=== PATIENT | female | born 1930 | race Caucasian/White ===

== ENCOUNTER 2020-01-30 03:20 | Inpatient (IN) | payer MEDICARE, OTHER ==
[~2020-01-30] VITALS: Ht 162.6 cm; Wt 49.4 kg
[2020-01-30] VITALS (9 sets, daily range): BP systolic 144–184; BP diastolic 50–100
--- NOTE | 2020-01-30 03:34 | NUR ---
ED Nurse Note: pt presents to ED from [facility] for SOB and cough. per EMS, the SOB began today, pt was put on 2L O2 by paramedics, she is not regularly O2 dependent at facility. EMS also report a productive cough and vomiting. pt was recenly hospitalized for pneumonia. Pt is here for covid rule out.
--- NOTE | 2020-01-30 03:36 | NUR ---
ED Nurse Note: pt satting at 92% on RA, placed back onto 2L O2 Nasal cannula, satting at 99%. pt has audible wheezes
--- NOTE | 2020-01-30 03:44 | Emergency Room Report ---
History of Present Illness General Chief Complaint: Upper Respiratory Illness Source: Medical Record, EMS Present Illness HPI This is an 89-year-old female with history of CVA, dementia, high blood pressure and multiple other medical problems. She presents with chief complaint of fever and cough. She come from a custodial. Onset today. Fever is low-grade. Cough is nonproductive nature. Decreased appetite. No nausea no vomiting. Denies any other complaint. History limited because of her nonverbal state Allergies: Coded Allergies: No Known Allergies (Unverified , 01/30/20) COVID-19 Screening Contact w/high risk pt: Yes Recent Travel to affected area: No Experienced COVID-19 symptoms?: Yes COVID-19 symptoms experienced: Cough Patient History Past Medical History: see triage record, old chart reviewed, HTN, CVA/TIA, dementia Review of Systems Constitutional: Reports: fever, weakness Respiratory: Reports: cough All Other Systems: limited - Patient is nonverbal Physical Exam Vital Signs Date Time Temp Pulse Resp B/P (MAP) Pulse Ox O2 Delivery O2 Flow Rate FiO2 01/30/20 03:23 99.5 86 26 152/100 (117) 97 Room Air Vitals with high blood pressure Sp02 EP Interpretation: reviewed, normal General Appearance: no apparent distress, alert, Chronically Ill Head: normocephalic, atraumatic Eyes: bilateral eye PERRL, bilateral eye EOMI ENT: hearing grossly normal, normal pharynx Neck: full range of motion, supple, no meningismus Respiratory: chest non-tender, lungs clear, normal breath sounds Cardiovascular #1: regular rate, rhythm, no murmur Gastrointestinal: normal bowel sounds, non tender, no mass, no organomegaly, no bruit, non-distended, other - G-tube Musculoskeletal: back normal, normal range of motion Psychiatric: mood/affect normal Procedures Critical Care Time Critical Care Time Critical care is mandated in this patient who presented with suspected COVID pneumonia. Patient require my urgent intervention to attenuate the risks of metabolic collapse which may lead to cardiovascular collapse and . Critical care time is 35 minutes excluding any reportable procedure. Critical care time included evaluation, multiple reevaluation, looking at old charts, interpreting laboratory and diagnostic data, discussing case with patient and family and consultants, and charting. Medical Decision Making Diagnostic Impression: Primary Impression: Suspected 2019 novel coronavirus infection Additional Impressions: HCAP (healthcare-associated pneumonia) SARWAT (acute kidney injury) Hyperglycemia due to type 2 diabetes mellitus Qualified Codes: E11.65 - Type 2 diabetes mellitus with hyperglycemia; Z79.4 - long term (current) use of insulin UTI (urinary tract infection) Qualified Codes: N30.00 - Acute cystitis without hematuria ER Course Patient presents with fever and cough. Chest x-ray concerning for interstitial infiltrates. She is from a custodial and in the midst of COVID pandemic, she suspect to have covered pneumonia. Antibiotics given. I started her on hydroxychloroquine also. No evidence of prolonged QT interval on the EKG. Antibiotics also given. Will admit for further work-up. I discussed the case with Dr. Zeng for admission. EKG Diagnostic Results Rate: normal Rhythm: NSR ST Segments: no acute changes Rhythm Strip Diag. Results EP Interpretation: yes Rate: 62 Rhythm: NSR, no PVC's, no ectopy Chest X-Ray Diagnostic Results Chest X-Ray Diagnostic Results : Chest X-Ray Ordered: Yes # of Views/Limited/Complete: 1 View Indication: Shortness of Breath EP Interpretation: Yes Interpretation: no effusion, no pneumothorax, other - Right lower lobe into tissue infiltrates Impression: Other - Interstitial infiltrate Electronically Signed by: Andrzej Stone MD Last Vital Signs Date Time Temp Pulse Resp B/P (MAP) Pulse Ox O2 Delivery O2 Flow Rate FiO2 01/30/20 03:36 99.0 89 26 152/100 97 Room Air Status: improved Disposition: ADMITTED INPATIENT Condition: Serious Andrzej Stone MD January 30, 2020 03:44
[2020-01-30] MEDS ORDERED: Acetaminophen 500mg (ES) tab ORAL ONE (03:45)
[2020-01-30] MEDS ORDERED: ELIQUIS2.5 MG GT (03:46)
[2020-01-30] MEDS ORDERED: LISINOPRIL20 MG GT (03:46)
[2020-01-30] MEDS ORDERED: NORCO 5-325 TA1 EAC1 GT (03:46)
[2020-01-30] MEDS ORDERED: PROTONIX40 MG GT (03:46)
[2020-01-30] MEDS ORDERED: KAPSPARGO SPRI100 MG GT (03:46)
[2020-01-30] MEDS ORDERED: TYLENOL EXTRA500 MG GT (03:46)
[2020-01-30] MEDS ORDERED: LEVEMIR100 UNIT/1 SUBQ (03:46)
[2020-01-30] MEDS ORDERED: OMEPRAZOLE20 M3 GT (03:46)
[2020-01-30] MEDS ORDERED: JANUVIA25 MG GT (03:46)
[2020-01-30] MEDS ORDERED: DIGOXIN0.125 MG/2 GT (03:46)
[2020-01-30] MEDS ORDERED: GLIMEPIRIDE1 MG GT (03:46)
[2020-01-30] MEDS ORDERED: AMIODARONE HCL400 M1 GT (03:46)
--- NOTE | 2020-01-30 03:50 | NUR ---
ED Nurse Note: pt has G-tube noted and some redness to coccyx/sacral region. pt was cleaned, and dried, urine sample obtained via straight cath per ERMD verbal order. pt is non-verbal but awake and alert, can communicate via groans and nods. pt is noted to be hypertensive at 174/80
[2020-01-30 04:27] LABS: BILIRUBIN, URINE NEGATIVE (NEGATIVE); COLOR,URINE PALE YELLOW; GLUCOSE, URINE (UA) 4+ (NEGATIVE); KETONES,URINE NEGATIVE (NEGATIVE); LEUKOCYTE ESTERASE ,URINE 3+ (NEGATIVE); NITRITE,URINE NEGATIVE (NEGATIVE); PH,URINE 7 (4.5-8.0); PROTEIN,URINE 4+ (NEGATIVE); UROBILINOGEN,URINE NORMAL MG/DL (0.0-1.0)
[2020-01-30 04:43] LABS: APPEARANCE,URINE CLOUDY
[2020-01-30 04:45] LABS: HEMATOCRIT 47.8 % (37.0-47.0); HEMOGLOBIN 15.3 G/DL (12.0-16.0); MEAN CORPUSCULAR VOLUME 86 FL (80-99); PLATELET COUNT 180 K/UL (150-450); RED BLOOD COUNT 5.56 M/UL (4.20-5.40); RED CELL DISTRIBUTION WIDTH 14.5 % (11.6-14.8); WHITE BLOOD COUNT 11.3 K/UL (4.8-10.8)
[2020-01-30 04:46] LABS: ANION GAP 3 mmol/L (5-15); BLOOD UREA NITROGEN 46 mg/dL (7-18); CARBON DIOXIDE 34 MMOL/L (21-32); CHLORIDE 101 MMOL/L (98-107); CREATININE 1.6 MG/DL (0.55-1.30); POTASSIUM 5.6 MMOL/L (3.5-5.1); SODIUM 138 MMOL/L (136-145)
[2020-01-30 04:59] LABS: ALANINE AMINOTRANSFERASE 30 U/L (12-78); ALBUMIN/GLOBULIN RATIO 0.6 (1.0-2.7); ALKALINE PHOSPHATASE 102 U/L (46-116); ASPARTATE AMINO TRANSFERASE 39 U/L (15-37); BILIRUBIN,TOTAL 0.6 MG/DL (0.2-1.0); CKMB 1.5 NG/ML (0.0-3.6); CREATINE KINASE 55 U/L (26-308)
[2020-01-30] MEDS ORDERED: cefTRIAXone 1 GM in NS 55 ML IVPB ONE (05:15)
[2020-01-30] MEDS ORDERED: Azithromycin 500 MG in NS 275 ML IV ONE (05:15)
[2020-01-30] MEDS ORDERED: Enoxaparin 60mg Inj SUBQ ONE (05:45)
--- NOTE | 2020-01-30 05:59 | NUR ---
ED Nurse Note: pt is resting in bed, does not appear to be in any distress at this time. pt is on 2L O2 NC, satting at 100%. pt remains hypertensive at 184/52. ERMD is aware. pt has IV fluids and abx running per ERMD orders. oral temp recheck is 98.2. will continue to monitor pt and prepare for admission
--- NOTE | 2020-01-30 06:18 | Diagnostic Imaging Report ---
EXAM: XR Chest, 1 View CLINICAL HISTORY: SOB TECHNIQUE: Frontal view of the chest. COMPARISON: None. FINDINGS: Lungs: Very minimal patchy airspace disease is noted in the right mid lower lung zones. Very minimal patchy airspace disease is noted at the left lung base. Pleural space: Unremarkable. No pneumothorax. Heart: Cardiomegaly. Mediastinum: Unremarkable. Bones/joints: Osteopenia. Vasculature: Atherosclerotic disease of the thoracic aorta. Upper abdomen: There is elevation of the right hemidiaphragm. IMPRESSION: 1. Elevation of the right hemidiaphragm. 2. Areas of patchy airspace disease particularly in the right mid lower lung zones of uncertain etiology. 3. Atypical pneumonia such as early Covid-19 pneumonia cannot be excluded and clinical correlation is advised.
--- NOTE | 2020-01-30 07:05 | NUR ---
ED Nurse Note: Received report from Preethi MARR
--- NOTE | 2020-01-30 07:05 | NUR ---
ED Nurse Note: Patient resting in bed, on the entertainer or variety artist, no s/s of acute distress. Bed in lowest position. Breathing even and unlabored on 2L NC, O2 sat 100%
--- NOTE | 2020-01-30 07:45 | NUR ---
ED Nurse Note: Report given to Mary MARR.
--- NOTE | 2020-01-30 07:57 | NUR ---
ED Nurse Note: Marixa:
[2020-01-30] MEDS ORDERED: Eliquis 2.5mg tablet GT SCH (09:00)
[2020-01-30] MEDS ORDERED: Amiodarone 200mg tab GT SCH (09:00)
[2020-01-30] MEDS ORDERED: Acetaminophen 500mg (ES) tab ORAL PRN (09:00)
--- NOTE | 2020-01-30 09:30 | NUR ---
TRANSFER TO FLOOR: Patient transferred to Telemetry by RN and pump house technician. Report given to Carmen MARR. Patient in no acute distress, belongings and belonging list given to Junior MARR
--- NOTE | 2020-01-30 10:00 | NUR ---
NURSE NOTES: Received report from TEJINDER Meredith @ ER. The patient came from [facility] for shortness of breath and cough to rule out COVID-19. The patient's belongings checked with the patient and two nurses but the patient is unable to sign. Medical, surgical, allergy, and social history taken from the medical record from long term. Admitting EKG strip obtained. Medication reconciliation completed @ ER. The patient's swab for VRE, CRE, MRSA, and COVID-19 completed @ ER. The patient has R AC 20G and L AC 20G that is intact and patent. The patient's POLST of DNR at the patient's binder and clarified to Dr. Simmons. Vital signs noted. Skin issue on sacrum noted and optifoam applied. Will continue plan of care.
[2020-01-30] MEDS: sitaGLIPtin 50mg tab ORAL SCH (10:18)
[2020-01-30] MEDS: D5 1/2NS 1,000 ML IV SCH ×2 (10:18→22:30)
[2020-01-30] MEDS: Piperacillin/Tazobactam 3.375 GM in NS 110 ML IVPB SCH ×2 (10:18→21:00)
[2020-01-30] MEDS ORDERED: Sodium Polystyrene Sulfonate 15gm Powder GT SCH (10:45)
--- NOTE | 2020-01-30 11:00 | NUR ---
NURSE NOTES: Notified Dr. Simmons regarding abnormal lab including WBC, D-dimer, Potassium, BUN, Cr, Glucose, Troponin, and CRP. Dr. Simmons ordered Kayaxalate 30gm for hyperkalemia. Will continue plan of care.
[2020-01-30] MEDS ORDERED: Vancomycin 1gm in D5W 275ml IVPB SCH (12:00)
--- NOTE | 2020-01-30 12:00 | NUR ---
NURSE NOTES: The patient is stable without acute distress or shortness of breath. The patient is tolerating 2L NC well. Will closely monitor the patient. Will continue plan of care.
[2020-01-30] MEDS: NovoLOG Insulin Flexpen SUBQ SCH ×3 (12:16→21:00)
[2020-01-30] MEDS ORDERED: Lisinopril 20mg tab ORAL SCH (12:30)
--- NOTE | 2020-01-30 14:00 | NUR ---
NURSE NOTES: Obtained order for PRN hypertension medication of Clonidine 0.1mg. Will continue plan of care.
--- NOTE | 2020-01-30 16:30 | NUR ---
NURSE NOTES: The patient is stable without acute distress or shortness of breath. Tolerating 2L NC well. The patient is still being confused and screaming. Blood glucose of 233 noted. Novolog given per order. Will closely monitor the patient.
--- NOTE | 2020-01-30 17:00 | History and Physical Report ---
DATE OF ADMISSION: 01/30/2020 CHIEF COMPLAINT: Pneumonia, rule out COVID-19. HISTORY OF PRESENT ILLNESS: The patient is an 89-year-old female, known to me from prior admissions outside hospital. She has a history of dementia, dysphagia, paroxysmal atrial fibrillation, hypertension, and chronic kidney disease. She was transferred from a retirement facility with complaints of cough, congestion, and shortness of breath. On evaluation in the emergency room, she had patchy airspace disease in the right mid lower lung zones consistent with possible atypical pneumonia or viral pneumonia. The patient has been pancultured, is now admitted for further evaluation and care. She is currently awake, but she is confused at baseline. She appears to be in no distress. She does not really follow commands. She only moans and screams out. PAST MEDICAL HISTORY: As above. PAST SURGICAL HISTORY: None. CURRENT MEDICATIONS: Reconciled and reviewed. ALLERGIES: None. FAMILY HISTORY: Unknown. SOCIAL HISTORY: There is no known history of tobacco, ethanol, or drugs. REVIEW OF SYSTEMS: From the patient is unobtainable per staff at the retirement facility that the patient has had cough, congestion, and fever. PHYSICAL EXAMINATION: VITAL SIGNS: Temperature 98, pulse 63, respirations 22, blood pressure 179/54. GENERAL: The patient is an elderly female, in no apparent distress. She is awake, but somewhat anxious and agitated. HEENT: Her pupils are equal, round, reactive to light. Oropharynx is clear. Mucous membranes are moist. NECK: Supple. There is no jugular venous distention. HEART: Regular rate and rhythm without murmurs, rubs, or gallops. LUNGS: Clear to auscultation anteriorly. No wheezes or rales. ABDOMEN: Soft, nontender, nondistended. EXTREMITIES: Without clubbing, cyanosis, or edema. LABORATORY DATA: Sodium 138, potassium 5.6, chloride 101, bicarb 34, BUN 46, creatinine 1.6, glucose 329. C-reactive protein was 7.5, D-dimer is 1.5. UA showed too numerous to count wbc's. ASSESSMENT: This is an unfortunate elderly 89-year-old female with multiple medical problems and complaints of cough and congestion consistent with pneumonia, cannot rule out COVID-19 at this point. PROBLEM LIST: 1. Pneumonia. 2. Possible COVID-19 pneumonia. 3. UTI. 4. AFib. 5. Hypertension. 6. Azotemia. 7. Dehydration. 8. History of chronic kidney disease. 9. Diabetes. PLAN: Cautious hydration. Empiric antibiotic therapy to cover for sepsis, pneumonia, UTI. ID consultation will be obtained. Continue supplemental oxygen. Monitor Accu-Cheks. DVT and stress ulcer prophylaxis. The patient's status is currently guarded. Sesar Simmons M.D. DR: GLALO JOB#: [id number] CC:
--- NOTE | 2020-01-30 18:00 | NUR ---
NURSE NOTES: The patient is sleeping on the bed without acute distress or shortness of breath. Tolerating tube feeding well. Tolerating 2L NC well. Purewig on. Dressing on for sacrum redness. Will continue plan of care.
--- NOTE | 2020-01-30 19:20 | NUR ---
HAND-OFF: Report given to TEJINDER Guillory. The patient is stable without acute distress or shortness of breath. The patient is on stable condition. Endorsed plan of care.
--- NOTE | 2020-01-30 19:21 | NUR ---
NURSE NOTES: Got report from Carmen MARR. Pt in stable condition. No s/s of distress or discomfort noted. Pt resting in bed comfortably. Bed in low and locked position, call light within reach, bedside table within reach. Continue to monitor.
[2020-01-30] MEDS: Lisinopril 20mg tab GT SCH (21:00)
[2020-01-31] VITALS (7 sets, daily range): BP systolic 144–173; BP diastolic 53–99
--- NOTE | 2020-01-31 00:29 | Consultation ---
DATE OF CONSULTATION: 01/30/2020 PULMONARY CONSULTATION CONSULTING PHYSICIAN: Eduardo Zegn M.D. REASON FOR CONSULTATION: Pneumonia. HISTORY OF PRESENT ILLNESS: This is an 89-year-old female, presents with possible COVID related pneumonia. The patient seen and evaluated in the emergency room and placed on isolation. The patient does have a prior history of pneumonia and respiratory insufficiency. She has been in and out of outside facilities as well. She is fairly dependent and is a [facility] patient. The patient noted to have some fevers, nonproductive cough, reduced appetite, reduced mental status. The patient care discussed and reviewed and orders reviewed as well. PAST MEDICAL HISTORY: Notable for prior history of pneumonia, history of hypertension, history of dysrhythmias, atrial fibrillation, history of pleural effusions, history of aspiration, and history of diabetes. MEDICATIONS: Reviewed. ALLERGIES: Reviewed. SOCIAL HISTORY: Nonsmoker and nondrinker at present. She is a Do Not Resuscitate. She is a [facility] patient. REVIEW OF SYSTEMS: Unobtainable. FAMILY HISTORY: Not obtainable. MEDICATIONS: Reviewed and reconciled. ALLERGIES: Reviewed and reconciled. PHYSICAL EXAMINATION: GENERAL: An ill-appearing female, advanced age. VITAL SIGNS: Reviewed. Blood pressure 150/65, respirations 18, and sats 100% on 2 liters, temperature is 98. HEENT: Negative. NECK: Supple. EXTREMITIES: Grossly intact. LUNGS: With scattered rhonchi. Moderate air entry. CARDIAC: S1, S2. Slightly bradycardic. Soft systolic murmur. ABDOMEN: Soft, nontender, nondistended. EXTREMITIES: No cyanosis or clubbing. Mild edema. NEUROLOGICAL: Grossly nonfocal, weak diffusely and confused. LABORATORY DATA: Reviewed. White cell count 11.3, hematocrit 70, elevated potassium 5.6, BUN 46, creatinine 1.6, albumin is 3. C-reactive protein is elevated. IMPRESSION: 1. Pneumonia, possible COVID etiology. 2. Acute on chronic renal failure. 3. Elevated D-dimer. 4. Hyperkalemia and hyperglycemia. 5. Elevated inflammatory markers. 6. Mild protein-calorie malnutrition. 7. Mild leukocytosis. 8. Possible sepsis. 9. Dysrhythmias. 10. Toxic metabolic encephalopathy. RECOMMENDATIONS: Supportive care intravenous antibiotics, intravenous evaluation, isolation, empiric antibiotics. Respiratory care. Correct potassium. Monitor renal function. Monitor diabetes and we will follow clinically for future changes. Obtain family history. Ongoing care and management. Eduardo Zeng M.D. DR: RICHARD JOB#: [id number] CC:
[2020-01-31] MEDS: Glimepiride 1mg tab GT SCH (06:02)
[2020-01-31] MEDS: NovoLOG Insulin Flexpen SUBQ SCH ×4 (06:34→21:45)
[2020-01-31 07:20] LABS: BASOPHILS % (AUTO) 0.8 % (0.0-2.0); EOSINOPHILS % (AUTO) 6.7 % (0.0-3.0); HEMATOCRIT 29.6 % (37.0-47.0); HEMOGLOBIN 9.7 G/DL (12.0-16.0); LYMPHOCYTES % (AUTO) 18.4 % (20.0-45.0); MEAN CORPUSCULAR VOLUME 83 FL (80-99); MONOCYTES % (AUTO) 7.1 % (1.0-10.0); PLATELET COUNT 269 K/UL (150-450); RED BLOOD COUNT 3.58 M/UL (4.20-5.40); RED CELL DISTRIBUTION WIDTH 13.5 % (11.6-14.8); WHITE BLOOD COUNT 4.7 K/UL (4.8-10.8)
--- NOTE | 2020-01-31 07:45 | NUR ---
HAND-OFF: Report given to Nikhil MARR.
--- NOTE | 2020-01-31 07:46 | NUR ---
NURSE NOTES: Received patient in bed asleep. O2 via NC in place, no SOB or acute distress. IV lines intact and patent. Gtube intact, feeding ongoing. Purewick in place. HOB elevated. Bed locked in lowest position. Call light within reach. Will continue plan of care.
--- NOTE | 2020-01-31 07:56 | NUR ---
RD ASSESSMENT & RECOMMENDATIONS SEE CARE ACTIVITY FOR COMPLETE ASSESSMENT DAILY ESTIMATED NEEDS: Needs based on DM, wound/ 56.7kg 25-30 kcals/kg 9293-0979 total kcals 1.25-1.5 g protein/kg 70-84 g total protein 25-30 mL/kg 6374-9926 total fluid mLs NUTRITION DIAGNOSIS: * Swallowing difficulty R/T dysphagia as evidenced by GT dependent. * Altered nutrition related lab values R/T diabetes as evidenced by elev POC glu (241, 229, 233, 192) CURRENT TF:Glucerna 1.2 @ 60ml/hr x 20 hrs ENTERAL NUTRITION RECOMMENDATIONS: Glucerna 1.2 @ 60ml/hr x 20hrs to provide 1200ml, 1440kcal, 72g prot, 966ml free water * Maintain current TF - meets 100% est kcal/prot needs * HOB over 30 degrees * Without IVF, water flush of 150ml q 6 hrs ADDITIONAL RECOMMENDATIONS: * Calibrated bedscale wt for accurate CBW * DC D5 IVF once TF @ goal to prevent hyperglycemia * Monitor BGs, need for long acting insulin * Monitor K, need for renal TF formula (K 5.6 upon adm) * F/up w/ WC eval for sacral wound -> add vit C 250mg QD
--- NOTE | 2020-01-31 08:00 | NUR ---
NURSE NOTES: Feeding turned off.
[2020-01-31 08:13] LABS: ALANINE AMINOTRANSFERASE 14 U/L (12-78); ALBUMIN 2.3 G/DL (3.4-5.0); ALBUMIN/GLOBULIN RATIO 0.6 (1.0-2.7); ALKALINE PHOSPHATASE 66 U/L (46-116); ANION GAP 8 mmol/L (5-15); ASPARTATE AMINO TRANSFERASE 18 U/L (15-37); BILIRUBIN,TOTAL 0.3 MG/DL (0.2-1.0); BLOOD UREA NITROGEN 39 mg/dL (7-18); CALCIUM 8.4 MG/DL (8.5-10.1); CARBON DIOXIDE 30 MMOL/L (21-32); CHLORIDE 104 MMOL/L (98-107); CREATININE 1.5 MG/DL (0.55-1.30); POTASSIUM 3.5 MMOL/L (3.5-5.1); SODIUM 142 MMOL/L (136-145)
[2020-01-31] MEDS: sitaGLIPtin 50mg tab ORAL SCH (08:23)
[2020-01-31] MEDS: Lisinopril 20mg tab GT SCH ×2 (08:23→21:49)
[2020-01-31] MEDS: Piperacillin/Tazobactam 3.375 GM in NS 110 ML IVPB SCH ×2 (08:23→21:45)
[2020-01-31] MEDS: Eliquis 2.5mg tablet GT SCH (08:26)
[2020-01-31] MEDS: Amiodarone 200mg tab GT SCH (08:26)
[2020-01-31] MEDS ORDERED: Metoprolol Succinate XL 50mg tab ORAL SCH (09:00)
--- NOTE | 2020-01-31 09:02 | Pulmonology Progress Note ---
Assessment/Plan Assessment/Plan pneumonia rule out COVID SARWAT chronic encephalopathy severe PCM dementia PLAN care noted IV antibiotics monitor fluid status renal to see ID to see off load aspiration precautions follow up on COVID testing impression, plan, and exam edited and reviewed in detail care discussed with RN Subjective ROS Limited/Unobtainable: Yes Allergies: Coded Allergies: No Known Allergies (Unverified , 01/30/20) Subjective care reviewed some congestion findings noted Objective Last 24 Hour Vital Signs Date Time Temp Pulse Resp B/P (MAP) Pulse Ox O2 Delivery O2 Flow Rate FiO2 01/31/20 08:23 144/99 01/31/20 08:00 98.0 78 18 144/99 (114) 98 01/31/20 04:00 68 01/31/20 04:00 97.3 67 20 149/70 (96) 95 01/31/20 01:59 165/70 01/31/20 01:00 145/70 (95) 01/31/20 00:00 67 01/31/20 00:00 97.5 65 20 165/70 (101) 95 01/30/20 21:00 Nasal Cannula 2.0 01/30/20 21:00 150/60 01/30/20 20:00 97.8 57 18 150/60 (90) 95 01/30/20 20:00 65 01/30/20 16:00 98.1 58 18 144/65 (91) 98 01/30/20 16:00 56 01/30/20 14:39 Nasal Cannula 2.0 01/30/20 12:30 150/60 01/30/20 12:00 98.0 58 18 150/65 (93) 100 01/30/20 12:00 98.0 58 18 150/65 (93) 100 01/30/20 12:00 60 01/30/20 10:00 97.2 65 18 167/81 (109) 100 01/30/20 10:00 Nasal Cannula 2.0 01/30/20 09:30 98.1 64 19 174/56 100 Nasal Cannula 2.0 Intake and Output 01/30/20 01/31/20 19:00 07:00 Intake Total 280 ml Output Total 600 ml 1000 ml Balance -320 ml -1000 ml Intake Free Water 100 ml Tube Feeding 180 ml Output Urine Total 600 ml 1000 ml Objective WDWN NAD ill reduced breath sounds bilaterally with some rhonchi [id number] without MRG NABS nontender no HSM no CC mild edema confused nonfocal Microbiology Date/Time Source Procedure Growth Status 01/30/20 04:32 Nasal Nares - Final Complete 01/30/20 04:32 Nasal Nares - Final Complete 01/30/20 03:32 Urine,Clean Catch Urine Culture - Preliminary Resulted Laboratory Tests 01/31/20 05:49: White Blood Count 4.7#L, Red Blood Count 3.58L, Hemoglobin 9.7#L, Hematocrit 29.6#L, Mean Corpuscular Volume 83, Mean Corpuscular Hemoglobin 27.1, Mean Corpuscular Hemoglobin Concent 32.8, Red Cell Distribution Width 13.5, Platelet Count 269, Mean Platelet Volume 5.3L, Neutrophils (%) (Auto) 67.0, Lymphocytes ( %) (Auto) 18.4L, Monocytes (%) (Auto) 7.1, Eosinophils (%) (Auto) 6.7H, Basophils (%) (Auto) 0.8, Sodium Level 142, Potassium Level 3.5, Chloride Level 104, Carbon Dioxide Level 30, Anion Gap 8, Blood Urea Nitrogen 39H, Creatinine 1.5H, Estimat Glomerular Filtration Rate 32.8, Glucose Level 276H, Calcium Level 8.4L, Magnesium Level 1.9, Total Bilirubin 0.3, Aspartate Amino Transf ( AST/SGOT) 18, Alanine Aminotransferase (ALT/SGPT) 14, Alkaline Phosphatase 66, Total Protein 6.4, Albumin 2.3L, Globulin 4.1, Albumin/Globulin Ratio 0.6L Current Medications Medications (Trade) Dose Ordered Sig/Jazmine Route PRN Reason Start Time Stop Time Status Last Admin Dose Admin Acetaminophen (Tylenol) 500 mg Q4H PRN ORAL MILD/TEMP 01/30/20 09:00 02/29/20 08:59 Amiodarone HCl (Cordarone) 200 mg DAILY GT 01/31/20 09:00 04/29/20 08:59 01/31/20 08:26 Apixaban (Eliquis) 2.5 mg DAILY GT 01/31/20 09:00 04/29/20 08:59 01/31/20 08:26 Clonidine HCl (Catapres Tab) 0.1 mg Q4H PRN GT For High Blood Pressure 01/30/20 14:00 04/29/20 13:59 01/31/20 01:59 Dextrose (Dextrose 50%) 25 ml Q30M PRN IV Hypoglycemia 01/30/20 09:00 04/29/20 08:59 Dextrose (Dextrose 50%) 50 ml Q30M PRN IV Hypoglycemia 01/30/20 09:00 04/29/20 08:59 Dextrose/Sodium Chloride 1,000 ml @ 75 mls/hr [id number] IV 01/30/20 09:00 02/29/20 08:59 01/30/20 22:30 Glimepiride (AmaryL) 2 mg BEFORE BREAKFAST GT 01/31/20 06:30 03/01/20 06:29 01/31/20 06:02 Insulin Aspart (NovoLOG) BEFORE MEALS AND HS SUBQ 01/30/20 11:30 04/29/20 11:29 01/31/20 06:34 Lisinopril (PriniviL) 20 mg Q12HR GT 01/30/20 21:00 02/29/20 12:29 01/31/20 08:23 Pantoprazole (Protonix) 40 mg DAILY ORAL 01/30/20 09:00 02/29/20 08:59 01/31/20 08:23 Piperacillin Sod/ Tazobactam Sod 3.375 gm/Sodium Chloride 110 ml @ 27.5 mls/hr Q12HR IVPB 01/30/20 09:00 02/06/20 08:59 01/31/20 08:23 Sitagliptin Phosphate (Januvia) 50 mg DAILY ORAL 01/30/20 09:00 02/29/20 08:59 01/31/20 08:23 Vancomycin HCl (Vanco rx to dose) 1 ea DAILY PRN MISC Per rx protocol 01/30/20 09:00 02/29/20 08:59 Eduardo Zeng MD January 31, 2020 09:02
--- NOTE | 2020-01-31 09:59 | NUR ---
*-* INSURANCE *-* ALL AVAILABLE CLINICALS HAVE BEEN FAXED TO: [employer] # [phone] FAX# [phone] REVIEWS/CLINICALS
--- NOTE | 2020-01-31 10:21 | NUR ---
NURSE NOTES: Dr Simmons made aware of latest lab values wbc 4.7, hgb 9.7 and hct 29.6, awaiting response. Addendum: 01/31/20 at 1443 by Kamryn Cooney RN No new orders from Dr Simmons.
--- NOTE | 2020-01-31 11:34 | NUR ---
DANCING TEACHER BEDSIDE SWALLOW EVAL Please see care activity section for complete report. PT WAS REFERRED FOR BEDSIDE SWALLOW EVALUATION BY: Dr. Simmons DYSPHAGIA RISK FACTORS FOR THIS 89 Y.O. FEMALE. ACUTE ISSUES C/o cough, SOB, instances of vomiting x2, Covid-19 PNA, COPD w/ exacerbation, unspecified asthma COMORBIDITIES GERD w/o Esophagitis, DM2, unspecified systolic heart failure, HDL, adult failure to thrive, dysphagia, Autistic d/o, CKD, Dementia, paroxysmal A-FIB, HTN. PER CXR ON 01/30/20: Patchy airspace disease in right mid lower lung zones consistent w/ possible atypical PNA or viral PNA RELEVANT MEDICATIONS: n/a PRIOR FUNCTION: Per [facility] notes, Pt was receiving DANCING TEACHER intervention at facility for OP dysphagia. VITALS: HR 86 bpm; RESPIRATORY RATE 26 bpm; SPO2 98% SPEECH/LANGUAGE Pt intermittently moans, no attempts to communicate wants and needs Pt has PEG, (Glucerna 1.2 @ 60 mL/hour) as primary nutrition/hydration. Pt is not alert, seen sleeping supine in bed. Pt is on room air, appears comfortable. INITIAL IMPRESSIONS: PROBABLE MODERATE ORAL AND PHARYNGEAL PHASE DYSPHAGIA COMPOUNDED BY PTS RESPIRATORY FUNCTION (H/O COPD W/ EXACERBATION, ASTHMA, ACUTE PNA [VIRAL VS ATYPICAL]) AND EXACERBATED BY NEUROLOGICAL DX (DEMENTIA, AUTISTIC D/O). Pt does not follow directions consistently. Given Pt's h/o dysphagia s/p PEG, autistic d/o, respiratory status, and inability to consistently follow commands, Pt will require a Modified Barium Swallow Evaluation to objectively evaluate swallow physiology and efficiency and r/o silent aspiration. Recommendations: Continue NPO w/ primary nutrition/hydration and medication management via PEG Please assist Pt w/ oral hygiene TID w/ suction. HOB needs to be >45 degrees w/ feeding running Skilled dysphagia tx and management 3x a week Await Pt's clearance from COVID-19 to complete MBSS as an IP or OP (if d/c)
[2020-01-31] MEDS: D5 1/2NS 1,000 ML IV SCH (11:59)
--- NOTE | 2020-01-31 12:00 | NUR ---
NURSE NOTES: Feeding turned on.
--- NOTE | 2020-01-31 14:30 | NUR ---
NURSE NOTES: No residual noted. Feeding increased to 60 ml/hr.
--- NOTE | 2020-01-31 15:42 | General Progress Note ---
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 Follow-up pending cultures. ID consultation. Chest x-ray. Await COVID-19 PCR. Cautious hydration. G-tube feedings. Monitor residuals. DVT and stress ulcer prophylaxis. PRN anxiolytics. Restraints as needed. Remains guarded. Discussed with consultants Subjective ROS Limited/Unobtainable: Yes Constitutional: Reports: malaise, weakness HEENT: Reports: no symptoms Cardiovascular: Reports: no symptoms Respiratory: Reports: cough Gastrointestinal/Abdominal: Reports: difficulty swallowing Genitourinary: Reports: no symptoms Neurologic/Psychiatric: Reports: pre-existing deficit Endocrine: Reports: no symptoms Hematologic/Lymphatic: Reports: anemia Allergies: Coded Allergies: No Known Allergies (Unverified , 01/30/20) All Systems: reviewed and negative except above Subjective There were no significant overnight events. Patient remained stable on supplemental oxygen. She is awake but confused at baseline. No fevers noted. Decreased H&H noted. No signs or symptoms of bleeding. On IV antibiotics. Cultures negative so far. BP trending on the high side. Tolerating feedings. No residuals noted Objective Last 24 Hour Vital Signs Date Time Temp Pulse Resp B/P (MAP) Pulse Ox O2 Delivery O2 Flow Rate FiO2 01/31/20 12:00 72 01/31/20 12:00 98.5 74 18 169/90 (116) 96 01/31/20 09:00 Nasal Cannula 2.0 01/31/20 08:23 144/99 01/31/20 08:00 98.0 78 18 144/99 (114) 98 01/31/20 08:00 73 01/31/20 04:00 68 01/31/20 04:00 97.3 67 20 149/70 (96) 95 01/31/20 01:59 165/70 01/31/20 01:00 145/70 (95) 01/31/20 00:00 67 01/31/20 00:00 97.5 65 20 165/70 (101) 95 01/30/20 21:00 Nasal Cannula 2.0 01/30/20 21:00 150/60 01/30/20 20:00 97.8 57 18 150/60 (90) 95 01/30/20 20:00 65 01/30/20 16:00 98.1 58 18 144/65 (91) 98 01/30/20 16:00 56 Intake and Output 01/30/20 01/31/20 19:00 07:00 Intake Total 280 ml Output Total 600 ml 1000 ml Balance -320 ml -1000 ml Intake Free Water 100 ml Tube Feeding 180 ml Output Urine Total 600 ml 1000 ml Laboratory Tests 01/31/20 05:49: White Blood Count 4.7#L, Red Blood Count 3.58L, Hemoglobin 9.7#L, Hematocrit 29.6#L, Mean Corpuscular Volume 83, Mean Corpuscular Hemoglobin 27.1, Mean Corpuscular Hemoglobin Concent 32.8, Red Cell Distribution Width 13.5, Platelet Count 269, Mean Platelet Volume 5.3L, Neutrophils (%) (Auto) 67.0, Lymphocytes ( %) (Auto) 18.4L, Monocytes (%) (Auto) 7.1, Eosinophils (%) (Auto) 6.7H, Basophils (%) (Auto) 0.8, Sodium Level 142, Potassium Level 3.5, Chloride Level 104, Carbon Dioxide Level 30, Anion Gap 8, Blood Urea Nitrogen 39H, Creatinine 1.5H, Estimat Glomerular Filtration Rate 32.8, Glucose Level 276H, Calcium Level 8.4L, Magnesium Level 1.9, Total Bilirubin 0.3, Aspartate Amino Transf ( AST/SGOT) 18, Alanine Aminotransferase (ALT/SGPT) 14, Alkaline Phosphatase 66, Total Protein 6.4, Albumin 2.3L, Globulin 4.1, Albumin/Globulin Ratio 0.6L Height (Feet): 5 Height (Inches): 4.00 Weight (Pounds): 125 General Appearance: WD/WN, alert, confused EENT: normal ENT inspection Neck: normal alignment, supple Cardiovascular: normal peripheral pulses, normal rate, regular rhythm Respiratory/Chest: chest wall non-tender, lungs clear, normal breath sounds, no respiratory distress, no accessory muscle use Abdomen: normal bowel sounds, non tender, soft, no organomegaly, no mass Extremities: normal range of motion Edema: no edema noted Arm (L), no edema noted Arm (R), no edema noted Leg (L), no edema noted Leg (R), no edema noted Pedal (L), no edema noted Pedal (R), no edema noted Generalized Neurologic: alert, disoriented Skin: normal pigmentation Sesar Simmons MD January 31, 2020 15:42
--- NOTE | 2020-01-31 15:58 | NUR ---
CASE MANAGEMENT:REVIEW 89 YR OLD FEMALE BIBA FROM [facility] CC: COUGH AND SOB SI: PNA. SUSPECTED COVID 19. UTI. SARWAT 99.5 86 26 152/100 97% ON RA WBC+11.3 K+5.6 BUN+46 CR+1.6 IS: PLACED ON 2L/NC 1L NS BOLUS TYLENOL PO IV ROCEPHIN IV AZITHROMYCIN LOVENOX SQ URINE CX CHEST XRAY BLOOD CX CHEST XRAY : TO TELEMETRY
[2020-01-31] MEDS ORDERED: ACETAMINOPHEN325 M1 GT (17:51)
[2020-01-31] MEDS ORDERED: DIGOXIN125 MCG GT (17:53)
--- NOTE | 2020-01-31 19:13 | NUR ---
HAND-OFF: Report given to Max MARR.
--- NOTE | 2020-01-31 19:15 | NUR ---
NURSE NOTES: Received report from TEJINDER Harry. AOx0-1. Patient noted to be loud when awake. on 2L oxygen per nasal cannula, saturating at 95%. Noted to have a sacral stage I; will continue WCP. on purewick, draining well. IV on RAC #20g, patent and flushed. Another IV on LAC #20g, also patent and flushed. On glucerna 1.2 #60 ml/hr to run until 08:00am. GT flushed and patent. Bed in lowest position, brakes engaged, bed rails raised x2. Call light placed within reach. Will continue to monitor.
[2020-02-01] VITALS: BP 183/78
[2020-02-01] MEDS: D5 1/2NS 1,000 ML IV SCH ×2 (00:26→14:16)
--- NOTE | 2020-02-01 01:23 | NUR ---
NURSE NOTES: Patient asleep, but arousable. IV intact and running. Feeding: Glucerna 1.2 @ 60ml/hr running. GT patent and flushed. Will continue to monitor.
[2020-02-01 04:00] VITALS: BP 142/74
[2020-02-01 05:07] LABS: BASOPHILS % (AUTO) 0.8 % (0.0-2.0); EOSINOPHILS % (AUTO) 1.7 % (0.0-3.0); HEMATOCRIT 35.2 % (37.0-47.0); HEMOGLOBIN 11.6 G/DL (12.0-16.0); MEAN CORPUSCULAR VOLUME 85 FL (80-99); MONOCYTES % (AUTO) 8.4 % (1.0-10.0); NEUTROPHILS % (AUTO) 77.1 % (45.0-75.0); PLATELET COUNT 132 K/UL (150-450); RED BLOOD COUNT 4.13 M/UL (4.20-5.40); RED CELL DISTRIBUTION WIDTH 14.2 % (11.6-14.8); WHITE BLOOD COUNT 6.7 K/UL (4.8-10.8)
[2020-02-01 05:24] LABS: ALANINE AMINOTRANSFERASE 15 U/L (12-78); ALBUMIN 2.3 G/DL (3.4-5.0); ALBUMIN/GLOBULIN RATIO 0.6 (1.0-2.7); ALKALINE PHOSPHATASE 63 U/L (46-116); ANION GAP 10 mmol/L (5-15); ASPARTATE AMINO TRANSFERASE 16 U/L (15-37); BILIRUBIN,TOTAL 0.3 MG/DL (0.2-1.0); BLOOD UREA NITROGEN 32 mg/dL (7-18); CARBON DIOXIDE 31 MMOL/L (21-32); CHLORIDE 104 MMOL/L (98-107); CREATININE 1.5 MG/DL (0.55-1.30); POTASSIUM 2.9 MMOL/L (3.5-5.1); SODIUM 145 MMOL/L (136-145)
[2020-02-01] MEDS: Glimepiride 1mg tab GT SCH (06:11)
[2020-02-01] MEDS: NovoLOG Insulin Flexpen SUBQ SCH ×4 (06:11→20:46)
--- NOTE | 2020-02-01 07:00 | NUR ---
NURSE NOTES: Received report from TEJINDER Santana. Observed pt sleeping, no s/sx pf acute distress. Tube feeding running at goal, will turn it off for 4 hours bet 8A-12N as ordered. IV sites patent and asymptomatic, running IVF at 75ml/hr. Bed on lowest position, call light within reach. Will continue plan of care.
--- NOTE | 2020-02-01 07:36 | NUR ---
HAND-OFF: Report given to nik ramos. plan of care endorsed.
[2020-02-01 08:00] VITALS: BP 188/75
[2020-02-01] MEDS ORDERED: Vancomycin 1gm/D5W 275ml IVPB ONE ×2 (08:00)
--- NOTE | 2020-02-01 08:27 | NUR ---
NURSE NOTES: Informed Dr Simmons that pt has negative covid result (5/). Also reported labs of K 2.9 and glucose 343. Awaiting for new orders.
[2020-02-01] MEDS: sitaGLIPtin 50mg tab ORAL SCH (08:52)
[2020-02-01] MEDS: Piperacillin/Tazobactam 3.375 GM in NS 110 ML IVPB SCH ×2 (08:52→20:41)
[2020-02-01] MEDS: Amiodarone 200mg tab GT SCH (08:52)
[2020-02-01] MEDS: Eliquis 2.5mg tablet GT SCH (08:52)
--- NOTE | 2020-02-01 08:52 | Pulmonology Progress Note ---
Assessment/Plan Assessment/Plan pneumonia negative COVID SARWAT chronic encephalopathy severe PCM dementia low K PLAN care noted IV antibiotics replace K monitor fluid status renal follow up ID to see off load aspiration precautions dc once stable and improved impression, plan, and exam edited and reviewed in detail care discussed with RN Subjective ROS Limited/Unobtainable: Yes Allergies: Coded Allergies: No Known Allergies (Unverified , 01/30/20) All Systems: reviewed and negative except above Subjective care reviewed noted congestion findings noted labs reviewed Objective Last 24 Hour Vital Signs Date Time Temp Pulse Resp B/P (MAP) Pulse Ox O2 Delivery O2 Flow Rate FiO2 02/01/20 08:00 97.9 76 20 188/75 (112) 93 02/01/20 04:00 98.2 74 19 142/74 (96) 95 02/01/20 04:00 71 02/01/20 00:25 183/78 02/01/20 00:00 98.0 76 19 183/78 (113) 94 02/01/20 00:00 74 01/31/20 21:49 157/53 01/31/20 21:00 Nasal Cannula 2.0 01/31/20 20:00 78 01/31/20 20:00 97.5 71 20 157/53 (87) 95 01/31/20 16:00 80 01/31/20 15:46 173/67 01/31/20 15:38 98.1 68 18 173/67 (102) 96 01/31/20 12:00 72 01/31/20 12:00 98.5 74 18 169/90 (116) 96 01/31/20 09:00 Nasal Cannula 2.0 Intake and Output 01/31/20 02/01/20 19:00 07:00 Intake Total 450 ml 185.0 ml Output Total 750 ml 400 ml Balance -300 ml -215.0 ml IV Total 450 ml 185.0 ml Output Urine Total 750 ml 400 ml Objective WDWN NAD ill reduced breath sounds bilaterally with occ rhonchi [id number] without MRG NABS nontender no HSM no CC mild edema confused nonfocal reviewed and edited Microbiology Date/Time Source Procedure Growth Status 01/30/20 03:30 Blood Blood Culture - Preliminary NO GROWTH AFTER 24 HOURS Resulted 01/30/20 03:30 Blood Blood Culture - Preliminary NO GROWTH AFTER 24 HOURS Resulted 01/30/20 04:32 Nasal Nares - Final Complete 01/30/20 04:32 Nasal Nares - Final Complete 01/30/20 04:00 Nasopharynx Coronavirus COVID-19 PCR (AUDI) - Final Complete 01/30/20 03:32 Urine,Clean Catch Urine Culture - Final Strep Agalactiae Group B Complete Laboratory Tests 02/01/20 04:00: White Blood Count 6.7, Red Blood Count 4.13L, Hemoglobin 11.6L, Hematocrit 35.2L , Mean Corpuscular Volume 85, Mean Corpuscular Hemoglobin 28.1, Mean Corpuscular Hemoglobin Concent 33.0, Red Cell Distribution Width 14.2, Platelet Count 132#L, Mean Platelet Volume 9.8, Neutrophils (%) (Auto) 77.1H, Lymphocytes (%) (Auto) 12.0L, Monocytes (%) (Auto) 8.4, Eosinophils (%) (Auto) 1.7, Basophils (%) (Auto) 0.8, Sodium Level 145, Potassium Level 2.9L, Chloride Level 104, Carbon Dioxide Level 31, Anion Gap 10, Blood Urea Nitrogen 32H, Creatinine 1.5H, Estimat Glomerular Filtration Rate 32.8, Glucose Level 343H, Calcium Level 8.0L, Total Bilirubin 0.3, Aspartate Amino Transf (AST/SGOT) 16, Alanine Aminotransferase (ALT/SGPT) 15, Alkaline Phosphatase 63, Total Protein 6.1L, Albumin 2.3L, Globulin 3.8, Albumin/Globulin Ratio 0.6L, Random Vancomycin Level 7.5 Current Medications Medications (Trade) Dose Ordered Sig/Jazmine Route PRN Reason Start Time Stop Time Status Last Admin Dose Admin Acetaminophen (Tylenol) 500 mg Q4H PRN ORAL MILD/TEMP 01/30/20 09:00 02/29/20 08:59 Amiodarone HCl (Cordarone) 200 mg DAILY GT 01/31/20 09:00 04/29/20 08:59 01/31/20 08:26 Apixaban (Eliquis) 2.5 mg DAILY GT 01/31/20 09:00 04/29/20 08:59 01/31/20 08:26 Clonidine HCl (Catapres Tab) 0.1 mg Q4H PRN GT For High Blood Pressure 01/30/20 14:00 04/29/20 13:59 02/01/20 00:25 Dextrose (Dextrose 50%) 25 ml Q30M PRN IV Hypoglycemia 01/30/20 09:00 04/29/20 08:59 Dextrose (Dextrose 50%) 50 ml Q30M PRN IV Hypoglycemia 01/30/20 09:00 04/29/20 08:59 Dextrose/Sodium Chloride 1,000 ml @ 75 mls/hr [id number] IV 01/30/20 09:00 02/29/20 08:59 02/01/20 00:26 Glimepiride (AmaryL) 2 mg BEFORE BREAKFAST GT 01/31/20 06:30 03/01/20 06:29 02/01/20 06:11 Insulin Aspart (NovoLOG) BEFORE MEALS AND HS SUBQ 01/30/20 11:30 04/29/20 11:29 02/01/20 06:11 Lisinopril (PriniviL) 20 mg Q12HR GT 01/30/20 21:00 02/29/20 12:29 01/31/20 21:49 Pantoprazole (Protonix) 40 mg DAILY ORAL 01/30/20 09:00 02/29/20 08:59 01/31/20 08:23 Piperacillin Sod/ Tazobactam Sod 3.375 gm/Sodium Chloride 110 ml @ 27.5 mls/hr Q12HR IVPB 01/30/20 09:00 02/06/20 08:59 01/31/20 21:45 Sitagliptin Phosphate (Januvia) 50 mg DAILY ORAL 01/30/20 09:00 02/29/20 08:59 01/31/20 08:23 Vancomycin HCl (Vanco rx to dose) 1 ea DAILY PRN MISC Per rx protocol 01/30/20 09:00 02/29/20 08:59 Vancomycin HCl 1 gm/Dextrose 275 ml @ 183.708 mls/hr ONCE ONCE IVPB 02/01/20 08:00 02/01/20 09:29 Eduardo Zeng MD February 01, 2020 08:52
[2020-02-01] MEDS: Lisinopril 20mg tab GT SCH ×2 (08:53→20:43)
--- NOTE | 2020-02-01 09:26 | NUR ---
CASE MANAGEMENT:REVIEW 02/01/20 SI: PNEUMONIA. NEGATIVE COVID 97.9 76 20 188/75 93% ON 2L H/H-11.6/35.2 PLT-132 K-2.9 BUN+32 CR+1.5 IS: IV VANCOMYCIN X1 IV ZOSYN Q12 IVF@75/HR AMIODARONE GT QD ELIQUIS GT QD LISINOPRIL GT Q12 PROTONIX GT QD : TELEMETRY STATUS DCP: FROM [facility]
--- NOTE | 2020-02-01 10:50 | NUR ---
NURSE NOTES:WOUND CARE NOTES:Pt presented on admission with MASD cleft of Buttocks. Non-blanching erythema with maceration noted. Tx.Plan: Apply Moisture Barrier Paste to cleft of Buttocks with each incontinence care. Cover Sacrum with Optifoam drsg. Change every 3 days and prn. Reposition at least every 2hours or as tolerated. Off-load heels with Pillow.
--- NOTE | 2020-02-01 11:50 | NUR ---
*-* INSURANCE *-* ALL AVAILABLE CLINICALS HAVE BEEN FAXED TO: [facility]:REA # [phone] FAX# [phone] REVIEWS/CLINICALS Addendum: 02/01/20 at 1321 by JOSE RAMON UNDERWOOD CM Ref# [id number]
[2020-02-01 12:00] VITALS: BP 161/60
--- NOTE | 2020-02-01 12:23 | General Progress Note ---
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 Follow-up pending cultures. ID consultation. Chest x-ray. Cautious hydration. replace k. G-tube feedings. Monitor residuals. DVT and stress ulcer prophylaxis. PRN anxiolytics. Restraints as needed. Discussed with consultants Subjective ROS Limited/Unobtainable: No Constitutional: Reports: malaise, weakness HEENT: Reports: no symptoms Cardiovascular: Reports: no symptoms Respiratory: Reports: cough, shortness of breath Gastrointestinal/Abdominal: Reports: difficulty swallowing Genitourinary: Reports: no symptoms Neurologic/Psychiatric: Reports: pre-existing deficit Endocrine: Reports: no symptoms Hematologic/Lymphatic: Reports: no symptoms Allergies: Coded Allergies: No Known Allergies (Unverified , 01/30/20) All Systems: reviewed and negative except above Subjective There were no significant overnight events. Patient remained stable on supplemental oxygen. She is awake but confused at baseline. No fevers noted. low k, h/h stable. covid neg x 1 Objective Last 24 Hour Vital Signs Date Time Temp Pulse Resp B/P (MAP) Pulse Ox O2 Delivery O2 Flow Rate FiO2 02/01/20 09:00 Nasal Cannula 2.0 02/01/20 08:53 188/75 02/01/20 08:52 188/75 02/01/20 08:00 97.9 76 20 188/75 (112) 93 02/01/20 04:00 98.2 74 19 142/74 (96) 95 02/01/20 04:00 71 02/01/20 00:25 183/78 02/01/20 00:00 98.0 76 19 183/78 (113) 94 02/01/20 00:00 74 01/31/20 21:49 157/53 01/31/20 21:00 Nasal Cannula 2.0 01/31/20 20:00 78 01/31/20 20:00 97.5 71 20 157/53 (87) 95 01/31/20 16:00 80 01/31/20 15:46 173/67 01/31/20 15:38 98.1 68 18 173/67 (102) 96 Intake and Output 01/31/20 02/01/20 19:00 07:00 Intake Total 450 ml 185.0 ml Output Total 750 ml 400 ml Balance -300 ml -215.0 ml IV Total 450 ml 185.0 ml Output Urine Total 750 ml 400 ml Laboratory Tests 02/01/20 04:00: White Blood Count 6.7, Red Blood Count 4.13L, Hemoglobin 11.6L, Hematocrit 35.2L , Mean Corpuscular Volume 85, Mean Corpuscular Hemoglobin 28.1, Mean Corpuscular Hemoglobin Concent 33.0, Red Cell Distribution Width 14.2, Platelet Count 132#L, Mean Platelet Volume 9.8, Neutrophils (%) (Auto) 77.1H, Lymphocytes (%) (Auto) 12.0L, Monocytes (%) (Auto) 8.4, Eosinophils (%) (Auto) 1.7, Basophils (%) (Auto) 0.8, Sodium Level 145, Potassium Level 2.9L, Chloride Level 104, Carbon Dioxide Level 31, Anion Gap 10, Blood Urea Nitrogen 32H, Creatinine 1.5H, Estimat Glomerular Filtration Rate 32.8, Glucose Level 343H, Calcium Level 8.0L, Total Bilirubin 0.3, Aspartate Amino Transf (AST/SGOT) 16, Alanine Aminotransferase (ALT/SGPT) 15, Alkaline Phosphatase 63, Total Protein 6.1L, Albumin 2.3L, Globulin 3.8, Albumin/Globulin Ratio 0.6L, Random Vancomycin Level 7.5 Height (Feet): 5 Height (Inches): 4.00 Weight (Pounds): 125 General Appearance: WD/WN, confused, thin EENT: PERRL/EOMI, normal ENT inspection Neck: non-tender, normal alignment, supple, normal inspection Cardiovascular: normal rate, regular rhythm Respiratory/Chest: chest wall non-tender, lungs clear, no accessory muscle use , rhonchi - bilaterally Abdomen: normal bowel sounds, non tender, soft, no organomegaly, no mass Edema: no edema noted Arm (L), no edema noted Arm (R), no edema noted Leg (L), no edema noted Leg (R), no edema noted Pedal (L), no edema noted Pedal (R), no edema noted 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
--- NOTE | 2020-02-01 15:28 | NUR ---
Swallow status: Patient seen for dysphagia. Per rnRadha, the patient is not alert and is still r/o covid 19 (first test is negative and is awaiting second test). When alert, the patient will need a modified barium swallow study if po considered. plan: await r/o covid second test results and consider mod barium swallow study continue with peg feedings and oral care
[2020-02-01 16:00] VITALS: BP 168/62
--- NOTE | 2020-02-01 18:30 | Consultation ---
DATE OF CONSULTATION: 02/01/2020 NEPHROLOGY CONSULTATION CONSULTING PHYSICIAN: Tyson Sneed MD. REFERRING PHYSICIAN: Eduardo Zeng MD. and Sesar Simmons MD. REASON FOR CONSULTATION: Abnormal renal function and electrolytes. HISTORY OF PRESENT ILLNESS: The patient is an 89-year-old lady, resident of an [facility] who presents with cough and pulmonary infiltrates. Possible COVID-19 is being considered. There is a history of paroxysmal atrial fibrillation, hypertension, dysphagia, dementia. She is unable to provide history. History is taken from chart review. ALLERGIES: None known. MEDICATIONS: Include amiodarone, digoxin, Eliquis, glimepiride, Januvia, [place], Levemir insulin, lisinopril, [place], omeprazole, Protonix, Tylenol. PAST HISTORY AND REVIEW OF SYSTEMS: Patient is unable to provide. PHYSICAL EXAMINATION: GENERAL: Patient is lying in bed, lethargic, in no distress. VITAL SIGNS: Reviewed on the computer. HEART: Regular rhythm. LUNGS: No rales or rhonchi heard. ABDOMEN: Soft. EXTREMITIES: No edema. PERTINENT DATABASE: Imaging shows infiltrate suggestive of pneumonia. The white count 11.3, hemoglobin 15.3 on admission. On admission the sodium 138, potassium 5.6, BUN 46, creatinine 1.6, glucose 329. Most recent sodium 145, potassium 2.9, BUN 32, creatinine 1.5. Albumin is as low as 2.3. IMPRESSION: 1. Pneumonia, healthcare acquired. Concern for COVID-19. Initial tests for COVID is nondetected, repeat pending. 2. Chronic kidney disease stage 3. 3. Dehydration. 4. Hyper and hypokalemia. 5. Moderate protein-calorie malnutrition. 6. Diabetes with hyperglycemia. PLAN: Medications are reviewed to avoid nephrotoxicity. We will try to improve her diabetic control. Adjust insulin. Replace potassium. Continue treatment for healthcare-acquired pneumonia. Tyson Sneed M.D. DR: TOMMY JOB#: [id number] CC:
--- NOTE | 2020-02-01 19:05 | NUR ---
NURSE NOTES: Report received from TEJINDER Garcia. Patient asleep, but easily arousable. Able to follow simple commands, opens eyes spontaneously. Both IVs running, intact, and flushed. On GT feeding: Glucerna 1.2 @6oml/hr to run for 20 hours; no residual noted upon checking. GT flushed and patent. Sacral area protected with optifoam, will follow WCP. Patient on her left side, heels offloaded; will turn in 2 hours. Call light placed within reach. Bed in lowest position, brakes locked. Bed rails raised x2. Will continue to monitor.
--- NOTE | 2020-02-01 19:51 | NUR ---
HAND-OFF: Report given to TEJINDER Santana. Pt in stable condition, endorsed plan of care.
[2020-02-01 20:00] VITALS: BP 158/81
[2020-02-02] VITALS: BP 135/75
--- NOTE | 2020-02-02 00:41 | NUR ---
NURSE NOTES: Patient asleep. IV intact and running. No signs of acute distress or shortness of breath. Will continue to monitor.
[2020-02-02] MEDS: D5 1/2NS 1,000 ML IV SCH ×3 (03:02→21:00)
[2020-02-02 04:00] VITALS: BP 139/68
[2020-02-02 04:24] LABS: BASOPHILS % (AUTO) 0.7 % (0.0-2.0); EOSINOPHILS % (AUTO) 2.2 % (0.0-3.0); HEMATOCRIT 36.6 % (37.0-47.0); LYMPHOCYTES % (AUTO) 12.1 % (20.0-45.0); MEAN CORPUSCULAR VOLUME 85 FL (80-99); MONOCYTES % (AUTO) 6.3 % (1.0-10.0); NEUTROPHILS % (AUTO) 78.7 % (45.0-75.0); PLATELET COUNT 127 K/UL (150-450); RED CELL DISTRIBUTION WIDTH 14.3 % (11.6-14.8); WHITE BLOOD COUNT 6.9 K/UL (4.8-10.8)
[2020-02-02 04:40] LABS: ALANINE AMINOTRANSFERASE 21 U/L (12-78); ALBUMIN 2.3 G/DL (3.4-5.0); ALBUMIN/GLOBULIN RATIO 0.6 (1.0-2.7); ALKALINE PHOSPHATASE 72 U/L (46-116); ANION GAP 7 mmol/L (5-15); ASPARTATE AMINO TRANSFERASE 25 U/L (15-37); BILIRUBIN,TOTAL 0.3 MG/DL (0.2-1.0); BLOOD UREA NITROGEN 26 mg/dL (7-18); CALCIUM 8.3 MG/DL (8.5-10.1); CARBON DIOXIDE 30 MMOL/L (21-32); CHLORIDE 107 MMOL/L (98-107); CREATININE 1.3 MG/DL (0.55-1.30); PHOSPHORUS 3.1 MG/DL (2.5-4.9); POTASSIUM 3.5 MMOL/L (3.5-5.1); SODIUM 144 MMOL/L (136-145)
[2020-02-02] MEDS: NovoLOG Insulin Flexpen SUBQ SCH ×4 (05:54→21:00)
[2020-02-02] MEDS: Glimepiride 1mg tab GT SCH ×2 (05:55→17:20)
--- NOTE | 2020-02-02 07:27 | NUR ---
HAND-OFF: Report given to TEJINDER Rich. Plan of care endorsed. Patient stable.
[2020-02-02 08:00] VITALS: BP 186/82
[2020-02-02] MEDS: Lisinopril 20mg tab GT SCH ×2 (08:48→21:00)
[2020-02-02] MEDS: Amiodarone 200mg tab GT SCH (08:48)
[2020-02-02] MEDS: sitaGLIPtin 50mg tab ORAL SCH (08:48)
[2020-02-02] MEDS: Eliquis 2.5mg tablet GT SCH (08:49)
[2020-02-02] MEDS: Piperacillin/Tazobactam 3.375 GM in NS 110 ML IVPB SCH ×2 (08:49→21:00)
--- NOTE | 2020-02-02 09:38 | NUR ---
CASE MANAGEMENT:REVIEW 02/02/20 SI: PNEUMONIA. NEGATIVE COVID 96.7 88 18 186/82 96% ON 2L/NC PLT-127 BUN+26 GLUCOSE+315 IS: IV ZOSYN Q12 IVF@75/HR AMIODARONE GT QD ELIQUIS GT QD LISINOPRIL GT Q12 PROTONIX GT QD : TELEMETRY STATUS DCP: FROM [facility] PLAN: FIRST COVID 19 TEST NEGATIVE...TEST REPEATED 02/01/20...RESULTS PENDING SNF REQUIRES 2 NEGATIVES FOR PATIENT TO RETURN
--- NOTE | 2020-02-02 09:42 | Pulmonology Progress Note ---
Assessment/Plan Assessment/Plan pneumonia negative COVID SARWAT chronic encephalopathy severe PCM dementia low K PLAN care noted IV antibiotics replace K monitor fluid status renal follow up ID follow up await repeat imaging off load aspiration precautions dc once stable and improved impression, plan, and exam edited and reviewed in detail care discussed with RN Subjective ROS Limited/Unobtainable: Yes Allergies: Coded Allergies: No Known Allergies (Unverified , 01/30/20) All Systems: reviewed and negative except above Subjective care reviewed noted congestion findings noted labs reviewed Objective Last 24 Hour Vital Signs Date Time Temp Pulse Resp B/P (MAP) Pulse Ox O2 Delivery O2 Flow Rate FiO2 02/02/20 08:48 186/82 02/02/20 08:00 96.7 88 18 186/82 (116) 96 02/02/20 04:00 97.2 64 20 139/68 (91) 95 02/02/20 04:00 70 02/02/20 00:00 97.2 67 20 135/75 (95) 94 02/02/20 00:00 59 02/01/20 21:00 Nasal Cannula 2.0 02/01/20 20:43 158/81 02/01/20 20:00 67 02/01/20 20:00 97.3 67 19 158/81 (106) 95 02/01/20 18:51 168/62 02/01/20 16:00 98.2 71 18 168/62 (97) 93 02/01/20 15:57 69 02/01/20 12:00 97.9 67 20 161/60 (93) 100 02/01/20 11:46 61 Intake and Output 02/01/20 02/02/20 19:00 07:00 Output Total 300 ml 600 ml Balance -300 ml -600 ml Output Urine Total 300 ml 600 ml # Voids 2 # Bowel Movements 1 1 Objective WDWN NAD ill reduced breath sounds bilaterally with some rhonchi [id number] without MRG NABS nontender no HSM no CC mild edema confused nonfocal reduced ROM reviewed and edited Laboratory Tests 02/02/20 04:00: White Blood Count 6.9, Red Blood Count 4.30, Hemoglobin 12.0, Hematocrit 36.6L, Mean Corpuscular Volume 85, Mean Corpuscular Hemoglobin 28.0, Mean Corpuscular Hemoglobin Concent 32.9, Red Cell Distribution Width 14.3, Platelet Count 127L, Mean Platelet Volume 9.2, Neutrophils (%) (Auto) 78.7H, Lymphocytes (%) (Auto) 12.1L, Monocytes (%) (Auto) 6.3, Eosinophils (%) (Auto) 2.2, Basophils (%) (Auto ) 0.7, Sodium Level 144, Potassium Level 3.5, Chloride Level 107, Carbon Dioxide Level 30, Anion Gap 7, Blood Urea Nitrogen 26H, Creatinine 1.3, Estimat Glomerular Filtration Rate 38.7, Glucose Level 315H, Calcium Level 8.3L, Phosphorus Level 3.1, Total Bilirubin 0.3, Aspartate Amino Transf (AST/SGOT) 25 , Alanine Aminotransferase (ALT/SGPT) 21, Alkaline Phosphatase 72, Total Protein 6.3L, Albumin 2.3L, Globulin 4.0, Albumin/Globulin Ratio 0.6L Current Medications Medications (Trade) Dose Ordered Sig/Jazmine Route PRN Reason Start Time Stop Time Status Last Admin Dose Admin Acetaminophen (Tylenol) 500 mg Q4H PRN ORAL MILD/TEMP 01/30/20 09:00 02/29/20 08:59 Amiodarone HCl (Cordarone) 200 mg DAILY GT 01/31/20 09:00 04/29/20 08:59 02/02/20 08:48 Apixaban (Eliquis) 2.5 mg DAILY GT 01/31/20 09:00 04/29/20 08:59 02/02/20 08:49 Clonidine HCl (Catapres Tab) 0.1 mg Q4H PRN GT For High Blood Pressure 01/30/20 14:00 04/29/20 13:59 02/01/20 18:51 Dextrose (Dextrose 50%) 25 ml Q30M PRN IV Hypoglycemia 01/30/20 09:00 04/29/20 08:59 Dextrose (Dextrose 50%) 50 ml Q30M PRN IV Hypoglycemia 01/30/20 09:00 04/29/20 08:59 Dextrose/Sodium Chloride 1,000 ml @ 75 mls/hr [id number] IV 01/30/20 09:00 02/29/20 08:59 02/02/20 03:02 Glimepiride (AmaryL) 2 mg BEFORE BREAKFAST GT 01/31/20 06:30 03/01/20 06:29 02/02/20 05:55 Insulin Aspart (NovoLOG) BEFORE MEALS AND HS SUBQ 01/30/20 11:30 04/29/20 11:29 02/02/20 05:54 Lisinopril (PriniviL) 20 mg Q12HR GT 01/30/20 21:00 02/29/20 12:29 02/02/20 08:48 Pantoprazole (Protonix) 40 mg DAILY ORAL 01/30/20 09:00 02/29/20 08:59 02/02/20 08:48 Piperacillin Sod/ Tazobactam Sod 3.375 gm/Sodium Chloride 110 ml @ 27.5 mls/hr Q12HR IVPB 01/30/20 09:00 02/06/20 08:59 02/02/20 08:49 Sitagliptin Phosphate (Januvia) 50 mg DAILY ORAL 01/30/20 09:00 02/29/20 08:59 02/02/20 08:48 Vancomycin HCl (Vanco rx to dose) 1 ea DAILY PRN MISC Per rx protocol 01/30/20 09:00 02/29/20 08:59 Eduardo Zeng MD February 02, 2020 09:42
--- NOTE | 2020-02-02 11:40 | General Progress Note ---
Assessment/Plan Problem List: (1) HCAP (healthcare-associated pneumonia) ICD Codes: J18.9 - Pneumonia, unspecified organism SNOMED: 057948177, 758771245 (2) Hyperglycemia due to type 2 diabetes mellitus ICD Codes: E11.65 - Type 2 diabetes mellitus with hyperglycemia SNOMED: 054351439395258, 17951059 Qualifiers: Qualified Codes: E11.65 - Type 2 diabetes mellitus with hyperglycemia; Z79.4 - long term (current) use of insulin (3) UTI (urinary tract infection) ICD Codes: N39.0 - Urinary tract infection, site not specified SNOMED: 21654903, 87104301 Qualifiers: Qualified Codes: N30.00 - Acute cystitis without hematuria (4) SARWAT (acute kidney injury) ICD Codes: N17.9 - Acute kidney failure, unspecified SNOMED: 62305684, 3999170 (5) Suspected 2019 novel coronavirus infection ICD Codes: Z20.828 - Contact with and (suspected) exposure to other viral communicable diseases SNOMED: 079415971 Status: stable, progressing Assessment/Plan: Continue broad-spectrum IV antibiotics. Follow-up pending cultures. ID appreciated.. Chest x-ray reviewed. Cautious hydration. replace k. G-tube feedings. Monitor residuals. DVT and stress ulcer prophylaxis. increase amaryl. monitor bs. PRN anxiolytics. Restraints as needed. Discussed with consultants Subjective ROS Limited/Unobtainable: No Constitutional: Reports: malaise, weakness HEENT: Reports: no symptoms Cardiovascular: Reports: no symptoms Respiratory: Reports: cough Gastrointestinal/Abdominal: Reports: difficulty swallowing Genitourinary: Reports: no symptoms Neurologic/Psychiatric: Reports: anxiety, pre-existing deficit Endocrine: Reports: no symptoms Hematologic/Lymphatic: Reports: anemia Allergies: Coded Allergies: No Known Allergies (Unverified , 01/30/20) All Systems: reviewed and negative except above Subjective There were no significant overnight events. Patient remained stable on supplemental oxygen. She is awake but confused at baseline. No fevers noted. low k, h/h stable. covid neg x 1. BS running high. Objective Last 24 Hour Vital Signs Date Time Temp Pulse Resp B/P (MAP) Pulse Ox O2 Delivery O2 Flow Rate FiO2 02/02/20 08:48 186/82 02/02/20 08:00 96.7 88 18 186/82 (116) 96 02/02/20 04:00 97.2 64 20 139/68 (91) 95 02/02/20 04:00 70 02/02/20 00:00 97.2 67 20 135/75 (95) 94 02/02/20 00:00 59 02/01/20 21:00 Nasal Cannula 2.0 02/01/20 20:43 158/81 02/01/20 20:00 67 02/01/20 20:00 97.3 67 19 158/81 (106) 95 02/01/20 18:51 168/62 02/01/20 16:00 98.2 71 18 168/62 (97) 93 02/01/20 15:57 69 02/01/20 12:00 97.9 67 20 161/60 (93) 100 02/01/20 11:46 61 Intake and Output 02/01/20 02/02/20 19:00 07:00 Output Total 300 ml 600 ml Balance -300 ml -600 ml Output Urine Total 300 ml 600 ml # Voids 2 # Bowel Movements 1 1 Laboratory Tests 02/02/20 04:00: White Blood Count 6.9, Red Blood Count 4.30, Hemoglobin 12.0, Hematocrit 36.6L, Mean Corpuscular Volume 85, Mean Corpuscular Hemoglobin 28.0, Mean Corpuscular Hemoglobin Concent 32.9, Red Cell Distribution Width 14.3, Platelet Count 127L, Mean Platelet Volume 9.2, Neutrophils (%) (Auto) 78.7H, Lymphocytes (%) (Auto) 12.1L, Monocytes (%) (Auto) 6.3, Eosinophils (%) (Auto) 2.2, Basophils (%) (Auto ) 0.7, Sodium Level 144, Potassium Level 3.5, Chloride Level 107, Carbon Dioxide Level 30, Anion Gap 7, Blood Urea Nitrogen 26H, Creatinine 1.3, Estimat Glomerular Filtration Rate 38.7, Glucose Level 315H, Calcium Level 8.3L, Phosphorus Level 3.1, Total Bilirubin 0.3, Aspartate Amino Transf (AST/SGOT) 25 , Alanine Aminotransferase (ALT/SGPT) 21, Alkaline Phosphatase 72, Total Protein 6.3L, Albumin 2.3L, Globulin 4.0, Albumin/Globulin Ratio 0.6L Height (Feet): 5 Height (Inches): 4.00 Weight (Pounds): 109 Objective General Appearance: WD/WN, confused, thin EENT: PERRL/EOMI, normal ENT inspection Neck: non-tender, normal alignment, supple, normal inspection Cardiovascular: normal rate, regular rhythm Respiratory/Chest: chest wall non-tender, lungs clear, no accessory muscle use , rhonchi - bilaterally Abdomen: normal bowel sounds, non tender, soft, no organomegaly, no mass Edema: no edema noted Arm (L), no edema noted Arm (R), no edema noted Leg (L), no edema noted Leg (R), no edema noted Pedal (L), no edema noted Pedal (R), no edema noted 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
[2020-02-02 12:00] VITALS: BP 189/81
--- NOTE | 2020-02-02 13:40 | NUR ---
*-* INSURANCE *-* ALL AVAILABLE CLINICALS HAVE BEEN FAXED TO: GEOVANY QUINN:REA Ref# [id number] # [phone] FAX# [phone] REVIEWS/CLINICALS
--- NOTE | 2020-02-02 13:57 | Diagnostic Imaging Report ---
Indication: Shortness of breath Technique: One view of the chest Comparison: 01/30/2020 Findings: Previously demonstrated right mid and lower lung patchy disease is no longer evident. Lungs pleural spaces currently clear. Normal heart size. Impression: Improved right lung infiltrates, over 3 days
[2020-02-02 16:00] VITALS: BP 198/79
--- NOTE | 2020-02-02 19:39 | NUR ---
HAND-OFF: Report given to Chris Benjamin RN. Patient sitting HOB at 45 degrees, G-tube in place, purewick in place, Suction at bedside, IV patent in right forearm running D5 1/2ns@75, in no apparent distress, siderails up x 3.
--- NOTE | 2020-02-02 19:41 | NUR ---
NURSE NOTES: Report received from Hilario RN. Patient is awake and alert x 1. Patient noted to be on 2 liters of oxygen via nasal canula. Patient does not appear to be in respiratory distress at this time. Patient noted to have Glucerna 1.2 running at 60 cc/hr. Patient noted to have right forearm 22 conrado with IV fluids running per MD orders. Bed in lowest position, locked, alarmed. Will continue to follow plan of care.
[2020-02-02 20:00] VITALS: BP 186/75
--- NOTE | 2020-02-02 20:09 | Nephrology Progress Note ---
Assessment/Plan Problem List: (1) Hypokalemia (2) Dehydration (3) HCAP (healthcare-associated pneumonia) (4) Hyperglycemia due to type 2 diabetes mellitus (5) UTI (urinary tract infection) (6) SARWAT (acute kidney injury) (7) Suspected 2019 novel coronavirus infection Plan hydration better, reduce iv rate, trend lab Subjective ROS Limited/Unobtainable: Yes Objective Objective Last 24 Hour Vital Signs Date Time Temp Pulse Resp B/P (MAP) Pulse Ox O2 Delivery O2 Flow Rate FiO2 02/02/20 16:00 98.2 74 20 198/79 (118) 96 02/02/20 14:10 189/81 02/02/20 12:00 98.0 73 20 189/81 (117) 96 02/02/20 12:00 73 02/02/20 09:00 Nasal Cannula 2.0 02/02/20 08:48 186/82 02/02/20 08:00 96.7 88 18 186/82 (116) 96 02/02/20 08:00 70 02/02/20 04:00 97.2 64 20 139/68 (91) 95 02/02/20 04:00 70 02/02/20 00:00 97.2 67 20 135/75 (95) 94 02/02/20 00:00 59 02/01/20 21:00 Nasal Cannula 2.0 02/01/20 20:43 158/81 Intake and Output 02/01/20 02/02/20 19:00 07:00 Output Total 300 ml 600 ml Balance -300 ml -600 ml Output Urine Total 300 ml 600 ml # Voids 2 # Bowel Movements 1 1 Laboratory Tests 02/02/20 04:00: White Blood Count 6.9, Red Blood Count 4.30, Hemoglobin 12.0, Hematocrit 36.6L, Mean Corpuscular Volume 85, Mean Corpuscular Hemoglobin 28.0, Mean Corpuscular Hemoglobin Concent 32.9, Red Cell Distribution Width 14.3, Platelet Count 127L, Mean Platelet Volume 9.2, Neutrophils (%) (Auto) 78.7H, Lymphocytes (%) (Auto) 12.1L, Monocytes (%) (Auto) 6.3, Eosinophils (%) (Auto) 2.2, Basophils (%) (Auto ) 0.7, Sodium Level 144, Potassium Level 3.5, Chloride Level 107, Carbon Dioxide Level 30, Anion Gap 7, Blood Urea Nitrogen 26H, Creatinine 1.3, Estimat Glomerular Filtration Rate 38.7, Glucose Level 315H, Calcium Level 8.3L, Phosphorus Level 3.1, Total Bilirubin 0.3, Aspartate Amino Transf (AST/SGOT) 25 , Alanine Aminotransferase (ALT/SGPT) 21, Alkaline Phosphatase 72, Total Protein 6.3L, Albumin 2.3L, Globulin 4.0, Albumin/Globulin Ratio 0.6L Height (Feet): 5 Height (Inches): 4.00 Weight (Pounds): 109 General Appearance: no apparent distress EENT: normal ENT inspection Neck: normal alignment Cardiovascular: regular rhythm Respiratory/Chest: lungs clear Abdomen: soft Extremities: no edema Neurologic: disoriented Tyson Sneed MD February 02, 2020 20:09
[2020-02-02] MEDS: HydrALAZINE 25mg tab ORAL SCH (20:15)
[2020-02-03] VITALS (8 sets, daily range): BP systolic 135–191; BP diastolic 67–81
[2020-02-03] MEDS: HydrALAZINE 25mg tab ORAL SCH ×2 (06:21)
[2020-02-03] MEDS: NovoLOG Insulin Flexpen SUBQ SCH ×5 (06:22→21:00)
--- NOTE | 2020-02-03 07:30 | NUR ---
NURSE NOTES: Received report from TEJINDER SANTIAGO. Pt is confused. pt has g tube in place is running well. pt has intact iv access RFA 22G is running well. Pt is on continues heart monitoring. no complain of pain at this moment. all needs attended, bed is locked and is in the lowest position. call light within easy reach. will continue to monitor.
--- NOTE | 2020-02-03 07:47 | NUR ---
HAND-OFF: Report given to Rodríguez MARR.
[2020-02-03 08:10] LABS: ANION GAP 9 mmol/L (5-15); BLOOD UREA NITROGEN 27 mg/dL (7-18); CALCIUM 8.4 MG/DL (8.5-10.1); CARBON DIOXIDE 29 MMOL/L (21-32); CHLORIDE 106 MMOL/L (98-107); CREATININE 1.3 MG/DL (0.55-1.30); SODIUM 144 MMOL/L (136-145)
[2020-02-03] MEDS: sitaGLIPtin 50mg tab ORAL SCH (08:59)
[2020-02-03] MEDS: Amiodarone 200mg tab GT SCH (08:59)
[2020-02-03] MEDS: Lisinopril 20mg tab GT SCH ×2 (08:59→21:44)
[2020-02-03] MEDS: Eliquis 2.5mg tablet GT SCH (08:59)
[2020-02-03] MEDS: Glimepiride 1mg tab GT SCH ×2 (08:59→17:15)
[2020-02-03] MEDS: Piperacillin/Tazobactam 3.375 GM in NS 110 ML IVPB SCH ×2 (09:00→21:43)
--- NOTE | 2020-02-03 09:01 | Pulmonology Progress Note ---
Subjective ROS Limited/Unobtainable: Yes Allergies: Coded Allergies: No Known Allergies (Unverified , 01/30/20) All Systems: reviewed and negative except above Subjective care reviewed improved congestion findings noted labs reviewed Objective Last 24 Hour Vital Signs Date Time Temp Pulse Resp B/P (MAP) Pulse Ox O2 Delivery O2 Flow Rate FiO2 02/03/20 08:00 96.6 69 18 191/78 (115) 96 02/03/20 06:21 135/67 02/03/20 04:00 97.6 64 18 135/67 (89) 95 02/03/20 04:00 74 02/03/20 01:38 173/69 02/03/20 00:00 173/69 02/03/20 00:00 75 02/03/20 00:00 98.1 71 18 173/69 (103) 94 02/02/20 21:00 Nasal Cannula 2.0 02/02/20 21:00 186/75 02/02/20 20:15 186/75 02/02/20 20:00 97.5 76 18 186/75 (112) 94 02/02/20 20:00 60 02/02/20 16:00 98.2 74 20 198/79 (118) 96 02/02/20 14:10 189/81 02/02/20 12:00 98.0 73 20 189/81 (117) 96 02/02/20 12:00 73 Intake and Output 02/02/20 02/03/20 19:00 07:00 Intake Total 1655.0 ml 1160.0 ml Balance 1655.0 ml 1160.0 ml IV Total 935.0 ml 560.0 ml Tube Feeding 720 ml 600 ml # Voids 4 # Bowel Movements 1 Objective WDWN NAD ill reduced breath sounds bilaterally with reduced rhonchi [id number] without MRG NABS nontender no HSM no CC mild edema confused nonfocal reduced ROM reviewed and edited Microbiology Date/Time Source Procedure Growth Status 02/01/20 17:30 Nasopharynx Coronavirus COVID-19 PCR (AUDI) - Final Complete Laboratory Tests 02/03/20 04:00: Sodium Level 144, Potassium Level 4.0, Chloride Level 106, Carbon Dioxide Level 29, Anion Gap 9, Blood Urea Nitrogen 27H, Creatinine 1.3, Estimat Glomerular Filtration Rate 38.7, Glucose Level 286H, Calcium Level 8.4L Current Medications Medications (Trade) Dose Ordered Sig/Jazmine Route PRN Reason Start Time Stop Time Status Last Admin Dose Admin Acetaminophen (Tylenol) 500 mg Q4H PRN ORAL MILD/TEMP 01/30/20 09:00 02/29/20 08:59 Amiodarone HCl (Cordarone) 200 mg DAILY GT 01/31/20 09:00 04/29/20 08:59 02/02/20 08:48 Apixaban (Eliquis) 2.5 mg DAILY GT 01/31/20 09:00 04/29/20 08:59 02/02/20 08:49 Clonidine HCl (Catapres Tab) 0.1 mg Q4H PRN GT For High Blood Pressure 01/30/20 14:00 04/29/20 13:59 02/03/20 01:38 Dextrose (Dextrose 50%) 25 ml Q30M PRN IV Hypoglycemia 01/30/20 09:00 04/29/20 08:59 Dextrose (Dextrose 50%) 50 ml Q30M PRN IV Hypoglycemia 01/30/20 09:00 04/29/20 08:59 Dextrose/Sodium Chloride 1,000 ml @ 50 mls/hr Q20H IV 02/02/20 21:00 03/03/20 20:59 02/02/20 21:00 Glimepiride (AmaryL) 2 mg BID GT 02/02/20 18:00 03/03/20 17:59 02/02/20 17:20 Hydralazine HCl (Apresoline) 25 mg Q6HR ORAL 02/02/20 20:15 05/02/20 20:14 02/03/20 06:21 Insulin Aspart (NovoLOG) BEFORE MEALS AND HS SUBQ 01/30/20 11:30 04/29/20 11:29 02/03/20 06:22 Lisinopril (PriniviL) 20 mg Q12HR GT 01/30/20 21:00 02/29/20 12:29 02/02/20 21:00 Pantoprazole (Protonix) 40 mg DAILY ORAL 01/30/20 09:00 02/29/20 08:59 02/02/20 08:48 Piperacillin Sod/ Tazobactam Sod 3.375 gm/Sodium Chloride 110 ml @ 27.5 mls/hr Q12HR IVPB 01/30/20 09:00 02/06/20 08:59 02/02/20 21:00 Sitagliptin Phosphate (Januvia) 50 mg DAILY ORAL 01/30/20 09:00 02/29/20 08:59 02/02/20 08:48 Vancomycin HCl (Vanco rx to dose) 1 ea DAILY PRN MISC Per rx protocol 01/30/20 09:00 02/29/20 08:59 Assessment/Plan Assessment/Plan pneumonia, improved negative COVID SARWAT chronic encephalopathy severe PCM dementia low K PLAN care noted IV antibiotics- defer to ID monitor fluid status renal follow up ID follow up await repeat imaging off load aspiration precautions dc planning impression, plan, and exam edited and reviewed in detail care discussed with Eduardo Kern MD February 03, 2020 09:01
--- NOTE | 2020-02-03 11:04 | NUR ---
DISCHARGE PLANNING DISCHARGE DISCUSSED WITH DR MARAVILLA DISCHARGE ORDER ENTERED PATIENT WILL BE RETURNING TO [facility]
--- NOTE | 2020-02-03 11:21 | NUR ---
RD ASSESSMENT & RECOMMENDATIONS SEE CARE ACTIVITY FOR COMPLETE ASSESSMENT DAILY ESTIMATED NEEDS: Needs based on DM, wound/ 56.7kg 25-30 kcals/kg 0404-7768 total kcals 1.25-1.5 g protein/kg 70-84 g total protein 25-30 mL/kg 9003-3193 total fluid mLs NUTRITION DIAGNOSIS: * Swallowing difficulty R/T dysphagia as evidenced by GT dependent. * Altered nutrition related lab values R/T diabetes as evidenced by elev POC glu (203-309) CURRENT TF:Glucerna 1.2 @ 60ml/hr x 20 hrs ENTERAL NUTRITION RECOMMENDATIONS: Glucerna 1.2 @ 60ml/hr x 20hrs to provide 1200ml, 1440kcal, 72g prot, 966ml free water * Maintain current TF - meets 100% est kcal/prot needs * HOB over 30 degrees * Without IVF, water flush of 150ml q 6 hrs ADDITIONAL RECOMMENDATIONS: * Calibrated bedscale wt for accurate CBW * DC D5 IVF, increase water flushes instead: elev BGs * Monitor BGs closely, consider long acting insulin * Monitor K, need for renal TF formula (K 5.6 upon adm) * F/up w/ HEALTH CLAIMS EXAMINER evaluation, for possible oral diet (MBSS ordered) .
--- NOTE | 2020-02-03 11:50 | NUR ---
NURSE NOTES: Dr MORGAN visited pt and is aware about HTN, Dr white F/U. Will continue to monitor.
--- NOTE | 2020-02-03 12:01 | Nephrology Progress Note ---
Assessment/Plan Problem List: (1) Hypokalemia (2) Dehydration (3) HCAP (healthcare-associated pneumonia) (4) Hyperglycemia due to type 2 diabetes mellitus (5) UTI (urinary tract infection) (6) SARWAT (acute kidney injury) (7) Suspected 2019 novel coronavirus infection Plan hydration better, reduce iv rate, stop dextrose in iv, bp meds with hold parameter trend lab Subjective Constitutional: Reports: weakness HEENT: Reports: no symptoms Genitourinary: Reports: no symptoms Neurologic/Psychiatric: Reports: no symptoms Objective Objective Last 24 Hour Vital Signs Date Time Temp Pulse Resp B/P (MAP) Pulse Ox O2 Delivery O2 Flow Rate FiO2 02/03/20 11:44 97.7 60 20 171/68 (102) 98 02/03/20 10:00 180/71 (107) 02/03/20 09:00 Nasal Cannula 2.0 02/03/20 08:59 191/78 02/03/20 08:59 191/78 02/03/20 08:55 69 02/03/20 08:00 96.6 69 18 191/78 (115) 96 02/03/20 06:21 135/67 02/03/20 04:00 97.6 64 18 135/67 (89) 95 02/03/20 04:00 74 02/03/20 01:38 173/69 02/03/20 00:00 173/69 02/03/20 00:00 75 02/03/20 00:00 98.1 71 18 173/69 (103) 94 02/02/20 21:00 Nasal Cannula 2.0 02/02/20 21:00 186/75 02/02/20 20:15 186/75 02/02/20 20:00 97.5 76 18 186/75 (112) 94 02/02/20 20:00 60 02/02/20 16:00 98.2 74 20 198/79 (118) 96 02/02/20 14:10 189/81 02/02/20 12:00 98.0 73 20 189/81 (117) 96 02/02/20 12:00 73 Intake and Output 02/02/20 02/03/20 19:00 07:00 Intake Total 1655.0 ml 1160.0 ml Balance 1655.0 ml 1160.0 ml IV Total 935.0 ml 560.0 ml Tube Feeding 720 ml 600 ml # Voids 4 # Bowel Movements 1 Laboratory Tests 02/03/20 04:00: Sodium Level 144, Potassium Level 4.0, Chloride Level 106, Carbon Dioxide Level 29, Anion Gap 9, Blood Urea Nitrogen 27H, Creatinine 1.3, Estimat Glomerular Filtration Rate 38.7, Glucose Level 286H, Calcium Level 8.4L Height (Feet): 5 Height (Inches): 4.00 Weight (Pounds): 109 General Appearance: no apparent distress EENT: normal ENT inspection Neck: normal alignment, supple Cardiovascular: regular rhythm Respiratory/Chest: lungs clear Abdomen: non tender, soft Neurologic: disoriented Tyson Sneed MD February 03, 2020 12:01
[2020-02-03] MEDS: HydrALAZINE 50mg tab ORAL SCH ×2 (12:37→17:15)
--- NOTE | 2020-02-03 12:49 | NUR ---
CASE MANAGEMENT:REVIEW 02/03/20 SI: PNEUMONIA. NEGATIVE COVID 96.6 69 18 191/78 96% ON RA BUN+27 IS: IV ZOSYN Q12 IVF@30/HR HYDRALAZINE PO Q6HRS AMIODARONE GT QD ELIQUIS GT QD LISINOPRIL GT Q12 PROTONIX GT QD : TELEMETRY STATUS DCP: FROM [facility] PLAN: COVID NEGATIVE X2
[2020-02-03] MEDS ORDERED: Varibar Pudding 230ml MC PRN (15:00)
[2020-02-03] MEDS ORDERED: Varibar Honey 250ml MC PRN (15:00)
[2020-02-03] MEDS ORDERED: Varibar Nectar 240ml MC PRN (15:00)
--- NOTE | 2020-02-03 15:32 | General Progress Note ---
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 Follow-up pending cultures. ID appreciated.. Chest x-ray reviewed. Cautious hydration. video swallow/speech eval. G-tube feedings. Monitor residuals. DVT and stress ulcer prophylaxis. increase amaryl. monitor bs. PRN anxiolytics. Restraints as needed. Discussed with consultants Subjective ROS Limited/Unobtainable: No Constitutional: Reports: malaise, weakness HEENT: Reports: no symptoms Cardiovascular: Reports: no symptoms Respiratory: Reports: cough Gastrointestinal/Abdominal: Reports: difficulty swallowing Genitourinary: Reports: no symptoms Neurologic/Psychiatric: Reports: no symptoms Endocrine: Reports: no symptoms Hematologic/Lymphatic: Reports: anemia Allergies: Coded Allergies: No Known Allergies (Unverified , 01/30/20) All Systems: reviewed and negative except above Subjective There were no significant overnight events. Patient remained stable on supplemental oxygen. She is awake but confused at baseline. No fevers noted. low k, h/h stable. covid neg x 1. BS running high. BP running high. Objective Last 24 Hour Vital Signs Date Time Temp Pulse Resp B/P (MAP) Pulse Ox O2 Delivery O2 Flow Rate FiO2 02/03/20 12:42 68 02/03/20 12:37 171/68 02/03/20 11:44 97.7 60 20 171/68 (102) 98 02/03/20 10:00 180/71 (107) 02/03/20 09:00 Nasal Cannula 2.0 02/03/20 08:59 191/78 02/03/20 08:59 191/78 02/03/20 08:55 69 02/03/20 08:00 96.6 69 18 191/78 (115) 96 02/03/20 06:21 135/67 02/03/20 04:00 97.6 64 18 135/67 (89) 95 02/03/20 04:00 74 02/03/20 01:38 173/69 02/03/20 00:00 173/69 02/03/20 00:00 75 02/03/20 00:00 98.1 71 18 173/69 (103) 94 02/02/20 21:00 Nasal Cannula 2.0 02/02/20 21:00 186/75 02/02/20 20:15 186/75 02/02/20 20:00 97.5 76 18 186/75 (112) 94 02/02/20 20:00 60 02/02/20 16:00 98.2 74 20 198/79 (118) 96 Intake and Output 02/02/20 02/03/20 19:00 07:00 Intake Total 1655.0 ml 1210.0 ml Balance 1655.0 ml 1210.0 ml IV Total 935.0 ml 610.0 ml Tube Feeding 720 ml 600 ml # Voids 4 # Bowel Movements 1 Laboratory Tests 02/03/20 04:00: Sodium Level 144, Potassium Level 4.0, Chloride Level 106, Carbon Dioxide Level 29, Anion Gap 9, Blood Urea Nitrogen 27H, Creatinine 1.3, Estimat Glomerular Filtration Rate 38.7, Glucose Level 286H, Calcium Level 8.4L Height (Feet): 5 Height (Inches): 4.00 Weight (Pounds): 109 Objective General Appearance: WD/WN, confused, thin EENT: PERRL/EOMI, normal ENT inspection Neck: non-tender, normal alignment, supple, normal inspection Cardiovascular: normal rate, regular rhythm Respiratory/Chest: chest wall non-tender, lungs clear, no accessory muscle use , rhonchi - bilaterally Abdomen: normal bowel sounds, non tender, soft, no organomegaly, no mass Edema: no edema noted Arm (L), no edema noted Arm (R), no edema noted Leg (L), no edema noted Leg (R), no edema noted Pedal (L), no edema noted Pedal (R), no edema noted 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
--- NOTE | 2020-02-03 15:43 | NUR ---
*-* INSURANCE *-* ALL AVAILABLE CLINICALS HAVE BEEN FAXED TO: GEOVANY QUINN:REA Ref# [id number] # [phone] FAX# [phone] REVIEWS/CLINICALS
--- NOTE | 2020-02-03 19:00 | NUR ---
HAND-OFF: Report given to JACK MARR. Pt is awake and stable.
--- NOTE | 2020-02-03 19:00 | NUR ---
NURSE NOTES: Report received from Rodríguez MARR. Patient is awake and alert x 1. Patient noted to be on 2 liters of oxygen via nasal canula. Patient does not appear to be in respiratory distress at this time. Patient noted to have Glucerna 1.2 running at 60 cc/hr. Patient noted to have right forearm 22 conrado with IV fluids running per MD orders. Endorsed that patient's blood pressure medications were adjusted to better control blood pressure. Endorsed that patient has clearance to be discharged back to senior care, but needs speech evaluation first. Bed in lowest position, locked, alarmed. Will continue to follow plan of care.
[2020-02-04] VITALS (7 sets, daily range): BP systolic 101–195; BP diastolic 66–81
[2020-02-04] MEDS: HydrALAZINE 50mg tab ORAL SCH ×4 (06:36→17:04)
[2020-02-04] MEDS: NovoLOG Insulin Flexpen SUBQ SCH ×3 (06:37→16:30)
--- NOTE | 2020-02-04 07:20 | NUR ---
HAND-OFF: Report given to Rodríguez MARR.
--- NOTE | 2020-02-04 07:29 | NUR ---
NURSE NOTES: Received report from TEJINDER SANTIAGO. Pt is confused. pt has NC 2LMP. pt has g tube in place is running well. pt has intact iv access RFA 22G is running well. Pt is on continues heart monitoring. no complain of pain at this moment. all needs attended, bed is locked and is in the lowest position. call light within easy reach. will continue to monitor.
[2020-02-04 07:48] LABS: ANION GAP 7 mmol/L (5-15); BLOOD UREA NITROGEN 32 mg/dL (7-18); CALCIUM 8.5 MG/DL (8.5-10.1); CARBON DIOXIDE 29 MMOL/L (21-32); CHLORIDE 108 MMOL/L (98-107); CREATININE 1.4 MG/DL (0.55-1.30); POTASSIUM 4.3 MMOL/L (3.5-5.1); SODIUM 144 MMOL/L (136-145)
[2020-02-04] MEDS: Glimepiride 1mg tab GT SCH (08:16)
[2020-02-04] MEDS: Amiodarone 200mg tab GT SCH (08:16)
[2020-02-04] MEDS: Eliquis 2.5mg tablet GT SCH (08:16)
[2020-02-04] MEDS: sitaGLIPtin 50mg tab ORAL SCH (08:16)
[2020-02-04] MEDS: Lisinopril 20mg tab GT SCH (08:17)
[2020-02-04] MEDS: Piperacillin/Tazobactam 3.375 GM in NS 110 ML IVPB SCH (08:18)
--- NOTE | 2020-02-04 09:15 | NUR ---
CASE MANAGEMENT:REVIEW 02/04/20 SI: PNEUMONIA. NEGATIVE COVID X2 96.8 68 18 195/81 96% ON 2L/NC IS: IV VANCO X1 IV ZOSYN Q12 IVF@30/HR HYDRALAZINE 50MG PO Q6HRS AMIODARONE GT QD ELIQUIS GT QD LISINOPRIL GT Q12 PROTONIX GT QD : TELEMETRY STATUS DCP: FROM [facility] PLAN: HYDRALAZINE DOSE INCREASED FROM 25 TO 50MG PO Q6HRS REQUEST DISCHARGE ORDER
--- NOTE | 2020-02-04 10:32 | NUR ---
NURSE NOTES: Dr MORGAN visited pt and is aware about BP 195/81 and other V/S and lab results, no new order to RN. Dr white F/U.
[2020-02-04] MEDS ORDERED: Vancomycin 1.25gm/NS Premix q24h IVPB SCH (11:00)
--- NOTE | 2020-02-04 11:22 | Nephrology Progress Note ---
Assessment/Plan Problem List: (1) Hypokalemia (2) Dehydration (3) HCAP (healthcare-associated pneumonia) (4) Hyperglycemia due to type 2 diabetes mellitus (5) UTI (urinary tract infection) (6) SARWAT (acute kidney injury) (7) Suspected 2019 novel coronavirus infection Plan hydration better, reduce iv rate, stop dextrose in iv, bp meds with hold parameter , amlodipine and nitrodur added trend lab Subjective ROS Limited/Unobtainable: Yes Constitutional: Reports: weakness Objective Objective Last 24 Hour Vital Signs Date Time Temp Pulse Resp B/P (MAP) Pulse Ox O2 Delivery O2 Flow Rate FiO2 02/04/20 10:31 180/77 (111) 02/04/20 08:17 195/81 02/04/20 08:16 195/81 02/04/20 08:15 67 02/04/20 07:54 96.8 68 18 195/81 (119) 96 02/04/20 06:48 Nasal Cannula 2.0 02/04/20 06:36 170/80 02/04/20 04:15 190/76 02/04/20 04:00 71 02/04/20 04:00 98.4 70 16 190/71 (110) 94 02/04/20 00:00 97.2 68 18 101/66 (78) 94 02/04/20 00:00 63 02/04/20 00:00 101/66 02/03/20 21:44 140/76 02/03/20 21:00 Nasal Cannula 2.0 02/03/20 20:00 97.2 60 20 140/71 (94) 95 02/03/20 18:00 155/77 (103) 02/03/20 17:15 168/81 02/03/20 17:15 168/81 02/03/20 16:00 98.6 69 18 168/81 (110) 97 02/03/20 15:18 63 02/03/20 12:42 68 02/03/20 12:37 171/68 02/03/20 11:44 97.7 60 20 171/68 (102) 98 Intake and Output 02/03/20 02/04/20 19:00 07:00 Intake Total 1210.0 ml 920.0 ml Balance 1210.0 ml 920.0 ml Intake Free Water 100 ml IV Total 570.0 ml 320.0 ml Tube Feeding 540 ml 600 ml # Bowel Movements 1 Laboratory Tests 02/04/20 05:50: Sodium Level 144, Potassium Level 4.3, Chloride Level 108H, Carbon Dioxide Level 29, Anion Gap 7, Blood Urea Nitrogen 32H, Creatinine 1.4H, Estimat Glomerular Filtration Rate 35.5, Glucose Level 274H, Calcium Level 8.5, Random Vancomycin Level 6.9 Height (Feet): 5 Height (Inches): 4.00 Weight (Pounds): 109 General Appearance: lethargic, confused Neck: normal alignment Respiratory/Chest: lungs clear Abdomen: non tender Neurologic: disoriented Tyson Sneed MD February 04, 2020 11:22
[2020-02-04] MEDS ORDERED: Nitroglycerin Patch 0.2mg/hr TDERMAL SCH (12:00)
--- NOTE | 2020-02-04 13:20 | NUR ---
ST Note: CAUSTIC MIXER Planned to complete Modified Barium Swallow Study (MBSS) w/ Pt today. However, unable to be completed due to equipment being unavailable. CAUSTIC MIXER made RN aware of no MBSS. CAUSTIC MIXER cancelled orders. Attempted to see Pt at bedside for dysphagia tx and PO trials, however, Pt is asleep and unable to maintain alertness for safe PO trials. Pt continues to have PEG as primary method of nutrition/hydration and medication management. Upon discharge, Pt continues to benefit from Outpatient MBSS to further evaluate swallow physiology and efficacy and determine Pt's safety w/ PO intake for oral gratification/comfort. Also, Pt would benefit from receiving CAUSTIC MIXER at next level of care to screen Pt on admission and determine Pt's appropriateness/candidacy for ongoing dysphagia tx/management for oral gratification for quality of life purposes.
--- NOTE | 2020-02-04 14:07 | General Progress Note ---
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 Follow-up pending cultures. Chest x- ray reviewed. Cautious hydration per renal. could not complete video swallowl. G-tube feedings. Monitor residuals. DVT and stress ulcer prophylaxis. increase amaryl. monitor bs. PRN anxiolytics. Restraints as needed. Discussed with consultants dc planning Subjective ROS Limited/Unobtainable: No Constitutional: Reports: malaise, weakness HEENT: Reports: no symptoms Cardiovascular: Reports: no symptoms Respiratory: Reports: no symptoms Gastrointestinal/Abdominal: Reports: difficulty swallowing Genitourinary: Reports: no symptoms Neurologic/Psychiatric: Reports: emotional problems Endocrine: Reports: no symptoms Hematologic/Lymphatic: Reports: no symptoms Allergies: Coded Allergies: No Known Allergies (Unverified , 01/30/20) All Systems: reviewed and negative except above Subjective There were no significant overnight events. Patient remained stable on supplemental oxygen. She is awake but confused at baseline. No fevers noted. cxr improved. covid neg x 2 Objective Last 24 Hour Vital Signs Date Time Temp Pulse Resp B/P (MAP) Pulse Ox O2 Delivery O2 Flow Rate FiO2 02/04/20 12:28 60 02/04/20 12:25 183/72 02/04/20 12:05 63 183/72 02/04/20 12:03 183/72 02/04/20 12:02 183/72 02/04/20 12:00 98.2 63 20 183/72 (109) 96 02/04/20 10:31 180/77 (111) 02/04/20 08:17 195/81 02/04/20 08:16 195/81 02/04/20 08:15 67 02/04/20 07:54 96.8 68 18 195/81 (119) 96 02/04/20 06:48 Nasal Cannula 2.0 02/04/20 06:36 170/80 02/04/20 04:15 190/76 02/04/20 04:00 71 02/04/20 04:00 98.4 70 16 190/71 (110) 94 02/04/20 00:00 97.2 68 18 101/66 (78) 94 02/04/20 00:00 63 02/04/20 00:00 101/66 02/03/20 21:44 140/76 02/03/20 21:00 Nasal Cannula 2.0 02/03/20 20:00 97.2 60 20 140/71 (94) 95 02/03/20 18:00 155/77 (103) 02/03/20 17:15 168/81 02/03/20 17:15 168/81 02/03/20 16:00 98.6 69 18 168/81 (110) 97 02/03/20 15:18 63 Intake and Output 02/03/20 02/04/20 19:00 07:00 Intake Total 1210.0 ml 920.0 ml Balance 1210.0 ml 920.0 ml Intake Free Water 100 ml IV Total 570.0 ml 320.0 ml Tube Feeding 540 ml 600 ml # Bowel Movements 1 Laboratory Tests 02/04/20 05:50: Sodium Level 144, Potassium Level 4.3, Chloride Level 108H, Carbon Dioxide Level 29, Anion Gap 7, Blood Urea Nitrogen 32H, Creatinine 1.4H, Estimat Glomerular Filtration Rate 35.5, Glucose Level 274H, Calcium Level 8.5, Random Vancomycin Level 6.9 Height (Feet): 5 Height (Inches): 4.00 Weight (Pounds): 109 Objective General Appearance: WD/WN, confused, thin EENT: PERRL/EOMI, normal ENT inspection Neck: non-tender, normal alignment, supple, normal inspection Cardiovascular: normal rate, regular rhythm Respiratory/Chest: chest wall non-tender, lungs clear, no accessory muscle use , rhonchi - bilaterally Abdomen: normal bowel sounds, non tender, soft, no organomegaly, no mass Edema: no edema noted Arm (L), no edema noted Arm (R), no edema noted Leg (L), no edema noted Leg (R), no edema noted Pedal (L), no edema noted Pedal (R), no edema noted 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
--- NOTE | 2020-02-04 14:13 | NUR ---
NURSE NOTES: md Zeng ordered Discharge order for the patient. contacted case management to get ready for discharge
--- NOTE | 2020-02-04 14:15 | NUR ---
*-* INSURANCE *-* ALL AVAILABLE CLINICALS HAVE BEEN FAXED TO: GEVOANY QUINN:REA Ref# [id number] # [phone] FAX# [phone] REVIEWS/CLINICALS
--- NOTE | 2020-02-04 14:24 | NUR ---
DISCHARGE PLANNED DISCHARGE ORDER NOTED PATIENT IS RETURNING TO [facility] [address] T: [phone] FOR NURSE TO NURSE REPORT RE[facility] DOCKETING SPECIALIST
--- NOTE | 2020-02-04 15:46 | Pulmonology Progress Note ---
Subjective ROS Limited/Unobtainable: No Allergies: Coded Allergies: No Known Allergies (Unverified , 01/30/20) All Systems: reviewed and negative except above Subjective care reviewed cleared for dc findings noted labs reviewed Objective Last 24 Hour Vital Signs Date Time Temp Pulse Resp B/P (MAP) Pulse Ox O2 Delivery O2 Flow Rate FiO2 02/04/20 12:28 60 02/04/20 12:25 183/72 02/04/20 12:05 63 183/72 02/04/20 12:03 183/72 02/04/20 12:02 183/72 02/04/20 12:00 98.2 63 20 183/72 (109) 96 02/04/20 10:31 180/77 (111) 02/04/20 08:17 195/81 02/04/20 08:16 195/81 02/04/20 08:15 67 02/04/20 07:54 96.8 68 18 195/81 (119) 96 02/04/20 06:48 Nasal Cannula 2.0 02/04/20 06:36 170/80 02/04/20 04:15 190/76 02/04/20 04:00 71 02/04/20 04:00 98.4 70 16 190/71 (110) 94 02/04/20 00:00 97.2 68 18 101/66 (78) 94 02/04/20 00:00 63 02/04/20 00:00 101/66 02/03/20 21:44 140/76 02/03/20 21:00 Nasal Cannula 2.0 02/03/20 20:00 97.2 60 20 140/71 (94) 95 02/03/20 18:00 155/77 (103) 02/03/20 17:15 168/81 02/03/20 17:15 168/81 02/03/20 16:00 98.6 69 18 168/81 (110) 97 Intake and Output 02/03/20 02/04/20 19:00 07:00 Intake Total 1210.0 ml 920.0 ml Balance 1210.0 ml 920.0 ml Intake Free Water 100 ml IV Total 570.0 ml 320.0 ml Tube Feeding 540 ml 600 ml # Bowel Movements 1 Objective WDWN NAD ill reduced breath sounds bilaterally with reduced rhonchi [id number] without MRG NABS nontender no HSM no CC mild edema confused nonfocal reduced ROM reviewed and edited Microbiology Date/Time Source Procedure Growth Status 02/01/20 17:30 Nasopharynx Coronavirus COVID-19 PCR (AUDI) - Final Complete Laboratory Tests 02/04/20 05:50: Sodium Level 144, Potassium Level 4.3, Chloride Level 108H, Carbon Dioxide Level 29, Anion Gap 7, Blood Urea Nitrogen 32H, Creatinine 1.4H, Estimat Glomerular Filtration Rate 35.5, Glucose Level 274H, Calcium Level 8.5, Random Vancomycin Level 6.9 Current Medications Medications (Trade) Dose Ordered Sig/Jazmine Route PRN Reason Start Time Stop Time Status Last Admin Dose Admin Acetaminophen (Tylenol) 500 mg Q4H PRN ORAL MILD/TEMP 01/30/20 09:00 02/29/20 08:59 Amiodarone HCl (Cordarone) 200 mg DAILY GT 01/31/20 09:00 04/29/20 08:59 02/04/20 08:16 Amlodipine Besylate (Norvasc) 10 mg DAILY ORAL 02/04/20 11:30 03/05/20 11:29 02/04/20 12:05 Apixaban (Eliquis) 2.5 mg DAILY GT 01/31/20 09:00 04/29/20 08:59 02/04/20 08:16 Barium Sulfate (Varibar Honey) 250 ml NOW PRN MC RAD 02/03/20 15:00 02/06/20 14:47 Barium Sulfate (Varibar [place]) 240 ml NOW PRN MC RAD 02/03/20 15:00 02/06/20 14:47 Barium Sulfate (Varibar Pudding) 230 ml NOW PRN MC RAD 02/03/20 15:00 02/06/20 14:47 Clonidine HCl (Catapres Tab) 0.1 mg Q4H PRN GT For High Blood Pressure 01/30/20 14:00 04/29/20 13:59 02/04/20 12:25 Dextrose (Dextrose 50%) 25 ml Q30M PRN IV Hypoglycemia 01/30/20 09:00 04/29/20 08:59 Dextrose (Dextrose 50%) 50 ml Q30M PRN IV Hypoglycemia 01/30/20 09:00 04/29/20 08:59 Glimepiride (AmaryL) 2 mg BID GT 02/02/20 18:00 03/03/20 17:59 02/04/20 08:16 Hydralazine HCl (Apresoline) 50 mg Q6HR ORAL 02/03/20 12:00 05/03/20 11:59 02/04/20 12:03 Insulin Aspart (NovoLOG) BEFORE MEALS AND HS SUBQ 01/30/20 11:30 04/29/20 11:29 02/04/20 12:06 Lisinopril (PriniviL) 20 mg Q12HR GT 01/30/20 21:00 02/29/20 12:29 02/04/20 08:17 Nitroglycerin (Ntg) 1 patch Q24H TDERMAL 02/04/20 12:00 03/05/20 11:59 02/04/20 12:02 Pantoprazole (Protonix) 40 mg DAILY ORAL 01/30/20 09:00 02/29/20 08:59 02/04/20 08:16 Piperacillin Sod/ Tazobactam Sod 3.375 gm/Sodium Chloride 110 ml @ 27.5 mls/hr Q12HR IVPB 01/30/20 09:00 02/06/20 08:59 02/04/20 08:18 Sitagliptin Phosphate (Januvia) 50 mg DAILY ORAL 01/30/20 09:00 02/29/20 08:59 02/04/20 08:16 Sodium Chloride 1,000 ml @ 30 mls/hr Q24H IV 02/03/20 12:00 03/04/20 11:59 02/03/20 12:38 Vancomycin HCl (Vanco rx to dose) 1 ea DAILY PRN MISC Per rx protocol 01/30/20 09:00 02/29/20 08:59 Assessment/Plan Assessment/Plan pneumonia, improved negative COVID SARWAT chronic encephalopathy severe PCM dementia low K PLAN care noted dc planning today ID follow up await repeat imaging off load aspiration precautions oxygen needs minimal at present impression, plan, and exam edited and reviewed in detail care discussed with Eduardo Kern MD February 04, 2020 15:46
[2020-02-04] MEDS ORDERED: CATAPRES0.1 MG GT (15:49)
[2020-02-04] MEDS ORDERED: HYDRALAZINE HCL50 MG ORAL (15:50)
[2020-02-04] MEDS ORDERED: INSULIN AS100 UNIT/2 SQ (15:51)
[2020-02-04] MEDS ORDERED: NITROGLYCERIN1 EAC2 TD (15:53)
[2020-02-04] MEDS ORDERED: AMLODIPINE BESY10 MG ORAL (15:57)
--- NOTE | 2020-02-04 17:05 | NUR ---
NURSE NOTES: pt has D/C order, all discharge assessments and instructions done. pt is stable, V/S stable, BP upon D/C 153/68 HR 68 SPO2 95% with RA. Report given to SNF RN ELIUD GOLD. G tube flushed. iv access D/C. No insulin given to pt due to discharging pt and no feeding. pt has sacral and perineal redness, washed and applied triad on that. took pictures and uploaded. pt's niece allyson is aware about D/C. Pt left hospital with accompany of ambulance personnel.
[2020-02-04] MEDS ORDERED: D5 1/2NS 1000ml IV ONE (17:11)
--- NOTE | 2020-02-05 12:57 | Discharge Summary ---
Discharge Summary Discharge Summary _ DATE OF ADMISSION: 01/30/2020 DATE OF DISCHARGE: 02/04/2020 DISCHARGED BY: Dr. Simmons REASON FOR ADMISSION: 89 years old female, resident of snf facility, with past medical history of paroxysmal atrial fibrillation, hypertension, chronic kidney disease , dysphasia, dementia, was transferred for evaluation due to cough, congestion or shortness of breath. Patient had low-grade fever and was tachypneic in emergency department. Chest x-ray demonstrated areas of patchy airspace disease , particularly in the right mid lower lung zones of uncertain etiology. Atypical pneumonia such as early COVID-19 pneumonia could not be excluded. Laboratory work-up demonstrated leukocytosis. Potassium 5.6. BUN 46, creatinine 1.6. Glucose 329. Troponin 0.018 . EKG revealed sinus rhythm , no acute ischemic changes. Lactic acid 1.7. Urinalysis revealed pyuria, +3 leukocyte esterase ,and many bacteria, +4 protein. Patient pancultured , swabbed for COVID-19, started on empiric antibiotics and admitted to telemetry floor to isolation room for further management. CONSULTANTS: pulmonary Dr. Zeng inside sales professional Dr. Sneed HOSPITAL COURSE: Patient admitted to telemetry floor and started on empiric antibiotic. Patient was kept on isolation. Supplemental oxygen provided and titrated to keep oximetry above 92% Pulmonary toilet provided. Blood cultures were negative. Influenza swab was negative. SARS-CoV-2 by PCR on 01/29 and 01/31 not detected. Isolation was discontinued. Urine culture revealed Strep agalactiae group B. Patient received antibiotic for pneumonia and UTI. Follow-up chest x-ray revealed improved right lung infiltrates over 3 days. SNF medication continued. Anticoagulation with Eliquis for paroxysmal atrial fibrillation continued . No evidence of bleeding . Heart rate was controlled with amiodarone. Patient remained in sinus rhythm. Blood pressure was managed with hydralazine and Lisinopril . Clonidine was on board as needed for blood pressure spikes. GI prophylaxis provided. Blood sugar was managed with Januvia and Amaryl. Sliding scale of insulin was on board as needed. Renal parameters and electrolytes were closely monitored , electrolytes corrected as needed and nephrotoxins were avoided. Creatinine was trended down. Tube feeding formula with goal rate and protein supplements provided as per certified registered locksmith recommendation Bedside swallow evaluation was done. Therapist recommended continue G tube feeding duration precaution and start oral gratification with one-to-one supervision . Continue speech therapist sessions at the facility. Patient clinically stabilized and was ready for transfer back to snf facility for continuation of care FINAL DIAGNOSES: Pneumonia UTI Suspected COVID-19- ruled out Acute kidney injury Dehydration Chronic encephalopathy Severe protein calorie malnutrition Dementia Hyperkalemia Hyperglycemia due to type 2 diabetes mellitus DISCHARGE MEDICATIONS: See Medication Reconciliation list. DISCHARGE INSTRUCTIONS: Patient was discharged to the snf facility. Follow up with medical doctor at the facility. I have been assigned to dictate discharge summary for this account. I was not involved in the patient's management. Mariangel Morse NP February 05, 2020 12:57
--- NOTE | 2020-02-07 17:28 | NUR ---
*-* INSURANCE *-* DISCHARGE SUMMARY HAS BEEN FAXED TO [facility] # [id number] [facility]:[place] [address] [phone]
== END 2020-02-04 17:12 | DRG 139 ==
LOC: EDBD 03:20 → EMR 03:52 → EDBEDREQ 06:38 → 2E 06:43
DX: J18.9 Pneumonia, unspecified organism (principal); N17.9 Acute kidney failure, unspecified; N39.0 Urinary tract infection, site not specified; E11.65 Type 2 diabetes mellitus with hyperglycemia; I48.91 Unspecified atrial fibrillation; E86.0 Dehydration; G92 Toxic encephalopathy; I12.9 Hypertensive chronic kidney disease with stage 1 through stage 4 chronic kidney disease, or unspecified chronic kidney disease; E11.22 Type 2 diabetes mellitus with diabetic chronic kidney disease; Y95 Nosocomial condition; E43 Unspecified severe protein-calorie malnutrition; F03.90 Unspecified dementia, unspecified severity, without behavioral disturbance, psychotic disturbance, mood disturbance, and anxiety; Z79.4 Long term (current) use of insulin; N18.3 Chronic kidney disease, stage 3 (moderate); E87.5 Hyperkalemia; Z66 Do not resuscitate; Z68.21 Body mass index [BMI] 21.0-21.9, adult
CPT/HCPCS: 36415; 71045; 80048; 80053; 80202; 81003; 82550; 82553; 82962; 83605; 83735; 84100; 84484; 85025; 85379; 85651; 86140; 86710; 87040; 87086; 87635; 92610; 93005; 96361; 96365; 96368; 96372; 99291; J1815; J7030; J8499

== ENCOUNTER 2020-05-04 14:39 | Inpatient (IN) | payer MEDICARE, OTHER ==
[~2020-05-04] VITALS: Ht 157.5 cm; Wt 61.2 kg
[~2020-05-04 14:39] MED LIST: ACETAMINOPHEN325 M1 GT; AMIODARONE HCL400 M1 GT; AMLODIPINE BESY10 MG ORAL; CATAPRES0.1 MG GT; DIGOXIN0.125 MG/2 GT; DIGOXIN125 MCG GT; ELIQUIS2.5 MG GT; GLIMEPIRIDE1 MG GT; HYDRALAZINE HCL50 MG ORAL; INSULIN AS100 UNIT/2 SQ; JANUVIA25 MG GT; KAPSPARGO SPRI100 MG GT; LEVEMIR100 UNIT/1 SUBQ; LISINOPRIL20 MG GT; NITROGLYCERIN1 EAC2 TD; NORCO 5-325 TA1 EAC1 GT; OMEPRAZOLE20 M3 GT; PROTONIX40 MG GT; TYLENOL EXTRA500 MG GT
[2020-05-04] MEDS ORDERED: Piperacillin/Tazobactam 3.375 GM in NS 110 ML IVPB ONE (14:45)
[2020-05-04] MEDS ORDERED: Vancomycin 1 GM in NS 275 ML IV ONE (14:45)
[2020-05-04] MEDS ORDERED: Azithromycin 500 MG in D5W 275 ML IVPB ONE (14:45)
--- NOTE | 2020-05-04 15:00 | NUR ---
ED Nurse Note:pt. was BIBA from SNF with sepsis and SOB, pt. is DNR, non-verbal alert, bed bound, blood sent to labs ,given IV fluids
[2020-05-04] MEDS ORDERED: MULTIVITAMINS1 EAC2 ORAL (15:02)
--- NOTE | 2020-05-04 15:03 | Emergency Room Report ---
History of Present Illness General Chief Complaint: General Complaint Source: Patient Present Illness HPI [facility] She was hypoxemic with oxygen saturation of 85%. On 100% nonrebreather this went up to 98%. She has a history of COPD. Paramedics heard rales. In addition she was hypotensive. Systolic pressure was 86. Paramedics did not start an IV. Allegedly she tested negative for COVID-19. It is uncertain as to when that was. The patient apparently is oriented x0. Patient has a history of COPD, autism, atrial fibrillation DNR status. The patient was recently admitted. Discharge February 03. 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 DNR status Reviewed Nursing Documentation: PMH: Agreed; PSxH: Agreed Nursing Documentation-PMH Past Medical History: No History, Except For Hx Hypertension: Yes - emphysema Hx Asthma: Yes Hx COPD: Yes Hx Diabetes: Yes Hx Cancer: No Hx Gastrointestinal Problems: Yes - G tube and GERD Hx Neurological Problems: Yes - Dysphagia, Autistic Hx Cerebrovascular Accident: Yes Hx Dementia: Yes Review of Systems All Other Systems: limited Physical Exam Vital Signs Date Time Temp Pulse Resp B/P (MAP) Pulse Ox O2 Delivery O2 Flow Rate FiO2 05/04/20 14:32 Simple Mask 05/04/20 14:32 96.4 62 15 86/71 (76) 98 10.0 Sp02 EP Interpretation: reviewed, normal General Appearance: Chronically Ill, Stupor ENT: moist mucus membranes Neck: supple, no meningismus, no bony tend Respiratory: rales, rhonchi Cardiovascular #1: no edema, tachycardia Cardiovascular #2: 2+ radial (L) Gastrointestinal: no rebound, guarding, decreased bowel sounds Rectal: other Musculoskeletal: other - Extensor contractures lower extremities Neurologic: other - Stupor decreased reflexes flaccid Psychiatric: other - Stupor Skin: other - Cool Procedures Critical Care Time Critical Care Time Total Critical Care Time: 90 min bedside evaluation and treatment excludes procedures (EKG). Reason for critical care: Stupor, hypotension, hypoxia, sepsis, hyperkalemia, renal failure, repeat exams, broadened antibiotics Possible complications: hypotension, hypertension, DE, shock, arrhythmias, metabolic acidosis, end organ damage, respiratory failure. Interventions: Fluid resuscitation, antibiotics, repeat evaluations, treatment of hyperkalemia, exclusion of COVID-19 and breathing treatments Course: Patient presented with hypotension, tachycardia and hypoxia. Initial fluid resuscitation begun. Isolation for COVID-19 precautions. With elevated white count broad-spectrum antibiotics begun. With hypoxia consideration of possible pulmonary source however x-ray unremarkable. Labs returned with renal failure and hyperkalemia. Treatment of hyperkalemia instituted. Urinary source identified. Antibiotics broadened. 3 repeat examinations performed for severe sepsis. As patient tested negative for COVID-19 we are able to give albuterol treatment for hyperkalemia. Discussed with respiratory therapy. Patient not requiring pressors at this time and improved. Consultations: nursing staff, EMS, respiratory therapy, admitting physician Performed by: Dr. Bright Tolerated well condition = critical Medical Decision Making Diagnostic Impression: Primary Impression: Severe sepsis Additional Impressions: Hyperkalemia UTI (urinary tract infection) Qualified Codes: N39.0 - Urinary tract infection, site not specified Renal failure Qualified Codes: N17.9 - Acute kidney failure, unspecified ER Course Patient presents with alleged hypoxia, hypotension and tachycardia. She is also comatose at this time. Differential includes sepsis, pneumonia, urinary tract infection, electrolyte imbalance, volume depletion, acute myocardial infarction amongst others. Evaluation with EKG, chest x-ray and labs. As the patient is coming [facility] COVID-19 needs to be excluded. Patient is placed on a yield clerk. Patient is hypotensive and initial fluid boluses administered. Patient appears pre-moribund. EKG sinus tachycardia without injury. Chest x-ray essentially clear. Called with WBC 1535 - bolus and abx already ordered. Perfusion good. Sepsis reevaluation. Electrolytes with hyperkalemia and acute renal failure. Mentation and VS improved. 1644 Potassium being treated. Patient critical. Tested negative for COVID - albuterol ordered. Initial hypoxia improved and 98% on room air. Urine is turbid and most likely source of sepsis. Adding Levaquin. Mentation greatly improved. Patient responding to painful stimuli. Still not responsive to verbal. Blood pressure and pulse rate greatly improved. Laboratory Tests Test 05/04/20 15:00 05/04/20 15:40 05/04/20 16:40 05/04/20 20:10 White Blood Count 39.3 K/UL (4.8-10.8) *H Red Blood Count 4.24 M/UL (4.20-5.40) Hemoglobin 11.3 G/DL (12.0-16.0) L Hematocrit 35.4 % (37.0-47.0) L Mean Corpuscular Volume 83 FL (80-99) Mean Corpuscular Hemoglobin 26.7 PG (27.0-31.0) L Mean Corpuscular Hemoglobin Concent 32.0 G/DL (32.0-36.0) Red Cell Distribution Width 15.7 % (11.6-14.8) H Platelet Count 389 K/UL (150-450) Mean Platelet Volume 7.8 FL (6.5-10.1) Neutrophils (%) (Auto) % (45.0-75.0) Lymphocytes (%) (Auto) % (20.0-45.0) Monocytes (%) (Auto) % (1.0-10.0) Eosinophils (%) (Auto) % (0.0-3.0) Basophils (%) (Auto) % (0.0-2.0) Differential Total Cells Counted 100 Neutrophils % (Manual) 87 % (45-75) H Lymphocytes % (Manual) 3 % (20-45) L Monocytes % (Manual) 6 % (1-10) Eosinophils % (Manual) 0 % (0-3) Basophils % (Manual) 0 % (0-2) Band Neutrophils 4 % (0-8) Platelet Estimate Adequate Platelet Morphology Normal Polychromasia 1+ Anisocytosis 1+ Prothrombin Time 11.8 SEC (9.30-11.50) H Prothrombin Time INR 1.1 (0.9-1.1) Activated Partial Thromboplast Time 27 SEC (23-33) Sodium Level 133 MMOL/L (136-145) L 134 MMOL/L (136-145) L Potassium Level 7.8 MMOL/L (3.5-5.1) *H 6.2 MMOL/L (3.5-5.1) *H Chloride Level 99 MMOL/L (98-107) 101 MMOL/L (98-107) Carbon Dioxide Level 23 MMOL/L (21-32) 20 MMOL/L (21-32) L Anion Gap 11 mmol/L (5-15) 12 mmol/L (5-15) Blood Urea Nitrogen 125 mg/dL (7-18) H 120 mg/dL (7-18) H Creatinine 3.5 MG/DL (0.55-1.30) H 3.3 MG/DL (0.55-1.30) H Estimated Glomerular Filtration Rate 12.3 mL/min (>60) 13.2 mL/min (>60) Glucose Level 318 MG/DL (74-106) H 341 MG/DL (74-106) H Lactic Acid Level 4.90 mmol/L (0.4-2.0) H 4.40 mmol/L (0.66-2.22) H Calcium Level 8.6 MG/DL (8.5-10.1) 8.3 MG/DL (8.5-10.1) L Phosphorus Level 6.0 MG/DL (2.5-4.9) H Magnesium Level 2.8 MG/DL (1.8-2.4) H Ferritin 222 NG/ML (8-388) Total Bilirubin 0.4 MG/DL (0.2-1.0) Aspartate Amino Transferase (AST) 29 U/L (15-37) Alanine Aminotransferase (ALT) 24 U/L (12-78) Alkaline Phosphatase 91 U/L (46-116) Lactate Dehydrogenase 222 U/L (81-234) Total Creatine Kinase 179 U/L (26-308) Troponin I 0.026 ng/mL (0.000-0.056) C-Reactive Protein, Quantitative 26.4 mg/dL (0.00-0.90) H Pro-B-Type Natriuretic Peptide 81686 pg/mL (0-125) H Total Protein 5.5 G/DL (6.4-8.2) L Albumin 1.4 G/DL (3.4-5.0) L Globulin 4.1 g/dL Albumin/Globulin Ratio 0.3 (1.0-2.7) L Lipase 100 U/L (73-393) Urine Color Yellow Urine Appearance Cloudy Urine pH 5 (4.5-8.0) Urine Specific [place] 1.015 (1.005-1.035) Urine Protein 3+ (NEGATIVE) H Urine Glucose (UA) 1+ (NEGATIVE) H Urine Ketones 1+ (NEGATIVE) H Urine Blood 3+ (NEGATIVE) H Urine Nitrite Negative (NEGATIVE) Urine Bilirubin Negative (NEGATIVE) Urine Urobilinogen 1 MG/DL (0.0-1.0) H Urine Leukocyte Esterase 3+ (NEGATIVE) H Urine RBC 0-2 /HPF (0 - 2) Urine WBC Tntc /HPF (0 - 2) H Urine Squamous Epithelial Cells Moderate /LPF (NONE/OCC) H Urine Bacteria Many /HPF (NONE) H Urine Yeast Many /HPF (NONE) H Microbiology Date/Time Source Procedure Growth Status 05/04/20 15:40 Nasopharynx SARS-CoV-2 RdRp Gene Assay - Final Complete EKG Diagnostic Results Rate: tachycardiac Rhythm: other - a fib ST Segments: no acute changes Rhythm Strip Diag. Results EP Interpretation: yes Rhythm: no PVC's, no ectopy, other - a fib Chest X-Ray Diagnostic Results Chest X-Ray Diagnostic Results : Chest X-Ray Ordered: Yes # of Views/Limited/Complete: 1 View Indication: Other Interpretation: no effusion, no pneumothorax, other - possible Rll infiltrate, minimal Impression: Other Last Vital Signs Date Time Temp Pulse Resp B/P (MAP) Pulse Ox O2 Delivery O2 Flow Rate FiO2 05/05/20 00:00 96.4 56 21 104/40 (61) 94 05/04/20 21:00 Room Air 05/04/20 18:40 10.0 21 Status: improved Disposition: ADMITTED INPATIENT Condition: Critical Augusto Bright MD May 04, 2020 15:03
[2020-05-04 15:25] LABS: HEMATOCRIT 35.4 % (37.0-47.0); HEMOGLOBIN 11.3 G/DL (12.0-16.0); MEAN CORPUSCULAR VOLUME 83 FL (80-99); PLATELET COUNT 389 K/UL (150-450); RED BLOOD COUNT 4.24 M/UL (4.20-5.40); RED CELL DISTRIBUTION WIDTH 15.7 % (11.6-14.8)
--- NOTE | 2020-05-04 15:25 | Diagnostic Imaging Report ---
Indication: Chest pain Technique: XRAY Chest 1v. Comparison: 02/02/2020 Findings: The cardiomediastinal silhouette is stable. There are no acute infiltrates. Impression: No acute abnormality. .
[2020-05-04 15:27] LABS: WHITE BLOOD COUNT 39.3 K/UL (4.8-10.8)
[2020-05-04 15:31] LABS: INR 1.1 (0.9-1.1)
[2020-05-04 15:44] LABS: ALANINE AMINOTRANSFERASE 24 U/L (12-78); ALBUMIN 1.4 G/DL (3.4-5.0); ALBUMIN/GLOBULIN RATIO 0.3 (1.0-2.7); ALKALINE PHOSPHATASE 91 U/L (46-116); ANION GAP 11 mmol/L (5-15); ASPARTATE AMINO TRANSFERASE 29 U/L (15-37); BILIRUBIN,TOTAL 0.4 MG/DL (0.2-1.0); BLOOD UREA NITROGEN 125 mg/dL (7-18); CALCIUM 8.6 MG/DL (8.5-10.1); CARBON DIOXIDE 23 MMOL/L (21-32); CHLORIDE 99 MMOL/L (98-107); CREATINE KINASE 179 U/L (26-308); CREATININE 3.5 MG/DL (0.55-1.30); FERRITIN 222 NG/ML (8-388); LACTATE DEHYDROGENASE 222 U/L (81-234); SODIUM 133 MMOL/L (136-145)
[2020-05-04 15:50] LABS: POTASSIUM 7.8 MMOL/L (3.5-5.1)
--- NOTE | 2020-05-04 15:55 | NUR ---
ED Nurse Note:blood and urine sent to labs, covid swab is done, pt. had BM, she has sacral decube and perianal redness, photo taken and downloaded, pt. receiving antibiotica and IV fluids
[2020-05-04] MEDS ORDERED: Sodium Bicarbonate 50ml Carp IV ONE (16:00)
[2020-05-04] MEDS ORDERED: Insulin Human Regular 100units/ml 3ml IV ONE (16:00)
[2020-05-04] MEDS ORDERED: Sodium Polystyrene Sulfonate 15gm Powder GT ONE (16:00)
[2020-05-04] MEDS ORDERED: Calcium Gluconate 1gm/10ml vial IVP ONE (16:00)
[2020-05-04 16:01] VITALS: BP 86/71
[2020-05-04 16:11] VITALS: BP 110/52
[2020-05-04 16:34] LABS: APPEARANCE,URINE CLOUDY; BILIRUBIN, URINE NEGATIVE (NEGATIVE); GLUCOSE, URINE (UA) 1+ (NEGATIVE); KETONES,URINE 1+ (NEGATIVE); LEUKOCYTE ESTERASE ,URINE 3+ (NEGATIVE); NITRITE,URINE NEGATIVE (NEGATIVE); PH,URINE 5 (4.5-8.0); PROTEIN,URINE 3+ (NEGATIVE); UROBILINOGEN,URINE 1 MG/DL (0.0-1.0)
[2020-05-04 16:35] LABS: COLOR,URINE YELLOW
--- NOTE | 2020-05-04 16:35 | NUR ---
HAND-OFF: Report given to yoselin Patel sent to labs.
--- NOTE | 2020-05-04 16:38 | NUR ---
ED Nurse Note: Recieved report from TEJINDER Kwong. Patient AAO x0, BP 84/36, pt has IV on right AC 22ga.
--- NOTE | 2020-05-04 16:40 | NUR ---
ED Nurse Note: Christianson 16F was incerted, patient tolerated procedure well.
--- NOTE | 2020-05-04 16:50 | NUR ---
ED Nurse Note: second IV line was established on left AC 22ga, all medications due was administered. Patient's VSS for now. BP 110/58, O2 sat 99% on RA, HR 89
[2020-05-04] MEDS ORDERED: Albuterol ud Inhalation HHN ONE (17:00)
--- NOTE | 2020-05-04 18:37 | NUR ---
NURSE NOTES: Recvd report for patient from STREET OPENINGS INSPECTOR at 1830. Pt has still not arrived
--- NOTE | 2020-05-04 18:40 | NUR ---
ED Nurse Note: Patient was transfered to TELE unit due to severe sepsis. Patient was transfered to the unit via gurney, by ACLS protocol, with all belongings. Patient still AAO x0, VSS at this time, patient has sacral preassure ulcer, pictures were taken and uploaded in to the computer. Patient has 2 IV lines: right and left AC 22ga.
--- NOTE | 2020-05-04 18:53 | NUR ---
NURSE NOTES: Pt arrived to the floor at 1845. surveillance monitor was placed on patient. sacral pressure ulcer was noted when turning patient. Pt is screaming as we are turning her in bed and reposition but is not able to follow command. Pt has no belongings. Pt is on room air with no sign of sob or resp distress. Gtube was noted on patient, clamped. Christianson cath was placed in ER and noted draining cloudy yellow urine. Pt is DNR/ DNI. Will endorse admission to nightshift RN.
--- NOTE | 2020-05-04 19:06 | NUR ---
NURSE HAND-OFF REPORT: Important Events on Shift: New admission pt arrived, need orders Patient Status: abnormal labs, pt is DNR/DNI Diet: Gtube, most likely NPO Pending Orders: admititing orders Pending Results/Labs:none yet Pending MD notification yes Latest Vital Signs: Temperature 96.4 , Pulse 82 , B/P 110 /52 , Respiratory Rate 33 , O2 SAT 100 , Room Air, O2 Flow Rate 10.0 . Vital Sign Comment: none EKG Rhythm: Rhythm change?: MD Notified?: - MD Response: Latest Ayala Fall Score: 50 Fall Risk: Safety Measures: Call light , Bed Alarm , Side Rails , Bed position . Fall Precautions: Report given to Max MARR endorsed admission.
--- NOTE | 2020-05-04 19:25 | NUR ---
NURSE NOTES: Received report from TEJINDER Guzman. Patient asleep, but screams when touched. Currently on room air, saturating well. No IVF running at this time. IV site intact and flushed. Noted to have critical labs, will refer to Dr. Zeng right away for admission orders. Noted to have a sacral pressure injury, will turn patient q2h. Bed in lowest position, brakes engaged, bed alarm on. Bed rails raised x2. Call light placed within reach. Will continue to monitor. Will complete admission assessment
--- NOTE | 2020-05-04 19:50 | NUR ---
NURSE NOTES: Called Dr. Zeng for admission orders. Would not and carry out. Will continue to monitor. Addendum: 05/04/20 at 2319 by Max Maravilla RN *would note and carry out
[2020-05-04 20:00] VITALS: BP 99/33
--- NOTE | 2020-05-04 20:01 | NUR ---
NURSE NOTES: Called lab for the stat bmp order.
--- NOTE | 2020-05-04 20:15 | NUR ---
NURSE NOTES: labs drawn. will page dr wong once resulted. will continue to monitor.
[2020-05-04 20:33] LABS: ANION GAP 12 mmol/L (5-15); BLOOD UREA NITROGEN 120 mg/dL (7-18); CALCIUM 8.3 MG/DL (8.5-10.1); CARBON DIOXIDE 20 MMOL/L (21-32); CHLORIDE 101 MMOL/L (98-107); CREATININE 3.3 MG/DL (0.55-1.30); SODIUM 134 MMOL/L (136-145)
[2020-05-04 20:39] LABS: POTASSIUM 6.2 MMOL/L (3.5-5.1)
--- NOTE | 2020-05-04 20:41 | NUR ---
NURSE NOTES: Called and left a message with Dr. Zeng regarding patient's stat BMP. K 6.2; BUN 120; Cr 3.3; Calcium 8.3. New orders: 30g kayaxelate; 500cc ns bolus; bmp in am.
[2020-05-04] MEDS ORDERED: Heparin 5000 units/ml inj SUBQ SCH (21:00)
[2020-05-04] MEDS ORDERED: Sodium Polystyrene Sulfonate 15gm Powder ORAL SCH (21:00)
--- NOTE | 2020-05-04 21:03 | NUR ---
NURSE NOTES: Dev garcia. Updated dr. Zeng with patient's latest BP: 91/36. Will continue to monitor patient.
[2020-05-04 21:37] VITALS: BP 97/35
--- NOTE | 2020-05-04 21:37 | NUR ---
NURSE NOTES: Latest VS after IV bolus: BP; 97/35; HR: 83; RR: 20; T: 97.6; SpO2: 97% on RA. Dr. Zeng aware. Will monitor closely.
[2020-05-04] MEDS: NovoLOG Insulin Flexpen SUBQ SCH (22:11)
[2020-05-04] MEDS ORDERED: Acetaminophen 500mg (ES) tab ORAL PRN (23:30)
[2020-05-05] VITALS (9 sets, daily range): BP systolic 89–110; BP diastolic 35–82
[2020-05-05] MEDS ORDERED: HydrALAZINE 50mg tab ORAL SCH
[2020-05-05] MEDS ORDERED: Piperacillin/Tazobactam 3.375 GM in NS 110 ML IVPB SCH ×2
--- NOTE | 2020-05-05 01:33 | NUR ---
NURSE NOTES: latest BP: 105/39; HR: 85. Will continue to monitor.
--- NOTE | 2020-05-05 01:45 | Consultation ---
DATE OF CONSULTATION: 05/04/2020 REFERRING PHYSICIAN: Eduardo Zeng MD REASON: Shock. HISTORY: This is an 89-year-old female. She resides at a long-term facility. She was noted to be hypoxic, withdrawn, lethargic, and subsequently hypotensive. She was transferred to the emergency room for evaluation. A diagnostic workup was undertaken. Significant laboratory abnormalities were noted. I have been asked to assist with further cardiovascular care. PAST MEDICAL HISTORY: 1. Cerebrovascular disease with dementia. 2. Hypertensive heart disease. 3. Paroxysmal atrial fibrillation. 4. Chronic kidney disease. 5. COPD. 6. Type 2 diabetes mellitus. 7. History of pleural effusions. 8. Advance directives, DNR. 9. Dysphagia, with G-tube. 10. Gastroesophageal reflux disease. MEDICATIONS: Reviewed and reconciled. SOCIAL HISTORY: Negative for smoking, alcohol, or substance abuse. FAMILY HISTORY: Not known. REVIEW OF SYSTEMS: Not obtainable from the patient due to her underlying dementia. Review of prior hospital records and current residential chart is undertaken and 20 minutes of time spent with pertinent data outlined above. PHYSICAL EXAMINATION: VITAL SIGNS: Blood pressure 86/71, heart rate 62, respiratory rate 15, afebrile. Oxygen saturation 98% on a facemask. GENERAL: Withdrawn, noncommunicative. NECK: Veins flat. HEENT: Mucous membranes dry. LUNGS: Bilateral breath sounds and rhonchi. CARDIAC: Irregularly irregular rhythm. Normal S1, S2. No appreciable murmur. Point of maximum impulse sustained. ABDOMEN: Soft, nontender. EXTREMITIES: Without edema. G-tube site intact. LABORATORY AND DIAGNOSTIC DATA: EKG reveals atrial fibrillation with nonspecific ST-T wave changes and rapid ventricular response. Chest x-ray reveals right lower lobe infiltrate. Labs notable for white count of 39.3, hemoglobin 11.3, platelet count 389,000. Sodium 133, potassium 7.8, bicarb 23, BUN 125, creatinine 3.5, glucose 318, magnesium 2.8. Pro-natriuretic peptide over 10,000. Albumin 1.4. Lactic acid 4.9. Following treatment with Kayexalate, glucose, and insulin, potassium corrected to 6.2. Troponin 0.026. IMPRESSION: 1. Critical and guarded. 2. Shock due to sepsis and hypovolemia. 3. Healthcare-associated pneumonia. 4. Urinary tract infection. 5. Hyperkalemia. 6. Paroxysmal atrial fibrillation with rapid ventricular response. 7. Lactic acidosis. 8. Acute on chronic renal failure. 9. Type 2 diabetes mellitus with hyperglycemia. 10. Elevated natriuretic peptide essay suggestive of chronic diastolic congestive heart failure. 11. Severe protein calorie malnutrition. 12. Cerebrovascular disease with dementia. 13. Hyponatremia. 14. Leukocytosis. PLAN: Cardiac monitoring, aggressive saline volume resuscitation, insulin titration. Hold all cardiovascular medications. Continue cardiac monitoring. Broad-spectrum antimicrobials. Respiratory hygiene. Intake and output measurements. Follow up chemistry panel, renal function, and lactic acid levels. Augusto Benítez M.D. DR: LADARIUS JOB#: [id number] CC:
[2020-05-05] MEDS: Zosyn 3.375gm q12h **Extended infusion IVPB SCH ×4 (03:04→15:48)
--- NOTE | 2020-05-05 04:15 | NUR ---
NURSE NOTES: Positioned patient in trendelenberg to aid in increasing blood pressure. Will re-assess. IVF still running at 100ml/hr. Zosyn simultaneously running on 2nd IV site. Will continue to monitor.
--- NOTE | 2020-05-05 04:30 | NUR ---
NURSE NOTES: BP: 95/38. will continue to closely monitor.
[2020-05-05] MEDS ORDERED: Acetaminophen 650mg/20.3ml GT PRN (06:00)
[2020-05-05] MEDS: NovoLOG Insulin Flexpen SUBQ SCH ×4 (06:30→21:00)
[2020-05-05 07:15] LABS: HEMATOCRIT 31.6 % (37.0-47.0); HEMOGLOBIN 9.8 G/DL (12.0-16.0); MEAN CORPUSCULAR VOLUME 85 FL (80-99); PLATELET COUNT 302 K/UL (150-450); RED CELL DISTRIBUTION WIDTH 15.1 % (11.6-14.8)
--- NOTE | 2020-05-05 07:20 | NUR ---
HAND-OFF: Report given to TEJINDER Arreguin. Patient stable. On room air, saturating well. Endorsed that patient has been hypotensive during the shift. Latest BP: 104/40. IVF still running at a prescribed rate. Plan of care endorsed.
--- NOTE | 2020-05-05 07:30 | NUR ---
NURSE NOTES: Received pt from Max RN, Pt is awake and nonverbal, pt is in RA, no SOB or acute respiratory distress noted. pt has intact iv access RAC and LAC 22G SL. Pt is on continues heart monitoring. pt is NPO, Dr Zeng is aware about WBC 23.4, waiting to call back. all needs attended, bed is locked and is in the lowest position, call light within easy reach. will continue to monitor.
[2020-05-05 07:33] LABS: ANION GAP 10 mmol/L (5-15); BLOOD UREA NITROGEN 107 mg/dL (7-18); CALCIUM 7.9 MG/DL (8.5-10.1); CARBON DIOXIDE 23 MMOL/L (21-32); CHLORIDE 106 MMOL/L (98-107); CREATININE 2.6 MG/DL (0.55-1.30); POTASSIUM 4.9 MMOL/L (3.5-5.1); SODIUM 139 MMOL/L (136-145)
[2020-05-05 07:38] LABS: WHITE BLOOD COUNT 23.4 K/UL (4.8-10.8)
--- NOTE | 2020-05-05 08:16 | NUR ---
NURSE NOTES: Dr wong is aware about BP 89/35, WBC 23.4, and other lab results and V/S, ordered NS 1Lit bolus, noted and carried out. will continue to monitor.
[2020-05-05] MEDS ORDERED: Lisinopril 20mg tab GT SCH (09:00)
[2020-05-05] MEDS: Eliquis 2.5mg tablet GT SCH (09:02)
[2020-05-05] MEDS: Amiodarone 200mg tab GT SCH (09:02)
[2020-05-05] MEDS: Glimepiride 1mg tab GT SCH ×2 (09:02→17:22)
[2020-05-05] MEDS: sitaGLIPtin 25mg tab GT SCH (09:02)
[2020-05-05] MEDS: Digoxin 0.125mg tab GT SCH (09:02)
[2020-05-05] MEDS ORDERED: Vancomycin 1 GM in NS 275 ML IVPB SCH (10:00)
--- NOTE | 2020-05-05 10:00 | History and Physical Report ---
DATE OF ADMISSION: 05/04/2020 REASON FOR ADMISSION: Hypotension, septic shock, acute renal failure. HISTORY OF PRESENT ILLNESS: An 89-year-old female presented with hypotension, acute renal failure, elevated potassium, and hypoxemia. The patient tested negative for COVID. The patient is now admitted for IV antibiotics. Rapid COVID swab was negative in the emergency room. The patient is a Do Not Resuscitate. The patient with significant multiorgan dysfunction. Chest x-ray is negative. The patient admitted, had been hypotensive overnight, but overall remained stable. Also, potassium had been significantly elevated on admission, now somewhat improved. The patient's care discussed and reviewed. The patient unable to give much in the way of history. The patient is presently nonverbal. PAST MEDICAL HISTORY: Notable for history of acute renal failure, history of chronic encephalopathy, protein calorie malnutrition, dementia, hyperkalemia, prior history of diabetes, and sepsis. MEDICATIONS: Reviewed. ALLERGIES: Reviewed. SOCIAL HISTORY: The patient is Do Not Resuscitate. Nonsmoker and nondrinker. The patient is mostly bedbound. PHYSICAL EXAMINATION: GENERAL: An ill-appearing female with reduced mental status. VITAL SIGNS: Reviewed. Blood pressure 89/35, pulse 84, respirations 17, saturation 96%, temperature 98.6. HEENT: Negative. NECK: Supple. No adenopathy. LUNGS: Moderate breath sounds. No rhonchi. No wheezes. CARDIAC: S1 and S2. Regular rate and rhythm. Distant. No significant murmurs. ABDOMEN: Soft, nontender. G-tube in place. EXTREMITIES: No cyanosis, clubbing, or edema. NEUROLOGICAL: Poorly responsive. LABORATORY DATA: Reviewed and is notable for BUN 107, creatinine 2.6, which is improved. Potassium is now 4.9, which is improved. Lactic acid, which is elevated at 4.4. White cell count improved from 39 down to 23, hemoglobin 9.8, platelets of 302,000. Urinalysis with too numerous to count white cells. IMPRESSION: 1. Probable urosepsis. 2. Acute on chronic encephalopathy. 3. Septic shock. 4. Acute on chronic renal failure. 5. Hyperkalemia. 6. Leukocytosis. 7. Profound hypotension. 8. Profound altered mental status. 9. Dementia. 10. Diabetes. 11. G-tube. RECOMMENDATIONS: 1. Supportive care. 2. Resume medications from detention. 3. No potassium, no Lasix for now. 4. IV hydration. 5. Renal evaluation, ID evaluation, Cardiology evaluation. 6. Empiric antibiotics. 7. Close followup and recommendations. 8. Anticoagulation with caution. 9. Digoxin with caution. 10. Sliding scale insulin and diabetic management as needed. 11. Care discussed and reviewed, and I will follow closely. Eduardo Zeng M.D. DR: DAVIAN JOB#: [id number] CC:
--- NOTE | 2020-05-05 10:07 | NUR ---
NURSE NOTES: Dr Berry visited pt and is aware about BP 89/35 and pt's stomach is very distended, ordered Colace PRN, noted and carried out. will continue to monitor.
[2020-05-05] MEDS ORDERED: Docusate 100mg/10ml Liq GT PRN (10:15)
--- NOTE | 2020-05-05 10:33 | NUR ---
RD ASSESSMENT & RECOMMENDATIONS SEE CARE ACTIVITY FOR COMPLETE ASSESSMENT DAILY ESTIMATED NEEDS: Needs based on DM, wound, renal/ 49kg 30-35 kcals/kg 0207-1914 total kcals 1.25-1.5 g protein/kg 61-74 g total protein 25-30ml/kcal mL/kg 3642-9223 total fluid mLs NUTRITION DIAGNOSIS: * Increased kcal and pro needs r/t wound care as evidenced by open sacral wound per photo, eval pending. * Swallowing difficulty R/T dysphagia as evidenced by GT dependent. ENTERAL NUTRITION RECOMMENDATIONS: NEPRO @43ml/hr x 20hrs to provide 860ml, 1548kcal, 70g prot, 625ml free water * As medically able, start NEPRO @23ml/hr for 6 hrs, advance as tolerated 10ml q4-6 hrs * HOB over 30 degrees * Without IVF, water flush of ml q 130ml q4 hrs -------- ADDITIONAL RECOMMENDATIONS: * PER SNF: Height 4'11" inches and 108 lbs * Rec D5 while NPO * F/up w/ WC eval-> add IMAN in 4oz via GT BID with tube feeds * Rec renal formula as above d/t renal failure on adm * Maintain accurate calibrated bed scale weights .
--- NOTE | 2020-05-05 11:00 | Consultation ---
DATE OF CONSULTATION: 05/05/2020 NEPHROLOGY CONSULTATION CONSULTING PHYSICIAN: Jonathan Berry MD. ATTENDING PHYSICIAN: Eduardo Zeng MD. REASON FOR CONSULTATION: Multiple electrolyte abnormalities, elevated BUN and creatinine. HISTORY OF PRESENT ILLNESS: This is an 89-year-old female admitted last night by Dr. Zeng due to multiorgan failure, septic shock, and multiple electrolyte abnormalities with elevated BUN and creatinine. I am asked to see the patient for her elevated BUN and creatinine and electrolyte abnormalities. The patient is demented and unable to give any further information. [facility] is from a [facility]. PAST MEDICAL HISTORY: 1. Status post cerebrovascular accidents. 2. Hypertensive cardiovascular disease. 3. History of paroxysmal atrial fibrillation. 4. Baseline chronic kidney disease. 5. COPD. 6. Type 2 diabetes mellitus. 7. DNR. 8. Status post G-tube placement. MEDICATIONS: Current medications include IV vancomycin, amiodarone, apixaban, digoxin, glimepiride, multivitamins, sitagliptin, Protonix, Tylenol p.r.n., Zosyn IV, Truro p.r.n, insulin sliding scale, IV fluids, sodium chloride. ALLERGIES: No known drug allergies. FAMILY HISTORY: Unable to obtain due to mental status. SOCIAL HISTORY: Unable to obtain due to mental status. REVIEW OF SYSTEMS: Unable to obtain due to mental status. PHYSICAL EXAMINATION: GENERAL: This is an elderly female who is in no acute distress. She is very pale. VITAL SIGNS: Blood pressure 89/35, mean arterial pressure 53, heart rate 84 regular, respirations 17, temperature 96.8 axillary. HEENT: The head is normocephalic and atraumatic. Pupils are equal, round, and reactive to light and accommodation consensually. NECK: Supple. Trachea midline. There was no lymphadenopathy or thyromegaly. LUNGS: Bilateral rhonchi. HEART: Regular rate and rhythm without rubs, murmurs, or gallops. ABDOMEN: Soft, nontender. She has a G-tube. EXTREMITIES: No clubbing, cyanosis, or edema. NEUROLOGIC: She is confused. There were no gross focal findings. LABORATORY AND ANCILLARY DATA: Yesterday CBC, white count 39,300, today 23,400, hematocrit on admission 35.4, today 31.6, platelet count today is 302,000. Chemistry on admission, sodium 132, potassium 6.2, BUN 120, creatinine 3.3. Today sodium 139, potassium 4.9, BUN 107, creatinine 2.6. Urinalysis, yellow cloudy urine, pH 5, specific gravity 1.015, 3+ protein, 1+ glucose, 3+ blood, negative nitrite. Sediment shows too numerous to count white blood cells, many bacteria. Imaging report, chest x-ray no acute disease. ASSESSMENT: 1. Acute kidney injury superimposed on chronic kidney disease, most likely due to urosepsis. 2. Status post cerebrovascular accidents. 3. Hypertensive cardiovascular disease. 4. History of paroxysmal atrial fibrillation. 5. Baseline chronic kidney disease. 6. COPD. 7. Type 2 diabetes mellitus. 8. DNR. 9. Status post G-tube placement PLAN: 1. Continue the current therapy including IV fluids, IV antibiotics. 2. Avoid nephrotoxic agents. Thank you, Dr. Zeng, for letting me to participate in the care of this patient. Jonathan Berry M.D. DR: FRANCY JOB#: [id number] CC:
--- NOTE | 2020-05-05 11:47 | NUR ---
CASE MANAGEMENT:REVIEW FROM [facility] SI: SEPSIS. RENAL FAILURE. UTI. HYPERKALEMIA 96.5 62 15 86/71 98% ON NON REBREATHER WBC+39.3 K+7.8 BUN+125 CR+3.5 IS: IV VANCOMYCIN 1L NS BOLUS IV ZOSYN I AZITHROMYCIN IV CA GLUCONATE IV NA HCO3 KAYEXALATE : TO TELEMETRY
--- NOTE | 2020-05-05 11:50 | NUR ---
INSURANCE FAXED TO [facility]; [phone] F: [phone] REF#[id number]
--- NOTE | 2020-05-05 14:39 | Diagnostic Imaging Report ---
RENAL ULTRASOUND - COMPLETE INDICATION: Renal failure. TECHNIQUE: Multiplanar ultrasound examination of the abdomen with greyscale and doppler imaging. COMPARISON: None FINDINGS: Right kidney: The right kidney is small in size and demonstrate normal echogenicity. Right kidney measures 7.5 cm. There is no hydronephrosis.. There are subcentimeter cysts. Left kidney: Left kidney is small in size, measuring 7.7 cm, and demonstrates normal echogenicity. There is no hydronephrosis. In the upper pole cortex, there is a 6 to 7 mm hyperechoic focus which does not demonstrate shadowing. Bladder: Labs from Christianson catheter, limiting evaluation.. Incidental findings: Bladder is distended and contains sludge. There is a small amount of free fluid. IMPRESSION: 1. Atrophic kidneys. 2. Nonspecific hyperechoic focus in the left renal cortex, the differential for which includes tiny angiomyolipoma. 3. Ascites. 4. Distended gallbladder with cholelithiasis; clinical correlation for acute cholecystitis is recommended.
--- NOTE | 2020-05-05 15:11 | NUR ---
HAND-OFF: Report given to RN Kamryn. Pt is stable, no stress noted, endorsed plan of care, endorsed to monitor BP.
--- NOTE | 2020-05-05 16:30 | NUR ---
NURSE NOTES: Called Dr Benítez to relay rhythm strip changes, awaiting callback.
--- NOTE | 2020-05-05 17:15 | Consultation ---
DATE OF CONSULTATION: 05/05/2020 INFECTIOUS DISEASES CONSULTATION This consult is for coverage of Dr. Grant. CONSULTING PHYSICIAN: Tuan Becerra MD. PRIMARY ATTENDING PHYSICIAN: Eduardo Zeng MD. REASON FOR CONSULTATION: Sepsis and cholelithiasis, likely cholecystitis. HISTORY OF PRESENT ILLNESS: This is an 89-year-old longterm resident, admitted yesterday with hypoxemia. The patient had decrease in O2 saturation to 85%. This patient has hypotension with blood pressure reaching 86/71. At the time of admission, leukocytosis of 39.3, hyperkalemia, acute renal failure. PAST MEDICAL HISTORY: History of COPD, atrial fibrillation, diabetes mellitus, dementia, encephalopathy, CVA, status post G-tube placement. ALLERGIES: No known drug allergies. MEDICATIONS: Getting amiodarone, apixaban, digoxin, Amaryl, Januvia, Protonix, Zosyn, hydrocodone plus Tylenol, insulin, vancomycin. SOCIAL HISTORY: Single, longterm resident. No history of alcohol, drug abuse, smoking. The patient is nonverbal. No history obtainable. PHYSICAL EXAMINATION: VITAL SIGNS: Temperature 97.8, pulse 83, blood pressure 108/40. HEAD AND NECK: Poor dentition. HEART: Normal rate. LUNGS: Clear. ABDOMEN: Soft. EXTREMITIES: No edema. LABORATORY AND DIAGNOSTIC DATA: WBC today is 23.4, hemoglobin is 9.8, hematocrit 31.6, and platelets is 302. Sodium 139, potassium 4.9, chloride 106, bicarb 23, BUN is 107, creatinine 2.6. Creatinine at the time of admission was 3.3. Lactic acid at the time of admission was 4.9. UA showed wbc's too numerous to count, bacteria many, yeast many, ketones 1+, glucose 1+. COVID-19 was negative. Urine culture so far negative. Chest x-ray showed no acute abnormality. Renal ultrasound showed atrophic kidneys, ascites, distended gallbladder with cholelithiasis. Clinical correlation for acute cholecystitis is recommended. IMPRESSION: Severe sepsis with early shock. The patient had lactic acidosis, has pyuria, likely UTI, cholelithiasis, we will try to rule out cholecystitis, has atrial fibrillation, COPD, diabetes mellitus, dementia, lactic acidosis. The patient is DNR. RECOMMENDATION: Continue Zosyn. We will follow up the culture. We will order HIDA scan to rule out acute cholecystitis. At the end of my exam, I thank Dr. Zeng, for involving me in the care of this patient. Tuan Becerra M.D. DR: Johnathan JOB#: [id number] CC: REBEKAH
--- NOTE | 2020-05-05 17:33 | NUR ---
NURSE NOTES:WOUND CARE NOTES:Pt presented on admission with Multiple Pressure injuries. Sacral DTPI noted (L)6.7cm x (W)6.9cm. Base of wound is purpuric ,partially opened -ruby and indurated. No odor or exudate noted. Non-blanching erythema periwound.DTPI noted to R Ischium(L)4cm x (W)2.2cm.Base of Pressure injury maroon and indurated. Non-Blanching erythema without induration noted to L ischium. Vulva is swollen and erythematous . DTPI noted to R Heel(L)3.3cm x (W)2.9cm. Wound is is blood filled purpuric Blister with surrounding non-blanchable and boggy heel. R Heel is Boggy with Non-Blanchable erythema. Tx.Plan: Apply Moisture Barrier Paste to Sacrum. Cover with Optifoam drsg. Change every 3 days and prn. Apply Moisture Barrier Paste to R ischium. Cover with Optifoam drsg. Change every 3 days and prn. Apply Moisture Barrier Paste to Bilat groin, perineum and L ischium with each perineal care. Apply Cavilon Skin Barrier to R and L trochanteric areas. Cover each site with Optifoam drsg. Change every 7 days and prn. Reposition at least every 2hours or as tolerated. Off-load heels with pillow. APM/MARY ANN Mattress overlay.
--- NOTE | 2020-05-05 17:45 | NUR ---
NURSE NOTES: Patient bld sugar 68, Dr Zeng ordered soft diet and juice. Rn tried but patient not alert enough to eat, Dr Zeng made aware, awaiting response. Rn also asked for physician consult and which MD Dr Zeng prefers, awaiting response.
[2020-05-05] MEDS ORDERED: Tubing IV Secondary IV ONE (19:11)
[2020-05-05] MEDS ORDERED: NS 500ML ONE (19:11)
[2020-05-05] MEDS ORDERED: NS Irrig 1000ml ONE (19:11)
--- NOTE | 2020-05-05 19:15 | NUR ---
NURSE NOTES: received patient from TEJINDER Harry. Patient nonverbal but opens eyes spontaneously. Noted to be screaming. IV sites intact and flushed; IVF running at a prescribed rate. BP in normal range, but still in the low range. Will closely keep an eye on blood pressure during the shift. Will turn patient q2H. Wound care plan updated and will continue to follow. Bed in lowest position, brakes engaged, bed alarm. Call light placed within reach. Will continue to monitor.
--- NOTE | 2020-05-05 19:48 | NUR ---
NURSE NOTES: Faxed patient's medication list to pharmacy.
--- NOTE | 2020-05-05 19:59 | NUR ---
NURSE NOTES: Patient noted to be screaming. Paged Dr. Zeng for anti-anxiety medications. Latest VS: 110/42; HR: 92; RR:22; T: 96.0; SpO2: 95% on room air. New orders: Ativan 0.5mg IV Q4H PRN for agitation. Will note and carry out.
--- NOTE | 2020-05-05 20:13 | NUR ---
NURSE HAND-OFF REPORT: Important Events on Shift:bld sugar 68, Dr Zeng aware, gave juice via Gtube, started Gtube feeding. Rhythm strip changes, Dr Benítez contacted, awaiting callback. New wound added to assessment. Patient Status: stable Diet: Glucerna 1.5 at 40cc/hr Pending Orders: NM hepatobiliary with delays Pending Results/Labs: Pending MD notification:Dr Benítez for rhythm strip Latest Vital Signs: Temperature 97.7 , Pulse 71 , B/P 101 /82 , Respiratory Rate 20 , O2 SAT 96 , Room Air, O2 Flow Rate 10.0 . Vital Sign Comment: EKG Rhythm: afib, rvr Rhythm change?: Y Notified?: Y -Dr Jeyson PRETTY Response: Message left await call Latest Ayala Fall Score: 50 Fall Risk: High Risk Safety Measures: Call light Within Reach, Bed Alarm Zone 1, Side Rails Side Rails x2, Bed position Low and Locked. Fall Precautions: Yellow Socks Yellow Gown Door Sign Patient Fall Education Report given to Max Chin.
[2020-05-05] MEDS: LORazepam Inj 2mg/ml 1ml IV PRN (20:37)
[2020-05-05] MEDS ORDERED: NOVOLIN R100 UNIT/1 SUBQ (20:51)
[2020-05-05] MEDS ORDERED: PROTONIX40 M2 GT (20:51)
[2020-05-05] MEDS ORDERED: PRO-STAT LIQUID30 ML GT (20:51)
[2020-05-05] MEDS ORDERED: GUAIFENESIN DM118 M1 GT (20:51)
[2020-05-05] MEDS ORDERED: DIGOXIN125 MCG GT (20:51)
[2020-05-05] MEDS ORDERED: NYSTATIN1 EAC2 TOPIC (20:51)
--- NOTE | 2020-05-05 22:11 | NUR ---
NURSE NOTES: Spoke with Dr. Benítez regarding patient's episode of Afib/RVR during previous shift. Patient has converted back to sinus rhythm. aware.
[2020-05-06] VITALS: BP 92/34
[2020-05-06] MEDS: Zosyn 3.375gm q12h **Extended infusion IVPB SCH ×4 (02:22→16:02)
--- NOTE | 2020-05-06 02:27 | Cardiology Progress Note ---
Subjective DATE OF SERVICE: May 05, 2020 Confused Still congested and SOB. Monitor: Sinus with paroxysms of AFib with RVR On empiric IV abx Hyperkalemia correcting. BP parameters stabilizing. Objective Last 24 Hour Vital Signs Date Time Temp Pulse Resp B/P (MAP) Pulse Ox O2 Delivery O2 Flow Rate FiO2 05/06/20 00:00 127 05/06/20 00:00 96.8 107 26 92/34 (53) 95 05/05/20 21:00 Room Air 05/05/20 20:00 93 05/05/20 20:00 96.0 92 22 110/42 (64) 95 05/05/20 16:00 97.7 71 20 101/82 (88) 96 05/05/20 16:00 126 05/05/20 12:00 97.8 83 19 108/40 (62) 98 05/05/20 11:34 86 05/05/20 10:18 105/44 (64) 05/05/20 09:02 84 05/05/20 09:00 Room Air 05/05/20 08:00 84 05/05/20 08:00 96.8 84 17 89/35 (53) 96 05/05/20 05:13 100/37 (58) 05/05/20 04:31 95/38 (57) 05/05/20 04:00 96.4 53 21 90/35 (53) 94 05/05/20 03:51 83 RHYTHM: ST, Afib LUNGS: accessory muscle use, bilateral rhonchi CARDIAC: regular rhythm, normal S1 and S2, arrhythmia ABDOMEN: normal bowel sounds, non tender, no organomegaly, G-Tube intact EXTREMITIES: trace edema Laboratory Tests Test 05/05/20 05:17 05/05/20 06:08 POC Whole Blood Glucose 149 MG/DL (74-106) H White Blood Count 23.4 K/UL (4.8-10.8) *H Red Blood Count 3.70 M/UL (4.20-5.40) L Hemoglobin 9.8 G/DL (12.0-16.0) L Hematocrit 31.6 % (37.0-47.0) L Mean Corpuscular Volume 85 FL (80-99) Mean Corpuscular Hemoglobin 26.5 PG (27.0-31.0) L Mean Corpuscular Hemoglobin Concent 31.1 G/DL (32.0-36.0) L Red Cell Distribution Width 15.1 % (11.6-14.8) H Platelet Count 302 K/UL (150-450) Mean Platelet Volume 7.9 FL (6.5-10.1) Neutrophils (%) (Auto) % (45.0-75.0) Lymphocytes (%) (Auto) % (20.0-45.0) Monocytes (%) (Auto) % (1.0-10.0) Eosinophils (%) (Auto) % (0.0-3.0) Basophils (%) (Auto) % (0.0-2.0) Differential Total Cells Counted 100 Neutrophils % (Manual) 84 % (45-75) H Lymphocytes % (Manual) 7 % (20-45) L Monocytes % (Manual) 9 % (1-10) Eosinophils % (Manual) 0 % (0-3) Basophils % (Manual) 0 % (0-2) Band Neutrophils 0 % (0-8) Platelet Estimate Adequate Platelet Morphology Normal Hypochromasia 2+ Anisocytosis 1+ Sodium Level 139 MMOL/L (136-145) Potassium Level 4.9 MMOL/L (3.5-5.1) Chloride Level 106 MMOL/L (98-107) Carbon Dioxide Level 23 MMOL/L (21-32) Anion Gap 10 mmol/L (5-15) Blood Urea Nitrogen 107 mg/dL (7-18) H Creatinine 2.6 MG/DL (0.55-1.30) H Estimat Glomerular Filtration Rate 17.4 mL/min (>60) Glucose Level 146 MG/DL (74-106) #H Calcium Level 7.9 MG/DL (8.5-10.1) L Random Vancomycin Level 11.2 ug/mL Microbiology Date/Time Source Procedure Growth Status 05/04/20 15:40 Nasopharynx SARS-CoV-2 RdRp Gene Assay - Final Complete 05/04/20 15:40 Urine,Clean Catch Urine Culture - Preliminary Yeast Species Resulted 05/04/20 15:40 Urine,Clean Catch Urine Culture - Final Complete 05/04/20 15:00 Rectum - Final NO CARBAPENEM-RESISTANT ENTEROBACTERI... Complete Assessment/Plan Assessment/Plan Sepsis with shock UTI Metabolic and toxic encephalopathies HC associate PNA PAFib with RVR Acute renal failure hyperkalemia Lactic acidosis resolved Saline hydration Abx Nutrition by Gtube Follow up lytes Cardiac monitoring; may need to reload with amiodarone. Augusto Benítez MD May 06, 2020 02:27
[2020-05-06 04:00] VITALS: BP 90/29
[2020-05-06] MEDS: NovoLOG Insulin Flexpen SUBQ SCH ×4 (06:42→22:47)
--- NOTE | 2020-05-06 07:52 | NUR ---
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 Moved rooms to 219] Patient Status: [] Diet: [GT Glucerna ] Pending Orders: [] Pending Results/Labs:[] Pending MD notification:[] Latest Vital Signs: Temperature 98.4 , Pulse 131 , B/P 90 /29 , Respiratory Rate 24 , O2 SAT 92 , Room Air, O2 Flow Rate 10.0 . Vital Sign Comment: [] EKG Rhythm: AFib w/ RVR Rhythm change?: N MD Notified?: N -Dr Jeyson PRETTY Response: No New Orders Received Latest Ayala Fall Score: 50 Fall Risk: High Risk Safety Measures: Call light Within Reach, Bed Alarm Zone 1, Side Rails Side Rails x2, Bed position Low and Locked. Fall Precautions: Yellow Socks Yellow Gown Door Sign Patient Fall Education Report given to [Kmaryn RN].
--- NOTE | 2020-05-06 07:57 | NUR ---
NURSE NOTES: Received patient in bed asleep. No SOB or acute distress. IV line intact. Gtube intact, feeding ongoing. FC intact, draining yellow colored urine. HOB elevated. Bed locked in lowest position. Call light within reach. Will continue plan of care.
[2020-05-06 08:00] VITALS: BP 108/41
[2020-05-06] MEDS: sitaGLIPtin 25mg tab GT SCH (08:36)
[2020-05-06] MEDS: Digoxin 0.125mg tab GT SCH (08:36)
[2020-05-06] MEDS: Amiodarone 200mg tab GT SCH (08:37)
[2020-05-06] MEDS: Eliquis 2.5mg tablet GT SCH (08:37)
[2020-05-06] MEDS: Glimepiride 1mg tab GT SCH ×2 (08:37→17:09)
[2020-05-06 08:49] LABS: HEMATOCRIT 27.5 % (37.0-47.0); HEMOGLOBIN 8.5 G/DL (12.0-16.0); MEAN CORPUSCULAR VOLUME 85 FL (80-99); PLATELET COUNT 305 K/UL (150-450); RED BLOOD COUNT 3.22 M/UL (4.20-5.40); RED CELL DISTRIBUTION WIDTH 15.2 % (11.6-14.8)
[2020-05-06 08:50] LABS: WHITE BLOOD COUNT 28.7 K/UL (4.8-10.8)
[2020-05-06 09:09] LABS: ALANINE AMINOTRANSFERASE 18 U/L (12-78); ALBUMIN/GLOBULIN RATIO 0.3 (1.0-2.7); ALKALINE PHOSPHATASE 67 U/L (46-116); ANION GAP 12 mmol/L (5-15); ASPARTATE AMINO TRANSFERASE 15 U/L (15-37); BILIRUBIN,TOTAL 0.3 MG/DL (0.2-1.0); BLOOD UREA NITROGEN 86 mg/dL (7-18); CALCIUM 7.4 MG/DL (8.5-10.1); CARBON DIOXIDE 20 MMOL/L (21-32); CHLORIDE 116 MMOL/L (98-107); CREATININE 2.4 MG/DL (0.55-1.30); POTASSIUM 3.9 MMOL/L (3.5-5.1); SODIUM 148 MMOL/L (136-145)
--- NOTE | 2020-05-06 09:45 | NUR ---
NURSE NOTES: wbc 28.7, dr machado made aware, awaiting callback
[2020-05-06] MEDS ORDERED: Vancomycin 1 GM in NS 275 ML IVPB SCH (10:00)
--- NOTE | 2020-05-06 10:53 | NUR ---
NURSE NOTES: dr machado informed of mrsa and vre, awaiting callback. Addendum: 05/06/20 at 1836 by Kamryn Cooney RN NURSE NOTES: seen by dr machado
--- NOTE | 2020-05-06 10:59 | Consultation ---
History of Present Illness General Date patient seen: May 06, 2020 Reason for Hospitalization: General Complaint Present Illness HPI This is an unfortunate 89-year-old female with multiple medical committees who is a prison resident minimally responsive unable to participate examination admitted for desaturation respiratory insufficiency abnormal labs and imaging. On admission identified to have deep tissue injury as well as malnutrition. Surgery called to evaluate and assist with care. Patient seen, patient evaluated, chart reviewed. No nausea vomiting fever chills at this time. Reported potential fevers prior. Allergies: Coded Allergies: No Known Allergies (Unverified , 01/30/20) COVID-19 Screening Contact w/high risk pt: No Recent Travel to affected area: No Experienced COVID-19 symptoms?: No COVID-19 symptoms experienced: Cough, Flu-Like Symptoms Medication History Scheduled Amino Acids/Protein Hydrolys (Pro-Stat Liquid), 30 ML GT DAILY, (Reported) Amiodarone Hcl* (Amiodarone Hcl*), 200 MG GT DAILY, (Reported) Amlodipine Besylate* (Amlodipine Besylate*), 10 MG ORAL DAILY, (Reported) Apixaban (Eliquis), 2.5 MG GT DAILY, (Reported) Glimepiride* (Glimepiride*), 2 MG GT BID, (Reported) Insulin Regular, Human* (Novolin R*), 0 SUBQ .SLIDING SCALE, (Reported) Lisinopril (Lisinopril*), 20 MG GT BID, (Reported) Multivitamins* (Multivitamins*), 1 TAB ORAL DAILY, (Reported) Nitroglycerin (Nitroglycerin Patch), 1 PATCH TD q24hr, (Reported) Pantoprazole Sodium (Protonix), 40 MG GT BEFORE BREAKFAST, (Reported) Sitagliptin* (Januvia*), 50 MG GT DAILY, (Reported) Scheduled PRN Acetaminophen* (Tylenol Extra Strength*), 500 MG GT Q4HR PRN for Mild Pain ( Pain Scale 1-3), (Reported) Clonidine Hcl* (Catapres*), 0.1 MG GT EVERY 4 HOURS PRN for For High Blood Pressure, (Reported) Guaifenesin/Dextromethorphan* (Guaifenesin Dm Syrup*), 10 ML GT Q6HR PRN for For Cough, (Reported) Nystatin (Nystatin), 1 EACH TOPIC Q6HR PRN for PERINEAL REDNESS, (Reported) Discontinued Medications Acetaminophen* (Acetaminophen 325MG Tablet*), 325 MG GT Q4H PRN for Mild Pain ( Pain Scale 1-3), (Reported) Discontinued Reason: Therapy completed Digoxin* (Digoxin*), 125 MCG GT DAILY, (Reported) Discontinued Reason: Therapy completed Digoxin* (Digoxin*), 125 MCG GT Q4HR, (Reported) Discontinued Reason: Therapy completed Hydralazine Hcl* (Hydralazine Hcl*), 50 MG ORAL EVERY 6 HOURS, (Reported) Discontinued Reason: Therapy completed Hydrocodone Bit/Acetaminophen 5-325* ([place] 5-325 Tablet*), 1 TAB GT Q4H PRN for Severe Pain (Pain Scale 7-10), (Reported) Discontinued Reason: Therapy completed Insulin Aspart (Insulin Aspart), 100 UNIT SQ ACHS, (Reported) Discontinued Reason: Therapy completed Insulin Detemir (Levemir), 5 UNITS SUBQ BID, (Reported) Discontinued Reason: Therapy completed Metoprolol Succinate (Kapspargo Sprinkle), 100 MG GT DAILY, (Reported) Discontinued Reason: Therapy completed Omeprazole (Omeprazole), 20 MG GT DAILY, (Reported) Discontinued Reason: Therapy completed Pantoprazole* (Protonix*), 40 MG GT ACBREAKFAST, (Reported) Discontinued Reason: Prescription changed Patient History Healthcare decision maker N Resuscitation status Advanced Directive on File Review of Systems Review of Symptoms General ROS: no weight loss or fever Psychological ROS: no depression or mood changes, no memory loss Ophthalmic ROS: no visual changes or eye irritation ENT ROS: no nasal congestion, hearing loss, dizziness Allergy and Immunology ROS: no allergic symptoms or urticaria Hematological and Lymphatic ROS: no swollen glands, unusual bleeding or bruising Endocrine ROS: no polyuria, polydipsia, weight changes, temperature intolerance Respiratory ROS: no cough, shortness of breath, or wheezing Cardiovascular ROS: no chest pain or dyspnea on exertion Gastrointestinal ROS: denies abdominal pain, bright red blood in stool. Musculoskeletal ROS: no myalgias or arthralgias Neurological ROS: no TIA or stroke symptoms Dermatological ROS: no new or changing skin lesions, rashes or pruritis Limited given patient's medical condition Physical Exam Physical Exam General appearance: no distress, appears stated age Head: Normocephalic, without obvious abnormality, atraumatic Eyes: conjunctivae/corneas clear. PERRL, EOM's intact. Fundi benign Throat: Lips, mucosa, and tongue normal. Teeth and gums normal Neck: supple, symmetrical, trachea midline, no adenopathy, thyroid: not enlarged, symmetric, no tenderness/mass/nodules, no carotid bruit and no JVD Lungs: clear to auscultation bilaterally Heart: regular rate and rhythm, S1, S2 normal, no murmur, click, rub or gallop Abdomen: soft, non-tender. Bowel sounds normal. No masses, no organomegaly Extremities: extremities edema Pulses: symmetric Skin: Skin see below Neurologic: Grossly normal Last 24 Hour Vital Signs Date Time Temp Pulse Resp B/P (MAP) Pulse Ox O2 Delivery O2 Flow Rate FiO2 05/06/20 09:00 Room Air 05/06/20 08:36 93 05/06/20 08:00 97.7 93 20 108/41 (63) 94 05/06/20 08:00 93 05/06/20 04:00 131 05/06/20 04:00 98.4 120 24 90/29 (49) 92 05/06/20 00:00 127 05/06/20 00:00 96.8 107 26 92/34 (53) 95 05/05/20 21:00 Room Air 05/05/20 20:00 93 05/05/20 20:00 96.0 92 22 110/42 (64) 95 05/05/20 16:00 97.7 71 20 101/82 (88) 96 05/05/20 16:00 126 05/05/20 12:00 97.8 83 19 108/40 (62) 98 05/05/20 11:34 86 Intake and Output 05/05/20 05/06/20 19:00 07:00 Intake Total 1275.000 ml Output Total 1200 ml 400 ml Balance 75.000 ml -400 ml Intake IV Total 1275.000 ml Output Urine Total 1200 ml 400 ml # Voids 3 # Bowel Movements 1 3 Laboratory Tests Test 05/06/20 08:40 White Blood Count 28.7 K/UL (4.8-10.8) *H Red Blood Count 3.22 M/UL (4.20-5.40) L Hemoglobin 8.5 G/DL (12.0-16.0) L Hematocrit 27.5 % (37.0-47.0) L Mean Corpuscular Volume 85 FL (80-99) Mean Corpuscular Hemoglobin 26.4 PG (27.0-31.0) L Mean Corpuscular Hemoglobin Concent 30.9 G/DL (32.0-36.0) L Red Cell Distribution Width 15.2 % (11.6-14.8) H Platelet Count 305 K/UL (150-450) Mean Platelet Volume 7.5 FL (6.5-10.1) Neutrophils (%) (Auto) % (45.0-75.0) Lymphocytes (%) (Auto) % (20.0-45.0) Monocytes (%) (Auto) % (1.0-10.0) Eosinophils (%) (Auto) % (0.0-3.0) Basophils (%) (Auto) % (0.0-2.0) Differential Total Cells Counted 100 Neutrophils % (Manual) 87 % (45-75) H Lymphocytes % (Manual) 1 % (20-45) L Monocytes % (Manual) 3 % (1-10) Eosinophils % (Manual) 0 % (0-3) Basophils % (Manual) 0 % (0-2) Band Neutrophils 9 % (0-8) H Platelet Estimate Adequate Platelet Morphology Normal Hypochromasia 1+ Anisocytosis 1+ Sodium Level 148 MMOL/L (136-145) H Potassium Level 3.9 MMOL/L (3.5-5.1) Chloride Level 116 MMOL/L (98-107) H Carbon Dioxide Level 20 MMOL/L (21-32) L Anion Gap 12 mmol/L (5-15) Blood Urea Nitrogen 86 mg/dL (7-18) H Creatinine 2.4 MG/DL (0.55-1.30) H Estimat Glomerular Filtration Rate 19.1 mL/min (>60) Glucose Level 246 MG/DL (74-106) #H Calcium Level 7.4 MG/DL (8.5-10.1) L Magnesium Level 2.1 MG/DL (1.8-2.4) Total Bilirubin 0.3 MG/DL (0.2-1.0) Aspartate Amino Transf (AST/SGOT) 15 U/L (15-37) Alanine Aminotransferase (ALT/SGPT) 18 U/L (12-78) Alkaline Phosphatase 67 U/L (46-116) Total Protein 4.0 G/DL (6.4-8.2) L Albumin 1.0 G/DL (3.4-5.0) L Globulin 3.0 g/dL Albumin/Globulin Ratio 0.3 (1.0-2.7) L Random Vancomycin Level 17.2 ug/mL Height (Feet): 5 Height (Inches): 2.00 Weight (Pounds): 118 Medications Current Medications Medications (Trade) Dose Ordered Sig/Jazmine Route PRN Reason Start Time Stop Time Status Last Admin Dose Admin Acetaminophen (Tylenol) 500 mg Q4H PRN GT Mild Pain (Pain Scale 1-3) 05/05/20 06:00 06/03/20 23:29 Acetaminophen/ Hydrocodone Bitart ([place] 5/325) 1 tab Q4H PRN GT Severe Pain (Pain Scale 7-10) 05/04/20 23:30 05/11/20 23:29 Amiodarone HCl (Cordarone) 200 mg DAILY GT 05/05/20 09:00 08/03/20 08:59 05/06/20 08:37 Apixaban (Eliquis) 2.5 mg DAILY GT 05/05/20 09:00 08/03/20 08:59 05/06/20 08:37 Dextrose (Dextrose 50%) 25 ml Q30M PRN IV Hypoglycemia 05/04/20 20:00 08/02/20 19:59 Dextrose (Dextrose 50%) 50 ml Q30M PRN IV Hypoglycemia 05/04/20 20:00 08/02/20 19:59 Digoxin (Lanoxin) 0.125 mg DAILY GT 05/05/20 09:00 08/03/20 08:59 05/06/20 08:36 Docusate Sodium (Colace) 100 mg BIDPRN PRN GT Constipation 05/05/20 10:15 06/04/20 10:14 Glimepiride (AmaryL) 2 mg BID GT 05/05/20 09:00 06/04/20 08:59 05/06/20 08:37 Insulin Aspart (NovoLOG) BEFORE MEALS AND HS SUBQ 05/04/20 21:00 08/02/20 20:59 05/06/20 06:42 Lorazepam (Ativan 2mg/ml 1ml) 0.5 mg Q4H PRN IV For Anxiety 05/05/20 20:15 05/12/20 20:14 05/05/20 20:37 Multivitamins (Multivitamins) 1 tab DAILY ORAL 05/05/20 09:00 06/04/20 08:59 05/06/20 08:37 Pantoprazole (Protonix) 40 mg ACBREAKFAST ORAL 05/05/20 06:30 06/04/20 06:29 05/06/20 06:41 Piperacillin Sod/ Tazobactam Sod 3.375 gm/Sodium Chloride 110 ml @ 27.5 mls/hr Q12HR@0300,1500 IVPB 05/05/20 03:00 05/12/20 02:59 05/06/20 02:22 Sitagliptin Phosphate (Januvia) 50 mg DAILY GT 05/05/20 09:00 06/04/20 08:59 05/06/20 08:36 Sodium Chloride 1,000 ml @ 100 mls/hr Q10H IV 05/04/20 20:00 06/03/20 19:59 05/06/20 02:13 [facility] 1 ea DAILY PRN MISC Per rx protocol 05/04/20 20:00 06/03/20 19:59 Vancomycin HCl 1 gm/Sodium Chloride 275 ml @ 183.708 mls/hr ONCE IVPB 05/06/20 10:00 05/06/20 13:00 05/06/20 09:54 Assessment/Plan Problem List: (1) Deep tissue injury Assessment & Plan: Pt presented on admission with Multiple Pressure injuries. Sacral DTPI noted (L)6.7cm x (W)6.9cm. Base of wound is purpuric ,partially opened -ruby and indurated. No odor or exudate noted. Non-blanching erythema periwound.DTPI noted to R Ischium(L)4cm x (W)2.2cm.Base of Pressure injury maroon and indurated. Non-Blanching erythema without induration noted to L ischium. Vulva is swollen and erythematous . DTPI noted to R Heel(L)3.3cm x (W)2.9cm. Wound is is blood filled purpuric Blister with surrounding non-blanchable and boggy heel. R Heel is Boggy with Non-Blanchable erythema. Tx.Plan: Apply Moisture Barrier Paste to Sacrum. Cover with Optifoam drsg. Change every 3 days and prn. Apply Moisture Barrier Paste to R ischium. Cover with Optifoam drsg. Change every 3 days and prn. Apply Moisture Barrier Paste to Bilat groin, perineum and L ischium with each perineal care. Apply Cavilon Skin Barrier to R and L trochanteric areas. Cover each site with Optifoam drsg. Change every 7 days and prn. Reposition at least every 2hours or as tolerated. Off-load heels with pillow. APM/MARY ANN Mattress overlay. ICD Codes: T14.8XXA - Other injury of unspecified body region, initial encounter SNOMED: 297978626 (2) Dehydration ICD Codes: E86.0 - Dehydration SNOMED: 09398856 (3) Hypokalemia ICD Codes: E87.6 - Hypokalemia SNOMED: 09648786 (4) Renal failure ICD Codes: N19 - Unspecified kidney failure SNOMED: 09076139 Qualifiers: Qualified Codes: N17.9 - Acute kidney failure, unspecified (5) Hyperkalemia ICD Codes: E87.5 - Hyperkalemia SNOMED: 58239901 (6) UTI (urinary tract infection) ICD Codes: N39.0 - Urinary tract infection, site not specified SNOMED: 23017547 Qualifiers: Qualified Codes: N39.0 - Urinary tract infection, site not specified (7) Severe sepsis Assessment & Plan: Patient with significant leukocytosis, lactic acidosis, abnormal electrolytes, renal insufficiency, anemia. UA noted. Microbiology reviewed. Imaging reviewed. COVID negative. Patient with multiple deep tissue injuries and severe malnutrition albumin 1 Wounds unlikely the source or etiology of patient's sepsis. No abscess or fluid collections requiring drainage currently identified. Continue IV antibiotics per infectious disease We will continue to monitor and identify assist with care and management Thank you for let me participate patient's care will follow with recommendations nutritional optimization DAILY ESTIMATED NEEDS: Needs based on DM, wound, renal/ 49kg 30-35 kcals/kg 7928-3540 total kcals 1.25-1.5 g protein/kg 61-74 g total protein 25-30ml/kcal mL/kg 0838-8144 total fluid mLs NUTRITION DIAGNOSIS: * Increased kcal and pro needs r/t wound care as evidenced by open sacral wound per photo, eval pending. * Swallowing difficulty R/T dysphagia as evidenced by GT dependent. ENTERAL NUTRITION RECOMMENDATIONS: NEPRO @43ml/hr x 20hrs to provide 860ml, 1548kcal, 70g prot, 625ml free water * As medically able, start NEPRO @23ml/hr for 6 hrs, advance as tolerated 10ml q4-6 hrs * HOB over 30 degrees * Without IVF, water flush of ml q 130ml q4 hrs -------- ADDITIONAL RECOMMENDATIONS: * PER SNF: Height 4'11" inches and 108 lbs * Rec D5 while NPO * F/up w/ WC eval-> add IMAN in 4oz via GT BID with tube feeds * Rec renal formula as above d/t renal failure on adm * Maintain accurate calibrated bed scale weights . ICD Codes: A41.9 - Sepsis, unspecified organism; R65.20 - Severe sepsis without septic shock SNOMED: 20265108 Dimitris Diaz May 06, 2020 10:59
--- NOTE | 2020-05-06 11:27 | Infectious Diseases Prog Note ---
Assessment/Plan Assessment/Plan antibiotics : vancomycin iv, zosyn A 1. fungal UTI 2. cholelithiasis 3. ? cholecystitis 4. leucocytosis 5. renal failure improving 6. dementia 7. COPD 8. diabetes mellitus P 1. continue zosyn 2. d/c iv vancomycin 3. start fluconazole 4. will follow up cultures Subjective ROS Limited/Unobtainable: Yes Allergies: Coded Allergies: No Known Allergies (Unverified , 01/30/20) Objective Last 24 Hour Vital Signs Date Time Temp Pulse Resp B/P (MAP) Pulse Ox O2 Delivery O2 Flow Rate FiO2 05/06/20 09:00 Room Air 05/06/20 08:36 93 05/06/20 08:00 97.7 93 20 108/41 (63) 94 05/06/20 08:00 93 05/06/20 04:00 131 05/06/20 04:00 98.4 120 24 90/29 (49) 92 05/06/20 00:00 127 05/06/20 00:00 96.8 107 26 92/34 (53) 95 05/05/20 21:00 Room Air 05/05/20 20:00 93 05/05/20 20:00 96.0 92 22 110/42 (64) 95 05/05/20 16:00 97.7 71 20 101/82 (88) 96 05/05/20 16:00 126 05/05/20 12:00 97.8 83 19 108/40 (62) 98 05/05/20 11:34 86 Height (Feet): 5 Height (Inches): 2.00 Weight (Pounds): 118 Respiratory/Chest: lungs clear Cardiovascular: normal rate, regular rhythm, no gallop/murmur Abdomen: soft, non tender Extremities: no edema Microbiology Date/Time Source Procedure Growth Status 05/04/20 15:00 Blood Blood Culture - Preliminary NO GROWTH AFTER 24 HOURS Resulted 05/04/20 14:45 Blood Blood Culture - Preliminary NO GROWTH AFTER 24 HOURS Resulted 05/04/20 15:40 Nasopharynx SARS-CoV-2 RdRp Gene Assay - Final Complete 05/04/20 15:00 Nasal Nares MRSA Culture - Final Staphylococcus Aureus - Mrsa Complete 05/04/20 15:40 Urine,Clean Catch Urine Culture - Preliminary Yeast Species Resulted 05/04/20 15:40 Urine,Clean Catch Urine Culture - Final Complete 05/04/20 15:00 Rectum VRE Culture - Final Enterococcus Faecalis - Vre Enterococcus Faecium - Vre Complete 05/04/20 15:00 Rectum - Final NO CARBAPENEM-RESISTANT ENTEROBACTERI... Complete Laboratory Tests Test 05/06/20 08:40 White Blood Count 28.7 K/UL (4.8-10.8) *H Red Blood Count 3.22 M/UL (4.20-5.40) L Hemoglobin 8.5 G/DL (12.0-16.0) L Hematocrit 27.5 % (37.0-47.0) L Mean Corpuscular Volume 85 FL (80-99) Mean Corpuscular Hemoglobin 26.4 PG (27.0-31.0) L Mean Corpuscular Hemoglobin Concent 30.9 G/DL (32.0-36.0) L Red Cell Distribution Width 15.2 % (11.6-14.8) H Platelet Count 305 K/UL (150-450) Mean Platelet Volume 7.5 FL (6.5-10.1) Neutrophils (%) (Auto) % (45.0-75.0) Lymphocytes (%) (Auto) % (20.0-45.0) Monocytes (%) (Auto) % (1.0-10.0) Eosinophils (%) (Auto) % (0.0-3.0) Basophils (%) (Auto) % (0.0-2.0) Differential Total Cells Counted 100 Neutrophils % (Manual) 87 % (45-75) H Lymphocytes % (Manual) 1 % (20-45) L Monocytes % (Manual) 3 % (1-10) Eosinophils % (Manual) 0 % (0-3) Basophils % (Manual) 0 % (0-2) Band Neutrophils 9 % (0-8) H Platelet Estimate Adequate Platelet Morphology Normal Hypochromasia 1+ Anisocytosis 1+ Sodium Level 148 MMOL/L (136-145) H Potassium Level 3.9 MMOL/L (3.5-5.1) Chloride Level 116 MMOL/L (98-107) H Carbon Dioxide Level 20 MMOL/L (21-32) L Anion Gap 12 mmol/L (5-15) Blood Urea Nitrogen 86 mg/dL (7-18) H Creatinine 2.4 MG/DL (0.55-1.30) H Estimat Glomerular Filtration Rate 19.1 mL/min (>60) Glucose Level 246 MG/DL (74-106) #H Calcium Level 7.4 MG/DL (8.5-10.1) L Magnesium Level 2.1 MG/DL (1.8-2.4) Total Bilirubin 0.3 MG/DL (0.2-1.0) Aspartate Amino Transf (AST/SGOT) 15 U/L (15-37) Alanine Aminotransferase (ALT/SGPT) 18 U/L (12-78) Alkaline Phosphatase 67 U/L (46-116) Total Protein 4.0 G/DL (6.4-8.2) L Albumin 1.0 G/DL (3.4-5.0) L Globulin 3.0 g/dL Albumin/Globulin Ratio 0.3 (1.0-2.7) L Random Vancomycin Level 17.2 ug/mL Current Medications Medications (Trade) Dose Ordered Sig/Jazmine Route PRN Reason Start Time Stop Time Status Last Admin Dose Admin Acetaminophen (Tylenol) 500 mg Q4H PRN GT Mild Pain (Pain Scale 1-3) 05/05/20 06:00 06/03/20 23:29 Acetaminophen/ Hydrocodone Bitart ([place] 5/325) 1 tab Q4H PRN GT Severe Pain (Pain Scale 7-10) 05/04/20 23:30 05/11/20 23:29 Amiodarone HCl (Cordarone) 200 mg DAILY GT 05/05/20 09:00 08/03/20 08:59 05/06/20 08:37 Apixaban (Eliquis) 2.5 mg DAILY GT 05/05/20 09:00 08/03/20 08:59 05/06/20 08:37 Dextrose (Dextrose 50%) 25 ml Q30M PRN IV Hypoglycemia 05/04/20 20:00 08/02/20 19:59 Dextrose (Dextrose 50%) 50 ml Q30M PRN IV Hypoglycemia 05/04/20 20:00 08/02/20 19:59 Digoxin (Lanoxin) 0.125 mg DAILY GT 05/05/20 09:00 08/03/20 08:59 05/06/20 08:36 Docusate Sodium (Colace) 100 mg BIDPRN PRN GT Constipation 05/05/20 10:15 06/04/20 10:14 Glimepiride (AmaryL) 2 mg BID GT 05/05/20 09:00 06/04/20 08:59 05/06/20 08:37 Insulin Aspart (NovoLOG) BEFORE MEALS AND HS SUBQ 05/04/20 21:00 08/02/20 20:59 05/06/20 06:42 Lorazepam (Ativan 2mg/ml 1ml) 0.5 mg Q4H PRN IV For Anxiety 05/05/20 20:15 05/12/20 20:14 05/05/20 20:37 Multivitamins (Multivitamins) 1 tab DAILY ORAL 05/05/20 09:00 06/04/20 08:59 05/06/20 08:37 Pantoprazole (Protonix) 40 mg ACBREAKFAST ORAL 05/05/20 06:30 06/04/20 06:29 05/06/20 06:41 Piperacillin Sod/ Tazobactam Sod 3.375 gm/Sodium Chloride 110 ml @ 27.5 mls/hr Q12HR@0300,1500 IVPB 05/05/20 03:00 05/12/20 02:59 05/06/20 02:22 Sitagliptin Phosphate (Januvia) 50 mg DAILY GT 05/05/20 09:00 06/04/20 08:59 05/06/20 08:36 Sodium Chloride 1,000 ml @ 100 mls/hr Q10H IV 05/04/20 20:00 06/03/20 19:59 05/06/20 02:13 Vancomycin HCl ([facility] pharmacy to dose) 1 ea DAILY PRN MISC Per rx protocol 05/04/20 20:00 06/03/20 19:59 Vancomycin HCl 1 gm/Sodium Chloride 275 ml @ 183.708 mls/hr ONCE IVPB 05/06/20 10:00 05/06/20 13:00 05/06/20 09:54 Felipe Grant MD May 06, 2020 11:27
[2020-05-06 12:00] VITALS: BP 105/41
[2020-05-06] MEDS ORDERED: Fluconazole 100mg tab ORAL SCH (12:00)
--- NOTE | 2020-05-06 14:31 | Nephrology Progress Note ---
Assessment/Plan Problem List: (1) Malnutrition of moderate degree (2) Yeast cystitis (3) SARWAT (acute kidney injury) (4) UTI (urinary tract infection) (5) Dehydration Plan creatinine 1.4 on 02/04/20, continue hydration, iv adjusted, diflucan Subjective ROS Limited/Unobtainable: Yes Objective Objective Last 24 Hour Vital Signs Date Time Temp Pulse Resp B/P (MAP) Pulse Ox O2 Delivery O2 Flow Rate FiO2 05/06/20 12:00 98.4 91 18 105/41 (62) 96 05/06/20 12:00 95 05/06/20 09:00 Room Air 05/06/20 08:36 93 05/06/20 08:00 97.7 93 20 108/41 (63) 94 05/06/20 08:00 93 05/06/20 04:00 131 05/06/20 04:00 98.4 120 24 90/29 (49) 92 05/06/20 00:00 127 05/06/20 00:00 96.8 107 26 92/34 (53) 95 05/05/20 21:00 Room Air 05/05/20 20:00 93 05/05/20 20:00 96.0 92 22 110/42 (64) 95 05/05/20 16:00 97.7 71 20 101/82 (88) 96 05/05/20 16:00 126 Intake and Output 05/05/20 05/06/20 19:00 07:00 Intake Total 1275.000 ml Output Total 1200 ml 400 ml Balance 75.000 ml -400 ml Intake IV Total 1275.000 ml Output Urine Total 1200 ml 400 ml # Voids 3 # Bowel Movements 1 3 Laboratory Tests 05/06/20 08:40: White Blood Count 28.7*H, Red Blood Count 3.22L, Hemoglobin 8.5L, Hematocrit 27.5L, Mean Corpuscular Volume 85, Mean Corpuscular Hemoglobin 26.4L, Mean Corpuscular Hemoglobin Concent 30.9L, Red Cell Distribution Width 15.2H, Platelet Count 305, Mean Platelet Volume 7.5, Neutrophils (%) (Auto) , Lymphocytes (%) (Auto) , Monocytes (%) (Auto) , Eosinophils (%) (Auto) , Basophils (%) (Auto) , Differential Total Cells Counted 100, Neutrophils % ( Manual) 87H, Lymphocytes % (Manual) 1L, Monocytes % (Manual) 3, Eosinophils % ( Manual) 0, Basophils % (Manual) 0, Band Neutrophils 9H, Platelet Estimate Adequate, Platelet Morphology Normal, Hypochromasia 1+, Anisocytosis 1+, Sodium Level 148H, Potassium Level 3.9, Chloride Level 116H, Carbon Dioxide Level 20L, Anion Gap 12, Blood Urea Nitrogen 86H, Creatinine 2.4H, Estimat Glomerular Filtration Rate 19.1, Glucose Level 246#H, Calcium Level 7.4L, Magnesium Level 2.1, Total Bilirubin 0.3, Aspartate Amino Transf (AST/SGOT) 15, Alanine Aminotransferase (ALT/SGPT) 18, Alkaline Phosphatase 67, Total Protein 4.0L, Albumin 1.0L, Globulin 3.0, Albumin/Globulin Ratio 0.3L, Random Vancomycin Level 17.2 Height (Feet): 5 Height (Inches): 2.00 Weight (Pounds): 118 General Appearance: lethargic, confused EENT: other - dry mouth Neck: normal alignment Cardiovascular: regular rhythm Respiratory/Chest: lungs clear Abdomen: soft Extremities: no edema Neurologic: motor weakness, disoriented Tyson Sneed MD May 06, 2020 14:31
--- NOTE | 2020-05-06 15:44 | Pulmonology Progress Note ---
Subjective ROS Limited/Unobtainable: No Allergies: Coded Allergies: No Known Allergies (Unverified , 01/30/20) Objective Last 24 Hour Vital Signs Date Time Temp Pulse Resp B/P (MAP) Pulse Ox O2 Delivery O2 Flow Rate FiO2 05/06/20 12:00 98.4 91 18 105/41 (62) 96 05/06/20 12:00 95 05/06/20 09:00 Room Air 05/06/20 08:36 93 05/06/20 08:00 97.7 93 20 108/41 (63) 94 05/06/20 08:00 93 05/06/20 04:00 131 05/06/20 04:00 98.4 120 24 90/29 (49) 92 05/06/20 00:00 127 05/06/20 00:00 96.8 107 26 92/34 (53) 95 05/05/20 21:00 Room Air 05/05/20 20:00 93 05/05/20 20:00 96.0 92 22 110/42 (64) 95 05/05/20 16:00 97.7 71 20 101/82 (88) 96 05/05/20 16:00 126 Intake and Output 05/05/20 05/06/20 19:00 07:00 Intake Total 1275.000 ml Output Total 1200 ml 400 ml Balance 75.000 ml -400 ml Intake IV Total 1275.000 ml Output Urine Total 1200 ml 400 ml # Voids 3 # Bowel Movements 1 3 Microbiology Date/Time Source Procedure Growth Status 05/04/20 15:00 Blood Blood Culture - Preliminary NO GROWTH AFTER 24 HOURS Resulted 05/04/20 14:45 Blood Blood Culture - Preliminary NO GROWTH AFTER 24 HOURS Resulted 05/04/20 15:40 Nasopharynx SARS-CoV-2 RdRp Gene Assay - Final Complete 05/04/20 15:00 Nasal Nares MRSA Culture - Final Staphylococcus Aureus - Mrsa Complete 05/04/20 15:40 Urine,Clean Catch Urine Culture - Preliminary Yeast Species Resulted 05/04/20 15:40 Urine,Clean Catch Urine Culture - Final Complete 05/04/20 15:00 Rectum VRE Culture - Final Enterococcus Faecalis - Vre Enterococcus Faecium - Vre Complete 05/04/20 15:00 Rectum - Final NO CARBAPENEM-RESISTANT ENTEROBACTERI... Complete Laboratory Tests 05/06/20 08:40: White Blood Count 28.7*H, Red Blood Count 3.22L, Hemoglobin 8.5L, Hematocrit 27.5L, Mean Corpuscular Volume 85, Mean Corpuscular Hemoglobin 26.4L, Mean Corpuscular Hemoglobin Concent 30.9L, Red Cell Distribution Width 15.2H, Platelet Count 305, Mean Platelet Volume 7.5, Neutrophils (%) (Auto) , Lymphocytes (%) (Auto) , Monocytes (%) (Auto) , Eosinophils (%) (Auto) , Basophils (%) (Auto) , Differential Total Cells Counted 100, Neutrophils % ( Manual) 87H, Lymphocytes % (Manual) 1L, Monocytes % (Manual) 3, Eosinophils % ( Manual) 0, Basophils % (Manual) 0, Band Neutrophils 9H, Platelet Estimate Adequate, Platelet Morphology Normal, Hypochromasia 1+, Anisocytosis 1+, Sodium Level 148H, Potassium Level 3.9, Chloride Level 116H, Carbon Dioxide Level 20L, Anion Gap 12, Blood Urea Nitrogen 86H, Creatinine 2.4H, Estimat Glomerular Filtration Rate 19.1, Glucose Level 246#H, Calcium Level 7.4L, Magnesium Level 2.1, Total Bilirubin 0.3, Aspartate Amino Transf (AST/SGOT) 15, Alanine Aminotransferase (ALT/SGPT) 18, Alkaline Phosphatase 67, Total Protein 4.0L, Albumin 1.0L, Globulin 3.0, Albumin/Globulin Ratio 0.3L, Random Vancomycin Level 17.2 Current Medications Medications (Trade) Dose Ordered Sig/Jazmine Route PRN Reason Start Time Stop Time Status Last Admin Dose Admin Acetaminophen (Tylenol) 500 mg Q4H PRN GT Mild Pain (Pain Scale 1-3) 05/05/20 06:00 06/03/20 23:29 Acetaminophen/ Hydrocodone Bitart ([place] 5/325) 1 tab Q4H PRN GT Severe Pain (Pain Scale 7-10) 05/04/20 23:30 05/11/20 23:29 Amiodarone HCl (Cordarone) 200 mg DAILY GT 05/05/20 09:00 08/03/20 08:59 05/06/20 08:37 Apixaban (Eliquis) 2.5 mg DAILY GT 05/05/20 09:00 08/03/20 08:59 05/06/20 08:37 Dextrose (Dextrose 50%) 25 ml Q30M PRN IV Hypoglycemia 05/04/20 20:00 08/02/20 19:59 Dextrose (Dextrose 50%) 50 ml Q30M PRN IV Hypoglycemia 05/04/20 20:00 08/02/20 19:59 Digoxin (Lanoxin) 0.125 mg DAILY GT 05/05/20 09:00 08/03/20 08:59 05/06/20 08:36 Docusate Sodium (Colace) 100 mg BIDPRN PRN GT Constipation 05/05/20 10:15 06/04/20 10:14 Fluconazole (Diflucan) 100 mg DAILY ORAL 05/06/20 12:00 05/13/20 11:59 05/06/20 13:37 Glimepiride (AmaryL) 2 mg BID GT 05/05/20 09:00 06/04/20 08:59 05/06/20 08:37 Insulin Aspart (NovoLOG) BEFORE MEALS AND HS SUBQ 05/04/20 21:00 08/02/20 20:59 05/06/20 11:34 Lorazepam (Ativan 2mg/ml 1ml) 0.5 mg Q4H PRN IV For Anxiety 05/05/20 20:15 05/12/20 20:14 05/05/20 20:37 Multivitamins (Multivitamins) 1 tab DAILY ORAL 05/05/20 09:00 06/04/20 08:59 05/06/20 08:37 Pantoprazole (Protonix) 40 mg ACBREAKFAST ORAL 05/05/20 06:30 06/04/20 06:29 05/06/20 06:41 Piperacillin Sod/ Tazobactam Sod 3.375 gm/Sodium Chloride 110 ml @ 27.5 mls/hr Q12HR@0300,1500 IVPB 05/05/20 03:00 05/12/20 02:59 05/06/20 02:22 Sitagliptin Phosphate (Januvia) 50 mg DAILY GT 05/05/20 09:00 06/04/20 08:59 05/06/20 08:36 Sodium 1,000 ml @ 125 mls/hr Q8H IV 05/06/20 15:00 06/05/20 14:59 Assessment/Plan Assessment/Plan Progress Note HPI: Patient is an 89-year-old female admitted with hypotension, acute renal failure, elevated potassium, and hypoxemia, PCM. The patient tested negative for COVID. On IV antibiotics for UTI. The patient is a Do Not Resuscitate status. Chest x -ray is negative. The patient's care discussed and reviewed. The patient unable to give much in the way of history. The patient is presently nonverbal. Has G tube PAST MEDICAL HISTORY: Notable for history of acute renal failure, history of chronic encephalopathy, protein calorie malnutrition, dementia, hyperkalemia, prior history of diabetes, and sepsis. MEDICATIONS: Reviewed. ALLERGIES: Reviewed. SOCIAL HISTORY: The patient is Do Not Resuscitate. Nonsmoker and nondrinker. The patient is mostly bedbound. PHYSICAL EXAMINATION: GENERAL: An ill-appearing female with reduced mental status. VITAL SIGNS NOTED HEENT: Negative. NECK: Supple. No adenopathy. LUNGS: Moderate breath sounds. No rhonchi. No wheezes. CARDIAC: S1 and S2. Regular rate and rhythm. Distant. No significant murmurs. ABDOMEN: Soft, nontender. G-tube in place. EXTREMITIES: No cyanosis, clubbing, or edema. NEUROLOGICAL: Poorly responsive. LABORATORY DATA NOTED IMPRESSION: 1. Urosepsis, on AB per ID 2. Acute on chronic encephalopathy. 3. Septic shock. 4. Acute on chronic renal failure, Renal following 5. Hyperkalemia. 6. Leukocytosis. 7. Profound hypotension. 8. Profound altered mental status. 9. Dementia. 10. Diabetes. 11. G-tube. 12. PCM RECOMMENDATIONS: 1. Supportive care. 2. Resume medications from longterm. 3. Hold KCL 4. IV hydration. 5. Renal evaluation, ID evaluation, Cardiology evaluation. 6. Empiric antibiotics. 7. Close followup and recommendations. 8. Anticoagulation with caution. 9. Digoxin with caution. 10. Sliding scale insulin and diabetic management as needed. 11. Care discussed and reviewed Augusto Gu MD May 06, 2020 15:44
[2020-05-06 16:00] VITALS: BP 110/42
[2020-05-06] MEDS: 1/2NS w/KCl 20mEq 1000ml 1,000 ML IV SCH ×2 (16:02→23:04)
--- NOTE | 2020-05-06 19:31 | NUR ---
NURSE HAND-OFF REPORT: Important Events on Shift: Patient Status: stable Diet: Glucerna Gtube Pending Orders: NM hepatobiliary with delays Pending Results/Labs: Pending MD notification: Latest Vital Signs: Temperature 99.1 , Pulse 86 , B/P 110 /42 , Respiratory Rate 20 , O2 SAT 95 , Room Air, O2 Flow Rate 10.0 . Vital Sign Comment: EKG Rhythm: Sinus Rhythm Rhythm change?: N MD Notified?: MD Response: Latest Ayala Fall Score: 50 Fall Risk: High Risk Safety Measures: Call light Within Reach, Bed Alarm Zone 1, Side Rails Side Rails x2, Bed position Low and Locked. Fall Precautions: Yellow Socks Yellow Gown Door Sign Patient Fall Education Report given to Sara MARR
[2020-05-06 20:00] VITALS: BP 135/51
--- NOTE | 2020-05-06 20:10 | Cardiology Progress Note ---
Subjective DATE OF SERVICE: May 06, 2020 Still confused Less congested and SOB. Monitor: Sinus with paroxysms of AFib with RVR yesterday On empiric IV abx Hyperkalemia correcting. Sodium now elevated. BP parameters stabilizing, but remain tenuous. Objective Last 24 Hour Vital Signs Date Time Temp Pulse Resp B/P (MAP) Pulse Ox O2 Delivery O2 Flow Rate FiO2 05/06/20 16:00 99.1 86 20 110/42 (64) 95 05/06/20 16:00 88 05/06/20 12:00 98.4 91 18 105/41 (62) 96 05/06/20 12:00 95 05/06/20 09:00 Room Air 05/06/20 08:36 93 05/06/20 08:00 97.7 93 20 108/41 (63) 94 05/06/20 08:00 93 05/06/20 04:00 131 05/06/20 04:00 98.4 120 24 90/29 (49) 92 05/06/20 00:00 127 05/06/20 00:00 96.8 107 26 92/34 (53) 95 05/05/20 21:00 Room Air RHYTHM: ST, Afib LUNGS: accessory muscle use, bilateral rhonchi CARDIAC: regular rhythm, normal S1 and S2, arrhythmia ABDOMEN: normal bowel sounds, non tender, no organomegaly, G-Tube intact EXTREMITIES: trace edema Laboratory Tests Test 05/06/20 08:40 05/06/20 16:40 White Blood Count 28.7 K/UL (4.8-10.8) *H Red Blood Count 3.22 M/UL (4.20-5.40) L Hemoglobin 8.5 G/DL (12.0-16.0) L Hematocrit 27.5 % (37.0-47.0) L Mean Corpuscular Volume 85 FL (80-99) Mean Corpuscular Hemoglobin 26.4 PG (27.0-31.0) L Mean Corpuscular Hemoglobin Concent 30.9 G/DL (32.0-36.0) L Red Cell Distribution Width 15.2 % (11.6-14.8) H Platelet Count 305 K/UL (150-450) Mean Platelet Volume 7.5 FL (6.5-10.1) Neutrophils (%) (Auto) % (45.0-75.0) Lymphocytes (%) (Auto) % (20.0-45.0) Monocytes (%) (Auto) % (1.0-10.0) Eosinophils (%) (Auto) % (0.0-3.0) Basophils (%) (Auto) % (0.0-2.0) Differential Total Cells Counted 100 Neutrophils % (Manual) 87 % (45-75) H Lymphocytes % (Manual) 1 % (20-45) L Monocytes % (Manual) 3 % (1-10) Eosinophils % (Manual) 0 % (0-3) Basophils % (Manual) 0 % (0-2) Band Neutrophils 9 % (0-8) H Platelet Estimate Adequate Platelet Morphology Normal Hypochromasia 1+ Anisocytosis 1+ Sodium Level 148 MMOL/L (136-145) H Potassium Level 3.9 MMOL/L (3.5-5.1) Chloride Level 116 MMOL/L (98-107) H Carbon Dioxide Level 20 MMOL/L (21-32) L Anion Gap 12 mmol/L (5-15) Blood Urea Nitrogen 86 mg/dL (7-18) H Creatinine 2.4 MG/DL (0.55-1.30) H Estimat Glomerular Filtration Rate 19.1 mL/min (>60) Glucose Level 246 MG/DL (74-106) #H Calcium Level 7.4 MG/DL (8.5-10.1) L Magnesium Level 2.1 MG/DL (1.8-2.4) Total Bilirubin 0.3 MG/DL (0.2-1.0) Aspartate Amino Transf (AST/SGOT) 15 U/L (15-37) Alanine Aminotransferase (ALT/SGPT) 18 U/L (12-78) Alkaline Phosphatase 67 U/L (46-116) Total Protein 4.0 G/DL (6.4-8.2) L Albumin 1.0 G/DL (3.4-5.0) L Globulin 3.0 g/dL Albumin/Globulin Ratio 0.3 (1.0-2.7) L Random Vancomycin Level 17.2 ug/mL Urine Random Sodium < 20 mmol/L (20-110) L Urine Creatinine 41.2 MG/DL (30.0-125.0) Microbiology Date/Time Source Procedure Growth Status 05/04/20 15:00 Blood Blood Culture - Preliminary NO GROWTH AFTER 24 HOURS Resulted 05/04/20 14:45 Blood Blood Culture - Preliminary NO GROWTH AFTER 24 HOURS Resulted 05/04/20 15:40 Nasopharynx SARS-CoV-2 RdRp Gene Assay - Final Complete 05/04/20 15:00 Nasal Nares MRSA Culture - Final Staphylococcus Aureus - Mrsa Complete 05/04/20 15:40 Urine,Clean Catch Urine Culture - Preliminary Yeast Species Resulted 05/04/20 15:40 Urine,Clean Catch Urine Culture - Final Complete 05/04/20 15:00 Rectum VRE Culture - Final Enterococcus Faecalis - Vre Enterococcus Faecium - Vre Complete 05/04/20 15:00 Rectum - Final NO CARBAPENEM-RESISTANT ENTEROBACTERI... 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
[2020-05-07] VITALS: BP 139/55
[2020-05-07 04:00] VITALS: BP 135/57
[2020-05-07] MEDS: Zosyn 3.375gm q12h **Extended infusion IVPB SCH ×4 (04:09→16:52)
[2020-05-07] MEDS: NovoLOG Insulin Flexpen SUBQ SCH ×4 (06:27→21:27)
[2020-05-07] MEDS: LORazepam Inj 2mg/ml 1ml IV PRN ×3 (06:44→21:57)
[2020-05-07] MEDS: 1/2NS w/KCl 20mEq 1000ml 1,000 ML IV SCH ×2 (07:00→12:59)
--- NOTE | 2020-05-07 07:53 | NUR ---
NURSE NOTES: Reported generalized edema, 3+ edema bilateral upper and lower extremities, albumin=1.0, wxhgtg=101, BUN=86, creatinine=2.[address] Tyson Sneed whom indicated he will be in to see the patient. No orders at this time.
--- NOTE | 2020-05-07 07:55 | NUR ---
NURSE NOTES: Recieved report from Dayami Bear RN. Patient sitting HOB at 45 degrees, alert to name, screams, G-tube clogged, added cranberry juice and will attempt to clear later, bed in lowest position, call light within reach, no c/o pain, no SOB, on room aire, IV patent in LAC22 gauge running Zosyn, IV in RAC22 gauge running 1/2NS +20K@125 cc/hour.
[2020-05-07 08:00] VITALS: BP 117/44
--- NOTE | 2020-05-07 08:07 | NUR ---
HAND-OFF: Report given to Radha Arevalo RN. Pt in stable condition, plan of care endorsed. Addendum: 05/07/20 at 0808 by Christianne Bear RN HAND-OFF: Report given to Hilario Mustafa RN. Pt in stable condition, plan of care endorsed.
[2020-05-07 08:33] LABS: ANION GAP 11 mmol/L (5-15); BLOOD UREA NITROGEN 75 mg/dL (7-18); CALCIUM 7.6 MG/DL (8.5-10.1); CARBON DIOXIDE 20 MMOL/L (21-32); CHLORIDE 117 MMOL/L (98-107); CREATININE 2.2 MG/DL (0.55-1.30); POTASSIUM 4.4 MMOL/L (3.5-5.1); SODIUM 148 MMOL/L (136-145)
[2020-05-07] MEDS: Fluconazole 100mg tab GT SCH (08:43)
[2020-05-07] MEDS: sitaGLIPtin 25mg tab GT SCH (08:43)
[2020-05-07] MEDS: Eliquis 2.5mg tablet GT SCH (08:43)
[2020-05-07] MEDS: Amiodarone 200mg tab GT SCH (08:43)
[2020-05-07] MEDS: Digoxin 0.125mg tab GT SCH (08:44)
[2020-05-07] MEDS: Glimepiride 1mg tab GT SCH ×2 (08:44→17:03)
--- NOTE | 2020-05-07 09:47 | Pulmonology Progress Note ---
Subjective ROS Limited/Unobtainable: No Allergies: Coded Allergies: No Known Allergies (Unverified , 01/30/20) Objective Last 24 Hour Vital Signs Date Time Temp Pulse Resp B/P (MAP) Pulse Ox O2 Delivery O2 Flow Rate FiO2 05/07/20 08:44 86 05/07/20 08:00 86 05/07/20 08:00 98.4 86 20 117/44 (68) 98 05/07/20 04:00 98.6 89 24 135/57 (83) 94 05/07/20 04:00 85 05/07/20 00:00 91 05/07/20 00:00 98.1 90 24 139/55 (83) 94 05/06/20 21:00 Room Air 05/06/20 20:00 86 05/06/20 20:00 98.8 86 20 135/51 (79) 94 05/06/20 16:00 99.1 86 20 110/42 (64) 95 05/06/20 16:00 88 05/06/20 12:00 98.4 91 18 105/41 (62) 96 05/06/20 12:00 95 Intake and Output 05/06/20 05/07/20 19:00 07:00 Intake Total 580 ml Output Total 400 ml 500 ml Balance -400 ml 80 ml Intake Free Water 100 ml Tube Feeding 480 ml Output Urine Total 400 ml 500 ml # Bowel Movements 1 1 Microbiology Date/Time Source Procedure Growth Status 05/04/20 15:00 Blood Blood Culture - Preliminary NO GROWTH AFTER 48 HOURS Resulted 05/04/20 14:45 Blood Blood Culture - Preliminary NO GROWTH AFTER 48 HOURS Resulted 05/04/20 15:40 Nasopharynx SARS-CoV-2 RdRp Gene Assay - Final Complete 05/04/20 15:00 Nasal Nares MRSA Culture - Final Staphylococcus Aureus - Mrsa Complete 05/04/20 15:40 Urine,Clean Catch Urine Culture - Final Lena Albicans Complete 05/04/20 15:40 Urine,Clean Catch Urine Culture - Final Complete 05/04/20 15:00 Rectum VRE Culture - Final Enterococcus Faecalis - Vre Enterococcus Faecium - Vre Complete 05/04/20 15:00 Rectum - Final NO CARBAPENEM-RESISTANT ENTEROBACTERI... Complete Laboratory Tests 05/06/20 16:40: Urine Random Sodium < 20L, Urine Creatinine 41.2 05/06/20 22:41: POC Whole Blood Glucose [Pending] 05/07/20 07:00: Sodium Level 148H, Potassium Level 4.4, Chloride Level 117H, Carbon Dioxide Level 20L, Anion Gap 11, Blood Urea Nitrogen 75H, Creatinine 2.2H, Estimat Glomerular Filtration Rate 21.1, Glucose Level 249H, Uric Acid 6.2, Calcium Level 7.6L, Pro-B-Type Natriuretic Peptide 33350U, Thyroid Stimulating Hormone ( TSH) 0.401, Random Vancomycin Level 22.5 Current Medications Medications (Trade) Dose Ordered Sig/Jazmine Route PRN Reason Start Time Stop Time Status Last Admin Dose Admin Acetaminophen (Tylenol) 500 mg Q4H PRN GT Mild Pain (Pain Scale 1-3) 05/05/20 06:00 06/03/20 23:29 Acetaminophen/ Hydrocodone Bitart ([place] 5/325) 1 tab Q4H PRN GT Severe Pain (Pain Scale 7-10) 05/04/20 23:30 05/11/20 23:29 Amiodarone HCl (Cordarone) 200 mg DAILY GT 05/05/20 09:00 08/03/20 08:59 05/07/20 08:43 Apixaban (Eliquis) 2.5 mg DAILY GT 05/05/20 09:00 08/03/20 08:59 05/07/20 08:43 Dextrose (Dextrose 50%) 25 ml Q30M PRN IV Hypoglycemia 05/04/20 20:00 08/02/20 19:59 Dextrose (Dextrose 50%) 50 ml Q30M PRN IV Hypoglycemia 05/04/20 20:00 08/02/20 19:59 Digoxin (Lanoxin) 0.125 mg DAILY GT 05/05/20 09:00 08/03/20 08:59 05/07/20 08:44 Docusate Sodium (Colace) 100 mg BIDPRN PRN GT Constipation 05/05/20 10:15 06/04/20 10:14 Fluconazole (Diflucan) 100 mg DAILY GT 05/07/20 09:00 05/13/20 11:59 05/07/20 08:43 Glimepiride (AmaryL) 2 mg BID GT 05/05/20 09:00 06/04/20 08:59 05/07/20 08:44 Insulin Aspart (NovoLOG) BEFORE MEALS AND HS SUBQ 05/04/20 21:00 08/02/20 20:59 05/07/20 06:27 Lansoprazole (Prevacid) 30 mg DAILY@0630 GT 05/07/20 06:30 06/06/20 06:29 05/07/20 06:26 Lorazepam (Ativan 2mg/ml 1ml) 0.5 mg Q4H PRN IV For Anxiety 05/05/20 20:15 05/12/20 20:14 05/07/20 06:44 Multivitamins (Multivitamins) 1 tab DAILY ORAL 05/05/20 09:00 06/04/20 08:59 05/07/20 08:44 Piperacillin Sod/ Tazobactam Sod 3.375 gm/Sodium Chloride 110 ml @ 27.5 mls/hr Q12HR@0300,1500 IVPB 05/05/20 03:00 05/12/20 02:59 05/07/20 04:09 Sitagliptin Phosphate (Januvia) 50 mg DAILY GT 05/05/20 09:00 06/04/20 08:59 05/07/20 08:43 Sodium 1,000 ml @ 125 mls/hr Q8H IV 05/06/20 15:00 06/05/20 14:59 05/06/20 23:04 Assessment/Plan Assessment/Plan Progress Note HPI: Patient is an 89-year-old female admitted with hypotension, acute renal failure, elevated potassium, and hypoxemia, PCM. The patient tested negative for COVID. On IV antibiotics for UTI. The patient is a Do Not Resuscitate status. Chest x -ray is negative. The patient's care discussed and reviewed. The patient unable to give much in the way of history. The patient is presently nonverbal. Has G tube PAST MEDICAL HISTORY: Notable for history of acute renal failure, history of chronic encephalopathy, protein calorie malnutrition, dementia, hyperkalemia, prior history of diabetes, and sepsis. MEDICATIONS: Reviewed. ALLERGIES: Reviewed. SOCIAL HISTORY: The patient is Do Not Resuscitate. Nonsmoker and nondrinker. The patient is mostly bedbound. PHYSICAL EXAMINATION: GENERAL: An ill-appearing female with reduced mental status. VITAL SIGNS NOTED HEENT: Negative. NECK: Supple. No adenopathy. LUNGS: Moderate breath sounds. No rhonchi. No wheezes. CARDIAC: S1 and S2. Regular rate and rhythm. Distant. No significant murmurs. ABDOMEN: Soft, nontender. G-tube in place. EXTREMITIES: No cyanosis, clubbing, or edema. NEUROLOGICAL: Poorly responsive. LABORATORY DATA NOTED IMPRESSION: 1. Urosepsis, on AB per ID 2. Acute on chronic encephalopathy. 3. Septic shock. 4. Acute on chronic renal failure, Renal following 5. Hyperkalemia. 6. Leukocytosis. 7. Profound hypotension. 8. Profound altered mental status. 9. Dementia. 10. Diabetes. 11. G-tube. 12. PCM RECOMMENDATIONS: 1. Supportive care. 2. Resume medications from prison. 3. Hold KCL 4. IV hydration. 5. Renal evaluation, ID evaluation, Cardiology evaluation. 6. Empiric antibiotics. 7. Close followup and recommendations. 8. Anticoagulation with caution. 9. Digoxin with caution. 10. Sliding scale insulin and diabetic management as needed. 11. Care discussed and reviewed Augusto Gu MD May 07, 2020 09:47
--- NOTE | 2020-05-07 10:38 | Nephrology Progress Note ---
Assessment/Plan Problem List: (1) Malnutrition of moderate degree (2) Yeast cystitis (3) SARWAT (acute kidney injury) (4) UTI (urinary tract infection) (5) Dehydration Plan creatinine 1.4 on 02/04/20, continue hydration, iv adjusted, diflucan check cxr friday Subjective ROS Limited/Unobtainable: Yes Objective Objective Last 24 Hour Vital Signs Date Time Temp Pulse Resp B/P (MAP) Pulse Ox O2 Delivery O2 Flow Rate FiO2 05/07/20 08:44 86 05/07/20 08:00 86 05/07/20 08:00 98.4 86 20 117/44 (68) 98 05/07/20 04:00 98.6 89 24 135/57 (83) 94 05/07/20 04:00 85 05/07/20 00:00 91 05/07/20 00:00 98.1 90 24 139/55 (83) 94 05/06/20 21:00 Room Air 05/06/20 20:00 86 05/06/20 20:00 98.8 86 20 135/51 (79) 94 05/06/20 16:00 99.1 86 20 110/42 (64) 95 05/06/20 16:00 88 05/06/20 12:00 98.4 91 18 105/41 (62) 96 05/06/20 12:00 95 Intake and Output 05/06/20 05/07/20 19:00 07:00 Intake Total 580 ml Output Total 400 ml 500 ml Balance -400 ml 80 ml Intake Free Water 100 ml Tube Feeding 480 ml Output Urine Total 400 ml 500 ml # Bowel Movements 1 1 Laboratory Tests 05/06/20 16:40: Urine Random Sodium < 20L, Urine Creatinine 41.2 05/06/20 22:41: POC Whole Blood Glucose [Pending] 05/07/20 07:00: Sodium Level 148H, Potassium Level 4.4, Chloride Level 117H, Carbon Dioxide Level 20L, Anion Gap 11, Blood Urea Nitrogen 75H, Creatinine 2.2H, Estimat Glomerular Filtration Rate 21.1, Glucose Level 249H, Uric Acid 6.2, Calcium Level 7.6L, Pro-B-Type Natriuretic Peptide 23812C, Thyroid Stimulating Hormone ( TSH) 0.401, Random Vancomycin Level 22.5 Height (Feet): 5 Height (Inches): 2.00 Weight (Pounds): 118 General Appearance: lethargic, confused EENT: other - dry mouth Neck: normal alignment Cardiovascular: regular rhythm Respiratory/Chest: lungs clear Abdomen: soft Extremities: moderate edema Neurologic: unresponsive Tyson Sneed MD May 07, 2020 10:38
--- NOTE | 2020-05-07 10:47 | NUR ---
CASE MANAGEMENT:REVIEW 05/07/20 SI: SEPSIS. SARWAT. UTI.DEHYDRATION MRSA+ / VRE+ CARRIER 98.4 86 20 117/44 98% ON RA WBC+28.7 BUN/CREAT 75/2.2 BG 249 CA+ 7.9 BNP 32417 CO2 20 UR NA <20 IS: IV NS @75ML/HR IV ZOSYN BID DIFLUCAN GY QD PREVACID GT QD LANOXIN GT QD AMARYL GT BID AMIODARONE GT QD ELIQUIS GT QD JANUVIA GT QD NOVOLOG SQ AC+HS IV ATIVAN Q4HR/PRN : TO TELEMETRY DCP:DESIREE DELVALLE WHEN STABLE PLAN: MONITOR WBC ~HIGH
[2020-05-07 12:00] VITALS: BP 149/48
--- NOTE | 2020-05-07 12:44 | Surgery Progress Note ---
Surgery Progress Note Subjective Additional Comments leukocytosis fluid loaded no n/v labs noted exam stabl e Objective Last 24 Hour Vital Signs Date Time Temp Pulse Resp B/P (MAP) Pulse Ox O2 Delivery O2 Flow Rate FiO2 05/07/20 09:00 Room Air 05/07/20 08:44 86 05/07/20 08:00 86 05/07/20 08:00 98.4 86 20 117/44 (68) 98 05/07/20 04:00 98.6 89 24 135/57 (83) 94 05/07/20 04:00 85 05/07/20 00:00 91 05/07/20 00:00 98.1 90 24 139/55 (83) 94 05/06/20 21:00 Room Air 05/06/20 20:00 86 05/06/20 20:00 98.8 86 20 135/51 (79) 94 05/06/20 16:00 99.1 86 20 110/42 (64) 95 05/06/20 16:00 88 I&O Intake and Output 05/06/20 05/07/20 19:00 07:00 Intake Total 580 ml Output Total 400 ml 500 ml Balance -400 ml 80 ml Intake Free Water 100 ml Tube Feeding 480 ml Output Urine Total 400 ml 500 ml # Bowel Movements 1 1 Dressing: saturated Cardiovascular: RSR Respiratory: decreased breath sounds Abdomen: soft, non-tender, present bowel sounds Extremities: edema, no tenderness, no cyanosis Laboratory Tests Test 05/06/20 16:40 05/06/20 22:41 05/07/20 07:00 Urine Random Sodium < 20 mmol/L (20-110) L Urine Creatinine 41.2 MG/DL (30.0-125.0) POC Whole Blood Glucose Pending Sodium Level 148 MMOL/L (136-145) H Potassium Level 4.4 MMOL/L (3.5-5.1) Chloride Level 117 MMOL/L (98-107) H Carbon Dioxide Level 20 MMOL/L (21-32) L Anion Gap 11 mmol/L (5-15) Blood Urea Nitrogen 75 mg/dL (7-18) H Creatinine 2.2 MG/DL (0.55-1.30) H Estimat Glomerular Filtration Rate 21.1 mL/min (>60) Glucose Level 249 MG/DL (74-106) H Uric Acid 6.2 MG/DL (2.6-7.2) Calcium Level 7.6 MG/DL (8.5-10.1) L Pro-B-Type Natriuretic Peptide 80533 pg/mL (0-125) H Thyroid Stimulating Hormone (TSH) 0.401 uiU/mL (0.358-3.740) Random Vancomycin Level 22.5 ug/mL Plan Problems: (1) Deep tissue injury Assessment & Plan: Pt presented on admission with Multiple Pressure injuries. Sacral DTPI noted (L)6.7cm x (W)6.9cm. Base of wound is purpuric ,partially opened -ruby and indurated. No odor or exudate noted. Non-blanching erythema periwound.DTPI noted to R Ischium(L)4cm x (W)2.2cm.Base of Pressure injury maroon and indurated. Non-Blanching erythema without induration noted to L ischium. Vulva is swollen and erythematous . DTPI noted to R Heel(L)3.3cm x (W)2.9cm. Wound is is blood filled purpuric Blister with surrounding non-blanchable and boggy heel. R Heel is Boggy with Non-Blanchable erythema. Tx.Plan: Apply Moisture Barrier Paste to Sacrum. Cover with Optifoam drsg. Change every 3 days and prn. Apply Moisture Barrier Paste to R ischium. Cover with Optifoam drsg. Change every 3 days and prn. Apply Moisture Barrier Paste to Bilat groin, perineum and L ischium with each perineal care. Apply Cavilon Skin Barrier to R and L trochanteric areas. Cover each site with Optifoam drsg. Change every 7 days and prn. Reposition at least every 2hours or as tolerated. Off-load heels with pillow. APM/MARY ANN Mattress overlay. (2) Dehydration (3) Hypokalemia (4) Renal failure (5) Hyperkalemia (6) UTI (urinary tract infection) (7) Severe sepsis Assessment & Plan: Patient with significant leukocytosis, lactic acidosis, abnormal electrolytes, renal insufficiency, anemia. UA noted. Microbiology reviewed. Imaging reviewed. COVID negative. Patient with multiple deep tissue injuries and severe malnutrition albumin 1 Wounds unlikely the source or etiology of patient's sepsis. No abscess or fluid collections requiring drainage currently identified. Continue IV antibiotics per infectious disease We will continue to monitor and identify assist with care and management Thank you for let me participate patient's care will follow with recommendations nutritional optimization DAILY ESTIMATED NEEDS: Needs based on DM, wound, renal/ 49kg 30-35 kcals/kg 9732-4013 total kcals 1.25-1.5 g protein/kg 61-74 g total protein 25-30ml/kcal mL/kg 7026-0947 total fluid mLs NUTRITION DIAGNOSIS: * Increased kcal and pro needs r/t wound care as evidenced by open sacral wound per photo, eval pending. * Swallowing difficulty R/T dysphagia as evidenced by GT dependent. ENTERAL NUTRITION RECOMMENDATIONS: NEPRO @43ml/hr x 20hrs to provide 860ml, 1548kcal, 70g prot, 625ml free water * As medically able, start NEPRO @23ml/hr for 6 hrs, advance as tolerated 10ml q4-6 hrs * HOB over 30 degrees * Without IVF, water flush of ml q 130ml q4 hrs -------- ADDITIONAL RECOMMENDATIONS: * PER SNF: Height 4'11" inches and 108 lbs * Rec D5 while NPO * F/up w/ WC eval-> add IMAN in 4oz via GT BID with tube feeds * Rec renal formula as above d/t renal failure on adm * Maintain accurate calibrated bed scale weights . Dimitris Diaz May 07, 2020 12:44
--- NOTE | 2020-05-07 12:55 | Infectious Diseases Prog Note ---
Assessment/Plan Assessment/Plan A 1. Candidal UTI 2. cholelithiasis 3. ? cholecystitis 4. leucocytosis 5. renal failure improving 6. dementia 7. COPD 8. 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 continue Zosyn & fluconazole 2. will follow up HIDA scan Subjective ROS Limited/Unobtainable: Yes Constitutional: Denies: fever Allergies: Coded Allergies: No Known Allergies (Unverified , 01/30/20) Objective Last 24 Hour Vital Signs Date Time Temp Pulse Resp B/P (MAP) Pulse Ox O2 Delivery O2 Flow Rate FiO2 05/07/20 12:00 80 05/07/20 09:00 Room Air 05/07/20 08:44 86 05/07/20 08:00 86 05/07/20 08:00 98.4 86 20 117/44 (68) 98 05/07/20 04:00 98.6 89 24 135/57 (83) 94 05/07/20 04:00 85 05/07/20 00:00 91 05/07/20 00:00 98.1 90 24 139/55 (83) 94 05/06/20 21:00 Room Air 05/06/20 20:00 86 05/06/20 20:00 98.8 86 20 135/51 (79) 94 05/06/20 16:00 99.1 86 20 110/42 (64) 95 05/06/20 16:00 88 Height (Feet): 5 Height (Inches): 2.00 Weight (Pounds): 118 General Appearance: no acute distress HEENT: mucous membranes moist Respiratory/Chest: lungs clear Cardiovascular: normal rate Abdomen: soft, non tender Extremities: no edema Neurologic/Psychiatric: aphasia, other - moaning Microbiology Date/Time Source Procedure Growth Status 05/04/20 15:00 Blood Blood Culture - Preliminary NO GROWTH AFTER 48 HOURS Resulted 05/04/20 14:45 Blood Blood Culture - Preliminary NO GROWTH AFTER 48 HOURS Resulted 05/04/20 15:40 Nasopharynx SARS-CoV-2 RdRp Gene Assay - Final Complete 05/04/20 15:00 Nasal Nares MRSA Culture - Final Staphylococcus Aureus - Mrsa Complete 05/04/20 15:40 Urine,Clean Catch Urine Culture - Final Lena Albicans Complete 05/04/20 15:40 Urine,Clean Catch Urine Culture - Final Complete 05/04/20 15:00 Rectum VRE Culture - Final Enterococcus Faecalis - Vre Enterococcus Faecium - Vre Complete 05/04/20 15:00 Rectum - Final NO CARBAPENEM-RESISTANT ENTEROBACTERI... Complete Laboratory Tests Test 05/06/20 16:40 05/06/20 22:41 05/07/20 07:00 Urine Random Sodium < 20 mmol/L (20-110) L Urine Creatinine 41.2 MG/DL (30.0-125.0) POC Whole Blood Glucose Pending Sodium Level 148 MMOL/L (136-145) H Potassium Level 4.4 MMOL/L (3.5-5.1) Chloride Level 117 MMOL/L (98-107) H Carbon Dioxide Level 20 MMOL/L (21-32) L Anion Gap 11 mmol/L (5-15) Blood Urea Nitrogen 75 mg/dL (7-18) H Creatinine 2.2 MG/DL (0.55-1.30) H Estimat Glomerular Filtration Rate 21.1 mL/min (>60) Glucose Level 249 MG/DL (74-106) H Uric Acid 6.2 MG/DL (2.6-7.2) Calcium Level 7.6 MG/DL (8.5-10.1) L Pro-B-Type Natriuretic Peptide 21996 pg/mL (0-125) H Thyroid Stimulating Hormone (TSH) 0.401 uiU/mL (0.358-3.740) Random Vancomycin Level 22.5 ug/mL Current Medications Medications (Trade) Dose Ordered Sig/Jazmine Route PRN Reason Start Time Stop Time Status Last Admin Dose Admin Acetaminophen (Tylenol) 500 mg Q4H PRN GT Mild Pain (Pain Scale 1-3) 05/05/20 06:00 06/03/20 23:29 Acetaminophen/ Hydrocodone Bitart ([place] 5/325) 1 tab Q4H PRN GT Severe Pain (Pain Scale 7-10) 05/04/20 23:30 05/11/20 23:29 Amiodarone HCl (Cordarone) 200 mg DAILY GT 05/05/20 09:00 08/03/20 08:59 05/07/20 08:43 Apixaban (Eliquis) 2.5 mg DAILY GT 05/05/20 09:00 08/03/20 08:59 05/07/20 08:43 Dextrose (Dextrose 50%) 25 ml Q30M PRN IV Hypoglycemia 05/04/20 20:00 08/02/20 19:59 Dextrose (Dextrose 50%) 50 ml Q30M PRN IV Hypoglycemia 05/04/20 20:00 08/02/20 19:59 Digoxin (Lanoxin) 0.125 mg DAILY GT 05/05/20 09:00 08/03/20 08:59 05/07/20 08:44 Docusate Sodium (Colace) 100 mg BIDPRN PRN GT Constipation 05/05/20 10:15 06/04/20 10:14 Fluconazole (Diflucan) 100 mg DAILY GT 05/07/20 09:00 05/13/20 11:59 05/07/20 08:43 Glimepiride (AmaryL) 2 mg BID GT 05/05/20 09:00 06/04/20 08:59 05/07/20 08:44 Insulin Aspart (NovoLOG) BEFORE MEALS AND HS SUBQ 05/04/20 21:00 08/02/20 20:59 05/07/20 06:27 Lansoprazole (Prevacid) 30 mg DAILY@0630 GT 05/07/20 06:30 06/06/20 06:29 05/07/20 06:26 Lorazepam (Ativan 2mg/ml 1ml) 0.5 mg Q4H PRN IV For Anxiety 05/05/20 20:15 05/12/20 20:14 05/07/20 06:44 Multivitamins (Multivitamins) 1 tab DAILY ORAL 05/05/20 09:00 06/04/20 08:59 05/07/20 08:44 Piperacillin Sod/ Tazobactam Sod 3.375 gm/Sodium Chloride 110 ml @ 27.5 mls/hr Q12HR@0300,1500 IVPB 05/05/20 03:00 05/12/20 02:59 05/07/20 04:09 Sitagliptin Phosphate (Januvia) 50 mg DAILY GT 05/05/20 09:00 06/04/20 08:59 05/07/20 08:43 Sodium 1,000 ml @ 75 mls/hr [id number] IV 05/07/20 12:00 06/06/20 11:59 Tuan Becerra MD May 07, 2020 12:55
[2020-05-07 16:00] VITALS: BP 118/42
--- NOTE | 2020-05-07 18:52 | NUR ---
NURSE HAND-OFF REPORT: Important Events on Shift:Provided Zosyn and IV hydration, 1/2 NS+20K new rate is 75 cc/hour. Patients albumin=1, patient has generalized edema, Bilateral upper and lower extremities 3+ related to low albumin. Patient is DNR/DNI, patients BUN and Creatinine is elevated. Mucous in urine. Agitation treeated with ativan IVP. G-Tube clogged. I cleared the G-tube with cranberry juice. Patient Status: Stable Diet: Glucerna 1.5@40cc/hour. Pending Orders: 05/08/20 CBC,CMP. Dr. Tuan Becerra ordered NM hepatobiliary with delays. Pending Results/Labs:05/08/20 CBC,CMP Pending MD notification:N/A Latest Vital Signs: Temperature 99.0 , Pulse 79 , B/P 118 /42 , Respiratory Rate 22 , O2 SAT 97 , Room Air, O2 Flow Rate 10.0 . Vital Sign Comment: Stable EKG Rhythm: Sinus Rhythm Rhythm change?: N Notified?: N -Dr Jeyson PRETTY Response: No New Orders Received Latest Ayala Fall Score: 50 Fall Risk: High Risk Safety Measures: Call light Within Reach, Bed Alarm Zone 1, Side Rails Side Rails x2, Bed position Low and Locked. Fall Precautions: Yellow Socks Yellow Gown Door Sign Patient Fall Education Report given to Barbara Chiang RN, upon arrival. Addendum: 05/07/20 at 1859 by ELIAZAR LA RN Error: Report will be given to Elise Guy RN, upon arrival. Addendum: 05/07/20 at 1916 by ELIAZAR LA RN Report given to Elise Bear RN.
[2020-05-07 20:00] VITALS: BP 147/57
--- NOTE | 2020-05-07 23:02 | Cardiology Progress Note ---
Subjective DATE OF SERVICE: May 07, 2020 Remains confused Less congested. Monitor: Sinus On empiric IV abx Hyperkalemia corrected. Sodium was elevated yesterday, now improved. BP parameters stabilizing, but remain tenuous at times. Objective Last 24 Hour Vital Signs Date Time Temp Pulse Resp B/P (MAP) Pulse Ox O2 Delivery O2 Flow Rate FiO2 05/07/20 21:00 Room Air 05/07/20 20:00 85 05/07/20 20:00 97.9 86 16 147/57 (87) 93 05/07/20 16:00 85 05/07/20 16:00 99.0 79 22 118/42 (67) 97 05/07/20 12:00 98.4 86 20 149/48 (81) 98 05/07/20 12:00 80 05/07/20 09:00 Room Air 05/07/20 08:44 86 05/07/20 08:00 86 05/07/20 08:00 98.4 86 20 117/44 (68) 98 05/07/20 04:00 98.6 89 24 135/57 (83) 94 05/07/20 04:00 85 05/07/20 00:00 91 05/07/20 00:00 98.1 90 24 139/55 (83) 94 RHYTHM: ST, Afib LUNGS: accessory muscle use, bilateral rhonchi CARDIAC: regular rhythm, normal S1 and S2, arrhythmia ABDOMEN: normal bowel sounds, non tender, no organomegaly, G-Tube intact EXTREMITIES: trace edema Laboratory Tests Test 05/07/20 07:00 05/07/20 21:24 Sodium Level 148 MMOL/L (136-145) H Potassium Level 4.4 MMOL/L (3.5-5.1) Chloride Level 117 MMOL/L (98-107) H Carbon Dioxide Level 20 MMOL/L (21-32) L Anion Gap 11 mmol/L (5-15) Blood Urea Nitrogen 75 mg/dL (7-18) H Creatinine 2.2 MG/DL (0.55-1.30) H Estimat Glomerular Filtration Rate 21.1 mL/min (>60) Glucose Level 249 MG/DL (74-106) H Uric Acid 6.2 MG/DL (2.6-7.2) Calcium Level 7.6 MG/DL (8.5-10.1) L Pro-B-Type Natriuretic Peptide 81101 pg/mL (0-125) H Thyroid Stimulating Hormone (TSH) 0.401 uiU/mL (0.358-3.740) Random Vancomycin Level 22.5 ug/mL POC Whole Blood Glucose Pending Assessment/Plan Assessment/Plan Sepsis with shock UTI Metabolic and toxic encephalopathies 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 Cardiac monitoring; continue maintenance dose amiodarone. Augusto Benítez MD May 07, 2020 23:02
[2020-05-08] VITALS: BP 133/53
[2020-05-08] MEDS: 1/2NS w/KCl 20mEq 1000ml 1,000 ML IV SCH ×2 (01:31→14:09)
[2020-05-08] MEDS: Zosyn 3.375gm q12h **Extended infusion IVPB SCH ×4 (03:10→14:47)
[2020-05-08] MEDS: LORazepam Inj 2mg/ml 1ml IV PRN (03:24)
[2020-05-08 04:00] VITALS: BP 106/57
[2020-05-08] MEDS: NovoLOG Insulin Flexpen SUBQ SCH ×4 (06:56→20:58)
[2020-05-08 07:23] LABS: HEMATOCRIT 30.1 % (37.0-47.0); HEMOGLOBIN 9.3 G/DL (12.0-16.0); MEAN CORPUSCULAR VOLUME 86 FL (80-99); PLATELET COUNT 311 K/UL (150-450); RED BLOOD COUNT 3.49 M/UL (4.20-5.40); WHITE BLOOD COUNT 16.5 K/UL (4.8-10.8)
--- NOTE | 2020-05-08 07:35 | NUR ---
NURSE NOTES: Received patient in bed. Nonverbal, eyes closed, aroused to name-calling and light touch. On 3L via NC, respirations unlabored. No signs of pain noted at this time. F/c in place draining yellow urine. Gt site patent and flushed, running feeding as ordered. Bed low and locked, side rails up x2.
--- NOTE | 2020-05-08 07:38 | NUR ---
NURSE HAND-OFF REPORT: Important Events on Shift: None Patient Status: Stable Diet: Glucerna 1.5 @ 40ml via GT Pending Orders: Nuclear Med Pending Results/Labs: None Pending MD notification: None Latest Vital Signs: Temperature 98.6 , Pulse 86 , B/P 106 /57 , Respiratory Rate 20 , O2 SAT 96 , Room Air, O2 Flow Rate 10.0 . Vital Sign Comment: EKG Rhythm: Sinus Rhythm Rhythm change?: N MD Notified?: N -Dr Jeyson PRETTY Response: No New Orders Received Latest Ayala Fall Score: 50 Fall Risk: High Risk Safety Measures: Call light Within Reach, Bed Alarm Zone 1, Side Rails Side Rails x2, Bed position Low and Locked. Fall Precautions: Yellow Socks Yes Yellow Gown Yes Door Sign Yes Patient Fall Education Yes Report given to Mihai Ochoa RN
[2020-05-08 07:44] LABS: ALANINE AMINOTRANSFERASE 14 U/L (12-78); ALBUMIN 1.2 G/DL (3.4-5.0); ALBUMIN/GLOBULIN RATIO 0.4 (1.0-2.7); ALKALINE PHOSPHATASE 66 U/L (46-116); ANION GAP 7 mmol/L (5-15); ASPARTATE AMINO TRANSFERASE 17 U/L (15-37); BILIRUBIN,TOTAL 0.2 MG/DL (0.2-1.0); BLOOD UREA NITROGEN 70 mg/dL (7-18); CALCIUM 7.7 MG/DL (8.5-10.1); CARBON DIOXIDE 23 MMOL/L (21-32); CHLORIDE 116 MMOL/L (98-107); CREATININE 2.1 MG/DL (0.55-1.30); SODIUM 146 MMOL/L (136-145)
[2020-05-08 08:00] VITALS: BP 150/54
--- NOTE | 2020-05-08 08:41 | NUR ---
RADIOLOGY: PCXR COMPLETED 0815HRS. NF
--- NOTE | 2020-05-08 08:52 | Pulmonology Progress Note ---
Subjective ROS Limited/Unobtainable: Yes Constitutional: Denies: fever Allergies: Coded Allergies: No Known Allergies (Unverified , 01/30/20) Subjective over the weekend care noted and reviewed Objective Last 24 Hour Vital Signs Date Time Temp Pulse Resp B/P (MAP) Pulse Ox O2 Delivery O2 Flow Rate FiO2 05/08/20 08:15 Room Air 05/08/20 04:00 86 05/08/20 04:00 98.6 86 20 106/57 (73) 96 05/08/20 00:00 82 05/08/20 00:00 98.3 86 16 133/53 (79) 91 05/07/20 21:00 Room Air 05/07/20 20:00 85 05/07/20 20:00 97.9 86 16 147/57 (87) 93 05/07/20 16:00 85 05/07/20 16:00 99.0 79 22 118/42 (67) 97 05/07/20 12:00 98.4 86 20 149/48 (81) 98 05/07/20 12:00 80 05/07/20 09:00 Room Air Intake and Output 05/07/20 05/08/20 19:00 07:00 Intake Total 846 ml 600 ml Output Total 500 ml 600 ml Balance 346 ml 0 ml Intake Free Water 120 ml IV Total 846 ml Tube Feeding 480 ml Output Urine Total 500 ml 600 ml # Bowel Movements 1 2 Objective WDWN NAD reduced breath sounds bilaterally with some rhonchi [id number] without MRG NABS nontender G no CC noted edema nonfocal poor LOC Laboratory Tests 05/07/20 21:24: POC Whole Blood Glucose [Pending] 05/08/20 06:20: White Blood Count 16.5H, Red Blood Count 3.49L, Hemoglobin 9.3L, Hematocrit 30.1L, Mean Corpuscular Volume 86, Mean Corpuscular Hemoglobin 26.7L, Mean Corpuscular Hemoglobin Concent 30.9L, Red Cell Distribution Width 15.0H, Platelet Count 311, Mean Platelet Volume 7.0, Neutrophils (%) (Auto) , Lymphocytes (%) (Auto) , Monocytes (%) (Auto) , Eosinophils (%) (Auto) , Basophils (%) (Auto) , Neutrophils % (Manual) [Pending], Lymphocytes % (Manual) [Pending], Platelet Estimate [Pending], Platelet Morphology [Pending], Sodium Level 146H, Potassium Level 5.0, Chloride Level 116H, Carbon Dioxide Level 23, Anion Gap 7, Blood Urea Nitrogen 70H, Creatinine 2.1H, Estimat Glomerular Filtration Rate 22.3, Glucose Level 168H, Calcium Level 7.7L, Total Bilirubin 0.2, Aspartate Amino Transf (AST/SGOT) 17, Alanine Aminotransferase (ALT/SGPT) 14, Alkaline Phosphatase 66, Total Protein 4.1L, Albumin 1.2L, Globulin 2.9, Albumin/Globulin Ratio 0.4L Current Medications Medications (Trade) Dose Ordered Sig/Jazmine Route PRN Reason Start Time Stop Time Status Last Admin Dose Admin Acetaminophen (Tylenol) 500 mg Q4H PRN GT Mild Pain (Pain Scale 1-3) 05/05/20 06:00 06/03/20 23:29 Acetaminophen/ Hydrocodone Bitart ([place] 5/325) 1 tab Q4H PRN GT Severe Pain (Pain Scale 7-10) 05/04/20 23:30 05/11/20 23:29 Amiodarone HCl (Cordarone) 200 mg DAILY GT 05/05/20 09:00 08/03/20 08:59 05/07/20 08:43 Apixaban (Eliquis) 2.5 mg DAILY GT 05/05/20 09:00 08/03/20 08:59 05/07/20 08:43 Dextrose (Dextrose 50%) 25 ml Q30M PRN IV Hypoglycemia 05/04/20 20:00 08/02/20 19:59 Dextrose (Dextrose 50%) 50 ml Q30M PRN IV Hypoglycemia 05/04/20 20:00 08/02/20 19:59 Digoxin (Lanoxin) 0.125 mg DAILY GT 05/05/20 09:00 08/03/20 08:59 05/07/20 08:44 Docusate Sodium (Colace) 100 mg BIDPRN PRN GT Constipation 05/05/20 10:15 06/04/20 10:14 Fluconazole (Diflucan) 100 mg DAILY GT 05/07/20 09:00 05/13/20 11:59 05/07/20 08:43 Glimepiride (AmaryL) 2 mg BID GT 05/05/20 09:00 06/04/20 08:59 05/07/20 17:03 Insulin Aspart (NovoLOG) BEFORE MEALS AND HS SUBQ 05/04/20 21:00 08/02/20 20:59 05/08/20 06:56 Lansoprazole (Prevacid) 30 mg DAILY@0630 GT 05/07/20 06:30 06/06/20 06:29 05/08/20 06:55 Lorazepam (Ativan 2mg/ml 1ml) 0.5 mg Q4H PRN IV For Anxiety 05/05/20 20:15 05/12/20 20:14 05/08/20 03:24 Multivitamins (Multivitamins) 1 tab DAILY ORAL 05/05/20 09:00 06/04/20 08:59 05/07/20 08:44 Piperacillin Sod/ Tazobactam Sod 3.375 gm/Sodium Chloride 110 ml @ 27.5 mls/hr Q12HR@0300,1500 IVPB 05/05/20 03:00 05/12/20 02:59 05/08/20 03:10 Sitagliptin Phosphate (Januvia) 50 mg DAILY GT 05/05/20 09:00 06/04/20 08:59 05/07/20 08:43 Sodium 1,000 ml @ 75 mls/hr [id number] IV 05/07/20 12:00 06/06/20 11:59 05/08/20 01:31 Assessment/Plan Assessment/Plan IMPRESSION: 1. Probable urosepsis. 2. Acute on chronic encephalopathy. 3. Septic shock. 4. Acute on chronic renal failure. 5. Hyperkalemia. 6. Leukocytosis. 7. Profound hypotension. 8. Profound altered mental status. 9. Dementia. 10. Diabetes. 11. G-tube. 12. peripheral edema 13. 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 Supportive care. 2. maintain medications from alf. 3. monitor peripheral edema 4. IV hydration. ?dc 5. Renal evaluation, ID evaluation, Cardiology evaluation. 6. IV antibiotics. 7. Close followup and recommendations. 8. Anticoagulation with caution. 9. Digoxin with caution. 10. Sliding scale insulin impression, plan, and exam edited and reviewed in detail care discussed with Eduardo Kern MD May 08, 2020 08:52
[2020-05-08] MEDS: sitaGLIPtin 25mg tab GT SCH (09:00)
[2020-05-08] MEDS: Glimepiride 1mg tab GT SCH ×2 (09:01→17:07)
[2020-05-08] MEDS: Amiodarone 200mg tab GT SCH (09:01)
[2020-05-08] MEDS: Eliquis 2.5mg tablet GT SCH (09:01)
[2020-05-08] MEDS: Digoxin 0.125mg tab GT SCH (09:02)
[2020-05-08] MEDS: Fluconazole 100mg tab GT SCH (09:02)
--- NOTE | 2020-05-08 09:27 | NUR ---
NURSE NOTES: Oral suction provided, oral care provided.
--- NOTE | 2020-05-08 10:00 | NUR ---
NURSE NOTES: Patient sent off the unit for HIDA scan. On 2 L NC.
--- NOTE | 2020-05-08 10:31 | NUR ---
RD ASSESSMENT & RECOMMENDATIONS SEE CARE ACTIVITY FOR COMPLETE ASSESSMENT DAILY ESTIMATED NEEDS: Needs based on DM, wound, renal/ 49kg 30-35 kcals/kg 6610-4428 total kcals 1.25-1.5 g protein/kg 61-74 g total protein 25-30ml/kcal mL/kg 6705-2635 total fluid mLs NUTRITION DIAGNOSIS: * Increased kcal and pro needs r/t wound care as evidenced by admitted w/ multiple wounds including DTPI wounds @ sacrum and Rt heel and non-blanching erythema @ BL ischium. * Swallowing difficulty R/T dysphagia as evidenced by GT dependent. * Altered nutrition related lab values R/T SARWAT as evidenced by elev creat (3.5-> 2.1 trend down), elev BUN (125 -> 70 trend down), elev K (7.8*-> 3.9-> 5.0), elev phos (6.0), elev BNP (31957). CURRENT TF:Glucerna 1.5 @ 40ml/hr x 24 hrs ENTERAL NUTRITION RECOMMENDATIONS: Glucerna 1.5 @ 40ml/hr x 24 hrs to provide 960ml, 1440kcal, 79g prot, 729mL free water * Maintain current TF as tolerated * HOB over 30 degrees/ water flush per MD ADDITIONAL RECOMMENDATIONS: * PER SNF: Height 4'11" inches and 108 lbs * Maintain accurate calibrated bed scale weights * WC eval add Vit C 250mg QD + IMAN in 4oz via GT BID with tube feeds * Monitor renal fxn and lytes -> renal fxn improving at this time -> K trend back up- DC KCL in IVF
--- NOTE | 2020-05-08 11:20 | NUR ---
NURSE NOTES: Patient returned to the unit from HIDA scan. On 2 L via NC. Heart monitor on.
--- NOTE | 2020-05-08 11:24 | Infectious Diseases Prog Note ---
Assessment/Plan Assessment/Plan antibiotics : zosyn, fluconazole A 1. fungal UTI 2. cholelithiasis 3. ? cholecystitis 4. leucocytosis improving 5. renal failure improving 6. dementia 7. COPD 8. diabetes mellitus P 1. continue zosyn 2. continue fluconazole 4 more days 3. will follow up cultures 4. HIDA pending Subjective ROS Limited/Unobtainable: Yes Allergies: Coded Allergies: No Known Allergies (Unverified , 01/30/20) Objective Last 24 Hour Vital Signs Date Time Temp Pulse Resp B/P (MAP) Pulse Ox O2 Delivery O2 Flow Rate FiO2 05/08/20 09:02 82 05/08/20 08:15 Room Air 05/08/20 08:00 79 05/08/20 08:00 97.5 82 22 150/54 (86) 100 05/08/20 04:00 86 05/08/20 04:00 98.6 86 20 106/57 (73) 96 05/08/20 00:00 82 05/08/20 00:00 98.3 86 16 133/53 (79) 91 05/07/20 21:00 Room Air 05/07/20 20:00 85 05/07/20 20:00 97.9 86 16 147/57 (87) 93 05/07/20 16:00 85 05/07/20 16:00 99.0 79 22 118/42 (67) 97 05/07/20 12:00 98.4 86 20 149/48 (81) 98 05/07/20 12:00 80 Height (Feet): 5 Height (Inches): 2.00 Weight (Pounds): 118 Respiratory/Chest: lungs clear Cardiovascular: normal rate, regular rhythm, no gallop/murmur Abdomen: soft, non tender Extremities: no edema Laboratory Tests Test 05/07/20 21:24 05/08/20 06:20 POC Whole Blood Glucose Pending White Blood Count 16.5 K/UL (4.8-10.8) H Red Blood Count 3.49 M/UL (4.20-5.40) L Hemoglobin 9.3 G/DL (12.0-16.0) L Hematocrit 30.1 % (37.0-47.0) L Mean Corpuscular Volume 86 FL (80-99) Mean Corpuscular Hemoglobin 26.7 PG (27.0-31.0) L Mean Corpuscular Hemoglobin Concent 30.9 G/DL (32.0-36.0) L Red Cell Distribution Width 15.0 % (11.6-14.8) H Platelet Count 311 K/UL (150-450) Mean Platelet Volume 7.0 FL (6.5-10.1) Neutrophils (%) (Auto) % (45.0-75.0) Lymphocytes (%) (Auto) % (20.0-45.0) Monocytes (%) (Auto) % (1.0-10.0) Eosinophils (%) (Auto) % (0.0-3.0) Basophils (%) (Auto) % (0.0-2.0) Differential Total Cells Counted 100 Neutrophils % (Manual) 87 % (45-75) H Lymphocytes % (Manual) 5 % (20-45) L Monocytes % (Manual) 6 % (1-10) Eosinophils % (Manual) 2 % (0-3) Basophils % (Manual) 0 % (0-2) Band Neutrophils 0 % (0-8) Platelet Estimate Adequate Platelet Morphology Normal Polychromasia 1+ Hypochromasia 1+ Anisocytosis 1+ Sodium Level 146 MMOL/L (136-145) H Potassium Level 5.0 MMOL/L (3.5-5.1) Chloride Level 116 MMOL/L (98-107) H Carbon Dioxide Level 23 MMOL/L (21-32) Anion Gap 7 mmol/L (5-15) Blood Urea Nitrogen 70 mg/dL (7-18) H Creatinine 2.1 MG/DL (0.55-1.30) H Estimat Glomerular Filtration Rate 22.3 mL/min (>60) Glucose Level 168 MG/DL (74-106) H Calcium Level 7.7 MG/DL (8.5-10.1) L Total Bilirubin 0.2 MG/DL (0.2-1.0) Aspartate Amino Transf (AST/SGOT) 17 U/L (15-37) Alanine Aminotransferase (ALT/SGPT) 14 U/L (12-78) Alkaline Phosphatase 66 U/L (46-116) Total Protein 4.1 G/DL (6.4-8.2) L Albumin 1.2 G/DL (3.4-5.0) L Globulin 2.9 g/dL Albumin/Globulin Ratio 0.4 (1.0-2.7) L Current Medications Medications (Trade) Dose Ordered Sig/Jazmine Route PRN Reason Start Time Stop Time Status Last Admin Dose Admin Acetaminophen (Tylenol) 500 mg Q4H PRN GT Mild Pain (Pain Scale 1-3) 05/05/20 06:00 06/03/20 23:29 Acetaminophen/ Hydrocodone Bitart (Blanchard 5/325) 1 tab Q4H PRN GT Severe Pain (Pain Scale 7-10) 05/04/20 23:30 05/11/20 23:29 Amiodarone HCl (Cordarone) 200 mg DAILY GT 05/05/20 09:00 08/03/20 08:59 05/08/20 09:01 Apixaban (Eliquis) 2.5 mg DAILY GT 05/05/20 09:00 08/03/20 08:59 05/08/20 09:01 Dextrose (Dextrose 50%) 25 ml Q30M PRN IV Hypoglycemia 05/04/20 20:00 08/02/20 19:59 Dextrose (Dextrose 50%) 50 ml Q30M PRN IV Hypoglycemia 05/04/20 20:00 08/02/20 19:59 Digoxin (Lanoxin) 0.125 mg DAILY GT 05/05/20 09:00 08/03/20 08:59 05/08/20 09:02 Docusate Sodium (Colace) 100 mg BIDPRN PRN GT Constipation 05/05/20 10:15 06/04/20 10:14 Fluconazole (Diflucan) 100 mg DAILY GT 05/07/20 09:00 05/13/20 11:59 05/08/20 09:02 Glimepiride (AmaryL) 2 mg BID GT 05/05/20 09:00 06/04/20 08:59 05/08/20 09:01 Insulin Aspart (NovoLOG) BEFORE MEALS AND HS SUBQ 05/04/20 21:00 08/02/20 20:59 05/08/20 06:56 Lansoprazole (Prevacid) 30 mg DAILY@0630 GT 05/07/20 06:30 06/06/20 06:29 05/08/20 06:55 Lorazepam (Ativan 2mg/ml 1ml) 0.5 mg Q4H PRN IV For Anxiety 05/05/20 20:15 05/12/20 20:14 05/08/20 03:24 Multivitamins (Multivitamins) 1 tab DAILY ORAL 05/05/20 09:00 06/04/20 08:59 05/08/20 09:00 Piperacillin Sod/ Tazobactam Sod 3.375 gm/Sodium Chloride 110 ml @ 27.5 mls/hr Q12HR@0300,1500 IVPB 05/05/20 03:00 05/12/20 02:59 05/08/20 03:10 Sitagliptin Phosphate (Januvia) 50 mg DAILY GT 05/05/20 09:00 06/04/20 08:59 05/08/20 09:00 Sodium 1,000 ml @ 75 mls/hr [id number] IV 05/07/20 12:00 06/06/20 11:59 05/08/20 01:31 Felipe Grant MD May 08, 2020 11:24
--- NOTE | 2020-05-08 11:57 | Diagnostic Imaging Report ---
Indications: Abdominal pain, cholelithiasis Technique: IV administration 5.9 mCi 99 M technetium Choletec. Serial images obtained over the abdomen for one hour Comparison: None Findings: Prompt tracer uptake within the liver. Extrahepatic bile ducts are seen at 13 minutes. Excretion into the duodenum demonstrated at 28 minutes. Gallbladder visualized at 22 minutes. Impression: Negative. No evidence of cystic duct obstruction or common bile duct obstruction
[2020-05-08 11:59] VITALS: BP 122/52
--- NOTE | 2020-05-08 12:08 | Nephrology Progress Note ---
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 Not a dialysis candidate. Subjective Subjective Obtunded Objective Objective Last 24 Hour Vital Signs Date Time Temp Pulse Resp B/P (MAP) Pulse Ox O2 Delivery O2 Flow Rate FiO2 05/08/20 11:59 97.5 80 20 122/52 (75) 99 05/08/20 09:02 82 05/08/20 08:15 Room Air 05/08/20 08:00 79 05/08/20 08:00 97.5 82 22 150/54 (86) 100 05/08/20 04:00 86 05/08/20 04:00 98.6 86 20 106/57 (73) 96 05/08/20 00:00 82 05/08/20 00:00 98.3 86 16 133/53 (79) 91 05/07/20 21:00 Room Air 05/07/20 20:00 85 05/07/20 20:00 97.9 86 16 147/57 (87) 93 05/07/20 16:00 85 05/07/20 16:00 99.0 79 22 118/42 (67) 97 Intake and Output 05/07/20 05/08/20 19:00 07:00 Intake Total 846 ml 675 ml Output Total 500 ml 600 ml Balance 346 ml 75 ml Intake Free Water 120 ml IV Total 846 ml 75 ml Tube Feeding 480 ml Output Urine Total 500 ml 600 ml # Bowel Movements 1 2 Laboratory Tests 05/07/20 21:24: POC Whole Blood Glucose [Pending] 05/08/20 06:20: White Blood Count 16.5H, Red Blood Count 3.49L, Hemoglobin 9.3L, Hematocrit 30.1L, Mean Corpuscular Volume 86, Mean Corpuscular Hemoglobin 26.7L, Mean Corpuscular Hemoglobin Concent 30.9L, Red Cell Distribution Width 15.0H, Platelet Count 311, Mean Platelet Volume 7.0, Neutrophils (%) (Auto) , Lymphocytes (%) (Auto) , Monocytes (%) (Auto) , Eosinophils (%) (Auto) , Basophils (%) (Auto) , Differential Total Cells Counted 100, Neutrophils % ( Manual) 87H, Lymphocytes % (Manual) 5L, Monocytes % (Manual) 6, Eosinophils % ( Manual) 2, Basophils % (Manual) 0, Band Neutrophils 0, Platelet Estimate Adequate, Platelet Morphology Normal, Polychromasia 1+, Hypochromasia 1+, Anisocytosis 1+, Sodium Level 146H, Potassium Level 5.0, Chloride Level 116H, Carbon Dioxide Level 23, Anion Gap 7, Blood Urea Nitrogen 70H, Creatinine 2.1H, Estimat Glomerular Filtration Rate 22.3, Glucose Level 168H, Calcium Level 7.7L , Total Bilirubin 0.2, Aspartate Amino Transf (AST/SGOT) 17, Alanine Aminotransferase (ALT/SGPT) 14, Alkaline Phosphatase 66, Total Protein 4.1L, Albumin 1.2L, Globulin 2.9, Albumin/Globulin Ratio 0.4L Height (Feet): 5 Height (Inches): 2.00 Weight (Pounds): 118 Objective CV RR Lungs CTA Abd Ascites . SNT. BS = E ++++ edema Jonathan Berry MD May 08, 2020 12:08
--- NOTE | 2020-05-08 14:12 | NUR ---
CASE MANAGEMENT: REVIEW SI: DEHYDRATION . UTI . SEPSIS T 97.5 HR 80 RR 22 BP 106/57 SAT 96% ROOM AIR WBC 16.5 H/H 9.3/30.1 NA 146 BUN 70 CR 2.1 IS: NA IVF @ 75ML/HR DIFLUCAN GT QD DIGOXIN GT QD ZOSYN IV Q12HR WOUND CONSULT SACRAL TELEMETRY UNIT STATUS DCP: PATIENT IS FROM [facility]
--- NOTE | 2020-05-08 14:13 | Surgery Progress Note ---
Surgery Progress Note Subjective Additional Comments no acute events comfortable stable no complaints no n/v/f/c labs noted Objective Last 24 Hour Vital Signs Date Time Temp Pulse Resp B/P (MAP) Pulse Ox O2 Delivery O2 Flow Rate FiO2 05/08/20 12:00 78 05/08/20 11:59 97.5 80 20 122/52 (75) 99 05/08/20 09:02 82 05/08/20 08:15 Room Air 05/08/20 08:00 79 05/08/20 08:00 97.5 82 22 150/54 (86) 100 05/08/20 04:00 86 05/08/20 04:00 98.6 86 20 106/57 (73) 96 05/08/20 00:00 82 05/08/20 00:00 98.3 86 16 133/53 (79) 91 05/07/20 21:00 Room Air 05/07/20 20:00 85 05/07/20 20:00 97.9 86 16 147/57 (87) 93 05/07/20 16:00 85 05/07/20 16:00 99.0 79 22 118/42 (67) 97 I&O Intake and Output 05/07/20 05/08/20 19:00 07:00 Intake Total 846 ml 675 ml Output Total 500 ml 600 ml Balance 346 ml 75 ml Intake Free Water 120 ml IV Total 846 ml 75 ml Tube Feeding 480 ml Output Urine Total 500 ml 600 ml # Bowel Movements 1 2 Cardiovascular: RSR Respiratory: decreased breath sounds Abdomen: soft, present bowel sounds Extremities: no edema, no tenderness, no cyanosis Laboratory Tests Test 05/07/20 21:24 05/08/20 06:20 POC Whole Blood Glucose Pending White Blood Count 16.5 K/UL (4.8-10.8) H Red Blood Count 3.49 M/UL (4.20-5.40) L Hemoglobin 9.3 G/DL (12.0-16.0) L Hematocrit 30.1 % (37.0-47.0) L Mean Corpuscular Volume 86 FL (80-99) Mean Corpuscular Hemoglobin 26.7 PG (27.0-31.0) L Mean Corpuscular Hemoglobin Concent 30.9 G/DL (32.0-36.0) L Red Cell Distribution Width 15.0 % (11.6-14.8) H Platelet Count 311 K/UL (150-450) Mean Platelet Volume 7.0 FL (6.5-10.1) Neutrophils (%) (Auto) % (45.0-75.0) Lymphocytes (%) (Auto) % (20.0-45.0) Monocytes (%) (Auto) % (1.0-10.0) Eosinophils (%) (Auto) % (0.0-3.0) Basophils (%) (Auto) % (0.0-2.0) Differential Total Cells Counted 100 Neutrophils % (Manual) 87 % (45-75) H Lymphocytes % (Manual) 5 % (20-45) L Monocytes % (Manual) 6 % (1-10) Eosinophils % (Manual) 2 % (0-3) Basophils % (Manual) 0 % (0-2) Band Neutrophils 0 % (0-8) Platelet Estimate Adequate Platelet Morphology Normal Polychromasia 1+ Hypochromasia 1+ Anisocytosis 1+ Sodium Level 146 MMOL/L (136-145) H Potassium Level 5.0 MMOL/L (3.5-5.1) Chloride Level 116 MMOL/L (98-107) H Carbon Dioxide Level 23 MMOL/L (21-32) Anion Gap 7 mmol/L (5-15) Blood Urea Nitrogen 70 mg/dL (7-18) H Creatinine 2.1 MG/DL (0.55-1.30) H Estimat Glomerular Filtration Rate 22.3 mL/min (>60) Glucose Level 168 MG/DL (74-106) H Calcium Level 7.7 MG/DL (8.5-10.1) L Total Bilirubin 0.2 MG/DL (0.2-1.0) Aspartate Amino Transf (AST/SGOT) 17 U/L (15-37) Alanine Aminotransferase (ALT/SGPT) 14 U/L (12-78) Alkaline Phosphatase 66 U/L (46-116) Total Protein 4.1 G/DL (6.4-8.2) L Albumin 1.2 G/DL (3.4-5.0) L Globulin 2.9 g/dL Albumin/Globulin Ratio 0.4 (1.0-2.7) L Plan Problems: (1) Deep tissue injury Assessment & Plan: Pt presented on admission with Multiple Pressure injuries. Sacral DTPI noted (L)6.7cm x (W)6.9cm. Base of wound is purpuric ,partially opened -ruby and indurated. No odor or exudate noted. Non-blanching erythema periwound.DTPI noted to R Ischium(L)4cm x (W)2.2cm.Base of Pressure injury maroon and indurated. Non-Blanching erythema without induration noted to L ischium. Vulva is swollen and erythematous . DTPI noted to R Heel(L)3.3cm x (W)2.9cm. Wound is is blood filled purpuric Blister with surrounding non-blanchable and boggy heel. R Heel is Boggy with Non-Blanchable erythema. Tx.Plan: Apply Moisture Barrier Paste to Sacrum. Cover with Optifoam drsg. Change every 3 days and prn. Apply Moisture Barrier Paste to R ischium. Cover with Optifoam drsg. Change every 3 days and prn. Apply Moisture Barrier Paste to Bilat groin, perineum and L ischium with each perineal care. Apply Cavilon Skin Barrier to R and L trochanteric areas. Cover each site with Optifoam drsg. Change every 7 days and prn. Reposition at least every 2hours or as tolerated. Off-load heels with pillow. APM/MARY ANN Mattress overlay. (2) Dehydration (3) Hypokalemia (4) Renal failure (5) Hyperkalemia (6) UTI (urinary tract infection) (7) Severe sepsis Assessment & Plan: Patient with significant leukocytosis, lactic acidosis, abnormal electrolytes, renal insufficiency, anemia. UA noted. Microbiology reviewed. Imaging reviewed. COVID negative. Patient with multiple deep tissue injuries and severe malnutrition albumin 1 Wounds unlikely the source or etiology of patient's sepsis. No abscess or fluid collections requiring drainage currently identified. Continue IV antibiotics per infectious disease We will continue to monitor and identify assist with care and management Thank you for let me participate patient's care will follow with recommendations nutritional optimization DAILY ESTIMATED NEEDS: Needs based on DM, wound, renal/ 49kg 30-35 kcals/kg 6611-4958 total kcals 1.25-1.5 g protein/kg 61-74 g total protein 25-30ml/kcal mL/kg 8626-7134 total fluid mLs NUTRITION DIAGNOSIS: * Increased kcal and pro needs r/t wound care as evidenced by open sacral wound per photo, eval pending. * Swallowing difficulty R/T dysphagia as evidenced by GT dependent. ENTERAL NUTRITION RECOMMENDATIONS: NEPRO @43ml/hr x 20hrs to provide 860ml, 1548kcal, 70g prot, 625ml free water * As medically able, start NEPRO @23ml/hr for 6 hrs, advance as tolerated 10ml q4-6 hrs * HOB over 30 degrees * Without IVF, water flush of ml q 130ml q4 hrs -------- ADDITIONAL RECOMMENDATIONS: * PER SNF: Height 4'11" inches and 108 lbs * Rec D5 while NPO * F/up w/ WC eval-> add IMAN in 4oz via GT BID with tube feeds * Rec renal formula as above d/t renal failure on adm * Maintain accurate calibrated bed scale weights . Dimitris Diaz May 08, 2020 14:13
--- NOTE | 2020-05-08 14:20 | NUR ---
INSURANCE FAXED TO [facility]; [phone] F: [phone] REF#[id number]
[2020-05-08] MEDS ORDERED: LORazepam 1mg tab ORAL PRN (15:45)
--- NOTE | 2020-05-08 15:51 | Diagnostic Imaging Report ---
Indication: Cough Technique: One view of the chest Comparison: 05/04/2020 Findings: There is some consolidation and atelectasis in the right perihilar region. There is also retrocardiac consolidation. These are new since the prior study. There may be a small amount of pleural fluid on the left. Impression: Right perihilar atelectasis and consolidation. Retrocardiac consolidation. Both concerning for pneumonia. Correlate with clinical findings
[2020-05-08] MEDS: Depakote 500mg tab ORAL SCH ×2 (15:55→21:00)
[2020-05-08 16:00] VITALS: BP 125/49
--- NOTE | 2020-05-08 19:17 | NUR ---
NURSE HAND-OFF REPORT: Important Events on Shift:[HIDA scan, CXR, frequent oral suctioning] Patient Status: [] Diet: [TF glucerna 1.5 continuous] Pending Orders: [] Pending Results/Labs:[C. diff toxin] Pending MD notification:[] Latest Vital Signs: Temperature 97.5 , Pulse 79 , B/P 125 /49 , Respiratory Rate 22 , O2 SAT 100 , Room Air, O2 Flow Rate 10.0 . Vital Sign Comment: [] EKG Rhythm: Sinus Rhythm Rhythm change?: N Notified?: N -Dr Jeyson PRETTY Response: No New Orders Received Latest Ayala Fall Score: 50 Fall Risk: High Risk Safety Measures: Call light Within Reach, Bed Alarm Zone 1, Side Rails Side Rails x2, Bed position Low and Locked. Fall Precautions: Yellow Socks Yellow Gown Door Sign Patient Fall Education Report given to [Apurva MARR].
--- NOTE | 2020-05-08 19:50 | NUR ---
NURSE NOTES: Received pt from TEJINDER Holm. Pt asleep but screams to light pain. Bed in lowest position. TF running. IV fluids running. Call light within reach. Bed alarm on. Will continue to monitor.
[2020-05-08 20:00] VITALS: BP 126/45
[2020-05-08] MEDS: Valproic Acid 250mg/5ml Liquid GT SCH (22:33)
[2020-05-08] MEDS: HYDROcodone/Acetamin 5/325 tab GT PRN (23:44)
[2020-05-09] VITALS: BP 128/42
--- NOTE | 2020-05-09 00:27 | Cardiology Progress Note ---
Subjective Remains confused Less congested. Monitor: Sinus with atrial ectopy; no recurrent AFib On empiric IV abx Hyperkalemia corrected. Sodium was elevated again. BP parameters stabilizing. Objective Last 24 Hour Vital Signs Date Time Temp Pulse Resp B/P (MAP) Pulse Ox O2 Delivery O2 Flow Rate FiO2 05/08/20 21:00 Nasal Cannula 3.0 05/08/20 20:00 97.7 76 24 126/45 (72) 100 05/08/20 16:00 97.5 70 22 125/49 (74) 100 05/08/20 16:00 79 05/08/20 12:00 78 05/08/20 11:59 97.5 80 20 122/52 (75) 99 05/08/20 09:02 82 05/08/20 08:15 Room Air 05/08/20 08:00 79 05/08/20 08:00 97.5 82 22 150/54 (86) 100 05/08/20 04:00 86 05/08/20 04:00 98.6 86 20 106/57 (73) 96 RHYTHM: ST, Afib LUNGS: accessory muscle use, bilateral rhonchi CARDIAC: regular rhythm, normal S1 and S2, arrhythmia ABDOMEN: normal bowel sounds, non tender, no organomegaly, G-Tube intact EXTREMITIES: trace edema Laboratory Tests Test 05/08/20 06:20 05/08/20 06:48 05/08/20 11:23 05/08/20 16:22 White Blood Count 16.5 K/UL (4.8-10.8) H Red Blood Count 3.49 M/UL (4.20-5.40) L Hemoglobin 9.3 G/DL (12.0-16.0) L Hematocrit 30.1 % (37.0-47.0) L Mean Corpuscular Volume 86 FL (80-99) Mean Corpuscular Hemoglobin 26.7 PG (27.0-31.0) L Mean Corpuscular Hemoglobin Concent 30.9 G/DL (32.0-36.0) L Red Cell Distribution Width 15.0 % (11.6-14.8) H Platelet Count 311 K/UL (150-450) Mean Platelet Volume 7.0 FL (6.5-10.1) Neutrophils (%) (Auto) % (45.0-75.0) Lymphocytes (%) (Auto) % (20.0-45.0) Monocytes (%) (Auto) % (1.0-10.0) Eosinophils (%) (Auto) % (0.0-3.0) Basophils (%) (Auto) % (0.0-2.0) Differential Total Cells Counted 100 Neutrophils % (Manual) 87 % (45-75) H Lymphocytes % (Manual) 5 % (20-45) L Monocytes % (Manual) 6 % (1-10) Eosinophils % (Manual) 2 % (0-3) Basophils % (Manual) 0 % (0-2) Band Neutrophils 0 % (0-8) Platelet Estimate Adequate Platelet Morphology Normal Polychromasia 1+ Hypochromasia 1+ Anisocytosis 1+ Sodium Level 146 MMOL/L (136-145) H Potassium Level 5.0 MMOL/L (3.5-5.1) Chloride Level 116 MMOL/L (98-107) H Carbon Dioxide Level 23 MMOL/L (21-32) Anion Gap 7 mmol/L (5-15) Blood Urea Nitrogen 70 mg/dL (7-18) H Creatinine 2.1 MG/DL (0.55-1.30) H Estimat Glomerular Filtration Rate 22.3 mL/min (>60) Glucose Level 168 MG/DL (74-106) H Calcium Level 7.7 MG/DL (8.5-10.1) L Total Bilirubin 0.2 MG/DL (0.2-1.0) Aspartate Amino Transf (AST/SGOT) 17 U/L (15-37) Alanine Aminotransferase (ALT/SGPT) 14 U/L (12-78) Alkaline Phosphatase 66 U/L (46-116) Total Protein 4.1 G/DL (6.4-8.2) L Albumin 1.2 G/DL (3.4-5.0) L Globulin 2.9 g/dL Albumin/Globulin Ratio 0.4 (1.0-2.7) L POC Whole Blood Glucose Pending 140 MG/DL (74-106) H 71 MG/DL (74-106) L Test 05/08/20 17:06 05/08/20 20:56 05/08/20 21:02 POC Whole Blood Glucose 83 MG/DL (74-106) 97 MG/DL (74-106) Digoxin Level 1.4 NG/ML (0.9-2.0) CHEST XRAY: HIDA Negative. CXR (05/08) reveals right sided infiltrate Assessment/Plan Assessment/Plan Sepsis with shock UTI Metabolic and toxic encephalopathies HC associated aspiration PNA PAFib with RVR Acute renal failure hyperkalemia Lactic acidosis resolved Severe protein-calorie malnutrition Hypotonic fluid hydration Full anticoagulation Abx Nutrition by Gtube Follow up lytes; correct as needed. Cardiac monitoring; continue maintenance dose amiodarone. Augusto Benítez MD May 09, 2020 00:27
--- NOTE | 2020-05-09 01:30 | Consultation ---
DATE OF CONSULTATION: 05/08/2020 HISTORY OF PRESENT ILLNESS: This is an 89-year-old female whom I am familiar with from [facility]. The patient has a history of dementia as well as renal failure, diabetes, sepsis who has been admitted to the hospital for and septic shock. The patient is easily agitated, screaming, yelling, difficult to redirect, poor memory, not able to be engaged and answer the question. PAST PSYCHIATRIC HISTORY: Significant for dementia, anxiety disorder. PAST MEDICAL HISTORY: Renal failure, diabetes, sepsis. ALLERGIES: No known drug allergies. SUBSTANCE ABUSE HISTORY: No known history of illicit drug use or alcohol. MENTAL STATUS EXAMINATION: The patient is awake. She is confused and disoriented. Mood is agitated. Affect is flat. Thought process, disorganized. Thought content, no suicidal or homicidal ideation. Cognition is impaired. Insight and judgment is impaired. ASSESSMENT: AXIS I: Dementia with behavior disturbance. AXIS II: Deferred. AXIS III: As above. AXIS IV: Low. AXIS V: 20. PLAN: 1. Haldol IM p.r.n. 2. Atbeni p.r.n. 3. Provide the patient with reality orientation and supportive therapy. Shena Campos M.D. DR: Heidi JOB#: [id number] CC:
[2020-05-09] MEDS: 1/2NS w/KCl 20mEq 1000ml 1,000 ML IV SCH ×2 (02:54→17:18)
[2020-05-09] MEDS: Zosyn 3.375gm q12h **Extended infusion IVPB SCH ×2 (02:54)
--- NOTE | 2020-05-09 03:14 | NUR ---
NURSE NOTES: pt not tolerating feeding. Residual amount at 400 cc. Stopped feeding and gave pt ativan for agitation. Will resume feeding later. Will continue to monitor.
[2020-05-09 04:00] VITALS: BP 119/40
[2020-05-09] MEDS: NovoLOG Insulin Flexpen SUBQ SCH ×4 (06:16→20:16)
--- NOTE | 2020-05-09 07:09 | NUR ---
NURSE HAND-OFF REPORT: Important Events on Shift: gt feeding not tolerated Patient Status: stable Diet: Glucerna 1.5 at 40 Pending Orders: n Pending Results/Labs:y Pending notification: Latest Vital Signs: Temperature 97.5 , Pulse 81 , B/P 119 /40 , Respiratory Rate 20 , O2 SAT 100 , Nasal Cannula, O2 Flow Rate 3.0 . Vital Sign Comment: stable EKG Rhythm: Sinus Rhythm Rhythm change?: N MD Notified?: N -Dr Jeyson PRETTY Response: No New Orders Received Latest Ayala Fall Score: 50 Fall Risk: High Risk Safety Measures: Call light Within Reach, Bed Alarm Zone 1, Side Rails Side Rails x2, Bed position Low and Locked. Fall Precautions: y Yellow Socks y Yellow Gown n. bed bound Door Sign n Patient Fall Education n. pt unable to understand Report given to TEJINDER Holm.
--- NOTE | 2020-05-09 07:10 | NUR ---
NURSE NOTES: Received patient in bed. Awake, nonverbal but screams. Patient easily aroused with name-calling and light touch. No signs of pain noted at this time. IV in the Right AC, infusing IVF as ordered. F/c in place draining yellow urine, lomeli anchor on right thigh. GT flushed and patent, running feeding as ordered. Bed low and locked, side rails up x3.
--- NOTE | 2020-05-09 07:30 | Pulmonology Progress Note ---
Subjective ROS Limited/Unobtainable: Yes Constitutional: Denies: fever Allergies: Coded Allergies: No Known Allergies (Unverified , 01/30/20) Subjective over the weekend care noted and reviewed Objective Last 24 Hour Vital Signs Date Time Temp Pulse Resp B/P (MAP) Pulse Ox O2 Delivery O2 Flow Rate FiO2 05/09/20 04:00 81 05/09/20 04:00 97.5 82 20 119/40 (66) 100 05/09/20 00:00 97.5 82 24 128/42 (70) 100 05/09/20 00:00 79 05/08/20 21:00 Nasal Cannula 3.0 05/08/20 20:00 82 05/08/20 20:00 97.7 76 24 126/45 (72) 100 05/08/20 16:00 97.5 70 22 125/49 (74) 100 05/08/20 16:00 79 05/08/20 12:00 78 05/08/20 11:59 97.5 80 20 122/52 (75) 99 05/08/20 09:02 82 05/08/20 08:15 Room Air 05/08/20 08:00 79 05/08/20 08:00 97.5 82 22 150/54 (86) 100 Intake and Output 05/08/20 05/09/20 19:00 07:00 Intake Total 750 ml 400 ml Output Total 500 ml 800 ml Balance 250 ml -400 ml IV Total 750 ml Tube Feeding 400 ml Output Urine Total 500 ml 800 ml # Voids 1 # Bowel Movements 2 1 Objective WDWN NAD reduced breath sounds bilaterally with some rhonchi [id number] without MRG NABS nontender G no CC noted edema nonfocal poor LOC Microbiology Date/Time Source Procedure Growth Status 05/09/20 00:30 Stool Clostridium difficile Toxin Assay - Final Complete Laboratory Tests 05/08/20 11:23: POC Whole Blood Glucose 140H 05/08/20 16:22: POC Whole Blood Glucose 71L 05/08/20 17:06: POC Whole Blood Glucose 83 05/08/20 20:56: POC Whole Blood Glucose 97 05/08/20 21:02: Digoxin Level 1.4 05/09/20 05:58: POC Whole Blood Glucose [Pending] Current Medications Medications (Trade) Dose Ordered Sig/Jazmine Route PRN Reason Start Time Stop Time Status Last Admin Dose Admin Acetaminophen (Tylenol) 500 mg Q4H PRN GT Mild Pain (Pain Scale 1-3) 05/05/20 06:00 06/03/20 23:29 Acetaminophen/ Hydrocodone Bitart ([place] 5/325) 1 tab Q4H PRN GT Severe Pain (Pain Scale 7-10) 05/04/20 23:30 05/11/20 23:29 05/08/20 23:44 Amiodarone HCl (Cordarone) 200 mg DAILY GT 05/05/20 09:00 08/03/20 08:59 05/08/20 09:01 Apixaban (Eliquis) 2.5 mg DAILY GT 05/05/20 09:00 08/03/20 08:59 05/08/20 09:01 Dextrose (Dextrose 50%) 25 ml Q30M PRN IV Hypoglycemia 05/04/20 20:00 08/02/20 19:59 Dextrose (Dextrose 50%) 50 ml Q30M PRN IV Hypoglycemia 05/04/20 20:00 08/02/20 19:59 Digoxin (Lanoxin) 0.125 mg DAILY GT 05/05/20 09:00 08/03/20 08:59 05/08/20 09:02 Docusate Sodium (Colace) 100 mg BIDPRN PRN GT Constipation 05/05/20 10:15 06/04/20 10:14 Fluconazole (Diflucan) 100 mg DAILY GT 05/07/20 09:00 05/13/20 11:59 05/08/20 09:02 Glimepiride (AmaryL) 2 mg BID GT 05/05/20 09:00 06/04/20 08:59 05/08/20 17:07 Insulin Aspart (NovoLOG) BEFORE MEALS AND HS SUBQ 05/04/20 21:00 08/02/20 20:59 05/08/20 11:49 Lansoprazole (Prevacid) 30 mg DAILY@0630 GT 05/07/20 06:30 06/06/20 06:29 05/09/20 06:20 Lorazepam (Ativan) 1 mg Q6H PRN ORAL For Anxiety 05/08/20 15:45 05/15/20 15:44 05/09/20 03:05 Multivitamins (Multivitamins) 1 tab DAILY ORAL 05/05/20 09:00 06/04/20 08:59 05/08/20 09:00 Piperacillin Sod/ Tazobactam Sod 3.375 gm/Sodium Chloride 110 ml @ 27.5 mls/hr Q12HR@0300,1500 IVPB 05/05/20 03:00 05/12/20 02:59 05/09/20 02:54 Sitagliptin Phosphate (Januvia) 50 mg DAILY GT 05/05/20 09:00 06/04/20 08:59 05/08/20 09:00 Sodium 1,000 ml @ 75 mls/hr [id number] IV 05/07/20 12:00 06/06/20 11:59 05/09/20 02:54 Valproic Acid (Depakene) 500 mg Q12HR GT 05/08/20 21:30 06/22/20 21:29 05/08/20 22:33 Assessment/Plan Assessment/Plan IMPRESSION: 1. Probable urosepsis. 2. Acute on chronic encephalopathy. 3. Septic shock. 4. Acute on chronic renal failure. 5. Hyperkalemia. 6. Leukocytosis. 7. Profound hypotension. 8. Profound altered mental status. 9. Dementia. 10. Diabetes. 11. G-tube. 12. peripheral edema 13. 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 Supportive care. 2. maintain medications from halfway. 3. monitor peripheral edema 4. monitor in and out 5. Renal evaluation, ID evaluation, Cardiology evaluation. 6. IV antibiotics. 7. Close followup and recommendations. 8. Anticoagulation with caution. 9. Digoxin with caution. 10. Sliding scale insulin impression, plan, and exam edited and reviewed in detail care discussed with Eduardo Kern MD May 09, 2020 07:30
[2020-05-09 08:00] VITALS: BP 115/45
[2020-05-09] MEDS: sitaGLIPtin 25mg tab GT SCH (09:02)
[2020-05-09] MEDS: Glimepiride 1mg tab GT SCH ×2 (09:02→17:18)
[2020-05-09] MEDS: Digoxin 0.125mg tab GT SCH (09:02)
[2020-05-09] MEDS: Fluconazole 100mg tab GT SCH (09:02)
[2020-05-09] MEDS: Valproic Acid 250mg/5ml Liquid GT SCH ×2 (09:03→20:16)
[2020-05-09] MEDS: Amiodarone 200mg tab GT SCH (09:03)
[2020-05-09] MEDS: Eliquis 2.5mg tablet GT SCH (09:03)
--- NOTE | 2020-05-09 11:23 | Infectious Diseases Prog Note ---
Assessment/Plan Assessment/Plan antibiotics : zosyn, fluconazole A 1. fungal UTI 2. cholelithiasis 3. unlikely cholecystitis HIDA scan negative 4. leucocytosis improving 5. renal failure improving 6. dementia 7. COPD 8. diabetes mellitus P 1. d/c zosyn 2. continue fluconazole 3 more days 3. will follow up cultures Subjective ROS Limited/Unobtainable: Yes Allergies: Coded Allergies: No Known Allergies (Unverified , 01/30/20) Objective Last 24 Hour Vital Signs Date Time Temp Pulse Resp B/P (MAP) Pulse Ox O2 Delivery O2 Flow Rate FiO2 05/09/20 09:02 79 05/09/20 08:09 Nasal Cannula 3.0 05/09/20 08:00 96.8 75 20 115/45 (68) 98 05/09/20 08:00 79 05/09/20 04:00 81 05/09/20 04:00 97.5 82 20 119/40 (66) 100 05/09/20 00:00 97.5 82 24 128/42 (70) 100 05/09/20 00:00 79 05/08/20 21:00 Nasal Cannula 3.0 05/08/20 20:00 82 05/08/20 20:00 97.7 76 24 126/45 (72) 100 05/08/20 16:00 97.5 70 22 125/49 (74) 100 05/08/20 16:00 79 05/08/20 12:00 78 05/08/20 11:59 97.5 80 20 122/52 (75) 99 Height (Feet): 5 Height (Inches): 2.00 Weight (Pounds): 119 Respiratory/Chest: lungs clear Cardiovascular: normal rate, regular rhythm, no gallop/murmur Abdomen: soft, non tender, other - GT Extremities: no edema Microbiology Date/Time Source Procedure Growth Status 05/09/20 00:30 Stool Clostridium difficile Toxin Assay - Final Complete Laboratory Tests Test 05/08/20 11:23 05/08/20 16:22 05/08/20 17:06 05/08/20 20:56 POC Whole Blood Glucose 140 MG/DL (74-106) H 71 MG/DL (74-106) L 83 MG/DL (74-106) 97 MG/DL (74-106) Test 05/08/20 21:02 05/09/20 05:58 Digoxin Level 1.4 NG/ML (0.9-2.0) POC Whole Blood Glucose Pending Current Medications Medications (Trade) Dose Ordered Sig/Jazmine Route PRN Reason Start Time Stop Time Status Last Admin Dose Admin Acetaminophen (Tylenol) 500 mg Q4H PRN GT Mild Pain (Pain Scale 1-3) 05/05/20 06:00 06/03/20 23:29 Acetaminophen/ Hydrocodone Bitart ([place] 5/325) 1 tab Q4H PRN GT Severe Pain (Pain Scale 7-10) 05/04/20 23:30 05/11/20 23:29 05/08/20 23:44 Amiodarone HCl (Cordarone) 200 mg DAILY GT 05/05/20 09:00 08/03/20 08:59 05/09/20 09:03 Apixaban (Eliquis) 2.5 mg DAILY GT 05/05/20 09:00 08/03/20 08:59 05/09/20 09:03 Dextrose (Dextrose 50%) 25 ml Q30M PRN IV Hypoglycemia 05/04/20 20:00 08/02/20 19:59 Dextrose (Dextrose 50%) 50 ml Q30M PRN IV Hypoglycemia 05/04/20 20:00 08/02/20 19:59 Digoxin (Lanoxin) 0.125 mg DAILY GT 05/05/20 09:00 08/03/20 08:59 05/09/20 09:02 Docusate Sodium (Colace) 100 mg BIDPRN PRN GT Constipation 05/05/20 10:15 06/04/20 10:14 Fluconazole (Diflucan) 100 mg DAILY GT 05/07/20 09:00 05/13/20 11:59 05/09/20 09:02 Glimepiride (AmaryL) 2 mg BID GT 05/05/20 09:00 06/04/20 08:59 05/09/20 09:02 Insulin Aspart (NovoLOG) BEFORE MEALS AND HS SUBQ 05/04/20 21:00 08/02/20 20:59 05/08/20 11:49 Lansoprazole (Prevacid) 30 mg DAILY@0630 GT 05/07/20 06:30 06/06/20 06:29 05/09/20 06:20 Lorazepam (Ativan) 1 mg Q6H PRN ORAL For Anxiety 05/08/20 15:45 05/15/20 15:44 05/09/20 03:05 Multivitamins (Multivitamins) 1 tab DAILY ORAL 05/05/20 09:00 06/04/20 08:59 05/09/20 09:02 Piperacillin Sod/ Tazobactam Sod 3.375 gm/Sodium Chloride 110 ml @ 27.5 mls/hr Q12HR@0300,1500 IVPB 05/05/20 03:00 05/12/20 02:59 05/09/20 02:54 Sitagliptin Phosphate (Januvia) 50 mg DAILY GT 05/05/20 09:00 06/04/20 08:59 05/09/20 09:02 Sodium 1,000 ml @ 75 mls/hr [id number] IV 05/07/20 12:00 06/06/20 11:59 05/09/20 02:54 Valproic Acid (Depakene) 500 mg Q12HR GT 05/08/20 21:30 06/22/20 21:29 05/09/20 09:03 Felipe Grant MD May 09, 2020 11:23
[2020-05-09 12:00] VITALS: BP 129/47
--- NOTE | 2020-05-09 12:03 | NUR ---
CASE MANAGEMENT:REVIEW SI;ENCEPHALOPATHY. SEPTIC SHOCK. FUNGAL UTI. A-FIB W/RVR. 96.8 82 24 128/42 98% 3L NC IS;DEPAKENE GT Q12 IVF NA @ 75 @ 75 ML/HR DIFLUCAN GT QD AMIODARONE GT QD DIGOXIN GT QD ZOSYN IV Q12 TELE STATUS DCP;FROM DESIREE DELVALLE
--- NOTE | 2020-05-09 12:12 | NUR ---
INSURANCE FAXED TO [facility]; [phone] F: [phone] REF#[id number]
--- NOTE | 2020-05-09 12:30 | NUR ---
NURSE NOTES: Patient had GT residual >100 mL. Held for about 1 hour. No residuals after. Feeding resumed.
--- NOTE | 2020-05-09 13:21 | Surgery Progress Note ---
Surgery Progress Note Subjective Additional Comments no acute events labs noted on side with pillows wounds stable Objective Last 24 Hour Vital Signs Date Time Temp Pulse Resp B/P (MAP) Pulse Ox O2 Delivery O2 Flow Rate FiO2 05/09/20 12:00 96.6 82 19 129/47 (74) 100 05/09/20 09:02 79 05/09/20 08:09 Nasal Cannula 3.0 05/09/20 08:00 96.8 75 20 115/45 (68) 98 05/09/20 08:00 79 05/09/20 04:00 81 05/09/20 04:00 97.5 82 20 119/40 (66) 100 05/09/20 00:00 97.5 82 24 128/42 (70) 100 05/09/20 00:00 79 05/08/20 21:00 Nasal Cannula 3.0 05/08/20 20:00 82 05/08/20 20:00 97.7 76 24 126/45 (72) 100 05/08/20 16:00 97.5 70 22 125/49 (74) 100 05/08/20 16:00 79 I&O Intake and Output 05/08/20 05/09/20 19:00 07:00 Intake Total 750 ml 475 ml Output Total 500 ml 800 ml Balance 250 ml -325 ml IV Total 750 ml 75 ml Tube Feeding 400 ml Output Urine Total 500 ml 800 ml # Voids 1 # Bowel Movements 2 1 Dressing: other Wound: other Cardiovascular: RSR Respiratory: decreased breath sounds Abdomen: soft, present bowel sounds Extremities: no cyanosis Laboratory Tests Test 05/08/20 16:22 05/08/20 17:06 05/08/20 20:56 05/08/20 21:02 POC Whole Blood Glucose 71 MG/DL (74-106) L 83 MG/DL (74-106) 97 MG/DL (74-106) Digoxin Level 1.4 NG/ML (0.9-2.0) Test 05/09/20 05:58 POC Whole Blood Glucose Pending Plan Problems: (1) Deep tissue injury Assessment & Plan: Pt presented on admission with Multiple Pressure injuries. Sacral DTPI noted (L)6.7cm x (W)6.9cm. Base of wound is purpuric ,partially opened -ruby and indurated. No odor or exudate noted. Non-blanching erythema periwound.DTPI noted to R Ischium(L)4cm x (W)2.2cm.Base of Pressure injury maroon and indurated. Non-Blanching erythema without induration noted to L ischium. Vulva is swollen and erythematous . DTPI noted to R Heel(L)3.3cm x (W)2.9cm. Wound is is blood filled purpuric Blister with surrounding non-blanchable and boggy heel. R Heel is Boggy with Non-Blanchable erythema. Tx.Plan: Apply Moisture Barrier Paste to Sacrum. Cover with Optifoam drsg. Change every 3 days and prn. Apply Moisture Barrier Paste to R ischium. Cover with Optifoam drsg. Change every 3 days and prn. Apply Moisture Barrier Paste to Bilat groin, perineum and L ischium with each perineal care. Apply Cavilon Skin Barrier to R and L trochanteric areas. Cover each site with Optifoam drsg. Change every 7 days and prn. Reposition at least every 2hours or as tolerated. Off-load heels with pillow. APM/MARY ANN Mattress overlay. (2) Dehydration (3) Hypokalemia (4) Renal failure (5) Hyperkalemia (6) UTI (urinary tract infection) (7) Severe sepsis Assessment & Plan: Patient with significant leukocytosis, lactic acidosis, abnormal electrolytes, renal insufficiency, anemia. UA noted. Microbiology reviewed. Imaging reviewed. COVID negative. Patient with multiple deep tissue injuries and severe malnutrition albumin 1 Wounds unlikely the source or etiology of patient's sepsis. No abscess or fluid collections requiring drainage currently identified. Continue IV antibiotics per infectious disease We will continue to monitor and identify assist with care and management Thank you for let me participate patient's care will follow with recommendations nutritional optimization DAILY ESTIMATED NEEDS: Needs based on DM, wound, renal/ 49kg 30-35 kcals/kg [id number] total kcals 1.25-1.5 g protein/kg 61-74 g total protein 25-30ml/kcal mL/kg 1261-1433 total fluid mLs NUTRITION DIAGNOSIS: * Increased kcal and pro needs r/t wound care as evidenced by open sacral wound per photo, eval pending. * Swallowing difficulty R/T dysphagia as evidenced by GT dependent. ENTERAL NUTRITION RECOMMENDATIONS: NEPRO @43ml/hr x 20hrs to provide 860ml, 1548kcal, 70g prot, 625ml free water * As medically able, start NEPRO @23ml/hr for 6 hrs, advance as tolerated 10ml q4-6 hrs * HOB over 30 degrees * Without IVF, water flush of ml q 130ml q4 hrs -------- ADDITIONAL RECOMMENDATIONS: * PER SNF: Height 4'11" inches and 108 lbs * Rec D5 while NPO * F/up w/ WC eval-> add IMAN in 4oz via GT BID with tube feeds * Rec renal formula as above d/t renal failure on adm * Maintain accurate calibrated bed scale weights . Dimitris Diaz May 09, 2020 13:21
--- NOTE | 2020-05-09 13:32 | Nephrology Progress Note ---
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 Not a dialysis candidate. Subjective Subjective Obtunded Objective Objective Last 24 Hour Vital Signs Date Time Temp Pulse Resp B/P (MAP) Pulse Ox O2 Delivery O2 Flow Rate FiO2 05/09/20 12:00 96.6 82 19 129/47 (74) 100 05/09/20 09:02 79 05/09/20 08:09 Nasal Cannula 3.0 05/09/20 08:00 96.8 75 20 115/45 (68) 98 05/09/20 08:00 79 05/09/20 04:00 81 05/09/20 04:00 97.5 82 20 119/40 (66) 100 05/09/20 00:00 97.5 82 24 128/42 (70) 100 05/09/20 00:00 79 05/08/20 21:00 Nasal Cannula 3.0 05/08/20 20:00 82 05/08/20 20:00 97.7 76 24 126/45 (72) 100 05/08/20 16:00 97.5 70 22 125/49 (74) 100 05/08/20 16:00 79 Intake and Output 05/08/20 05/09/20 19:00 07:00 Intake Total 750 ml 475 ml Output Total 500 ml 800 ml Balance 250 ml -325 ml IV Total 750 ml 75 ml Tube Feeding 400 ml Output Urine Total 500 ml 800 ml # Voids 1 # Bowel Movements 2 1 Laboratory Tests 05/08/20 16:22: POC Whole Blood Glucose 71L 05/08/20 17:06: POC Whole Blood Glucose 83 05/08/20 20:56: POC Whole Blood Glucose 97 05/08/20 21:02: Digoxin Level 1.4 05/09/20 05:58: POC Whole Blood Glucose [Pending] Height (Feet): 5 Height (Inches): 2.00 Weight (Pounds): 119 Objective CV RR Lungs CTA Abd Ascites . SNT. BS = E ++++ edema Jonathan Berry MD May 09, 2020 13:32
--- NOTE | 2020-05-09 15:10 | NUR ---
NURSE NOTES: Wound care done for sacrum, Right ischium, groin, and Left ischium.
[2020-05-09 16:00] VITALS: BP 118/47
[2020-05-09] MEDS: HYDROcodone/Acetamin 5/325 tab GT PRN (17:18)
--- NOTE | 2020-05-09 19:04 | NUR ---
NURSE HAND-OFF REPORT: Important Events on Shift:[IV zosyn dc, GTF residual >100 mL, wound care] Patient Status: [DNR/DNI] Diet: [TF glucerna 1.5 at 40 mL/hr] Pending Orders: [] Pending Results/Labs:[] Pending MD notification:[] Latest Vital Signs: Temperature 97.5 , Pulse 83 , B/P 118 /47 , Respiratory Rate 19 , O2 SAT 98 , Nasal Cannula, O2 Flow Rate 3.0 . Vital Sign Comment: [] EKG Rhythm: Sinus Rhythm Rhythm change?: N MD Notified?: N MD Response: Latest Ayala Fall Score: 50 Fall Risk: High Risk Safety Measures: Call light Within Reach, Bed Alarm Zone 1, Side Rails Side Rails x2, Bed position Low and Locked. Fall Precautions: Yellow Socks Yellow Gown Door Sign Patient Fall Education Report given to [Aniceto RN].
--- NOTE | 2020-05-09 19:05 | NUR ---
NURSE NOTES: Pt received from TEJINDER Holm alert and oriented x0, nonverbal but screams and cries out when in pain and during patient care. IV site asymptomatic and patent on R ac 22g and R hand 22g, connected to 1/2 NS with 20 of KCl at 75 per MD order. On 2L NC, saturating at 98% with no acute s/s of distress noted. DTI noted on R heel, redness on L heel, DTI on R ischium, redness on L ischium, sacral DTI. Dressings clean, dry and intact. Patient has noted non-pitting edema on bilateral lower and upper extremities. Gtube feed (Glucerna 1.5 at 40) tolerated at current rate, gastric residual noted at 40 ml. Bed in lowest position, pt on mattress overlay for skin protection. Bed alarm on. Call light and belongings within reach.
[2020-05-09 20:00] VITALS: BP 125/44
--- NOTE | 2020-05-09 21:00 | NUR ---
NURSE NOTES: Pt's BG noted at 59 - 120 ml of sugar-free juice given through Gtube. Will reassess in 15 mins per protocol. Left message with MD Zeng.
--- NOTE | 2020-05-09 21:17 | NUR ---
NURSE NOTES: Blood sugar reassessed after juice - 56. 50 ml of D50 IVP given as per protocol. Will reassess after 15 mins. Left message with MD Zeng.
--- NOTE | 2020-05-09 21:34 | NUR ---
NURSE NOTES: Blood sugar reassessed after 50 ml of D50 IVP - 154. Will continue to monitor pt. Left message for Dr. Zeng, currently awaiting call back.
--- NOTE | 2020-05-09 21:44 | NUR ---
NURSE NOTES: MD Zeng informed of hypoglycemic episode. No new orders given.
[2020-05-09] MEDS ORDERED: Docusate 100mg/10ml Liq GT PRN (22:49)
--- NOTE | 2020-05-09 22:58 | Cardiology Progress Note ---
Subjective DATE OF SERVICE: May 09, 2020 Remains confused, but cooperative. Less congested. Monitor: Sinus with atrial ectopy; no recurrent AFib On empiric IV abx Hyperkalemia corrected. Sodium was elevated again; IVF adjusted. BP parameters stabilizing. Objective Last 24 Hour Vital Signs Date Time Temp Pulse Resp B/P (MAP) Pulse Ox O2 Delivery O2 Flow Rate FiO2 05/09/20 21:00 Nasal Cannula 2.0 05/09/20 20:00 97.5 67 18 125/44 (71) 99 05/09/20 16:00 97.5 83 19 118/47 (70) 98 05/09/20 16:00 83 05/09/20 12:00 83 05/09/20 12:00 96.6 82 19 129/47 (74) 100 05/09/20 09:02 79 05/09/20 08:09 Nasal Cannula 3.0 05/09/20 08:00 96.8 75 20 115/45 (68) 98 05/09/20 08:00 79 05/09/20 04:00 81 05/09/20 04:00 97.5 82 20 119/40 (66) 100 05/09/20 00:00 97.5 82 24 128/42 (70) 100 05/09/20 00:00 79 RHYTHM: ST, Afib LUNGS: accessory muscle use, bilateral rhonchi CARDIAC: regular rhythm, normal S1 and S2, arrhythmia ABDOMEN: normal bowel sounds, non tender, no organomegaly, G-Tube intact EXTREMITIES: moderate edema Laboratory Tests Test 05/09/20 05:58 05/09/20 11:29 05/09/20 16:19 05/09/20 20:08 POC Whole Blood Glucose Pending Pending 101 MG/DL (74-106) 59 MG/DL (74-106) L Test 05/09/20 21:10 05/09/20 21:30 POC Whole Blood Glucose 56 MG/DL (74-106) L 154 MG/DL (74-106) H Microbiology Date/Time Source Procedure Growth Status 05/09/20 00:30 Stool Clostridium difficile Toxin Assay - Final Complete Assessment/Plan Assessment/Plan Sepsis with shock Acute on chronic diastolic CHF UTI Metabolic and toxic encephalopathies HC associated aspiration PNA PAFib with RVR Acute renal failure hyperkalemia Lactic acidosis resolved Severe protein-calorie malnutrition DC IV fluid hydration Full anticoagulation Abx Nutrition by Gtube Follow up lytes; correct as needed. DC cardiac monitoring; continue maintenance dose amiodarone. Augusto Benítez MD May 09, 2020 22:58
[2020-05-09] MEDS ORDERED: 1/2NS w/KCl 20mEq 1000ml 1,000 ML IV SCH (23:00)
--- NOTE | 2020-05-09 23:00 | NUR ---
NURSE NOTES: Received report from Allyssa Moreland RN. Pt is sleeping, lying high meier's; comfortably resting. Pt is on P200 special mattress. No signs of acute distress or pain noted. AOx0; obtunded, unable to make needs known. Checked IV sites, lines, and rates; patent and running. GTube feeding; patent and running at 40 mL/h. No residual noted. Christianson bag noted; patent and draining well with dark yellow urine. Multiple pressure ulcers noted; sacral DTI, right ischium DTI, left ischium redness, right heel DTI, left heel redness, groin redness; dressing in placed; dry and intact. Dressing changed on 8/11 am. Bed at lowest position. Brakes on. Siderails up x3. Call light within reach. Will continue to monitor. Addendum: 05/10/20 at 0302 by Jake Maravilla RN Pressure ulcers noted; sacral DTI, right heel DTI, groin redness, left heel redness. Dressing dry and intact.
--- NOTE | 2020-05-09 23:05 | NUR ---
TRANSFER TO FLOOR: Patient transferred to [facility], per Dr. Benítez. Report given to TEJINDER Sosa. Medications given to TEJINDER Sosa. No belongings with patient upon transfer.
--- NOTE | 2020-05-09 23:17 | Psych Consult Progress Note ---
Psychiatry Progress Note Psychiatry Progress Note Subjective the pt is more manageable confused episodes o agitation Medications Current Medications Medications (Trade) Dose Ordered Sig/Jazmine Route PRN Reason Start Time Stop Time Status Last Admin Dose Admin Acetaminophen (Tylenol) 500 mg Q4H PRN GT Mild Pain (Pain Scale 1-3) 05/09/20 22:46 06/08/20 22:45 Acetaminophen/ Hydrocodone Bitart ([place] 5/325) 1 tab Q4H PRN GT Severe Pain (Pain Scale 7-10) 05/09/20 23:30 05/11/20 23:29 Amiodarone HCl (Cordarone) 200 mg DAILY GT 05/10/20 09:00 08/03/20 08:59 Apixaban (Eliquis) 2.5 mg DAILY GT 05/10/20 09:00 08/03/20 08:59 Dextrose (Dextrose 50%) 25 ml Q30M PRN IV Hypoglycemia 05/09/20 23:00 08/02/20 19:59 Dextrose (Dextrose 50%) 50 ml Q30M PRN IV Hypoglycemia 05/09/20 23:00 08/02/20 19:59 Digoxin (Lanoxin) 0.125 mg DAILY GT 05/10/20 09:00 08/03/20 08:59 Docusate Sodium (Colace) 100 mg BIDPRN PRN GT Constipation 05/09/20 22:49 06/08/20 22:48 Fluconazole (Diflucan) 100 mg DAILY GT 05/10/20 09:00 05/13/20 11:59 Glimepiride (AmaryL) 2 mg BID@0630,1630 GT 05/10/20 06:30 06/09/20 06:29 Insulin Aspart (NovoLOG) BEFORE MEALS AND HS SUBQ 05/10/20 06:30 08/02/20 20:59 Lansoprazole (Prevacid) 30 mg DAILY@0630 GT 05/10/20 06:30 06/06/20 06:29 Lorazepam (Ativan) 1 mg Q6H PRN ORAL For Anxiety 05/09/20 22:53 05/16/20 22:52 Multivitamins (Multivitamins) 1 tab DAILY ORAL 05/10/20 09:00 06/04/20 08:59 Sitagliptin Phosphate (Januvia) 50 mg DAILY@0630 GT 05/10/20 06:30 06/09/20 06:29 Valproic Acid (Depakene) 500 mg Q12HR GT 05/10/20 09:00 06/22/20 21:29 Neurological/Psychiatric: Reports: anxiety, depressed, emotional problems Allergies: Coded Allergies: No Known Allergies (Unverified , 01/30/20) Objective Data Height (Feet): 5 Height (Inches): 2.00 Weight (Pounds): 119 General Appearance: lethargic, confused Additional Comments: The patient is awake. She is confused and disoriented. Mood is agitated. Affect is flat. Thought process, disorganized. Thought content, no suicidal or homicidal ideation. Cognition is impaired. Insight and judgment is impaired. Assessment/Plan Status: stable Assessment/Plan: ASSESSMENT: AXIS I: Dementia with behavior disturbance. AXIS II: Deferred. AXIS III: As above. AXIS IV: Low. AXIS V: 20. PLAN: 1. Haldol IM p.r.n. 2. Ativan p.r.n. 3. Provide the patient with reality orientation and supportive therapy. Shena Campos MD May 09, 2020 23:16
[2020-05-10] VITALS: BP 128/54
[2020-05-10 04:00] VITALS: BP 128/50
[2020-05-10] MEDS: Glimepiride 1mg tab GT SCH ×2 (05:32→16:45)
[2020-05-10] MEDS: sitaGLIPtin 50mg tab GT SCH (05:32)
[2020-05-10] MEDS: NovoLOG Insulin Flexpen SUBQ SCH ×4 (05:33→20:04)
--- NOTE | 2020-05-10 06:31 | NUR ---
NURSE HAND-OFF: Important Events on Shift: Diarrhea x2; prior to transfer, chief crew scheduler reports diarrhea x2; C. diff negative Patient Status: Stable Diet: GTube feeding Pending Orders: N/A Pending Results/Labs:N/A Pending MD notification:N/A Latest Vital Signs: Temperature 98.3 , Pulse 68 , B/P 128 /50 , Respiratory Rate 20 , O2 SAT 100 , Nasal Cannula, O2 Flow Rate 2.0 . Vital Sign Comment: [] Latest Ayala Fall Score: 50 Fall Risk: High Risk Safety Measures: Call light Within Reach, Bed Alarm Zone 2, Side Rails Side Rails x2, Bed position Low and Locked. Fall Precautions: Yellow Socks Yellow Gown Door Sign Patient Fall Education
[2020-05-10 07:11] LABS: HEMATOCRIT 36.6 % (37.0-47.0); HEMOGLOBIN 11.1 G/DL (12.0-16.0); MEAN CORPUSCULAR VOLUME 87 FL (80-99); PLATELET COUNT 387 K/UL (150-450); RED CELL DISTRIBUTION WIDTH 15.8 % (11.6-14.8); WHITE BLOOD COUNT 18.9 K/UL (4.8-10.8)
--- NOTE | 2020-05-10 07:24 | NUR ---
HAND-OFF: Report given to TEJINDER Santamaria. Pt is sleeping and in stable condition. Plan of care endorsed.
[2020-05-10 07:35] LABS: ALANINE AMINOTRANSFERASE 11 U/L (12-78); ALBUMIN 1.3 G/DL (3.4-5.0); ALBUMIN/GLOBULIN RATIO 0.4 (1.0-2.7); ALKALINE PHOSPHATASE 59 U/L (46-116); ANION GAP 8 mmol/L (5-15); ASPARTATE AMINO TRANSFERASE 16 U/L (15-37); BILIRUBIN,TOTAL 0.1 MG/DL (0.2-1.0); BLOOD UREA NITROGEN 54 mg/dL (7-18); CALCIUM 7.7 MG/DL (8.5-10.1); CARBON DIOXIDE 20 MMOL/L (21-32); CHLORIDE 114 MMOL/L (98-107); CREATININE 1.7 MG/DL (0.55-1.30); SODIUM 142 MMOL/L (136-145)
[2020-05-10 07:37] LABS: POTASSIUM 6.4 MMOL/L (3.5-5.1)
--- NOTE | 2020-05-10 07:46 | NUR ---
NURSE NOTES: CRITICAL VALUE POTASSIUM 6.4 TODAY. RN LEFT MESSAGE FOR DR KEE'S EXCHANGE.
--- NOTE | 2020-05-10 07:53 | NUR ---
NURSE NOTES: PT RESTING IN BED, FLAT AFFECT, MOANS IN PAIN WHEN RN LIFTED HANDS FOR ASSESSMENT. DOES NOT OPEN EYES SPONTANEOUSLY. PT IN [place]'S POSITION FOR ASPIRATION PRECAUTIONS. GTF GLUCERNA 1.5 RUNNING AT 40M;/HR. RESIDUAL 5ML NOTED, FLUSHES WITH NO RESISTANCE. GTUBE DRESSING SOAKED, WITH FOUL ODOR. G-TUBE SITE IS RED WITH FOUL ODOR. RN WASHED WITH SOAP AND WATER AND LEFT JAMAL. CRN MADE AWARE. BED IN LOWEST POSITION WITH BEDSIDE RAILS X3 RAISED. BED ALARM ON. WILL CONTINUE TO MONITOR.
[2020-05-10 08:00] VITALS: BP 132/60
[2020-05-10] MEDS: Amiodarone 200mg tab GT SCH (08:19)
[2020-05-10] MEDS: Fluconazole 100mg tab GT SCH (08:19)
[2020-05-10] MEDS: HYDROcodone/Acetamin 5/325 tab GT PRN ×2 (08:20→16:45)
[2020-05-10] MEDS: Eliquis 2.5mg tablet GT SCH (08:20)
[2020-05-10] MEDS: Valproic Acid 250mg/5ml Liquid GT SCH ×2 (08:21→20:03)
[2020-05-10] MEDS ORDERED: sitaGLIPtin 50mg tab GT SCH (09:00)
[2020-05-10] MEDS ORDERED: Digoxin 0.125mg tab GT SCH (09:00)
--- NOTE | 2020-05-10 09:51 | NUR ---
NURSE NOTES: RN LEFT SECOND MESSAGE FOR DR KEE REGARDING CRITICAL VALUE POTASSIUM TODAY.
[2020-05-10] MEDS ORDERED: Sodium Polystyrene Sulfonate 15gm Powder ORAL SCH (09:56)
--- NOTE | 2020-05-10 11:00 | NUR ---
NURSE NOTES: DR BRANTLEY AT BEDSIDE AND MADE AWARE OF GTUBE SITE, WITH FOUL DRAINAGE. ORDER TO COLLECT WOUND CULTURE RECEIVED AND COLLECTED ORDERED. RN RECEIVED ORDER FROM DR KEE TO ADMINISTER KAYAXELATE 50GM X1. ORDER ENTERED AND ADMINISTERED ORDERED.
--- NOTE | 2020-05-10 11:17 | Infectious Diseases Prog Note ---
Assessment/Plan Assessment/Plan antibiotics : fluconazole A 1. fungal UTI 2. cholelithiasis 3. GT site infection 4. leucocytosis 5. renal failure improving 6. dementia 7. COPD 8. diabetes mellitus P 1. continue fluconazole 2 more days 2. GT site culture 3. will follow up cultures Subjective ROS Limited/Unobtainable: Yes Allergies: Coded Allergies: No Known Allergies (Unverified , 01/30/20) Objective Last 24 Hour Vital Signs Date Time Temp Pulse Resp B/P (MAP) Pulse Ox O2 Delivery O2 Flow Rate FiO2 05/10/20 09:00 Nasal Cannula 2.0 05/10/20 08:19 72 05/10/20 08:00 98.5 72 19 132/60 (84) 99 05/10/20 04:00 98.3 68 20 128/50 (76) 100 05/10/20 00:00 98.9 71 18 128/54 (78) 99 05/09/20 21:00 Nasal Cannula 2.0 05/09/20 20:00 97.5 67 18 125/44 (71) 99 05/09/20 16:00 97.5 83 19 118/47 (70) 98 05/09/20 16:00 83 05/09/20 12:00 83 05/09/20 12:00 96.6 82 19 129/47 (74) 100 Height (Feet): 5 Height (Inches): 2.00 Weight (Pounds): 123 Respiratory/Chest: lungs clear Cardiovascular: normal rate, regular rhythm, no gallop/murmur Abdomen: soft, non tender, other - GT Extremities: no edema Microbiology Date/Time Source Procedure Growth Status 05/09/20 00:30 Stool Clostridium difficile Toxin Assay - Final Complete Laboratory Tests Test 05/09/20 11:29 05/09/20 16:19 05/09/20 20:08 05/09/20 21:10 POC Whole Blood Glucose Pending 101 MG/DL (74-106) 59 MG/DL (74-106) L 56 MG/DL (74-106) L Test 05/09/20 21:30 05/10/20 05:26 05/10/20 05:59 POC Whole Blood Glucose 154 MG/DL (74-106) H 132 MG/DL (74-106) H White Blood Count 18.9 K/UL (4.8-10.8) H Red Blood Count 4.20 M/UL (4.20-5.40) Hemoglobin 11.1 G/DL (12.0-16.0) L Hematocrit 36.6 % (37.0-47.0) L Mean Corpuscular Volume 87 FL (80-99) Mean Corpuscular Hemoglobin 26.4 PG (27.0-31.0) L Mean Corpuscular Hemoglobin Concent 30.3 G/DL (32.0-36.0) L Red Cell Distribution Width 15.8 % (11.6-14.8) H Platelet Count 387 K/UL (150-450) Mean Platelet Volume 7.1 FL (6.5-10.1) Neutrophils (%) (Auto) % (45.0-75.0) Lymphocytes (%) (Auto) % (20.0-45.0) Monocytes (%) (Auto) % (1.0-10.0) Eosinophils (%) (Auto) % (0.0-3.0) Basophils (%) (Auto) % (0.0-2.0) Differential Total Cells Counted 100 Neutrophils % (Manual) 82 % (45-75) H Lymphocytes % (Manual) 8 % (20-45) L Monocytes % (Manual) 7 % (1-10) Eosinophils % (Manual) 3 % (0-3) Basophils % (Manual) 0 % (0-2) Band Neutrophils 0 % (0-8) Platelet Estimate Adequate Platelet Morphology Normal Anisocytosis 1+ Sodium Level 142 MMOL/L (136-145) Potassium Level 6.4 MMOL/L (3.5-5.1) *H Chloride Level 114 MMOL/L (98-107) H Carbon Dioxide Level 20 MMOL/L (21-32) L Anion Gap 8 mmol/L (5-15) Blood Urea Nitrogen 54 mg/dL (7-18) H Creatinine 1.7 MG/DL (0.55-1.30) H Estimat Glomerular Filtration Rate 28.3 mL/min (>60) Glucose Level 168 MG/DL (74-106) H Calcium Level 7.7 MG/DL (8.5-10.1) L Magnesium Level 2.0 MG/DL (1.8-2.4) Total Bilirubin 0.1 MG/DL (0.2-1.0) L Aspartate Amino Transf (AST/SGOT) 16 U/L (15-37) Alanine Aminotransferase (ALT/SGPT) 11 U/L (12-78) L Alkaline Phosphatase 59 U/L (46-116) Pro-B-Type Natriuretic Peptide 6735 pg/mL (0-125) H Total Protein 4.4 G/DL (6.4-8.2) L Albumin 1.3 G/DL (3.4-5.0) L Globulin 3.1 g/dL Albumin/Globulin Ratio 0.4 (1.0-2.7) L Current Medications Medications (Trade) Dose Ordered Sig/Jazmine Route PRN Reason Start Time Stop Time Status Last Admin Dose Admin Acetaminophen (Tylenol) 500 mg Q4H PRN GT Mild Pain (Pain Scale 1-3) 05/09/20 22:46 06/08/20 22:45 Acetaminophen/ Hydrocodone Bitart ([place] 5/325) 1 tab Q4H PRN GT Severe Pain (Pain Scale 7-10) 05/09/20 23:30 05/11/20 23:29 05/10/20 08:20 Amiodarone HCl (Cordarone) 200 mg DAILY GT 05/10/20 09:00 08/03/20 08:59 05/10/20 08:19 Apixaban (Eliquis) 2.5 mg DAILY GT 05/10/20 09:00 08/03/20 08:59 05/10/20 08:20 Dextrose (Dextrose 50%) 25 ml Q30M PRN IV Hypoglycemia 05/09/20 23:00 08/02/20 19:59 Dextrose (Dextrose 50%) 50 ml Q30M PRN IV Hypoglycemia 05/09/20 23:00 08/02/20 19:59 Digoxin (Lanoxin) 0.125 mg DAILY GT 05/10/20 09:00 08/03/20 08:59 05/10/20 08:19 Docusate Sodium (Colace) 100 mg BIDPRN PRN GT Constipation 05/09/20 22:49 06/08/20 22:48 Fluconazole (Diflucan) 100 mg DAILY GT 05/10/20 09:00 05/13/20 11:59 05/10/20 08:19 Glimepiride (AmaryL) 2 mg BID@0630,1630 GT 05/10/20 06:30 06/09/20 06:29 05/10/20 05:32 Insulin Aspart (NovoLOG) BEFORE MEALS AND HS SUBQ 05/10/20 06:30 08/02/20 20:59 Lansoprazole (Prevacid) 30 mg DAILY@0630 GT 05/10/20 06:30 06/06/20 06:29 05/10/20 05:33 Lorazepam (Ativan) 1 mg Q6H PRN ORAL For Anxiety 05/09/20 22:53 05/16/20 22:52 Multivitamins (Multivitamins) 1 tab DAILY GT 05/11/20 09:00 06/04/20 08:59 Sitagliptin Phosphate (Januvia) 50 mg DAILY@0630 GT 05/10/20 06:30 06/09/20 06:29 05/10/20 05:32 Sodium Polystyrene Sulfonate (Kayexalate) 50 gm ONCE ORAL 05/10/20 09:56 05/10/20 12:00 05/10/20 10:17 Valproic Acid (Depakene) 500 mg Q12HR GT 05/10/20 09:00 06/22/20 21:29 05/10/20 08:21 Felipe Grant MD May 10, 2020 11:17
[2020-05-10 12:00] VITALS: BP 138/69
--- NOTE | 2020-05-10 12:08 | Pulmonology Progress Note ---
Subjective ROS Limited/Unobtainable: Yes Constitutional: Denies: fever Allergies: Coded Allergies: No Known Allergies (Unverified , 01/30/20) Subjective having diarrhea care noted and reviewed still ill wbc high k elevated Objective Last 24 Hour Vital Signs Date Time Temp Pulse Resp B/P (MAP) Pulse Ox O2 Delivery O2 Flow Rate FiO2 05/10/20 09:00 Nasal Cannula 2.0 05/10/20 08:19 72 05/10/20 08:00 98.5 72 19 132/60 (84) 99 05/10/20 04:00 98.3 68 20 128/50 (76) 100 05/10/20 00:00 98.9 71 18 128/54 (78) 99 05/09/20 21:00 Nasal Cannula 2.0 05/09/20 20:00 97.5 67 18 125/44 (71) 99 05/09/20 16:00 97.5 83 19 118/47 (70) 98 05/09/20 16:00 83 Intake and Output 05/09/20 05/10/20 19:00 07:00 Intake Total 1740 ml 377 ml Output Total 800 ml 400 ml Balance 940 ml -23 ml Intake Free Water 400 ml 140 ml IV Total 900 ml 157 ml Tube Feeding 440 ml 80 ml Output Urine Total 800 ml 400 ml # Bowel Movements 2 2 Objective WDWN NAD reduced breath sounds bilaterally with some rhonchi [id number] without MRG NABS nontender G no CC noted edema nonfocal poor LOC Microbiology Date/Time Source Procedure Growth Status 05/09/20 00:30 Stool Clostridium difficile Toxin Assay - Final Complete Laboratory Tests 05/09/20 16:19: POC Whole Blood Glucose 101 05/09/20 20:08: POC Whole Blood Glucose 59L 05/09/20 21:10: POC Whole Blood Glucose 56L 05/09/20 21:30: POC Whole Blood Glucose 154H 05/10/20 05:26: POC Whole Blood Glucose 132H 05/10/20 05:59: White Blood Count 18.9H, Red Blood Count 4.20, Hemoglobin 11.1L, Hematocrit 36.6L, Mean Corpuscular Volume 87, Mean Corpuscular Hemoglobin 26.4L, Mean Corpuscular Hemoglobin Concent 30.3L, Red Cell Distribution Width 15.8H, Platelet Count 387, Mean Platelet Volume 7.1, Neutrophils (%) (Auto) , Lymphocytes (%) (Auto) , Monocytes (%) (Auto) , Eosinophils (%) (Auto) , Basophils (%) (Auto) , Differential Total Cells Counted 100, Neutrophils % ( Manual) 82H, Lymphocytes % (Manual) 8L, Monocytes % (Manual) 7, Eosinophils % ( Manual) 3, Basophils % (Manual) 0, Band Neutrophils 0, Platelet Estimate Adequate, Platelet Morphology Normal, Anisocytosis 1+, Sodium Level 142, Potassium Level 6.4*H, Chloride Level 114H, Carbon Dioxide Level 20L, Anion Gap 8, Blood Urea Nitrogen 54H, Creatinine 1.7H, Estimat Glomerular Filtration Rate 28.3, Glucose Level 168H, Calcium Level 7.7L, Magnesium Level 2.0, Total Bilirubin 0.1L, Aspartate Amino Transf (AST/SGOT) 16, Alanine Aminotransferase ( ALT/SGPT) 11L, Alkaline Phosphatase 59, Pro-B-Type Natriuretic Peptide 6735H, Total Protein 4.4L, Albumin 1.3L, Globulin 3.1, Albumin/Globulin Ratio 0.4L Current Medications Medications (Trade) Dose Ordered Sig/Jazmine Route PRN Reason Start Time Stop Time Status Last Admin Dose Admin Acetaminophen (Tylenol) 500 mg Q4H PRN GT Mild Pain (Pain Scale 1-3) 05/09/20 22:46 06/08/20 22:45 Acetaminophen/ Hydrocodone Bitart ([place] 5/325) 1 tab Q4H PRN GT Severe Pain (Pain Scale 7-10) 05/09/20 23:30 05/11/20 23:29 05/10/20 08:20 Amiodarone HCl (Cordarone) 200 mg DAILY GT 05/10/20 09:00 08/03/20 08:59 05/10/20 08:19 Apixaban (Eliquis) 2.5 mg DAILY GT 05/10/20 09:00 08/03/20 08:59 05/10/20 08:20 Dextrose (Dextrose 50%) 25 ml Q30M PRN IV Hypoglycemia 05/09/20 23:00 08/02/20 19:59 Dextrose (Dextrose 50%) 50 ml Q30M PRN IV Hypoglycemia 05/09/20 23:00 08/02/20 19:59 Digoxin (Lanoxin) 0.125 mg DAILY GT 05/10/20 09:00 08/03/20 08:59 05/10/20 08:19 Docusate Sodium (Colace) 100 mg BIDPRN PRN GT Constipation 05/09/20 22:49 06/08/20 22:48 Fluconazole (Diflucan) 100 mg DAILY GT 05/10/20 09:00 05/13/20 11:59 05/10/20 08:19 Glimepiride (AmaryL) 2 mg BID@0630,1630 GT 05/10/20 06:30 06/09/20 06:29 05/10/20 05:32 Insulin Aspart (NovoLOG) BEFORE MEALS AND HS SUBQ 05/10/20 06:30 08/02/20 20:59 05/10/20 11:52 Lansoprazole (Prevacid) 30 mg DAILY@0630 GT 05/10/20 06:30 06/06/20 06:29 05/10/20 05:33 Lorazepam (Ativan) 1 mg Q6H PRN ORAL For Anxiety 05/09/20 22:53 05/16/20 22:52 Multivitamins (Multivitamins) 1 tab DAILY GT 05/11/20 09:00 06/04/20 08:59 Sitagliptin Phosphate (Januvia) 50 mg DAILY@0630 GT 05/10/20 06:30 06/09/20 06:29 05/10/20 05:32 Valproic Acid (Depakene) 500 mg Q12HR GT 05/10/20 09:00 06/22/20 21:29 05/10/20 08:21 Assessment/Plan Assessment/Plan IMPRESSION: 1. Probable urosepsis. 2. Acute on chronic encephalopathy. 3. Septic shock. 4. Acute on chronic renal failure. 5. Hyperkalemia. 6. Leukocytosis. 7. Profound hypotension. 8. Profound altered mental status. 9. Dementia. 10. Diabetes. 11. G-tube. 12. peripheral edema 13. 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 Supportive care. 2. continue medications from longterm. 3. monitor peripheral edema 4. monitor in and out 5. Renal evaluation, ID evaluation, Cardiology evaluation. 6. IV antibiotics. 7. Close followup and recommendations. 8. Anticoagulation with caution. 9. Digoxin with caution. 10. Sliding scale insulin 11. correct elevated K not ready for dc impression, plan, and exam edited and reviewed in detail care discussed with Eduardo Kern MD May 10, 2020 12:08
--- NOTE | 2020-05-10 13:31 | NUR ---
CASE MANAGEMENT:REVIEW SI;ENCEPHALOPATHY. SEPTIC SHOCK. AC/CHR RENAL FAILURE. LEUKOCYTOSIS. 98.9 72 20 132/90 99% 2L NC WBC 18.9 H/H 11.1/36.6 K+ 6.4 BUN 54 CR 1.7 BG 168 CA 7.7 BNP 6735 LAB 1.3 IS;KAYEXALATE GT ONCE AMIODARONE GT QD ELIQUIS GT QD DIGOXIN GT QD DEPAKENE GT Q12 JANUVIA GT QD DIFLUCAN GT QD PREVACID GT QD AMARYL GT BID MED SURG STATUS DCP;FROM [facility] PLAN; MONITOR PERIPHERAL EDEMA MONITOR I&O SLIDING SCALE INSULIN SUPPORTIVE CARE CORRECT ELEVATED K+
--- NOTE | 2020-05-10 13:43 | NUR ---
INSURANCE FAXED TO [employer] [place]; [phone] F: [phone] REF#[id number]
--- NOTE | 2020-05-10 13:59 | Nephrology Progress Note ---
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 K 6.4. Order for Kayexalate given Not a dialysis candidate. Subjective Subjective Obtunded Objective Objective Last 24 Hour Vital Signs Date Time Temp Pulse Resp B/P (MAP) Pulse Ox O2 Delivery O2 Flow Rate FiO2 05/10/20 12:00 98.3 78 20 138/69 (92) 98 05/10/20 09:00 Nasal Cannula 2.0 05/10/20 08:19 72 05/10/20 08:00 98.5 72 19 132/60 (84) 99 05/10/20 04:00 98.3 68 20 128/50 (76) 100 05/10/20 00:00 98.9 71 18 128/54 (78) 99 05/09/20 21:00 Nasal Cannula 2.0 05/09/20 20:00 97.5 67 18 125/44 (71) 99 05/09/20 16:00 97.5 83 19 118/47 (70) 98 05/09/20 16:00 83 Intake and Output 05/09/20 05/10/20 19:00 07:00 Intake Total 1740 ml 377 ml Output Total 800 ml 400 ml Balance 940 ml -23 ml Intake Free Water 400 ml 140 ml IV Total 900 ml 157 ml Tube Feeding 440 ml 80 ml Output Urine Total 800 ml 400 ml # Bowel Movements 2 2 Laboratory Tests 05/09/20 16:19: POC Whole Blood Glucose 101 05/09/20 20:08: POC Whole Blood Glucose 59L 05/09/20 21:10: POC Whole Blood Glucose 56L 05/09/20 21:30: POC Whole Blood Glucose 154H 05/10/20 05:26: POC Whole Blood Glucose 132H 05/10/20 05:59: White Blood Count 18.9H, Red Blood Count 4.20, Hemoglobin 11.1L, Hematocrit 36.6L, Mean Corpuscular Volume 87, Mean Corpuscular Hemoglobin 26.4L, Mean Corpuscular Hemoglobin Concent 30.3L, Red Cell Distribution Width 15.8H, Platelet Count 387, Mean Platelet Volume 7.1, Neutrophils (%) (Auto) , Lymphocytes (%) (Auto) , Monocytes (%) (Auto) , Eosinophils (%) (Auto) , Basophils (%) (Auto) , Differential Total Cells Counted 100, Neutrophils % ( Manual) 82H, Lymphocytes % (Manual) 8L, Monocytes % (Manual) 7, Eosinophils % ( Manual) 3, Basophils % (Manual) 0, Band Neutrophils 0, Platelet Estimate Adequate, Platelet Morphology Normal, Anisocytosis 1+, Sodium Level 142, Potassium Level 6.4*H, Chloride Level 114H, Carbon Dioxide Level 20L, Anion Gap 8, Blood Urea Nitrogen 54H, Creatinine 1.7H, Estimat Glomerular Filtration Rate 28.3, Glucose Level 168H, Calcium Level 7.7L, Magnesium Level 2.0, Total Bilirubin 0.1L, Aspartate Amino Transf (AST/SGOT) 16, Alanine Aminotransferase ( ALT/SGPT) 11L, Alkaline Phosphatase 59, Pro-B-Type Natriuretic Peptide 6735H, Total Protein 4.4L, Albumin 1.3L, Globulin 3.1, Albumin/Globulin Ratio 0.4L Height (Feet): 5 Height (Inches): 2.00 Weight (Pounds): 123 Objective CV RR Lungs CTA Abd Ascites . SNT. BS = E ++++ edema Jonathan Berry MD May 10, 2020 13:59
--- NOTE | 2020-05-10 15:54 | NUR ---
NURSE NOTES: PT WITH 2 EPISODES OF DIARRHEA DUE TO ADMINISTRATION OF KAYAXELATE EARLIER TODAY. WOUND DRESSINGS INTACT. PT WAS SUCTIONED AT BEDSIDE DUE TO RETAINING SECRETIONS IN MOUTH. PT IN HIGH PARK'S POSITION WITH HOB ELEVATED. PT WAS CLEANED AND REPOSITIONED. IN NO APPARENT DISTRESS AT THIS TIME. WILL CONTINUE TO MONITOR.
[2020-05-10 16:00] VITALS: BP 134/71
--- NOTE | 2020-05-10 18:40 | NUR ---
NURSE HAND-OFF: Important Events on Shift:WOUND CULTURE OF G-TUBE SITE COLLECTED. KAYAXALATE 50GM X1 ADMINISTERED FOR POTASSIUM LEVEL 6.4 TODAY. Patient Status: STABLE Diet: NPO. GTF GLUCERNA 1.5 AT 40ML/HR. Pending Orders: N/A Pending Results/Labs:N/A Pending MD notification:N/A. DR KEE AWARE OF POTASSIUM 6.4 TODAY. Latest Vital Signs: Temperature 98.6 , Pulse 75 , B/P 134 /71 , Respiratory Rate 20 , O2 SAT 98 , Nasal Cannula, O2 Flow Rate 2.0 . Vital Sign Comment: STABLE Latest Ayala Fall Score: 50 Fall Risk: High Risk Safety Measures: Call light Within Reach, Bed Alarm Zone 2, Side Rails Side Rails x2, Bed position Low and Locked. Fall Precautions: Yellow Socks Yellow Gown Door Sign Patient Fall Education
--- NOTE | 2020-05-10 19:12 | NUR ---
HAND-OFF: Report given to Shahzad KIRKLAND RN.
--- NOTE | 2020-05-10 19:30 | NUR ---
NURSE NOTES: Patient asleep in bed, no signs of pain, on O2 @ 2LPM via nasal cannula. With Christianson catheter intact and draining well. IV access on the right arm. Call light in reach. Bed in lowest, lock engaged and alarm on. Will continue to monitor.
[2020-05-10 20:00] VITALS: BP 122/42
[2020-05-11] VITALS: BP 134/84
--- NOTE | 2020-05-11 00:54 | Cardiology Progress Note ---
Subjective DATE OF SERVICE: May 10, 2020 Less congested. Now with episodes of bradycardia On empiric IV abx Hyperkalemia corrected. Sodium was elevated again; IVF adjusted. BP parameters stabilizing. Objective Last 24 Hour Vital Signs Date Time Temp Pulse Resp B/P (MAP) Pulse Ox O2 Delivery O2 Flow Rate FiO2 05/11/20 00:00 98.4 53 17 134/84 (101) 98 05/10/20 20:20 Nasal Cannula 2.0 05/10/20 20:00 98.7 43 18 122/42 (68) 96 05/10/20 16:00 98.6 75 20 134/71 (92) 98 05/10/20 12:00 98.3 78 20 138/69 (92) 98 05/10/20 09:00 Nasal Cannula 2.0 05/10/20 08:19 72 05/10/20 08:00 98.5 72 19 132/60 (84) 99 05/10/20 04:00 98.3 68 20 128/50 (76) 100 RHYTHM: ST, Afib LUNGS: accessory muscle use, bilateral rhonchi CARDIAC: regular rhythm, normal S1 and S2, arrhythmia ABDOMEN: normal bowel sounds, non tender, no organomegaly, G-Tube intact EXTREMITIES: moderate edema Laboratory Tests Test 05/10/20 05:26 05/10/20 05:59 05/10/20 11:06 05/10/20 16:07 POC Whole Blood Glucose 132 MG/DL (74-106) H 163 MG/DL (74-106) H 136 MG/DL (74-106) H White Blood Count 18.9 K/UL (4.8-10.8) H Red Blood Count 4.20 M/UL (4.20-5.40) Hemoglobin 11.1 G/DL (12.0-16.0) L Hematocrit 36.6 % (37.0-47.0) L Mean Corpuscular Volume 87 FL (80-99) Mean Corpuscular Hemoglobin 26.4 PG (27.0-31.0) L Mean Corpuscular Hemoglobin Concent 30.3 G/DL (32.0-36.0) L Red Cell Distribution Width 15.8 % (11.6-14.8) H Platelet Count 387 K/UL (150-450) Mean Platelet Volume 7.1 FL (6.5-10.1) Neutrophils (%) (Auto) % (45.0-75.0) Lymphocytes (%) (Auto) % (20.0-45.0) Monocytes (%) (Auto) % (1.0-10.0) Eosinophils (%) (Auto) % (0.0-3.0) Basophils (%) (Auto) % (0.0-2.0) Differential Total Cells Counted 100 Neutrophils % (Manual) 82 % (45-75) H Lymphocytes % (Manual) 8 % (20-45) L Monocytes % (Manual) 7 % (1-10) Eosinophils % (Manual) 3 % (0-3) Basophils % (Manual) 0 % (0-2) Band Neutrophils 0 % (0-8) Platelet Estimate Adequate Platelet Morphology Normal Anisocytosis 1+ Sodium Level 142 MMOL/L (136-145) Potassium Level 6.4 MMOL/L (3.5-5.1) *H Chloride Level 114 MMOL/L (98-107) H Carbon Dioxide Level 20 MMOL/L (21-32) L Anion Gap 8 mmol/L (5-15) Blood Urea Nitrogen 54 mg/dL (7-18) H Creatinine 1.7 MG/DL (0.55-1.30) H Estimat Glomerular Filtration Rate 28.3 mL/min (>60) Glucose Level 168 MG/DL (74-106) H Calcium Level 7.7 MG/DL (8.5-10.1) L Magnesium Level 2.0 MG/DL (1.8-2.4) Total Bilirubin 0.1 MG/DL (0.2-1.0) L Aspartate Amino Transf (AST/SGOT) 16 U/L (15-37) Alanine Aminotransferase (ALT/SGPT) 11 U/L (12-78) L Alkaline Phosphatase 59 U/L (46-116) Pro-B-Type Natriuretic Peptide 6735 pg/mL (0-125) H Total Protein 4.4 G/DL (6.4-8.2) L Albumin 1.3 G/DL (3.4-5.0) L Globulin 3.1 g/dL Albumin/Globulin Ratio 0.4 (1.0-2.7) L Microbiology Date/Time Source Procedure Growth Status 05/09/20 00:30 Stool Clostridium difficile Toxin Assay - Final Complete Assessment/Plan Assessment/Plan Sepsis with shock Acute on chronic diastolic CHF UTI Metabolic and toxic encephalopathies HC associated aspiration PNA PAFib now with slow heart rates Acute renal failure hyperkalemia Lactic acidosis resolved Severe protein-calorie malnutrition DC IV fluid hydration Full anticoagulation Abx Nutrition by Gtube Follow up lytes; correct as needed. Continue maintenance dose amiodarone; discontinue digoxin. Augusto Benítez MD May 11, 2020 00:54
--- NOTE | 2020-05-11 02:45 | NUR ---
NURSE NOTES: Pt. received from TEJINDER Moore. Pt. nonverbal, sleeping, on NC 2L, breathing even and unlabored, no indications of respiratory distress and no indications of pain at this time. IV noted right hand. Bilateral upper extremity edema noted. Gtube feeding running at 40cc, head of bed elevated. Christianson intact and patent, draining yellow urine well. Bed low and locked, side rails x3 up, and call light in reach.
--- NOTE | 2020-05-11 02:53 | NUR ---
Important Events on Shift: Bradycardia Patient Status: Diet: NPO. Gtube feeding Glucerna 1.5 @ 40ml/hr. Pending Orders: 2Decho with Doppler Pending Results/Labs:none Pending MD notification:[] Latest Vital Signs: Temperature 98.4 , Pulse 53 , B/P 134/84 , Respiratory Rate 17 , O2 SAT 98 , Nasal Cannula, O2 Flow Rate 2.0 . Vital Sign Comment: [] Latest Ayala Fall Score: 50 Fall Risk: High Risk Safety Measures: Call light Within Reach, Bed Alarm Zone 2, Side Rails Side Rails x2, Bed position Low and Locked. Fall Precautions: Yellow Socks Yellow Gown Door Sign Patient Fall Education Report given to TEJINDER Byrne.
[2020-05-11 04:00] VITALS: BP 154/48
[2020-05-11] MEDS: Glimepiride 1mg tab GT SCH ×2 (06:23→16:31)
[2020-05-11] MEDS: sitaGLIPtin 50mg tab GT SCH (06:23)
[2020-05-11] MEDS: NovoLOG Insulin Flexpen SUBQ SCH ×4 (06:24→21:00)
--- NOTE | 2020-05-11 07:22 | NUR ---
NURSE HAND-OFF: Important Events on Shift:[bowel movement, wound dressings changed] Patient Status: [stable] Diet: [Glucerna 1.5 at 40cc] Pending Orders: [2D echo] Pending Results/Labs:[] Pending MD notification:[] Latest Vital Signs: Temperature 98.0 , Pulse 46 , B/P 154 /48 , Respiratory Rate 18 , O2 SAT 97 , Nasal Cannula, O2 Flow Rate 2.0 . Vital Sign Comment: [] Latest Ayala Fall Score: 50 Fall Risk: High Risk Safety Measures: Call light Within Reach, Bed Alarm Zone 2, Side Rails Side Rails x2, Bed position Low and Locked. Fall Precautions: Yellow Socks Yellow Gown Door Sign Patient Fall Education Report given to [TEJINDER Brown].
--- NOTE | 2020-05-11 07:33 | NUR ---
NURSE NOTES: Report received from Chavez MARR. Patient seen on rounds, AxOx0, pt is non-verbal and is not able to follow commands. FLACC score 0, not in any distress, on 2lpm via NC. PIV on Right hand patent and intact. Gtube site patent and infusing Glucerna 1.5 @40ml/hr continuously. Nurse reports no residuals. HOB elevated at 45 degrees. Christianson cath secured and draining. Bed low and locked, siderails up x2, will continue to monitor.
[2020-05-11 08:00] VITALS: BP 142/67
[2020-05-11] MEDS: Valproic Acid 250mg/5ml Liquid GT SCH ×2 (08:12→21:05)
[2020-05-11] MEDS: Amiodarone 200mg tab GT SCH (08:12)
[2020-05-11] MEDS: Fluconazole 100mg tab GT SCH (08:12)
[2020-05-11] MEDS: Eliquis 2.5mg tablet GT SCH (08:12)
--- NOTE | 2020-05-11 09:34 | Surgery Progress Note ---
Surgery Progress Note Subjective Additional Comments note: late entry for patient seen 05/10 but because of surgeries was unable to complete note until later. no acute events Objective Last 24 Hour Vital Signs Date Time Temp Pulse Resp B/P (MAP) Pulse Ox O2 Delivery O2 Flow Rate FiO2 05/11/20 08:00 98.3 52 17 142/67 (92) 95 05/11/20 07:28 96 Nasal Cannula 2.0 28 05/11/20 04:00 98.0 46 18 154/48 (83) 97 05/11/20 03:00 Nasal Cannula 2.0 05/11/20 00:00 98.4 53 17 134/84 (101) 98 05/10/20 20:20 Nasal Cannula 2.0 05/10/20 20:00 98.7 43 18 122/42 (68) 96 05/10/20 16:00 98.6 75 20 134/71 (92) 98 05/10/20 12:00 98.3 78 20 138/69 (92) 98 I&O Intake and Output 05/10/20 05/11/20 19:00 07:00 Intake Total 670 ml 590 ml Output Total 550 ml Balance 670 ml 40 ml Intake Free Water 190 ml 150 ml Tube Feeding 480 ml 440 ml Output Urine Total 550 ml # Voids 1 # Bowel Movements 2 2 Dressing: saturated Cardiovascular: RSR Respiratory: decreased breath sounds Abdomen: soft, non-tender, present bowel sounds Extremities: no tenderness, no cyanosis Laboratory Tests Test 05/10/20 11:06 05/10/20 16:07 POC Whole Blood Glucose 163 MG/DL (74-106) H 136 MG/DL (74-106) H Plan Problems: (1) Deep tissue injury Assessment & Plan: Pt presented on admission with Multiple Pressure injuries. Sacral DTPI noted (L)6.7cm x (W)6.9cm. Base of wound is purpuric ,partially opened -ruby and indurated. No odor or exudate noted. Non-blanching erythema periwound.DTPI noted to R Ischium(L)4cm x (W)2.2cm.Base of Pressure injury maroon and indurated. Non-Blanching erythema without induration noted to L ischium. Vulva is swollen and erythematous . DTPI noted to R Heel(L)3.3cm x (W)2.9cm. Wound is is blood filled purpuric Blister with surrounding non-blanchable and boggy heel. R Heel is Boggy with Non-Blanchable erythema. Tx.Plan: Apply Moisture Barrier Paste to Sacrum. Cover with Optifoam drsg. Change every 3 days and prn. Apply Moisture Barrier Paste to R ischium. Cover with Optifoam drsg. Change every 3 days and prn. Apply Moisture Barrier Paste to Bilat groin, perineum and L ischium with each perineal care. Apply Cavilon Skin Barrier to R and L trochanteric areas. Cover each site with Optifoam drsg. Change every 7 days and prn. Reposition at least every 2hours or as tolerated. Off-load heels with pillow. APM/MARY ANN Mattress overlay. (2) Dehydration (3) Hypokalemia (4) Renal failure (5) Hyperkalemia (6) UTI (urinary tract infection) (7) Severe sepsis Assessment & Plan: Patient with significant leukocytosis, lactic acidosis, abnormal electrolytes, renal insufficiency, anemia. UA noted. Microbiology reviewed. Imaging reviewed. COVID negative. Patient with multiple deep tissue injuries and severe malnutrition albumin 1 Wounds unlikely the source or etiology of patient's sepsis. No abscess or fluid collections requiring drainage currently identified. Continue IV antibiotics per infectious disease We will continue to monitor and identify assist with care and management Thank you for let me participate patient's care will follow with recommendations nutritional optimization DAILY ESTIMATED NEEDS: Needs based on DM, wound, renal/ 49kg 30-35 kcals/kg 7763-6205 total kcals 1.25-1.5 g protein/kg 61-74 g total protein 25-30ml/kcal mL/kg 0720-1450 total fluid mLs NUTRITION DIAGNOSIS: * Increased kcal and pro needs r/t wound care as evidenced by open sacral wound per photo, eval pending. * Swallowing difficulty R/T dysphagia as evidenced by GT dependent. ENTERAL NUTRITION RECOMMENDATIONS: NEPRO @43ml/hr x 20hrs to provide 860ml, 1548kcal, 70g prot, 625ml free water * As medically able, start NEPRO @23ml/hr for 6 hrs, advance as tolerated 10ml q4-6 hrs * HOB over 30 degrees * Without IVF, water flush of ml q 130ml q4 hrs -------- ADDITIONAL RECOMMENDATIONS: * PER SNF: Height 4'11" inches and 108 lbs * Rec D5 while NPO * F/up w/ WC eval-> add IMAN in 4oz via GT BID with tube feeds * Rec renal formula as above d/t renal failure on adm * Maintain accurate calibrated bed scale weights . Dimitris Diaz May 11, 2020 09:34
--- NOTE | 2020-05-11 09:35 | Surgery Progress Note ---
Surgery Progress Note Subjective Additional Comments leukocytosis cultures noted abx as per ID comfortable Objective Last 24 Hour Vital Signs Date Time Temp Pulse Resp B/P (MAP) Pulse Ox O2 Delivery O2 Flow Rate FiO2 05/11/20 08:00 98.3 52 17 142/67 (92) 95 05/11/20 07:28 96 Nasal Cannula 2.0 28 05/11/20 04:00 98.0 46 18 154/48 (83) 97 05/11/20 03:00 Nasal Cannula 2.0 05/11/20 00:00 98.4 53 17 134/84 (101) 98 05/10/20 20:20 Nasal Cannula 2.0 05/10/20 20:00 98.7 43 18 122/42 (68) 96 05/10/20 16:00 98.6 75 20 134/71 (92) 98 05/10/20 12:00 98.3 78 20 138/69 (92) 98 I&O Intake and Output 05/10/20 05/11/20 19:00 07:00 Intake Total 670 ml 590 ml Output Total 550 ml Balance 670 ml 40 ml Intake Free Water 190 ml 150 ml Tube Feeding 480 ml 440 ml Output Urine Total 550 ml # Voids 1 # Bowel Movements 2 2 Dressing: other Wound: other Cardiovascular: RSR Respiratory: decreased breath sounds Abdomen: soft, non-tender Extremities: no tenderness, no cyanosis Laboratory Tests Test 05/10/20 11:06 05/10/20 16:07 POC Whole Blood Glucose 163 MG/DL (74-106) H 136 MG/DL (74-106) H Plan Problems: (1) Deep tissue injury Assessment & Plan: Pt presented on admission with Multiple Pressure injuries. Sacral DTPI noted (L)6.7cm x (W)6.9cm. Base of wound is purpuric ,partially opened -ruby and indurated. No odor or exudate noted. Non-blanching erythema periwound.DTPI noted to R Ischium(L)4cm x (W)2.2cm.Base of Pressure injury maroon and indurated. Non-Blanching erythema without induration noted to L ischium. Vulva is swollen and erythematous . DTPI noted to R Heel(L)3.3cm x (W)2.9cm. Wound is is blood filled purpuric Blister with surrounding non-blanchable and boggy heel. R Heel is Boggy with Non-Blanchable erythema. Tx.Plan: Apply Moisture Barrier Paste to Sacrum. Cover with Optifoam drsg. Change every 3 days and prn. Apply Moisture Barrier Paste to R ischium. Cover with Optifoam drsg. Change every 3 days and prn. Apply Moisture Barrier Paste to Bilat groin, perineum and L ischium with each perineal care. Apply Cavilon Skin Barrier to R and L trochanteric areas. Cover each site with Optifoam drsg. Change every 7 days and prn. Reposition at least every 2hours or as tolerated. Off-load heels with pillow. APM/MARY ANN Mattress overlay. (2) Dehydration (3) Hypokalemia (4) Renal failure (5) Hyperkalemia (6) UTI (urinary tract infection) (7) Severe sepsis Assessment & Plan: Patient with significant leukocytosis, lactic acidosis, abnormal electrolytes, renal insufficiency, anemia. UA noted. Microbiology reviewed. Imaging reviewed. COVID negative. Patient with multiple deep tissue injuries and severe malnutrition albumin 1 Wounds unlikely the source or etiology of patient's sepsis. No abscess or fluid collections requiring drainage currently identified. Continue IV antibiotics per infectious disease We will continue to monitor and identify assist with care and management Thank you for let me participate patient's care will follow with recommendations nutritional optimization DAILY ESTIMATED NEEDS: Needs based on DM, wound, renal/ 49kg 30-35 kcals/kg 8732-8286 total kcals 1.25-1.5 g protein/kg 61-74 g total protein 25-30ml/kcal mL/kg 6383-3590 total fluid mLs NUTRITION DIAGNOSIS: * Increased kcal and pro needs r/t wound care as evidenced by open sacral wound per photo, eval pending. * Swallowing difficulty R/T dysphagia as evidenced by GT dependent. ENTERAL NUTRITION RECOMMENDATIONS: NEPRO @43ml/hr x 20hrs to provide 860ml, 1548kcal, 70g prot, 625ml free water * As medically able, start NEPRO @23ml/hr for 6 hrs, advance as tolerated 10ml q4-6 hrs * HOB over 30 degrees * Without IVF, water flush of ml q 130ml q4 hrs -------- ADDITIONAL RECOMMENDATIONS: * PER SNF: Height 4'11" inches and 108 lbs * Rec D5 while NPO * F/up w/ WC eval-> add IMAN in 4oz via GT BID with tube feeds * Rec renal formula as above d/t renal failure on adm * Maintain accurate calibrated bed scale weights . Dimitris Diaz May 11, 2020 09:35
[2020-05-11 12:00] VITALS: BP 127/39
--- NOTE | 2020-05-11 12:01 | Infectious Diseases Prog Note ---
Assessment/Plan Assessment/Plan A 1. Candidal UTI 2. cholelithiasis 3. Pneumonia 4. leucocytosis 5. renal failure improving 6. dementia 7. COPD 8. 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 continue fluconazole 2. Start on Cefepime Subjective ROS Limited/Unobtainable: Yes Constitutional: Denies: fever Allergies: Coded Allergies: No Known Allergies (Unverified , 01/30/20) Objective Last 24 Hour Vital Signs Date Time Temp Pulse Resp B/P (MAP) Pulse Ox O2 Delivery O2 Flow Rate FiO2 05/11/20 09:00 Nasal Cannula 2.0 05/11/20 08:00 98.3 52 17 142/67 (92) 95 05/11/20 07:28 96 Nasal Cannula 2.0 28 05/11/20 04:00 98.0 46 18 154/48 (83) 97 05/11/20 03:00 Nasal Cannula 2.0 05/11/20 00:00 98.4 53 17 134/84 (101) 98 05/10/20 20:20 Nasal Cannula 2.0 05/10/20 20:00 98.7 43 18 122/42 (68) 96 05/10/20 16:00 98.6 75 20 134/71 (92) 98 05/10/20 12:00 98.3 78 20 138/69 (92) 98 Height (Feet): 5 Height (Inches): 2.00 Weight (Pounds): 125 General Appearance: no acute distress HEENT: mucous membranes moist Respiratory/Chest: lungs clear Cardiovascular: bradycardia Abdomen: distended, other - GT feeding Genitourinary: other - Christianson catheter Extremities: other - edema more in hands Neurologic/Psychiatric: disoriented, other - moaning Microbiology Date/Time Source Procedure Growth Status 05/10/20 10:30 Other(Specify in comment) Gram Stain - Final Resulted 05/10/20 10:30 Wound Culture - Preliminary Gram Negative Mateo Resulted 05/09/20 00:30 Stool Clostridium difficile Toxin Assay - Final Complete Laboratory Tests Test 05/10/20 16:07 POC Whole Blood Glucose 136 MG/DL (74-106) H Current Medications Medications (Trade) Dose Ordered Sig/Jazmine Route PRN Reason Start Time Stop Time Status Last Admin Dose Admin Acetaminophen (Tylenol) 500 mg Q4H PRN GT Mild Pain (Pain Scale 1-3) 05/09/20 22:46 06/08/20 22:45 Acetaminophen/ Hydrocodone Bitart ([place] 5/325) 1 tab Q4H PRN GT Severe Pain (Pain Scale 7-10) 05/09/20 23:30 05/11/20 23:29 05/10/20 16:45 Amiodarone HCl (Cordarone) 200 mg DAILY GT 05/10/20 09:00 08/03/20 08:59 05/11/20 08:12 Apixaban (Eliquis) 2.5 mg DAILY GT 05/10/20 09:00 08/03/20 08:59 05/11/20 08:12 Dextrose (Dextrose 50%) 25 ml Q30M PRN IV Hypoglycemia 05/09/20 23:00 08/02/20 19:59 Dextrose (Dextrose 50%) 50 ml Q30M PRN IV Hypoglycemia 05/09/20 23:00 08/02/20 19:59 Docusate Sodium (Colace) 100 mg BIDPRN PRN GT Constipation 05/09/20 22:49 06/08/20 22:48 Fluconazole (Diflucan) 100 mg DAILY GT 05/10/20 09:00 05/13/20 11:59 05/11/20 08:12 Glimepiride (AmaryL) 2 mg BID@0630,1630 GT 05/10/20 06:30 06/09/20 06:29 05/11/20 06:23 Insulin Aspart (NovoLOG) BEFORE MEALS AND HS SUBQ 05/10/20 06:30 08/02/20 20:59 05/11/20 06:24 Lansoprazole (Prevacid) 30 mg DAILY@0630 GT 05/10/20 06:30 06/06/20 06:29 05/11/20 06:23 Lorazepam (Ativan) 1 mg Q6H PRN ORAL For Anxiety 05/09/20 22:53 05/16/20 22:52 Multivitamins (Multivitamins) 1 tab DAILY GT 05/11/20 09:00 06/04/20 08:59 05/11/20 08:12 Sitagliptin Phosphate (Januvia) 50 mg DAILY@0630 GT 05/10/20 06:30 9/11/20 06:29 05/11/20 06:23 Valproic Acid (Depakene) 500 mg Q12HR GT 05/10/20 09:00 06/22/20 21:29 05/11/20 08:12 Tuan Becerra MD May 11, 2020 12:01
[2020-05-11] MEDS: Cefepime HCl 1 GM in D5W 55 ML IVPB SCH (13:30)
--- NOTE | 2020-05-11 13:31 | Nephrology Progress Note ---
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 K 6.4. Order for Kayexalate given Not a dialysis candidate. Subjective Subjective Obtunded Objective Objective Last 24 Hour Vital Signs Date Time Temp Pulse Resp B/P (MAP) Pulse Ox O2 Delivery O2 Flow Rate FiO2 05/11/20 12:00 97.6 46 18 127/39 (68) 95 05/11/20 09:00 Nasal Cannula 2.0 05/11/20 08:00 98.3 52 17 142/67 (92) 95 05/11/20 07:28 96 Nasal Cannula 2.0 28 05/11/20 04:00 98.0 46 18 154/48 (83) 97 05/11/20 03:00 Nasal Cannula 2.0 05/11/20 00:00 98.4 53 17 134/84 (101) 98 05/10/20 20:20 Nasal Cannula 2.0 05/10/20 20:00 98.7 43 18 122/42 (68) 96 05/10/20 16:00 98.6 75 20 134/71 (92) 98 Intake and Output 05/10/20 05/11/20 19:00 07:00 Intake Total 670 ml 590 ml Output Total 550 ml Balance 670 ml 40 ml Intake Free Water 190 ml 150 ml Tube Feeding 480 ml 440 ml Output Urine Total 550 ml # Voids 1 # Bowel Movements 2 2 Laboratory Tests 05/10/20 16:07: POC Whole Blood Glucose 136H Height (Feet): 5 Height (Inches): 2.00 Weight (Pounds): 125 Objective CV RR Lungs CTA Abd Ascites . SNT. BS = E ++++ edema Jonathan Berry MD May 11, 2020 13:31
[2020-05-11 16:00] VITALS: BP 148/51
--- NOTE | 2020-05-11 16:23 | NUR ---
NURSE NOTES: Spoke with Maged from lab re: Potassium results 6.5, however he states that sample is slightly hemolyzed and will advise phlebotomy so they can redraw.
--- NOTE | 2020-05-11 16:55 | NUR ---
CASE MANAGEMENT: REVIEW 05/11/2020 SI:SEVERE SEPSIS. VS: T 97.9 HR 59 RR 18 B/P 148/51 SATS 97% ON 2L/NC LABS: BMP IS PENDING IS: AMARYL GT BID CORDARONE GT QD ELIQUIS GT QD DIFLUCAN GT QD CEFEPIME IV QD PREVACID GT QD INSULIN ASPART SUBQ AC/HS DEPAKENE GT Q12H MED/SURG DCP: DESIREE DELVALLE [facility] PLAN OF CARE: 1. continue fluconazole 2. Start on Cefepime Not a dialysis candidate.
--- NOTE | 2020-05-11 17:05 | NUR ---
INSURANCE REVIEW AND PROGRESS NOTES FAXED TO [facility] T; [phone] F: [phone]
[2020-05-11 17:23] LABS: ALANINE AMINOTRANSFERASE 16 U/L (12-78); ALBUMIN 1.3 G/DL (3.4-5.0); ALBUMIN/GLOBULIN RATIO 0.4 (1.0-2.7); ALKALINE PHOSPHATASE 45 U/L (46-116); ANION GAP 8 mmol/L (5-15); ASPARTATE AMINO TRANSFERASE 14 U/L (15-37); BILIRUBIN,TOTAL 0.2 MG/DL (0.2-1.0); BLOOD UREA NITROGEN 61 mg/dL (7-18); CALCIUM 7.7 MG/DL (8.5-10.1); CARBON DIOXIDE 22 MMOL/L (21-32); CHLORIDE 117 MMOL/L (98-107); CREATININE 2.1 MG/DL (0.55-1.30); SODIUM 147 MMOL/L (136-145)
[2020-05-11 17:26] LABS: POTASSIUM 6.2 MMOL/L (3.5-5.1)
[2020-05-11] MEDS ORDERED: Sodium Polystyrene Sulfonate 15gm Powder GT SCH (17:30)
--- NOTE | 2020-05-11 17:34 | Pulmonology Progress Note ---
Subjective ROS Limited/Unobtainable: Yes Constitutional: Denies: fever Allergies: Coded Allergies: No Known Allergies (Unverified , 01/30/20) Subjective care noted and reviewed still ill wbc high k elevated Objective Last 24 Hour Vital Signs Date Time Temp Pulse Resp B/P (MAP) Pulse Ox O2 Delivery O2 Flow Rate FiO2 05/11/20 16:00 97.9 59 18 148/51 (83) 97 05/11/20 12:00 97.6 46 18 127/39 (68) 95 05/11/20 09:00 Nasal Cannula 2.0 05/11/20 08:00 98.3 52 17 142/67 (92) 95 05/11/20 07:28 96 Nasal Cannula 2.0 28 05/11/20 04:00 98.0 46 18 154/48 (83) 97 05/11/20 03:00 Nasal Cannula 2.0 05/11/20 00:00 98.4 53 17 134/84 (101) 98 05/10/20 20:20 Nasal Cannula 2.0 05/10/20 20:00 98.7 43 18 122/42 (68) 96 Intake and Output 05/10/20 05/11/20 19:00 07:00 Intake Total 670 ml 590 ml Output Total 550 ml Balance 670 ml 40 ml Intake Free Water 190 ml 150 ml Tube Feeding 480 ml 440 ml Output Urine Total 550 ml # Voids 1 # Bowel Movements 2 2 Objective WDWN NAD reduced breath sounds bilaterally with some rhonchi [id number] without MRG NABS nontender G no CC noted edema nonfocal poor LOC Microbiology Date/Time Source Procedure Growth Status 05/10/20 10:30 Other(Specify in comment) Gram Stain - Final Resulted 05/10/20 10:30 Wound Culture - Preliminary Gram Negative Mateo Resulted 05/09/20 00:30 Stool Clostridium difficile Toxin Assay - Final Complete Laboratory Tests 05/11/20 16:50: Sodium Level 147H, Potassium Level 6.2*H, Chloride Level 117H, Carbon Dioxide Level 22, Anion Gap 8, Blood Urea Nitrogen 61H, Creatinine 2.1H, Estimat Glomerular Filtration Rate 22.3, Glucose Level 139H, Calcium Level 7.7L, Total Bilirubin 0.2, Aspartate Amino Transf (AST/SGOT) 14L, Alanine Aminotransferase ( ALT/SGPT) 16, Alkaline Phosphatase 45L, Total Protein 4.3L, Albumin 1.3L, Globulin 3.0, Albumin/Globulin Ratio 0.4L Current Medications Medications (Trade) Dose Ordered Sig/Jazmine Route PRN Reason Start Time Stop Time Status Last Admin Dose Admin Acetaminophen (Tylenol) 500 mg Q4H PRN GT Mild Pain (Pain Scale 1-3) 05/09/20 22:46 06/08/20 22:45 Acetaminophen/ Hydrocodone Bitart ([place] 5/325) 1 tab Q4H PRN GT Severe Pain (Pain Scale 7-10) 05/09/20 23:30 05/11/20 23:29 05/10/20 16:45 Amiodarone HCl (Cordarone) 200 mg DAILY GT 05/10/20 09:00 08/03/20 08:59 05/11/20 08:12 Apixaban (Eliquis) 2.5 mg DAILY GT 05/10/20 09:00 08/03/20 08:59 05/11/20 08:12 Cefepime HCl 1 gm/ Dextrose 55 ml @ 110 mls/hr DAILY IVPB 05/11/20 13:00 05/18/20 12:59 05/11/20 13:30 Dextrose (Dextrose 50%) 25 ml Q30M PRN IV Hypoglycemia 05/09/20 23:00 08/02/20 19:59 Dextrose (Dextrose 50%) 50 ml Q30M PRN IV Hypoglycemia 05/09/20 23:00 08/02/20 19:59 Docusate Sodium (Colace) 100 mg BIDPRN PRN GT Constipation 05/09/20 22:49 06/08/20 22:48 Fluconazole (Diflucan) 100 mg DAILY GT 05/10/20 09:00 05/13/20 11:59 05/11/20 08:12 Glimepiride (AmaryL) 2 mg BID@0630,1630 GT 05/10/20 06:30 06/09/20 06:29 05/11/20 16:31 Insulin Aspart (NovoLOG) BEFORE MEALS AND HS SUBQ 05/10/20 06:30 08/02/20 20:59 05/11/20 06:24 Lansoprazole (Prevacid) 30 mg DAILY@0630 GT 05/10/20 06:30 06/06/20 06:29 05/11/20 06:23 Lorazepam (Ativan) 1 mg Q6H PRN ORAL For Anxiety 05/09/20 22:53 05/16/20 22:52 Multivitamins (Multivitamins) 1 tab DAILY GT 05/11/20 09:00 06/04/20 08:59 05/11/20 08:12 Sitagliptin Phosphate (Januvia) 50 mg DAILY@0630 GT 05/10/20 06:30 06/09/20 06:29 05/11/20 06:23 Sodium Polystyrene Sulfonate (Kayexalate) 30 gm ONCE GT 05/11/20 17:30 05/11/20 18:30 Valproic Acid (Depakene) 500 mg Q12HR GT 05/10/20 09:00 06/22/20 21:29 05/11/20 08:12 Assessment/Plan Assessment/Plan IMPRESSION: 1. Probable urosepsis. 2. Acute on chronic encephalopathy. 3. Septic shock. 4. Acute on chronic renal failure. 5. Hyperkalemia. 6. Leukocytosis. 7. Profound hypotension. 8. Profound altered mental status. 9. Dementia. 10. Diabetes. 11. G-tube. 12. peripheral edema 13. 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 await clearance 2. continue medications 3. monitor peripheral edema 4. monitor in and out 5. Renal evaluation, ID evaluation, Cardiology evaluation. 6. IV antibiotics. 7. Close followup and recommendations. 8. Anticoagulation with caution. 9. Digoxin with caution. 10. Sliding scale insulin 11. monitor lytes not ready for dc impression, plan, and exam edited and reviewed in detail care discussed with Eduardo Kern MD May 11, 2020 17:34
--- NOTE | 2020-05-11 19:05 | NUR ---
NURSE NOTES: Received report from darron MARR.
--- NOTE | 2020-05-11 19:23 | NUR ---
NURSE HAND-OFF: Important Events on Shift: Critical Potassium results: 6.2, patient given Kayexalate Patient Status: Stable Diet: Tube feeding Glucerna 1.5 @ 40ml/hr continuous Pending Orders: None Pending Results/Labs: None Pending MD notification:None Latest Vital Signs: Temperature 97.9 , Pulse 59 , B/P 148 /51 , Respiratory Rate 18 , O2 SAT 97 , Nasal Cannula, O2 Flow Rate 2.0 . Vital Sign Comment: Latest Ayala Fall Score: 50 Fall Risk: High Risk Safety Measures: Call light Within Reach, Bed Alarm Zone 2, Side Rails Side Rails x2, Bed position Low and Locked. Fall Precautions: Yellow Socks Yellow Gown Door Sign Patient Fall Education Report given to Suzette MARR.
[2020-05-11 20:00] VITALS: BP 133/49
--- NOTE | 2020-05-11 23:09 | Psych Consult Progress Note ---
Psychiatry Progress Note Psychiatry Progress Note Subjective confused episodes o agitation Medications Current Medications Medications (Trade) Dose Ordered Sig/Jazmine Route PRN Reason Start Time Stop Time Status Last Admin Dose Admin Acetaminophen (Tylenol) 500 mg Q4H PRN GT Mild Pain (Pain Scale 1-3) 05/09/20 22:46 06/08/20 22:45 Acetaminophen/ Hydrocodone Bitart ([place] 5/325) 1 tab Q4H PRN GT Severe Pain (Pain Scale 7-10) 05/09/20 23:30 05/11/20 23:29 05/10/20 16:45 Amiodarone HCl (Cordarone) 200 mg DAILY GT 05/10/20 09:00 08/03/20 08:59 05/11/20 08:12 Apixaban (Eliquis) 2.5 mg DAILY GT 05/10/20 09:00 08/03/20 08:59 05/11/20 08:12 Cefepime HCl 1 gm/ Dextrose 55 ml @ 110 mls/hr DAILY IVPB 05/11/20 13:00 05/18/20 12:59 05/11/20 13:30 Dextrose (Dextrose 50%) 25 ml Q30M PRN IV Hypoglycemia 05/09/20 23:00 08/02/20 19:59 Dextrose (Dextrose 50%) 50 ml Q30M PRN IV Hypoglycemia 05/09/20 23:00 08/02/20 19:59 Docusate Sodium (Colace) 100 mg BIDPRN PRN GT Constipation 05/09/20 22:49 06/08/20 22:48 Fluconazole (Diflucan) 100 mg DAILY GT 05/10/20 09:00 05/13/20 11:59 05/11/20 08:12 Glimepiride (AmaryL) 2 mg BID@0630,1630 GT 05/10/20 06:30 06/09/20 06:29 05/11/20 16:31 Insulin Aspart (NovoLOG) BEFORE MEALS AND HS SUBQ 05/10/20 06:30 08/02/20 20:59 05/11/20 06:24 Lansoprazole (Prevacid) 30 mg DAILY@0630 GT 05/10/20 06:30 06/06/20 06:29 05/11/20 06:23 Lorazepam (Ativan) 1 mg Q6H PRN ORAL For Anxiety 05/09/20 22:53 05/16/20 22:52 Multivitamins (Multivitamins) 1 tab DAILY GT 05/11/20 09:00 06/04/20 08:59 05/11/20 08:12 Sitagliptin Phosphate (Januvia) 50 mg DAILY@0630 GT 05/10/20 06:30 06/09/20 06:29 05/11/20 06:23 Valproic Acid (Depakene) 500 mg Q12HR GT 05/10/20 09:00 06/22/20 21:29 05/11/20 21:05 Neurological/Psychiatric: Reports: anxiety, depressed, emotional problems Allergies: Coded Allergies: No Known Allergies (Unverified , 01/30/20) Objective Data Height (Feet): 5 Height (Inches): 2.00 Weight (Pounds): 125 General Appearance: WD/WN, no apparent distress, alert, lethargic, confused, agitated Additional Comments: The patient is awake. She is confused and disoriented. Mood is agitated. Affect is flat. Thought process, disorganized. Thought content, no suicidal or homicidal ideation. Cognition is impaired. Insight and judgment is impaired. Assessment/Plan [place] I: ASSESSMENT: AXIS I: Dementia with behavior disturbance. AXIS II: Deferred. AXIS III: As above. AXIS IV: Low. AXIS V: 20. PLAN: 1. Haldol IM p.r.n. 2. Ativan p.r.n. 3. Provide the patient with reality orientation and supportive therapy. Status: stable Status Narrative ASSESSMENT: AXIS I: Dementia with behavior disturbance. AXIS II: Deferred. AXIS III: As above. AXIS IV: Low. AXIS V: 20. PLAN: 1. Haldol IM p.r.n. 2. Ativan p.r.n. 3. Provide the patient with reality orientation and supportive therapy. Assessment/Plan: ASSESSMENT: AXIS I: Dementia with behavior disturbance. AXIS II: Deferred. AXIS III: As above. AXIS IV: Low. AXIS V: 20. PLAN: 1. Haldol IM p.r.n. 2. Ativan p.r.n. 3. Provide the patient with reality orientation and supportive therapy. Shena Campos MD May 11, 2020 23:09
--- NOTE | 2020-05-11 23:14 | Cardiology Progress Note ---
Subjective DATE OF SERVICE: May 11, 2020 Less congested. On empiric IV abx Hyperkalemia worsening and sodium levels rising; IVF adjusted. BP parameters stabilizing. Objective Last 24 Hour Vital Signs Date Time Temp Pulse Resp B/P (MAP) Pulse Ox O2 Delivery O2 Flow Rate FiO2 05/11/20 21:00 Nasal Cannula 2.0 05/11/20 20:00 97.9 50 26 133/49 (77) 97 05/11/20 19:59 97 Nasal Cannula 2.0 28 05/11/20 16:00 97.9 59 18 148/51 (83) 97 05/11/20 12:00 97.6 46 18 127/39 (68) 95 05/11/20 09:00 Nasal Cannula 2.0 05/11/20 08:00 98.3 52 17 142/67 (92) 95 05/11/20 07:28 96 Nasal Cannula 2.0 28 05/11/20 04:00 98.0 46 18 154/48 (83) 97 05/11/20 03:00 Nasal Cannula 2.0 05/11/20 00:00 98.4 53 17 134/84 (101) 98 RHYTHM: ST, Afib LUNGS: accessory muscle use, bilateral rhonchi CARDIAC: regular rhythm, normal S1 and S2, arrhythmia ABDOMEN: normal bowel sounds, non tender, no organomegaly, G-Tube intact EXTREMITIES: moderate edema Laboratory Tests Test 05/11/20 16:50 05/11/20 21:07 Sodium Level 147 MMOL/L (136-145) H Potassium Level 6.2 MMOL/L (3.5-5.1) *H Chloride Level 117 MMOL/L (98-107) H Carbon Dioxide Level 22 MMOL/L (21-32) Anion Gap 8 mmol/L (5-15) Blood Urea Nitrogen 61 mg/dL (7-18) H Creatinine 2.1 MG/DL (0.55-1.30) H Estimat Glomerular Filtration Rate 22.3 mL/min (>60) Glucose Level 139 MG/DL (74-106) H Calcium Level 7.7 MG/DL (8.5-10.1) L Total Bilirubin 0.2 MG/DL (0.2-1.0) Aspartate Amino Transf (AST/SGOT) 14 U/L (15-37) L Alanine Aminotransferase (ALT/SGPT) 16 U/L (12-78) Alkaline Phosphatase 45 U/L (46-116) L Total Protein 4.3 G/DL (6.4-8.2) L Albumin 1.3 G/DL (3.4-5.0) L Globulin 3.0 g/dL Albumin/Globulin Ratio 0.4 (1.0-2.7) L POC Whole Blood Glucose 125 MG/DL (74-106) H Microbiology Date/Time Source Procedure Growth Status 05/10/20 10:30 Other(Specify in comment) Gram Stain - Final Resulted 05/10/20 10:30 Wound Culture - Preliminary Gram Negative Mateo Resulted 05/09/20 00:30 Stool Clostridium difficile Toxin Assay - Final Complete Assessment/Plan Assessment/Plan Sepsis with shock Acute on chronic diastolic CHF UTI Metabolic and toxic encephalopathies HC associated aspiration PNA PAFib now with slow heart rates Acute renal failure deteriorating hyperkalemia hypernatremia/dehydration Lactic acidosis resolved Severe protein-calorie malnutrition Adjust IV fluid hydration Full anticoagulation Abx Nutrition by Gtube Follow up lytes; correct as needed. Continue maintenance dose amiodarone; discontinue digoxin. Augusto Benítez MD May 11, 2020 23:14
[2020-05-12] VITALS (7 sets, daily range): BP systolic 114–173; BP diastolic 45–72
[2020-05-12] MEDS: Glimepiride 1mg tab GT SCH ×2 (05:58→16:45)
[2020-05-12] MEDS: sitaGLIPtin 50mg tab GT SCH (05:58)
[2020-05-12 06:31] LABS: ANION GAP 10 mmol/L (5-15); BLOOD UREA NITROGEN 63 mg/dL (7-18); CALCIUM 7.8 MG/DL (8.5-10.1); CARBON DIOXIDE 20 MMOL/L (21-32); CHLORIDE 114 MMOL/L (98-107); CREATININE 1.8 MG/DL (0.55-1.30); POTASSIUM 5.9 MMOL/L (3.5-5.1); SODIUM 144 MMOL/L (136-145)
[2020-05-12] MEDS: NovoLOG Insulin Flexpen SUBQ SCH ×4 (06:54→20:42)
--- NOTE | 2020-05-12 07:05 | NUR ---
HAND-OFF: Report given to Stephanie MARR.
--- NOTE | 2020-05-12 07:35 | NUR ---
NURSE NOTES: Report received from Suzette RN. Patient seen on rounds, AxOx0, with spontaneous eye opening and responsive to light shaking. O2 at 2lpm, no signs of distress or pain. Patient is noted with generalized edema. Abdomen is round and firm. Gtube site intact and infusing GTF as ordered, no reports of overnight residuals. PIV on right hand patent and intact infusing IVF as ordered. Extremities elevated on pillows. Christianson catheter secured and draining well with anchor. P200 overlay mattress on. Bed low and locked, siderails up x2, will continue to monitor.
--- NOTE | 2020-05-12 08:00 | NUR ---
NURSE NOTES: Dr. Zeng notified of potassium results today (K=5.9). Also informed him of dietitian recommendation to switch tube feeding to Nepro @ 35ml/hr goal due to hyperkalemia. TORB received to administer Kayexalate 30gm x1 and draw BMP AM. also ok to switch tube feeding to Nepro. Orders noted and carried out.
--- NOTE | 2020-05-12 08:01 | Pulmonology Progress Note ---
Subjective ROS Limited/Unobtainable: Yes Constitutional: Denies: fever Allergies: Coded Allergies: No Known Allergies (Unverified , 01/30/20) Subjective care noted and reviewed still ill wbc high k elevated Objective Last 24 Hour Vital Signs Date Time Temp Pulse Resp B/P (MAP) Pulse Ox O2 Delivery O2 Flow Rate FiO2 05/12/20 06:44 96 Nasal Cannula 2.0 28 05/12/20 04:00 97.3 63 26 130/61 (84) 97 05/12/20 00:00 96.4 52 26 140/45 (76) 96 05/11/20 21:00 Nasal Cannula 2.0 05/11/20 20:00 97.9 50 26 133/49 (77) 97 05/11/20 19:59 97 Nasal Cannula 2.0 28 05/11/20 16:00 97.9 59 18 148/51 (83) 97 05/11/20 12:00 97.6 46 18 127/39 (68) 95 05/11/20 09:00 Nasal Cannula 2.0 Intake and Output 05/11/20 05/12/20 19:00 07:00 Intake Total 705 ml Output Total 400 ml 600 ml Balance 305 ml -600 ml Intake Free Water 250 ml IV Total 55 ml Tube Feeding 400 ml Output Urine Total 400 ml 600 ml # Voids 1 # Bowel Movements 2 1 Objective WDWN NAD reduced breath sounds bilaterally with some rhonchi [id number] without MRG NABS nontender G no CC noted edema nonfocal poor LOC Microbiology Date/Time Source Procedure Growth Status 05/10/20 10:30 Other(Specify in comment) Gram Stain - Final Resulted 05/10/20 10:30 Wound Culture - Preliminary Gram Negative Mateo Resulted Laboratory Tests 05/11/20 16:50: Sodium Level 147H, Potassium Level 6.2*H, Chloride Level 117H, Carbon Dioxide Level 22, Anion Gap 8, Blood Urea Nitrogen 61H, Creatinine 2.1H, Estimat Glomerular Filtration Rate 22.3, Glucose Level 139H, Calcium Level 7.7L, Total Bilirubin 0.2, Aspartate Amino Transf (AST/SGOT) 14L, Alanine Aminotransferase ( ALT/SGPT) 16, Alkaline Phosphatase 45L, Total Protein 4.3L, Albumin 1.3L, Globulin 3.0, Albumin/Globulin Ratio 0.4L 05/11/20 21:07: POC Whole Blood Glucose 125H 05/12/20 05:16: Sodium Level 144, Potassium Level 5.9H, Chloride Level 114H, Carbon Dioxide Level 20L, Anion Gap 10, Blood Urea Nitrogen 63H, Creatinine 1.8H, Estimat Glomerular Filtration Rate 26.6, Glucose Level 219H, Calcium Level 7.8L Current Medications Medications (Trade) Dose Ordered Sig/Jazmine Route PRN Reason Start Time Stop Time Status Last Admin Dose Admin Acetaminophen (Tylenol) 500 mg Q4H PRN GT Mild Pain (Pain Scale 1-3) 05/09/20 22:46 06/08/20 22:45 Amiodarone HCl (Cordarone) 200 mg DAILY GT 05/10/20 09:00 08/03/20 08:59 05/11/20 08:12 Apixaban (Eliquis) 2.5 mg DAILY GT 05/10/20 09:00 08/03/20 08:59 05/11/20 08:12 Cefepime HCl 1 gm/ Dextrose 55 ml @ 110 mls/hr DAILY IVPB 05/11/20 13:00 05/18/20 12:59 05/11/20 13:30 Dextrose (Dextrose 50%) 25 ml Q30M PRN IV Hypoglycemia 05/09/20 23:00 08/02/20 19:59 Dextrose (Dextrose 50%) 50 ml Q30M PRN IV Hypoglycemia 05/09/20 23:00 08/02/20 19:59 Docusate Sodium (Colace) 100 mg BIDPRN PRN GT Constipation 05/09/20 22:49 06/08/20 22:48 Fluconazole (Diflucan) 100 mg DAILY GT 05/10/20 09:00 05/13/20 11:59 05/11/20 08:12 Glimepiride (AmaryL) 2 mg BID@0630,1630 GT 05/10/20 06:30 06/09/20 06:29 05/12/20 05:58 Insulin Aspart (NovoLOG) BEFORE MEALS AND HS SUBQ 05/10/20 06:30 08/02/20 20:59 05/12/20 06:54 Lansoprazole (Prevacid) 30 mg DAILY@0630 GT 05/10/20 06:30 06/06/20 06:29 05/12/20 05:58 Lorazepam (Ativan) 1 mg Q6H PRN ORAL For Anxiety 05/09/20 22:53 05/16/20 22:52 Multivitamins (Multivitamins) 1 tab DAILY GT 05/11/20 09:00 06/04/20 08:59 05/11/20 08:12 Sitagliptin Phosphate (Januvia) 50 mg DAILY@0630 GT 05/10/20 06:30 06/09/20 06:29 05/12/20 05:58 Sodium Chloride 1,000 ml @ 100 mls/hr Q10H IV 05/12/20 00:00 06/11/20 00:00 05/12/20 00:11 Valproic Acid (Depakene) 500 mg Q12HR GT 05/10/20 09:00 06/22/20 21:29 05/11/20 21:05 Assessment/Plan Assessment/Plan IMPRESSION: 1. Probable urosepsis. 2. Acute on chronic encephalopathy. 3. Septic shock. 4. Acute on chronic renal failure. 5. Hyperkalemia. 6. Leukocytosis. 7. Profound hypotension. 8. Profound altered mental status. 9. Dementia. 10. Diabetes. 11. G-tube. 12. peripheral edema 13. 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 await clearance 2. continue medications 3. monitor peripheral edema 4. monitor in and out 5. Renal evaluation, ID evaluation, Cardiology evaluation. 6. IV antibiotics. 7. Close followup and recommendations. 8. Anticoagulation with caution. 9. Digoxin with caution. 10. Sliding scale insulin 11. monitor lytes not ready for dc impression, plan, and exam edited and reviewed in detail care discussed with Eduardo Kern MD May 12, 2020 08:01
[2020-05-12] MEDS ORDERED: Sodium Polystyrene Sulfonate 15gm Powder ORAL SCH (08:15)
[2020-05-12] MEDS: Amiodarone 200mg tab GT SCH (08:46)
[2020-05-12] MEDS: Fluconazole 100mg tab GT SCH (08:47)
[2020-05-12] MEDS: Cefepime HCl 1 GM in D5W 55 ML IVPB SCH (08:47)
[2020-05-12] MEDS: Eliquis 2.5mg tablet GT SCH (08:47)
[2020-05-12] MEDS: Valproic Acid 250mg/5ml Liquid GT SCH ×2 (08:47→20:45)
--- NOTE | 2020-05-12 10:47 | Infectious Diseases Prog Note ---
Assessment/Plan Assessment/Plan antibiotics : fluconazole A 1. fungal UTI 2. cholelithiasis 3. GT site infection with gram negative rods 4. leucocytosis 5. renal failure improving 6. dementia 7. COPD 8. diabetes mellitus P 1. continue cefepime 2. d/c fluconazole 3. will follow up cultures Subjective ROS Limited/Unobtainable: Yes Allergies: Coded Allergies: No Known Allergies (Unverified , 01/30/20) Objective Last 24 Hour Vital Signs Date Time Temp Pulse Resp B/P (MAP) Pulse Ox O2 Delivery O2 Flow Rate FiO2 05/12/20 09:00 Nasal Cannula 2.0 05/12/20 08:00 98.0 83 18 173/60 (97) 99 05/12/20 06:44 96 Nasal Cannula 2.0 28 05/12/20 04:00 97.3 63 26 130/61 (84) 97 05/12/20 00:00 96.4 52 26 140/45 (76) 96 05/11/20 21:00 Nasal Cannula 2.0 05/11/20 20:00 97.9 50 26 133/49 (77) 97 05/11/20 19:59 97 Nasal Cannula 2.0 28 05/11/20 16:00 97.9 59 18 148/51 (83) 97 05/11/20 12:00 97.6 46 18 127/39 (68) 95 Height (Feet): 5 Height (Inches): 2.00 Weight (Pounds): 125 Respiratory/Chest: lungs clear Cardiovascular: normal rate, regular rhythm, no gallop/murmur Abdomen: soft, non tender, other - GT Extremities: other - + edema Microbiology Date/Time Source Procedure Growth Status 05/10/20 10:30 Other(Specify in comment) Gram Stain - Final Resulted 05/10/20 10:30 Wound Culture - Preliminary Gram Negative Mateo Resulted Laboratory Tests Test 05/11/20 16:50 05/11/20 21:07 05/12/20 05:16 Sodium Level 147 MMOL/L (136-145) H 144 MMOL/L (136-145) Potassium Level 6.2 MMOL/L (3.5-5.1) *H 5.9 MMOL/L (3.5-5.1) H Chloride Level 117 MMOL/L (98-107) H 114 MMOL/L (98-107) H Carbon Dioxide Level 22 MMOL/L (21-32) 20 MMOL/L (21-32) L Anion Gap 8 mmol/L (5-15) 10 mmol/L (5-15) Blood Urea Nitrogen 61 mg/dL (7-18) H 63 mg/dL (7-18) H Creatinine 2.1 MG/DL (0.55-1.30) H 1.8 MG/DL (0.55-1.30) H Estimat Glomerular Filtration Rate 22.3 mL/min (>60) 26.6 mL/min (>60) Glucose Level 139 MG/DL (74-106) H 219 MG/DL (74-106) H Calcium Level 7.7 MG/DL (8.5-10.1) L 7.8 MG/DL (8.5-10.1) L Total Bilirubin 0.2 MG/DL (0.2-1.0) Aspartate Amino Transf (AST/SGOT) 14 U/L (15-37) L Alanine Aminotransferase (ALT/SGPT) 16 U/L (12-78) Alkaline Phosphatase 45 U/L (46-116) L Total Protein 4.3 G/DL (6.4-8.2) L Albumin 1.3 G/DL (3.4-5.0) L Globulin 3.0 g/dL Albumin/Globulin Ratio 0.4 (1.0-2.7) L POC Whole Blood Glucose 125 MG/DL (74-106) H Current Medications Medications (Trade) Dose Ordered Sig/Jazmine Route PRN Reason Start Time Stop Time Status Last Admin Dose Admin Acetaminophen (Tylenol) 500 mg Q4H PRN GT Mild Pain (Pain Scale 1-3) 05/09/20 22:46 06/08/20 22:45 Amiodarone HCl (Cordarone) 200 mg DAILY GT 05/10/20 09:00 08/03/20 08:59 05/12/20 08:46 Apixaban (Eliquis) 2.5 mg DAILY GT 05/10/20 09:00 08/03/20 08:59 05/12/20 08:47 Cefepime HCl 1 gm/ Dextrose 55 ml @ 110 mls/hr DAILY IVPB 05/11/20 13:00 05/18/20 12:59 05/12/20 08:47 Dextrose (Dextrose 50%) 25 ml Q30M PRN IV Hypoglycemia 05/09/20 23:00 08/02/20 19:59 Dextrose (Dextrose 50%) 50 ml Q30M PRN IV Hypoglycemia 05/09/20 23:00 08/02/20 19:59 Docusate Sodium (Colace) 100 mg BIDPRN PRN GT Constipation 05/09/20 22:49 06/08/20 22:48 Fluconazole (Diflucan) 100 mg DAILY GT 05/10/20 09:00 05/13/20 11:59 05/12/20 08:47 Glimepiride (AmaryL) 2 mg BID@0630,1630 GT 05/10/20 06:30 06/09/20 06:29 05/12/20 05:58 Insulin Aspart (NovoLOG) BEFORE MEALS AND HS SUBQ 05/10/20 06:30 08/02/20 20:59 05/12/20 06:54 Lansoprazole (Prevacid) 30 mg DAILY@0630 GT 05/10/20 06:30 06/06/20 06:29 05/12/20 05:58 Lorazepam (Ativan) 1 mg Q6H PRN ORAL For Anxiety 05/09/20 22:53 05/16/20 22:52 Multivitamins (Multivitamins) 1 tab DAILY GT 05/11/20 09:00 06/04/20 08:59 05/12/20 08:42 Sitagliptin Phosphate (Januvia) 50 mg DAILY@0630 GT 05/10/20 06:30 06/09/20 06:29 05/12/20 05:58 Sodium Chloride 1,000 ml @ 100 mls/hr Q10H IV 05/12/20 00:00 06/11/20 00:00 05/12/20 00:11 Valproic Acid (Depakene) 500 mg Q12HR GT 05/10/20 09:00 06/22/20 21:29 05/12/20 08:47 Felipe Grant MD May 12, 2020 10:47
--- NOTE | 2020-05-12 10:51 | NUR ---
RESEARCH COORDINATOR NOTE:INSURANCE CALL RECEIVED FROM CHEYENNE LUCIA @ [facility] [phone] FOR PATIENT STATUS UPDATE. PER REA, INPATIENT STAY APPROVED TIL TODAY. DAILY CLINICALS TO CONTINUE TO BE FAXED TO [phone].
--- NOTE | 2020-05-12 11:21 | NUR ---
RD ASSESSMENT & RECOMMENDATIONS SEE CARE ACTIVITY FOR COMPLETE ASSESSMENT DAILY ESTIMATED NEEDS: Needs based on DM, wound, renal/ 49kg 30-35 kcals/kg 6606-4783 total kcals 1.25-1.5 g protein/kg 61-74 g total protein 25-30ml/kcal mL/kg 4492-0544 total fluid mLs NUTRITION DIAGNOSIS: * Increased kcal and pro needs r/t wound care as evidenced by admitted w/ multiple wounds including DTPI wounds @ sacrum and Rt heel and non-blanching erythema @ BL ischium. * Swallowing difficulty R/T dysphagia as evidenced by GT dependent. * Altered nutrition related lab values R/T SARWAT as evidenced by elev creat (3.5-> 2.1 trend down), elev BUN (125 -> 70 trend down), elev K (7.8*-> 3.9-> 5.0), elev phos (6.0), elev BNP (29870). CURRENT TF:Glucerna 1.5 @ 40ml/hr x 24 hrs ENTERAL NUTRITION RECOMMENDATIONS: NEPRO @35ml/hr x24 hrs to provide 840ml, 1512 kcal, 68g pro, 611ml free H2O, 890mg k/day * Rec TF change to NEPRO for current hyperkalemia * Start @15ml/hr, advance as tolerated 10ml/hr q4-6 hrs to goal * HOB over 30 degrees/ water flush per MD ADDITIONAL RECOMMENDATIONS: * PER SNF: Height 4'11" inches and 108 lbs * Maintain accurate calibrated bed scale weights * WC eval add Vit C 250mg QD + IMAN in 4oz via GT BID with tube feeds * Monitor renal fxn and lytes-> rec TF change as above . .
--- NOTE | 2020-05-12 11:52 | NUR ---
NURSE NOTES: Received call from Ghazal from lab, wound culture from gtube site positive for ESBL. Left message with Dr. Grant, awaiting response.
--- NOTE | 2020-05-12 11:58 | NUR ---
NURSE NOTES: Received TORB from Dr. Grant to D/C Cefepime IV and start on Zosyn 3.375gm IV q8hrs. Orders noted and carried out.
--- NOTE | 2020-05-12 12:04 | NUR ---
CASE MANAGEMENT:REVIEW SI;SEVERE SEPSIS. HYPERKALEMIA. ANASARCA. 96.4 46 26 173/60 96% 2L NC K+ 5.9 CL 114 CO2 20 BUN 63 CR 1.8 BG 219 CA 7.8 IS;ZOSYN IV Q8 KAYEXALATE GT ONCE IVF NS @ 100 ML/HR AMIODARONE GT QD DEPAKENE GT Q12 PREVACID GT QD INSULIN NOVOLOG AMARYL GT BID JANUVIA GT QD MED SURG STATUS DCP; FROM [facility]
--- NOTE | 2020-05-12 12:30 | NUR ---
INSURANCE REVIEW AND PROGRESS NOTES FAXED TO [facility] T; [phone] F: [phone]
[2020-05-12] MEDS ORDERED: Piperacillin/Tazobactam 3.375 GM in NS 110 ML IVPB SCH (14:00)
--- NOTE | 2020-05-12 14:03 | Surgery Progress Note ---
Surgery Progress Note Subjective Additional Comments no acute events comfortable labs reviewed exam stable Objective Last 24 Hour Vital Signs Date Time Temp Pulse Resp B/P (MAP) Pulse Ox O2 Delivery O2 Flow Rate FiO2 05/12/20 12:00 96.9 85 19 138/53 (81) 99 05/12/20 09:00 Nasal Cannula 2.0 05/12/20 08:00 98.0 83 18 173/60 (97) 99 05/12/20 06:44 96 Nasal Cannula 2.0 28 05/12/20 04:00 97.3 63 26 130/61 (84) 97 05/12/20 00:00 96.4 52 26 140/45 (76) 96 05/11/20 21:00 Nasal Cannula 2.0 05/11/20 20:00 97.9 50 26 133/49 (77) 97 05/11/20 19:59 97 Nasal Cannula 2.0 28 05/11/20 16:00 97.9 59 18 148/51 (83) 97 I&O Intake and Output 05/11/20 05/12/20 19:00 07:00 Intake Total 705 ml Output Total 400 ml 600 ml Balance 305 ml -600 ml Intake Free Water 250 ml IV Total 55 ml Tube Feeding 400 ml Output Urine Total 400 ml 600 ml # Voids 1 # Bowel Movements 2 1 Dressing: dry Wound: clean Cardiovascular: RSR Respiratory: decreased breath sounds Abdomen: soft, non-tender, present bowel sounds Extremities: no cyanosis Laboratory Tests Test 05/11/20 16:50 05/11/20 21:07 05/12/20 05:16 Sodium Level 147 MMOL/L (136-145) H 144 MMOL/L (136-145) Potassium Level 6.2 MMOL/L (3.5-5.1) *H 5.9 MMOL/L (3.5-5.1) H Chloride Level 117 MMOL/L (98-107) H 114 MMOL/L (98-107) H Carbon Dioxide Level 22 MMOL/L (21-32) 20 MMOL/L (21-32) L Anion Gap 8 mmol/L (5-15) 10 mmol/L (5-15) Blood Urea Nitrogen 61 mg/dL (7-18) H 63 mg/dL (7-18) H Creatinine 2.1 MG/DL (0.55-1.30) H 1.8 MG/DL (0.55-1.30) H Estimat Glomerular Filtration Rate 22.3 mL/min (>60) 26.6 mL/min (>60) Glucose Level 139 MG/DL (74-106) H 219 MG/DL (74-106) H Calcium Level 7.7 MG/DL (8.5-10.1) L 7.8 MG/DL (8.5-10.1) L Total Bilirubin 0.2 MG/DL (0.2-1.0) Aspartate Amino Transf (AST/SGOT) 14 U/L (15-37) L Alanine Aminotransferase (ALT/SGPT) 16 U/L (12-78) Alkaline Phosphatase 45 U/L (46-116) L Total Protein 4.3 G/DL (6.4-8.2) L Albumin 1.3 G/DL (3.4-5.0) L Globulin 3.0 g/dL Albumin/Globulin Ratio 0.4 (1.0-2.7) L POC Whole Blood Glucose 125 MG/DL (74-106) H Plan Problems: (1) Deep tissue injury Assessment & Plan: Pt presented on admission with Multiple Pressure injuries. Sacral DTPI noted (L)6.7cm x (W)6.9cm. Base of wound is purpuric ,partially opened -ruby and indurated. No odor or exudate noted. Non-blanching erythema periwound.DTPI noted to R Ischium(L)4cm x (W)2.2cm.Base of Pressure injury maroon and indurated. Non-Blanching erythema without induration noted to L ischium. Vulva is swollen and erythematous . DTPI noted to R Heel(L)3.3cm x (W)2.9cm. Wound is is blood filled purpuric Blister with surrounding non-blanchable and boggy heel. R Heel is Boggy with Non-Blanchable erythema. Tx.Plan: Apply Moisture Barrier Paste to Sacrum. Cover with Optifoam drsg. Change every 3 days and prn. Apply Moisture Barrier Paste to R ischium. Cover with Optifoam drsg. Change every 3 days and prn. Apply Moisture Barrier Paste to Bilat groin, perineum and L ischium with each perineal care. Apply Cavilon Skin Barrier to R and L trochanteric areas. Cover each site with Optifoam drsg. Change every 7 days and prn. Reposition at least every 2hours or as tolerated. Off-load heels with pillow. APM/MARY ANN Mattress overlay. (2) Dehydration (3) Hypokalemia (4) Renal failure (5) Hyperkalemia (6) UTI (urinary tract infection) (7) Severe sepsis Assessment & Plan: Patient with significant leukocytosis, lactic acidosis, abnormal electrolytes, renal insufficiency, anemia. UA noted. Microbiology reviewed. Imaging reviewed. COVID negative. Patient with multiple deep tissue injuries and severe malnutrition albumin 1 Wounds unlikely the source or etiology of patient's sepsis. No abscess or fluid collections requiring drainage currently identified. Continue IV antibiotics per infectious disease We will continue to monitor and identify assist with care and management Thank you for let me participate patient's care will follow with recommendations nutritional optimization DAILY ESTIMATED NEEDS: Needs based on DM, wound, renal/ 49kg 30-35 kcals/kg 6986-6379 total kcals 1.25-1.5 g protein/kg 61-74 g total protein 25-30ml/kcal mL/kg 8338-8259 total fluid mLs NUTRITION DIAGNOSIS: * Increased kcal and pro needs r/t wound care as evidenced by open sacral wound per photo, eval pending. * Swallowing difficulty R/T dysphagia as evidenced by GT dependent. ENTERAL NUTRITION RECOMMENDATIONS: NEPRO @43ml/hr x 20hrs to provide 860ml, 1548kcal, 70g prot, 625ml free water * As medically able, start NEPRO @23ml/hr for 6 hrs, advance as tolerated 10ml q4-6 hrs * HOB over 30 degrees * Without IVF, water flush of ml q 130ml q4 hrs -------- ADDITIONAL RECOMMENDATIONS: * PER SNF: Height 4'11" inches and 108 lbs * Rec D5 while NPO * F/up w/ WC eval-> add IMAN in 4oz via GT BID with tube feeds * Rec renal formula as above d/t renal failure on adm * Maintain accurate calibrated bed scale weights . Dimitris Diaz May 12, 2020 14:03
--- NOTE | 2020-05-12 14:37 | Nephrology Progress Note ---
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 K 5.9. Order for Kayexalate given Not a dialysis candidate. Subjective Subjective Obtunded Objective Objective Last 24 Hour Vital Signs Date Time Temp Pulse Resp B/P (MAP) Pulse Ox O2 Delivery O2 Flow Rate FiO2 05/12/20 12:00 96.9 85 19 138/53 (81) 99 05/12/20 09:00 Nasal Cannula 2.0 05/12/20 08:00 98.0 83 18 173/60 (97) 99 05/12/20 06:44 96 Nasal Cannula 2.0 28 05/12/20 04:00 97.3 63 26 130/61 (84) 97 05/12/20 00:00 96.4 52 26 140/45 (76) 96 05/11/20 21:00 Nasal Cannula 2.0 05/11/20 20:00 97.9 50 26 133/49 (77) 97 05/11/20 19:59 97 Nasal Cannula 2.0 28 05/11/20 16:00 97.9 59 18 148/51 (83) 97 Intake and Output 05/11/20 05/12/20 19:00 07:00 Intake Total 705 ml 40 ml Output Total 400 ml 600 ml Balance 305 ml -560 ml Intake Free Water 250 ml IV Total 55 ml Tube Feeding 400 ml 40 ml Output Urine Total 400 ml 600 ml # Voids 1 # Bowel Movements 2 1 Laboratory Tests 05/11/20 16:50: Sodium Level 147H, Potassium Level 6.2*H, Chloride Level 117H, Carbon Dioxide Level 22, Anion Gap 8, Blood Urea Nitrogen 61H, Creatinine 2.1H, Estimat Glomerular Filtration Rate 22.3, Glucose Level 139H, Calcium Level 7.7L, Total Bilirubin 0.2, Aspartate Amino Transf (AST/SGOT) 14L, Alanine Aminotransferase ( ALT/SGPT) 16, Alkaline Phosphatase 45L, Total Protein 4.3L, Albumin 1.3L, Globulin 3.0, Albumin/Globulin Ratio 0.4L 05/11/20 21:07: POC Whole Blood Glucose 125H 05/12/20 05:16: Sodium Level 144, Potassium Level 5.9H, Chloride Level 114H, Carbon Dioxide Level 20L, Anion Gap 10, Blood Urea Nitrogen 63H, Creatinine 1.8H, Estimat Glomerular Filtration Rate 26.6, Glucose Level 219H, Calcium Level 7.8L Height (Feet): 5 Height (Inches): 2.00 Weight (Pounds): 137 Objective CV RR Lungs CTA Abd Ascites . SNT. BS = E ++++ edema Jonathan Berry MD May 12, 2020 14:36
[2020-05-12] MEDS ORDERED: Sodium Polystyrene Sulfonate 15gm Powder GT SCH (14:45)
--- NOTE | 2020-05-12 15:48 | NUR ---
NURSE NOTES: Call placed to Dr. Cole to clarify if still wanting to administer additional Kayexalate. Kayexalate 30gm administered in AM. Awaiting response.
--- NOTE | 2020-05-12 16:05 | NUR ---
NURSE NOTES: Left msg with Dr. Benítez re: BP 172/72. Awaiting call back.
[2020-05-12] MEDS: Meropenem 500mg in NS 55ml IVPB SCH (17:00)
--- NOTE | 2020-05-12 17:30 | NUR ---
NURSE NOTES: Received callback from JEANETTE Myers to administer Lasix 40mg IV x1, D/C 1/2 NS at 100ml/hr, will see pt in evening. Orders noted and carried out.
[2020-05-12] MEDS ORDERED: HydrALAZINE 25mg tab ORAL PRN (17:45)
--- NOTE | 2020-05-12 19:19 | NUR ---
NURSE HAND-OFF: Important Events on Shift: Hypertensive episode 172/72, worsening edema, given Lasix 40mg IV x1 as per Dr. Benítez; IVF D/C'd; Dr. Benítez will see patient tonight Patient Status: Stable Diet: GTF Nepro 35ml/hr continuous Pending Orders: None Pending Results/Labs: None Pending MD notification: None Latest Vital Signs: Temperature 97.1 , Pulse 81 , B/P 114 /45 , Respiratory Rate 19 , O2 SAT 98 , Nasal Cannula, O2 Flow Rate 2.0 . Vital Sign Comment: Latest Ayala Fall Score: 50 Fall Risk: High Risk Safety Measures: Call light Within Reach, Bed Alarm Zone 2, Side Rails Side Rails x2, Bed position Low and Locked. Fall Precautions: Yellow Socks Yellow Gown Door Sign Patient Fall Education Report given to Crystal MARR.
--- NOTE | 2020-05-12 19:41 | NUR ---
NURSE NOTES: Received report from TEJINDER Brown. AAO x 0, non verbal, on NC2l. Pt has generalized edema and distended abd. All extremities elevated. IV sites intact and patent. Gtube site dressing clean and running tube feeding. HOB elevated. Christianson cath intact and draining yellow urine. Bed locked, lowest position, alarm on, side rails up, call light within reach. Will continue to monitor.
--- NOTE | 2020-05-12 23:45 | Psych Consult Progress Note ---
Psychiatry Progress Note Psychiatry Progress Note Subjective confused episodes o agitation Medications Current Medications Medications (Trade) Dose Ordered Sig/Jazmine Route PRN Reason Start Time Stop Time Status Last Admin Dose Admin Acetaminophen (Tylenol) 500 mg Q4H PRN GT Mild Pain (Pain Scale 1-3) 05/09/20 22:46 06/08/20 22:45 Amiodarone HCl (Cordarone) 200 mg DAILY GT 05/10/20 09:00 08/03/20 08:59 05/12/20 08:46 Apixaban (Eliquis) 2.5 mg DAILY GT 05/10/20 09:00 08/03/20 08:59 05/12/20 08:47 Dextrose (Dextrose 50%) 25 ml Q30M PRN IV Hypoglycemia 05/09/20 23:00 08/02/20 19:59 Dextrose (Dextrose 50%) 50 ml Q30M PRN IV Hypoglycemia 05/09/20 23:00 08/02/20 19:59 Docusate Sodium (Colace) 100 mg BIDPRN PRN GT Constipation 05/09/20 22:49 06/08/20 22:48 Glimepiride (AmaryL) 2 mg BID@0630,1630 GT 05/10/20 06:30 06/09/20 06:29 05/12/20 16:45 Hydralazine HCl (Apresoline) 25 mg Q6H PRN ORAL SBP above 150 05/12/20 17:45 08/10/20 17:44 Insulin Aspart (NovoLOG) BEFORE MEALS AND HS SUBQ 05/10/20 06:30 08/02/20 20:59 05/12/20 16:47 Lansoprazole (Prevacid) 30 mg DAILY@0630 GT 05/10/20 06:30 06/06/20 06:29 05/12/20 05:58 Lorazepam (Ativan) 1 mg Q6H PRN ORAL For Anxiety 05/09/20 22:53 05/16/20 22:52 Meropenem 500 mg/ Sodium Chloride 55 ml @ 110 mls/hr Q12H IVPB 05/12/20 17:00 05/17/20 16:59 05/12/20 17:00 Multivitamins (Multivitamins) 1 tab DAILY GT 05/11/20 09:00 06/04/20 08:59 05/12/20 08:42 Sitagliptin Phosphate (Januvia) 50 mg DAILY@0630 GT 05/10/20 06:30 06/09/20 06:29 05/12/20 05:58 Valproic Acid (Depakene) 500 mg Q12HR GT 05/10/20 09:00 06/22/20 21:29 05/12/20 20:45 Neurological/Psychiatric: Reports: anxiety, depressed, emotional problems Allergies: Coded Allergies: No Known Allergies (Unverified , 01/30/20) Objective Data Height (Feet): 5 Height (Inches): 2.00 Weight (Pounds): 137 General Appearance: WD/WN, no apparent distress, alert, lethargic, confused, agitated Appearance: bizarre Behavior Mannerisms: poor eye contact Mental Status Exam - Affect: flat Additional Comments: The patient is awake. She is confused and disoriented. Mood is agitated. Affect is flat. Thought process, disorganized. Thought content, no suicidal or homicidal ideation. Cognition is impaired. Insight and judgment is impaired. Assessment/Plan [place] I: ASSESSMENT: AXIS I: Dementia with behavior disturbance. AXIS II: Deferred. AXIS III: As above. AXIS IV: Low. AXIS V: 20. PLAN: 1. Haldol IM p.r.n. 2. Ativan p.r.n. 3. Provide the patient with reality orientation and supportive therapy. Status: stable Status Narrative ASSESSMENT: AXIS I: Dementia with behavior disturbance. AXIS II: Deferred. AXIS III: As above. AXIS IV: Low. AXIS V: 20. PLAN: 1. Haldol IM p.r.n. 2. Ativan p.r.n. 3. Provide the patient with reality orientation and supportive therapy. Assessment/Plan: ASSESSMENT: AXIS I: Dementia with behavior disturbance. AXIS II: Deferred. AXIS III: As above. AXIS IV: Low. AXIS V: 20. PLAN: 1. Haldol IM p.r.n. 2. Ativan p.r.n. 3. Provide the patient with reality orientation and supportive therapy. Shena Campos MD May 12, 2020 23:45
[2020-05-13] VITALS: BP 131/54
--- NOTE | 2020-05-13 00:49 | Cardiology Progress Note ---
Subjective DATE OF SERVICE: May 12, 2020 Less congested, but increasingly swollen. On empiric IV abx Hyperkalemia and elevated sodium levels improving . BP parameters elevated again. Objective Last 24 Hour Vital Signs Date Time Temp Pulse Resp B/P (MAP) Pulse Ox O2 Delivery O2 Flow Rate FiO2 05/13/20 00:00 97.5 77 20 131/54 (79) 100 05/12/20 21:00 Nasal Cannula 2.0 05/12/20 20:00 97.7 81 18 128/56 (80) 100 05/12/20 19:03 98 Nasal Cannula 2.0 28 05/12/20 18:43 97.1 81 19 114/45 (68) 98 05/12/20 16:00 97.1 87 19 172/72 (105) 98 05/12/20 12:00 96.9 85 19 138/53 (81) 99 05/12/20 09:00 Nasal Cannula 2.0 05/12/20 08:00 98.0 83 18 173/60 (97) 99 05/12/20 06:44 96 Nasal Cannula 2.0 28 05/12/20 04:00 97.3 63 26 130/61 (84) 97 RHYTHM: ST, Afib LUNGS: accessory muscle use, bilateral rhonchi CARDIAC: regular rhythm, normal S1 and S2, arrhythmia ABDOMEN: normal bowel sounds, non tender, no organomegaly, G-Tube intact EXTREMITIES: moderate edema Laboratory Tests Test 05/12/20 05:16 05/12/20 20:41 Sodium Level 144 MMOL/L (136-145) Potassium Level 5.9 MMOL/L (3.5-5.1) H Chloride Level 114 MMOL/L (98-107) H Carbon Dioxide Level 20 MMOL/L (21-32) L Anion Gap 10 mmol/L (5-15) Blood Urea Nitrogen 63 mg/dL (7-18) H Creatinine 1.8 MG/DL (0.55-1.30) H Estimat Glomerular Filtration Rate 26.6 mL/min (>60) Glucose Level 219 MG/DL (74-106) H Calcium Level 7.8 MG/DL (8.5-10.1) L POC Whole Blood Glucose 121 MG/DL (74-106) H Microbiology Date/Time Source Procedure Growth Status 05/10/20 10:30 Other(Specify in comment) Gram Stain - Final Resulted 05/10/20 10:30 Wound Culture - Preliminary Escherichia Coli - Esbl Gram Positive Cocci Diphtheroids Resulted Assessment/Plan Assessment/Plan Sepsis with shock Acute on chronic diastolic CHF UTI Metabolic and toxic encephalopathies HC associated aspiration PNA PAFib now with slow heart rates Acute renal failure deteriorating - with worsening anasarca hyperkalemia hypernatremia/dehydration Lactic acidosis resolved Severe protein-calorie malnutrition Hypertension/HHD with labile BP DC IV fluid hydration Diuresis trial Full anticoagulation Abx Nutrition by Gtube Follow up lytes; correct as needed. Continue maintenance dose amiodarone; now off digoxin. Augusto Benítez MD May 13, 2020 00:49
[2020-05-13 04:00] VITALS: BP 131/63
[2020-05-13] MEDS: Meropenem 500mg in NS 55ml IVPB SCH ×2 (04:25→17:11)
[2020-05-13] MEDS: sitaGLIPtin 50mg tab GT SCH (05:29)
[2020-05-13] MEDS: Glimepiride 1mg tab GT SCH ×2 (05:31→17:10)
[2020-05-13] MEDS: NovoLOG Insulin Flexpen SUBQ SCH ×4 (05:33→21:41)
--- NOTE | 2020-05-13 06:12 | NUR ---
NURSE HAND-OFF: Important Events on Shift:diarrheax2, edema Patient Status: stable Diet: Nepro @ 35cc/h, cont. Pending Orders: N Pending Results/Labs:N Pending MD notification:N Latest Vital Signs: Temperature 97.5 , Pulse 110 , B/P 131 /63 , Respiratory Rate 26 , O2 SAT 99 , Nasal Cannula, O2 Flow Rate 2.0 . Vital Sign Comment: N Latest Ayala Fall Score: 50 Fall Risk: High Risk Safety Measures: Call light Within Reach, Bed Alarm Zone 2, Side Rails Side Rails x2, Bed position Low and Locked. Fall Precautions: Yellow Socks Yellow Gown Door Sign Patient Fall Education Addendum: 05/13/20 at 0743 by ANGIE DUNN RN RN HAND-OFF: Report given to TEJINDER Darnell
--- NOTE | 2020-05-13 07:50 | NUR ---
NURSE NOTES: Received report from TEJINDER Rojas. Patient received awake in bed, alert and oriented x 1, no SOB, non verbal, bed in lowest position with breaks engaged and alarm on, denies any discomfort upon assessment, GT in place, on room air, IV line present and intact, will continue to monitor and proceed with plan of care, call light within reach.
[2020-05-13 08:00] VITALS: BP 120/55
[2020-05-13] MEDS: Eliquis 2.5mg tablet GT SCH (08:42)
[2020-05-13] MEDS: Valproic Acid 250mg/5ml Liquid GT SCH ×2 (08:42→21:41)
[2020-05-13] MEDS: Amiodarone 200mg tab GT SCH (08:42)
[2020-05-13 08:58] LABS: ANION GAP 11 mmol/L (5-15); BLOOD UREA NITROGEN 59 mg/dL (7-18); CALCIUM 7.8 MG/DL (8.5-10.1); CARBON DIOXIDE 25 MMOL/L (21-32); CHLORIDE 113 MMOL/L (98-107); CREATININE 1.8 MG/DL (0.55-1.30); POTASSIUM 3.4 MMOL/L (3.5-5.1); SODIUM 149 MMOL/L (136-145)
--- NOTE | 2020-05-13 09:20 | Pulmonology Progress Note ---
Subjective ROS Limited/Unobtainable: Yes Constitutional: Denies: fever Allergies: Coded Allergies: No Known Allergies (Unverified , 01/30/20) Subjective care noted and reviewed still ill wbc high k elevated with abnormal electrolytes- renal following Objective Last 24 Hour Vital Signs Date Time Temp Pulse Resp B/P (MAP) Pulse Ox O2 Delivery O2 Flow Rate FiO2 05/13/20 08:00 96.8 88 22 120/55 (76) 99 05/13/20 04:00 97.5 110 26 131/63 (85) 99 05/13/20 00:00 97.5 77 20 131/54 (79) 100 05/12/20 21:00 Nasal Cannula 2.0 05/12/20 20:00 97.7 81 18 128/56 (80) 100 05/12/20 19:03 98 Nasal Cannula 2.0 28 05/12/20 18:43 97.1 81 19 114/45 (68) 98 05/12/20 16:00 97.1 87 19 172/72 (105) 98 05/12/20 12:00 96.9 85 19 138/53 (81) 99 Intake and Output 05/12/20 05/13/20 19:00 07:00 Intake Total 685 ml 655 ml Output Total 1000 ml 1900 ml Balance -315 ml -1245 ml Intake Free Water 300 ml 200 ml Tube Feeding 385 ml 455 ml Output Urine Total 1000 ml 1900 ml # Bowel Movements 2 Objective WDWN NAD reduced breath sounds bilaterally with some rhonchi [id number] without MRG NABS nontender G no CC noted edema nonfocal poor LOC Microbiology Date/Time Source Procedure Growth Status 05/10/20 10:30 Other(Specify in comment) Gram Stain - Final Resulted 05/10/20 10:30 Wound Culture - Preliminary Escherichia Coli - Esbl Gram Positive Cocci Diphtheroids Resulted Laboratory Tests 05/12/20 11:26: POC Whole Blood Glucose 206H 05/12/20 16:11: POC Whole Blood Glucose 154H 05/12/20 20:41: POC Whole Blood Glucose 121H 05/13/20 05:28: POC Whole Blood Glucose 200H 05/13/20 06:55: Sodium Level 149H, Potassium Level 3.4L, Chloride Level 113H, Carbon Dioxide Level 25, Anion Gap 11, Blood Urea Nitrogen 59H, Creatinine 1.8H, Estimat Glomerular Filtration Rate 26.6, Glucose Level 184H, Calcium Level 7.8L Current Medications Medications (Trade) Dose Ordered Sig/Jazmine Route PRN Reason Start Time Stop Time Status Last Admin Dose Admin Acetaminophen (Tylenol) 500 mg Q4H PRN GT Mild Pain (Pain Scale 1-3) 05/09/20 22:46 06/08/20 22:45 Amiodarone HCl (Cordarone) 200 mg DAILY GT 05/10/20 09:00 08/03/20 08:59 05/13/20 08:42 Apixaban (Eliquis) 2.5 mg DAILY GT 05/10/20 09:00 08/03/20 08:59 05/13/20 08:42 Dextrose (Dextrose 50%) 25 ml Q30M PRN IV Hypoglycemia 05/09/20 23:00 08/02/20 19:59 Dextrose (Dextrose 50%) 50 ml Q30M PRN IV Hypoglycemia 05/09/20 23:00 08/02/20 19:59 Docusate Sodium (Colace) 100 mg BIDPRN PRN GT Constipation 05/09/20 22:49 06/08/20 22:48 Glimepiride (AmaryL) 2 mg BID@0630,1630 GT 05/10/20 06:30 06/09/20 06:29 05/13/20 05:31 Hydralazine HCl (Apresoline) 25 mg Q6H PRN ORAL SBP above 150 05/12/20 17:45 08/10/20 17:44 Insulin Aspart (NovoLOG) BEFORE MEALS AND HS SUBQ 05/10/20 06:30 08/02/20 20:59 05/13/20 05:33 Lansoprazole (Prevacid) 30 mg DAILY@0630 GT 05/10/20 06:30 06/06/20 06:29 05/13/20 05:31 Lorazepam (Ativan) 1 mg Q6H PRN ORAL For Anxiety 05/09/20 22:53 05/16/20 22:52 Meropenem 500 mg/ Sodium Chloride 55 ml @ 110 mls/hr Q12H IVPB 05/12/20 17:00 05/17/20 16:59 05/13/20 04:25 Multivitamins (Multivitamins) 1 tab DAILY GT 05/11/20 09:00 9/6/20 08:59 05/13/20 08:42 Sitagliptin Phosphate (Januvia) 50 mg DAILY@0630 GT 05/10/20 06:30 06/09/20 06:29 05/13/20 05:29 Valproic Acid (Depakene) 500 mg Q12HR GT 05/10/20 09:00 06/22/20 21:29 05/13/20 08:42 Assessment/Plan Assessment/Plan IMPRESSION: 1. Probable urosepsis. 2. Acute on chronic encephalopathy. 3. Septic shock. 4. Acute on chronic renal failure. 5. Hyperkalemia. 6. Leukocytosis. 7. Profound hypotension. 8. Profound altered mental status. 9. Dementia. 10. Diabetes. 11. G-tube. 12. peripheral edema 13. 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 not stable for dc 2. continue medications as is 3. monitor peripheral edema and optimizie 4. monitor in and out 5. Renal evaluation, ID evaluation, Cardiology evaluation. 6. IV antibiotics. 7. Close followup and recommendations. 8. Anticoagulation 9. Digoxin with caution. monitor levels 10. Sliding scale insulin 11. monitor lytes not ready for dc impression, plan, and exam edited and reviewed in detail care discussed with Eduardo Kern MD May 13, 2020 09:20
--- NOTE | 2020-05-13 11:19 | Infectious Diseases Prog Note ---
Assessment/Plan Assessment/Plan antibiotics : meropenem 05.12.20 - A 1. GT site infection with e.coli, staph epidermidis 4. leucocytosis 5. renal failure improving 6. dementia 7. COPD 8. diabetes mellitus P 1. meropenem started 2. start iv vancomycin 3. will follow up cultures Subjective ROS Limited/Unobtainable: Yes Allergies: Coded Allergies: No Known Allergies (Unverified , 01/30/20) Objective Last 24 Hour Vital Signs Date Time Temp Pulse Resp B/P (MAP) Pulse Ox O2 Delivery O2 Flow Rate FiO2 05/13/20 09:00 Nasal Cannula 2.0 05/13/20 08:00 96.8 88 22 120/55 (76) 99 05/13/20 04:00 97.5 110 26 131/63 (85) 99 05/13/20 00:00 97.5 77 20 131/54 (79) 100 05/12/20 21:00 Nasal Cannula 2.0 05/12/20 20:00 97.7 81 18 128/56 (80) 100 05/12/20 19:03 98 Nasal Cannula 2.0 28 05/12/20 18:43 97.1 81 19 114/45 (68) 98 05/12/20 16:00 97.1 87 19 172/72 (105) 98 05/12/20 12:00 96.9 85 19 138/53 (81) 99 Height (Feet): 5 Height (Inches): 2.00 Weight (Pounds): 135 Respiratory/Chest: lungs clear Cardiovascular: normal rate, regular rhythm, no gallop/murmur Abdomen: soft, non tender, other - GT Extremities: no edema Laboratory Tests Test 05/12/20 11:26 05/12/20 16:11 05/12/20 20:41 05/13/20 05:28 POC Whole Blood Glucose 206 MG/DL (74-106) H 154 MG/DL (74-106) H 121 MG/DL (74-106) H 200 MG/DL (74-106) H Test 05/13/20 06:55 Sodium Level 149 MMOL/L (136-145) H Potassium Level 3.4 MMOL/L (3.5-5.1) L Chloride Level 113 MMOL/L (98-107) H Carbon Dioxide Level 25 MMOL/L (21-32) Anion Gap 11 mmol/L (5-15) Blood Urea Nitrogen 59 mg/dL (7-18) H Creatinine 1.8 MG/DL (0.55-1.30) H Estimat Glomerular Filtration Rate 26.6 mL/min (>60) Glucose Level 184 MG/DL (74-106) H Calcium Level 7.8 MG/DL (8.5-10.1) L Current Medications Medications (Trade) Dose Ordered Sig/Jazmine Route PRN Reason Start Time Stop Time Status Last Admin Dose Admin Acetaminophen (Tylenol) 500 mg Q4H PRN GT Mild Pain (Pain Scale 1-3) 05/09/20 22:46 06/08/20 22:45 Amiodarone HCl (Cordarone) 200 mg DAILY GT 05/10/20 09:00 08/03/20 08:59 05/13/20 08:42 Apixaban (Eliquis) 2.5 mg DAILY GT 05/10/20 09:00 08/03/20 08:59 05/13/20 08:42 Dextrose (Dextrose 50%) 25 ml Q30M PRN IV Hypoglycemia 05/09/20 23:00 08/02/20 19:59 Dextrose (Dextrose 50%) 50 ml Q30M PRN IV Hypoglycemia 05/09/20 23:00 08/02/20 19:59 Docusate Sodium (Colace) 100 mg BIDPRN PRN GT Constipation 05/09/20 22:49 06/08/20 22:48 Glimepiride (AmaryL) 2 mg BID@0630,1630 GT 05/10/20 06:30 06/09/20 06:29 05/13/20 05:31 Hydralazine HCl (Apresoline) 25 mg Q6H PRN ORAL SBP above 150 05/12/20 17:45 08/10/20 17:44 Insulin Aspart (NovoLOG) BEFORE MEALS AND HS SUBQ 05/10/20 06:30 08/02/20 20:59 05/13/20 05:33 Lansoprazole (Prevacid) 30 mg DAILY@0630 GT 05/10/20 06:30 06/06/20 06:29 05/13/20 05:31 Lorazepam (Ativan) 1 mg Q6H PRN ORAL For Anxiety 05/09/20 22:53 05/16/20 22:52 Meropenem 500 mg/ Sodium Chloride 55 ml @ 110 mls/hr Q12H IVPB 05/12/20 17:00 05/17/20 16:59 05/13/20 04:25 Multivitamins (Multivitamins) 1 tab DAILY GT 05/11/20 09:00 06/04/20 08:59 05/13/20 08:42 Sitagliptin Phosphate (Januvia) 50 mg DAILY@0630 GT 05/10/20 06:30 06/09/20 06:29 05/13/20 05:29 Valproic Acid (Depakene) 500 mg Q12HR GT 05/10/20 09:00 06/22/20 21:29 05/13/20 08:42 Felipe Grant MD May 13, 2020 11:19
[2020-05-13 12:00] VITALS: BP 114/55
[2020-05-13] MEDS ORDERED: Vancomycin 1.25gm/NS Premix IVPB ONE (13:00)
[2020-05-13 16:00] VITALS: BP 104/61
--- NOTE | 2020-05-13 18:33 | Surgery Progress Note ---
Surgery Progress Note Subjective Additional Comments no acute events Objective Last 24 Hour Vital Signs Date Time Temp Pulse Resp B/P (MAP) Pulse Ox O2 Delivery O2 Flow Rate FiO2 05/13/20 16:00 96.8 110 22 104/61 (75) 99 05/13/20 12:00 97.7 81 19 114/55 (74) 98 05/13/20 09:00 Nasal Cannula 2.0 05/13/20 08:00 96.8 88 22 120/55 (76) 99 05/13/20 04:00 97.5 110 26 131/63 (85) 99 05/13/20 00:00 97.5 77 20 131/54 (79) 100 05/12/20 21:00 Nasal Cannula 2.0 05/12/20 20:00 97.7 81 18 128/56 (80) 100 05/12/20 19:03 98 Nasal Cannula 2.0 28 05/12/20 18:43 97.1 81 19 114/45 (68) 98 I&O Intake and Output 05/12/20 05/13/20 19:00 07:00 Intake Total 685 ml 655 ml Output Total 1000 ml 1900 ml Balance -315 ml -1245 ml Intake Free Water 300 ml 200 ml Tube Feeding 385 ml 455 ml Output Urine Total 1000 ml 1900 ml # Bowel Movements 2 Dressing: saturated Drains: none Respiratory: decreased breath sounds Abdomen: non-tender Extremities: no edema, no tenderness, no cyanosis Laboratory Tests Test 05/12/20 20:41 05/13/20 05:28 05/13/20 06:55 05/13/20 11:35 POC Whole Blood Glucose 121 MG/DL (74-106) H 200 MG/DL (74-106) H 189 MG/DL (74-106) H Sodium Level 149 MMOL/L (136-145) H Potassium Level 3.4 MMOL/L (3.5-5.1) L Chloride Level 113 MMOL/L (98-107) H Carbon Dioxide Level 25 MMOL/L (21-32) Anion Gap 11 mmol/L (5-15) Blood Urea Nitrogen 59 mg/dL (7-18) H Creatinine 1.8 MG/DL (0.55-1.30) H Estimat Glomerular Filtration Rate 26.6 mL/min (>60) Glucose Level 184 MG/DL (74-106) H Calcium Level 7.8 MG/DL (8.5-10.1) L Test 05/13/20 16:30 POC Whole Blood Glucose 165 MG/DL (74-106) H Plan Problems: (1) Deep tissue injury Assessment & Plan: Pt presented on admission with Multiple Pressure injuries. Sacral DTPI noted (L)6.7cm x (W)6.9cm. Base of wound is purpuric ,partially opened -ruby and indurated. No odor or exudate noted. Non-blanching erythema periwound.DTPI noted to R Ischium(L)4cm x (W)2.2cm.Base of Pressure injury maroon and indurated. Non-Blanching erythema without induration noted to L ischium. Vulva is swollen and erythematous . DTPI noted to R Heel(L)3.3cm x (W)2.9cm. Wound is is blood filled purpuric Blister with surrounding non-blanchable and boggy heel. R Heel is Boggy with Non-Blanchable erythema. Tx.Plan: Apply Moisture Barrier Paste to Sacrum. Cover with Optifoam drsg. Change every 3 days and prn. Apply Moisture Barrier Paste to R ischium. Cover with Optifoam drsg. Change every 3 days and prn. Apply Moisture Barrier Paste to Bilat groin, perineum and L ischium with each perineal care. Apply Cavilon Skin Barrier to R and L trochanteric areas. Cover each site with Optifoam drsg. Change every 7 days and prn. Reposition at least every 2hours or as tolerated. Off-load heels with pillow. APM/MARY ANN Mattress overlay. (2) Dehydration (3) Hypokalemia (4) Renal failure (5) Hyperkalemia (6) UTI (urinary tract infection) (7) Severe sepsis Assessment & Plan: Patient with significant leukocytosis, lactic acidosis, abnormal electrolytes, renal insufficiency, anemia. UA noted. Microbiology reviewed. Imaging reviewed. COVID negative. Patient with multiple deep tissue injuries and severe malnutrition albumin 1 Wounds unlikely the source or etiology of patient's sepsis. No abscess or fluid collections requiring drainage currently identified. Continue IV antibiotics per infectious disease We will continue to monitor and identify assist with care and management Thank you for let me participate patient's care will follow with recommendations nutritional optimization DAILY ESTIMATED NEEDS: Needs based on DM, wound, renal/ 49kg 30-35 kcals/kg [id number] total kcals 1.25-1.5 g protein/kg 61-74 g total protein 25-30ml/kcal mL/kg [id number] total fluid mLs NUTRITION DIAGNOSIS: * Increased kcal and pro needs r/t wound care as evidenced by open sacral wound per photo, eval pending. * Swallowing difficulty R/T dysphagia as evidenced by GT dependent. ENTERAL NUTRITION RECOMMENDATIONS: NEPRO @43ml/hr x 20hrs to provide 860ml, 1548kcal, 70g prot, 625ml free water * As medically able, start NEPRO @23ml/hr for 6 hrs, advance as tolerated 10ml q4-6 hrs * HOB over 30 degrees * Without IVF, water flush of ml q 130ml q4 hrs -------- ADDITIONAL RECOMMENDATIONS: * PER SNF: Height 4'11" inches and 108 lbs * Rec D5 while NPO * F/up w/ WC eval-> add IMAN in 4oz via GT BID with tube feeds * Rec renal formula as above d/t renal failure on adm * Maintain accurate calibrated bed scale weights . Dimitris Diaz May 13, 2020 18:32
--- NOTE | 2020-05-13 19:37 | NUR ---
NURSE HAND-OFF: Important Events on Shift:[turning and repositioning, continuous GT feed, wound dressing] Patient Status: [stable] Diet: [GT, Nepro at 35 cc/hr] Pending Orders: [none] Pending Results/Labs:[none] Pending MD notification:[none] Latest Vital Signs: Temperature 96.8 , Pulse 110 , B/P 104 /61 , Respiratory Rate 22 , O2 SAT 99 , Nasal Cannula, O2 Flow Rate 2.0 . Vital Sign Comment: [] Latest Ayala Fall Score: 50 Fall Risk: High Risk Safety Measures: Call light Within Reach, Bed Alarm Zone 2, Side Rails Side Rails x2, Bed position Low and Locked. Fall Precautions: Yellow Socks Yellow Gown Door Sign Patient Fall Education Report given to [TEJINDER Pablo].
--- NOTE | 2020-05-13 19:45 | NUR ---
NURSE NOTES: Patient resting in bed, nonverbal. On 2L of oxygen via nasal cannula with no SOB or distress. Bed locked and in lowest position with bed alarm on. G-tube in place and running as ordered. IV intact and patent. Will continue plan of care.
[2020-05-13 20:00] VITALS: BP 142/71
--- NOTE | 2020-05-13 21:15 | Nephrology Progress Note ---
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 K 3.4. Order for Kayexalate given Not a dialysis candidate. Subjective Subjective Obtunded Objective Objective Last 24 Hour Vital Signs Date Time Temp Pulse Resp B/P (MAP) Pulse Ox O2 Delivery O2 Flow Rate FiO2 05/13/20 16:00 96.8 110 22 104/61 (75) 99 05/13/20 12:00 97.7 81 19 114/55 (74) 98 05/13/20 09:00 Nasal Cannula 2.0 05/13/20 08:00 96.8 88 22 120/55 (76) 99 05/13/20 04:00 97.5 110 26 131/63 (85) 99 05/13/20 00:00 97.5 77 20 131/54 (79) 100 Intake and Output 05/12/20 05/13/20 19:00 07:00 Intake Total 685 ml 655 ml Output Total 1000 ml 1900 ml Balance -315 ml -1245 ml Intake Free Water 300 ml 200 ml Tube Feeding 385 ml 455 ml Output Urine Total 1000 ml 1900 ml # Bowel Movements 2 Laboratory Tests 05/13/20 05:28: POC Whole Blood Glucose 200H 05/13/20 06:55: Sodium Level 149H, Potassium Level 3.4L, Chloride Level 113H, Carbon Dioxide Level 25, Anion Gap 11, Blood Urea Nitrogen 59H, Creatinine 1.8H, Estimat Glomerular Filtration Rate 26.6, Glucose Level 184H, Calcium Level 7.8L 05/13/20 11:35: POC Whole Blood Glucose 189H 05/13/20 16:30: POC Whole Blood Glucose 165H Height (Feet): 5 Height (Inches): 2.00 Weight (Pounds): 135 Objective CV RR Lungs CTA Abd Ascites . SNT. BS = E ++++ edema Jonathan Berry MD May 13, 2020 21:15
[2020-05-14] VITALS: BP 145/73
--- NOTE | 2020-05-14 00:07 | Psych Consult Progress Note ---
Psychiatry Progress Note Psychiatry Progress Note Subjective confused episodes o agitation Medications Current Medications Medications (Trade) Dose Ordered Sig/Jazmine Route PRN Reason Start Time Stop Time Status Last Admin Dose Admin Acetaminophen (Tylenol) 500 mg Q4H PRN GT Mild Pain (Pain Scale 1-3) 05/09/20 22:46 06/08/20 22:45 Amiodarone HCl (Cordarone) 200 mg DAILY GT 05/10/20 09:00 08/03/20 08:59 05/13/20 08:42 Apixaban (Eliquis) 2.5 mg DAILY GT 05/10/20 09:00 08/03/20 08:59 05/13/20 08:42 Dextrose (Dextrose 50%) 25 ml Q30M PRN IV Hypoglycemia 05/09/20 23:00 08/02/20 19:59 Dextrose (Dextrose 50%) 50 ml Q30M PRN IV Hypoglycemia 05/09/20 23:00 08/02/20 19:59 Docusate Sodium (Colace) 100 mg BIDPRN PRN GT Constipation 05/09/20 22:49 06/08/20 22:48 Glimepiride (AmaryL) 2 mg BID@0630,1630 GT 05/10/20 06:30 06/09/20 06:29 05/13/20 17:10 Hydralazine HCl (Apresoline) 25 mg Q6H PRN ORAL SBP above 150 05/12/20 17:45 08/10/20 17:44 Insulin Aspart (NovoLOG) BEFORE MEALS AND HS SUBQ 05/10/20 06:30 08/02/20 20:59 05/13/20 21:41 Lansoprazole (Prevacid) 30 mg DAILY@0630 GT 05/10/20 06:30 06/06/20 06:29 05/13/20 05:31 Lorazepam (Ativan) 1 mg Q6H PRN ORAL For Anxiety 05/09/20 22:53 05/16/20 22:52 Meropenem 500 mg/ Sodium Chloride 55 ml @ 110 mls/hr Q12H IVPB 05/12/20 17:00 05/17/20 16:59 05/13/20 17:11 Multivitamins (Multivitamins) 1 tab DAILY GT 05/11/20 09:00 06/04/20 08:59 05/13/20 08:42 Sitagliptin Phosphate (Januvia) 25 mg ACBREAKFAST GT 05/14/20 06:30 06/13/20 06:29 Valproic Acid (Depakene) 500 mg Q12HR GT 05/10/20 09:00 06/22/20 21:29 05/13/20 21:41 Vancomycin HCl (Vanco pharmacy to dose) 1 ea DAILY PRN MISC Per rx protocol 05/13/20 11:30 06/12/20 11:29 Vancomycin HCl 750 mg/Sodium Chloride 275 ml @ 183.333 mls/hr Q48H IVPB 05/15/20 13:00 05/20/20 12:59 Neurological/Psychiatric: Reports: anxiety, depressed, emotional problems Allergies: Coded Allergies: No Known Allergies (Unverified , 01/30/20) Objective Data Height (Feet): 5 Height (Inches): 2.00 Weight (Pounds): 135 General Appearance: WD/WN, no apparent distress, alert, lethargic, confused, agitated Additional Comments: The patient is awake. She is confused and disoriented. Mood is agitated. Affect is flat. Thought process, disorganized. Thought content, no suicidal or homicidal ideation. Cognition is impaired. Insight and judgment is impaired. Assessment/Plan [place] I: ASSESSMENT: AXIS I: Dementia with behavior disturbance. AXIS II: Deferred. AXIS III: As above. AXIS IV: Low. AXIS V: 20. PLAN: 1. Haldol IM p.r.n. 2. Ativan p.r.n. 3. Provide the patient with reality orientation and supportive therapy. Status: stable Status Narrative ASSESSMENT: AXIS I: Dementia with behavior disturbance. AXIS II: Deferred. AXIS III: As above. AXIS IV: Low. AXIS V: 20. PLAN: 1. Haldol IM p.r.n. 2. Ativan p.r.n. 3. Provide the patient with reality orientation and supportive therapy. Assessment/Plan: ASSESSMENT: AXIS I: Dementia with behavior disturbance. AXIS II: Deferred. AXIS III: As above. AXIS IV: Low. AXIS V: 20. PLAN: 1. Haldol IM p.r.n. 2. Ativan p.r.n. 3. Provide the patient with reality orientation and supportive therapy. Shena Campos MD May 14, 2020 00:07
--- NOTE | 2020-05-14 00:31 | Cardiology Progress Note ---
Subjective DATE OF SERVICE: May 13, 2020 Less congested, but increasingly swollen. Negative fluid balance with diuresis, but at the expense of elevated renal fxn and sodium. On empiric IV abx Hyperkalemia and elevated sodium levels improving . BP parameters improving. Objective Last 24 Hour Vital Signs Date Time Temp Pulse Resp B/P (MAP) Pulse Ox O2 Delivery O2 Flow Rate FiO2 05/13/20 21:00 Nasal Cannula 2.0 05/13/20 20:00 97.9 86 20 142/71 (94) 98 05/13/20 16:00 96.8 110 22 104/61 (75) 99 05/13/20 12:00 97.7 81 19 114/55 (74) 98 05/13/20 09:00 Nasal Cannula 2.0 05/13/20 08:00 96.8 88 22 120/55 (76) 99 05/13/20 04:00 97.5 110 26 131/63 (85) 99 RHYTHM: ST, Afib LUNGS: accessory muscle use, bilateral rhonchi CARDIAC: regular rhythm, normal S1 and S2, arrhythmia ABDOMEN: normal bowel sounds, non tender, no organomegaly, G-Tube intact EXTREMITIES: moderate edema Laboratory Tests Test 05/13/20 05:28 05/13/20 06:55 05/13/20 11:35 05/13/20 16:30 POC Whole Blood Glucose 200 MG/DL (74-106) H 189 MG/DL (74-106) H 165 MG/DL (74-106) H Sodium Level 149 MMOL/L (136-145) H Potassium Level 3.4 MMOL/L (3.5-5.1) L Chloride Level 113 MMOL/L (98-107) H Carbon Dioxide Level 25 MMOL/L (21-32) Anion Gap 11 mmol/L (5-15) Blood Urea Nitrogen 59 mg/dL (7-18) H Creatinine 1.8 MG/DL (0.55-1.30) H Estimat Glomerular Filtration Rate 26.6 mL/min (>60) Glucose Level 184 MG/DL (74-106) H Calcium Level 7.8 MG/DL (8.5-10.1) L Assessment/Plan Assessment/Plan Sepsis with shock Acute on chronic diastolic CHF UTI Metabolic and toxic encephalopathies HC associated aspiration PNA PAFib now with slow heart rates Acute renal failure deteriorating - with worsening anasarca hyperkalemia hypernatremia/dehydration Lactic acidosis resolved Severe protein-calorie malnutrition Hypertension/HHD with labile BP Additional free water by gtube Diuresis trial on-going Full anticoagulation Abx Nutrition by Gtube Follow up lytes; correct as needed. Continue maintenance dose amiodarone; now off digoxin. Augusto Benítez MD May 14, 2020 00:31
[2020-05-14 04:00] VITALS: BP 168/70
[2020-05-14] MEDS: Meropenem 500mg in NS 55ml IVPB SCH ×2 (05:21→17:12)
[2020-05-14] MEDS: sitaGLIPtin 25mg tab GT SCH (06:15)
[2020-05-14] MEDS: Glimepiride 1mg tab GT SCH ×2 (06:15→17:12)
[2020-05-14] MEDS: NovoLOG Insulin Flexpen SUBQ SCH ×4 (06:18→20:25)
[2020-05-14] MEDS ORDERED: sitaGLIPtin 25mg tab ORAL SCH (06:30)
--- NOTE | 2020-05-14 07:33 | NUR ---
NURSE NOTES: Received report from TEJINDER Pablo. Patient received in bed, non verbal and not arousable to verbal stimuli, no SOB, bed in lowest position with breaks engaged and alarm on, denies any discomfort at this time, FC in place, GT intact and in place running and prescribed, IV line present and intact, will continue to monitor and proceed with plan of care, call light within reach
--- NOTE | 2020-05-14 07:40 | NUR ---
HAND-OFF: Report given to TEJINDER Darnell.
[2020-05-14 08:00] VITALS: BP 150/61
[2020-05-14 08:07] LABS: HEMATOCRIT 32.7 % (37.0-47.0); MEAN CORPUSCULAR VOLUME 87 FL (80-99); PLATELET COUNT 243 K/UL (150-450); RED BLOOD COUNT 3.77 M/UL (4.20-5.40); RED CELL DISTRIBUTION WIDTH 17.2 % (11.6-14.8); WHITE BLOOD COUNT 12.4 K/UL (4.8-10.8)
[2020-05-14 08:47] LABS: ANION GAP 8 mmol/L (5-15); BLOOD UREA NITROGEN 57 mg/dL (7-18); CALCIUM 8.1 MG/DL (8.5-10.1); CARBON DIOXIDE 30 MMOL/L (21-32); CHLORIDE 116 MMOL/L (98-107); CREATININE 1.6 MG/DL (0.55-1.30); SODIUM 152 MMOL/L (136-145)
[2020-05-14 08:50] LABS: POTASSIUM 2.7 MMOL/L (3.5-5.1)
--- NOTE | 2020-05-14 08:54 | NUR ---
NURSE NOTES: MD Zeng made aware of 2.7 Potassium level, ordered 40 meq x 1 now and repeat 40 meq after 4 hours.
[2020-05-14] MEDS: Valproic Acid 250mg/5ml Liquid GT SCH ×2 (09:48→20:25)
[2020-05-14] MEDS: Eliquis 2.5mg tablet GT SCH (09:49)
[2020-05-14] MEDS: Amiodarone 200mg tab GT SCH (09:52)
--- NOTE | 2020-05-14 10:22 | Pulmonology Progress Note ---
Subjective ROS Limited/Unobtainable: Yes Constitutional: Denies: fever Allergies: Coded Allergies: No Known Allergies (Unverified , 01/30/20) Subjective care noted and reviewed still ill wbc high but improved k now low- renal following Objective Last 24 Hour Vital Signs Date Time Temp Pulse Resp B/P (MAP) Pulse Ox O2 Delivery O2 Flow Rate FiO2 05/14/20 09:00 Nasal Cannula 2.0 05/14/20 08:00 98.2 85 19 150/61 (90) 99 05/14/20 06:16 168/70 05/14/20 04:00 98.2 84 19 168/70 (102) 99 05/14/20 00:00 97.9 85 19 145/73 (97) 98 05/13/20 21:00 Nasal Cannula 2.0 05/13/20 20:00 97.9 86 20 142/71 (94) 98 05/13/20 16:00 96.8 110 22 104/61 (75) 99 05/13/20 12:00 97.7 81 19 114/55 (74) 98 Intake and Output 05/13/20 05/14/20 19:00 07:00 Output Total 800 ml 1200 ml Balance -800 ml -1200 ml Output Urine Total 800 ml 1200 ml # Voids 1 Objective WDWN NAD reduced breath sounds bilaterally with some rhonchi [id number] without MRG NABS nontender G no CC noted edema nonfocal poor LOC Laboratory Tests 05/13/20 11:35: POC Whole Blood Glucose 189H 05/13/20 16:30: POC Whole Blood Glucose 165H 05/14/20 07:40: White Blood Count 12.4H, Red Blood Count 3.77L, Hemoglobin 10.0L, Hematocrit 32.7L, Mean Corpuscular Volume 87, Mean Corpuscular Hemoglobin 26.4L, Mean Corpuscular Hemoglobin Concent 30.5L, Red Cell Distribution Width 17.2H, Platelet Count 243, Mean Platelet Volume 7.7, Neutrophils (%) (Auto) , Lymphocytes (%) (Auto) , Monocytes (%) (Auto) , Eosinophils (%) (Auto) , Basophils (%) (Auto) , Neutrophils % (Manual) [Pending], Lymphocytes % (Manual) [Pending], Platelet Estimate [Pending], Platelet Morphology [Pending], Sodium Level 152H, Potassium Level 2.7*L, Chloride Level 116H, Carbon Dioxide Level 30 , Anion Gap 8, Blood Urea Nitrogen 57H, Creatinine 1.6H, Estimat Glomerular Filtration Rate 30.4, Glucose Level 168H, Calcium Level 8.1L, Magnesium Level 1.6L, Pro-B-Type Natriuretic Peptide 86501O Current Medications Medications (Trade) Dose Ordered Sig/Jazmine Route PRN Reason Start Time Stop Time Status Last Admin Dose Admin Acetaminophen (Tylenol) 500 mg Q4H PRN GT Mild Pain (Pain Scale 1-3) 05/09/20 22:46 06/08/20 22:45 Amiodarone HCl (Cordarone) 200 mg DAILY GT 05/10/20 09:00 08/03/20 08:59 05/14/20 09:52 Apixaban (Eliquis) 2.5 mg DAILY GT 05/10/20 09:00 08/03/20 08:59 05/14/20 09:49 Dextrose 1,000 ml @ 75 mls/hr [id number] IV 05/14/20 00:30 06/13/20 00:29 05/14/20 00:24 Dextrose (Dextrose 50%) 25 ml Q30M PRN IV Hypoglycemia 05/09/20 23:00 08/02/20 19:59 Dextrose (Dextrose 50%) 50 ml Q30M PRN IV Hypoglycemia 05/09/20 23:00 08/02/20 19:59 Docusate Sodium (Colace) 100 mg BIDPRN PRN GT Constipation 05/09/20 22:49 06/08/20 22:48 Glimepiride (AmaryL) 2 mg BID@0630,1630 GT 05/10/20 06:30 06/09/20 06:29 05/14/20 06:15 Hydralazine HCl (Apresoline) 25 mg Q6H PRN ORAL SBP above 150 05/12/20 17:45 08/10/20 17:44 05/14/20 06:16 Insulin Aspart (NovoLOG) BEFORE MEALS AND HS SUBQ 05/10/20 06:30 08/02/20 20:59 05/14/20 06:18 Lansoprazole (Prevacid) 30 mg DAILY@0630 GT 05/10/20 06:30 06/06/20 06:29 05/14/20 06:16 Lorazepam (Ativan) 1 mg Q6H PRN ORAL For Anxiety 05/09/20 22:53 05/16/20 22:52 Meropenem 500 mg/ Sodium Chloride 55 ml @ 110 mls/hr Q12H IVPB 05/12/20 17:00 05/17/20 16:59 05/14/20 05:21 Multivitamins (Multivitamins) 1 tab DAILY GT 05/11/20 09:00 06/04/20 08:59 05/14/20 09:49 Potassium Chloride (K-Dur) 40 meq ONCE GT 05/14/20 10:00 05/14/20 11:00 05/14/20 09:48 Potassium Chloride (K-Dur) 40 meq ONCE GT 05/14/20 14:00 05/14/20 15:00 Sitagliptin Phosphate (Januvia) 25 mg ACBREAKFAST GT 05/14/20 06:30 06/13/20 06:29 05/14/20 06:15 Valproic Acid (Depakene) 500 mg Q12HR GT 05/10/20 09:00 06/22/20 21:29 05/14/20 09:48 Vancomycin HCl (Vanco pharmacy to dose) 1 ea DAILY PRN MISC Per rx protocol 05/13/20 11:30 06/12/20 11:29 Vancomycin HCl 750 mg/Sodium Chloride 275 ml @ 183.333 mls/hr Q48H IVPB 05/15/20 13:00 05/20/20 12:59 Assessment/Plan Assessment/Plan IMPRESSION: 1. urosepsis. 2. Acute on chronic encephalopathy. 3. Septic shock. resolved 4. Acute on chronic renal failure. 5. Hyperkalemia. 6. Leukocytosis. improved 7. resolved hypotension. 8. electrolyte imbalance 9. Dementia. 10. Diabetes. 11. G-tube. 12. peripheral edema 13. 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 not stable for dc 2. continue medications as is 3. monitor peripheral edema 4. monitor in and out 5. adjust K 6. IV antibiotics. 7. Close followup and recommendations. 8. Anticoagulation 9. Digoxin with caution. monitor levels 10. Sliding scale insulin 11. imodium for diarrhea not ready for dc impression, plan, and exam edited and reviewed in detail care discussed with RN Ishaaya,Eduardo M MD May 14, 2020 10:22
--- NOTE | 2020-05-14 10:36 | Nephrology Progress Note ---
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 K 2.8 noted. Hypernatremia noted. See orders Subjective Subjective Obtunded Objective Objective Last 24 Hour Vital Signs Date Time Temp Pulse Resp B/P (MAP) Pulse Ox O2 Delivery O2 Flow Rate FiO2 05/14/20 09:00 Nasal Cannula 2.0 05/14/20 08:00 98.2 85 19 150/61 (90) 99 05/14/20 06:16 168/70 05/14/20 04:00 98.2 84 19 168/70 (102) 99 05/14/20 00:00 97.9 85 19 145/73 (97) 98 05/13/20 21:00 Nasal Cannula 2.0 05/13/20 20:00 97.9 86 20 142/71 (94) 98 05/13/20 16:00 96.8 110 22 104/61 (75) 99 05/13/20 12:00 97.7 81 19 114/55 (74) 98 Intake and Output 05/13/20 05/14/20 19:00 07:00 Output Total 800 ml 1200 ml Balance -800 ml -1200 ml Output Urine Total 800 ml 1200 ml # Voids 1 Laboratory Tests 05/13/20 11:35: POC Whole Blood Glucose 189H 05/13/20 16:30: POC Whole Blood Glucose 165H 05/14/20 07:40: White Blood Count 12.4H, Red Blood Count 3.77L, Hemoglobin 10.0L, Hematocrit 32.7L, Mean Corpuscular Volume 87, Mean Corpuscular Hemoglobin 26.4L, Mean Corpuscular Hemoglobin Concent 30.5L, Red Cell Distribution Width 17.2H, Platelet Count 243, Mean Platelet Volume 7.7, Neutrophils (%) (Auto) , Lymphocytes (%) (Auto) , Monocytes (%) (Auto) , Eosinophils (%) (Auto) , Basophils (%) (Auto) , Neutrophils % (Manual) [Pending], Lymphocytes % (Manual) [Pending], Platelet Estimate [Pending], Platelet Morphology [Pending], Sodium Level 152H, Potassium Level 2.7*L, Chloride Level 116H, Carbon Dioxide Level 30 , Anion Gap 8, Blood Urea Nitrogen 57H, Creatinine 1.6H, Estimat Glomerular Filtration Rate 30.4, Glucose Level 168H, Calcium Level 8.1L, Magnesium Level 1.6L, Pro-B-Type Natriuretic Peptide [id number] Height (Feet): 5 Height (Inches): 2.00 Weight (Pounds): 135 Objective CV RR Lungs CTA Abd Ascites . SNT. BS = E ++++ edema Jonathan Berry MD May 14, 2020 10:36
--- NOTE | 2020-05-14 10:55 | NUR ---
CASE MANAGEMENT:REVIEW SI;SEVERE SEPSIS. HYPERKALEMIA. ANASARCA. 98.2 110 19 168/70 98% 2L NC WBC 12.4 H/H 10/32.7 NA 152 K+ 2.7 BUN 58 CR 1.8 BNP 40151 IS;VANCOMYCIN IV Q48 K-DUR GT ONCE KCL IV ONCE MAG SULFATE IV IVF D5 @ 75 ML/HR MEROPENEM IV Q12 AMIODARONE GT QD ELIQUIS GT QD DEPAKENE GT Q12 AMARYL GT BID PREVACID GT QD HYDRALAZINE GT Q6 PRN MED SURG STATUS DCP; FROM [facility] PLAN; NOT STABLE FOR DC PER PRIMARY MD MONITOR I&O
--- NOTE | 2020-05-14 11:13 | NUR ---
INSURANCE REVIEW AND PROGRESS NOTES FAXED TO [facility] T; [phone] F: [phone]
--- NOTE | 2020-05-14 11:17 | Surgery Progress Note ---
Surgery Progress Note Subjective Additional Comments no acute events labs noted micro reviewed comfortable Objective Last 24 Hour Vital Signs Date Time Temp Pulse Resp B/P (MAP) Pulse Ox O2 Delivery O2 Flow Rate FiO2 05/14/20 09:00 Nasal Cannula 2.0 05/14/20 08:00 98.2 85 19 150/61 (90) 99 05/14/20 06:16 168/70 05/14/20 04:00 98.2 84 19 168/70 (102) 99 05/14/20 00:00 97.9 85 19 145/73 (97) 98 05/13/20 21:00 Nasal Cannula 2.0 05/13/20 20:00 97.9 86 20 142/71 (94) 98 05/13/20 16:00 96.8 110 22 104/61 (75) 99 05/13/20 12:00 97.7 81 19 114/55 (74) 98 I&O Intake and Output 05/13/20 05/14/20 19:00 07:00 Output Total 800 ml 1200 ml Balance -800 ml -1200 ml Output Urine Total 800 ml 1200 ml # Voids 1 Dressing: dry Wound: clean Cardiovascular: RSR Respiratory: decreased breath sounds Abdomen: soft, non-tender, present bowel sounds Extremities: no cyanosis Laboratory Tests Test 05/13/20 11:35 05/13/20 16:30 05/14/20 07:40 POC Whole Blood Glucose 189 MG/DL (74-106) H 165 MG/DL (74-106) H White Blood Count 12.4 K/UL (4.8-10.8) H Red Blood Count 3.77 M/UL (4.20-5.40) L Hemoglobin 10.0 G/DL (12.0-16.0) L Hematocrit 32.7 % (37.0-47.0) L Mean Corpuscular Volume 87 FL (80-99) Mean Corpuscular Hemoglobin 26.4 PG (27.0-31.0) L Mean Corpuscular Hemoglobin Concent 30.5 G/DL (32.0-36.0) L Red Cell Distribution Width 17.2 % (11.6-14.8) H Platelet Count 243 K/UL (150-450) Mean Platelet Volume 7.7 FL (6.5-10.1) Neutrophils (%) (Auto) % (45.0-75.0) Lymphocytes (%) (Auto) % (20.0-45.0) Monocytes (%) (Auto) % (1.0-10.0) Eosinophils (%) (Auto) % (0.0-3.0) Basophils (%) (Auto) % (0.0-2.0) Differential Total Cells Counted 100 Neutrophils % (Manual) 90 % (45-75) H Lymphocytes % (Manual) 6 % (20-45) L Monocytes % (Manual) 4 % (1-10) Eosinophils % (Manual) 0 % (0-3) Basophils % (Manual) 0 % (0-2) Band Neutrophils 0 % (0-8) Platelet Estimate Adequate Platelet Morphology Normal Hypochromasia 1+ Anisocytosis 1+ Sodium Level 152 MMOL/L (136-145) H Potassium Level 2.7 MMOL/L (3.5-5.1) *L Chloride Level 116 MMOL/L (98-107) H Carbon Dioxide Level 30 MMOL/L (21-32) Anion Gap 8 mmol/L (5-15) Blood Urea Nitrogen 57 mg/dL (7-18) H Creatinine 1.6 MG/DL (0.55-1.30) H Estimat Glomerular Filtration Rate 30.4 mL/min (>60) Glucose Level 168 MG/DL (74-106) H Calcium Level 8.1 MG/DL (8.5-10.1) L Magnesium Level 1.6 MG/DL (1.8-2.4) L Pro-B-Type Natriuretic Peptide 81052 pg/mL (0-125) H Plan Problems: (1) Deep tissue injury Assessment & Plan: Pt presented on admission with Multiple Pressure injuries. Sacral DTPI noted (L)6.7cm x (W)6.9cm. Base of wound is purpuric ,partially opened -ruby and indurated. No odor or exudate noted. Non-blanching erythema periwound.DTPI noted to R Ischium(L)4cm x (W)2.2cm.Base of Pressure injury maroon and indurated. Non-Blanching erythema without induration noted to L ischium. Vulva is swollen and erythematous . DTPI noted to R Heel(L)3.3cm x (W)2.9cm. Wound is is blood filled purpuric Blister with surrounding non-blanchable and boggy heel. R Heel is Boggy with Non-Blanchable erythema. Tx.Plan: Apply Moisture Barrier Paste to Sacrum. Cover with Optifoam drsg. Change every 3 days and prn. Apply Moisture Barrier Paste to R ischium. Cover with Optifoam drsg. Change every 3 days and prn. Apply Moisture Barrier Paste to Bilat groin, perineum and L ischium with each perineal care. Apply Cavilon Skin Barrier to R and L trochanteric areas. Cover each site with Optifoam drsg. Change every 7 days and prn. Reposition at least every 2hours or as tolerated. Off-load heels with pillow. APM/MARY ANN Mattress overlay. (2) Dehydration (3) Hypokalemia (4) Renal failure (5) Hyperkalemia (6) UTI (urinary tract infection) (7) Severe sepsis Assessment & Plan: Patient with significant leukocytosis, lactic acidosis, abnormal electrolytes, renal insufficiency, anemia. UA noted. Microbiology reviewed. Imaging reviewed. COVID negative. Patient with multiple deep tissue injuries and severe malnutrition albumin 1 Wounds unlikely the source or etiology of patient's sepsis. No abscess or fluid collections requiring drainage currently identified. Continue IV antibiotics per infectious disease We will continue to monitor and identify assist with care and management Thank you for let me participate patient's care will follow with recommendations nutritional optimization DAILY ESTIMATED NEEDS: Needs based on DM, wound, renal/ 49kg 30-35 kcals/kg [id number] total kcals 1.25-1.5 g protein/kg 61-74 g total protein 25-30ml/kcal mL/kg 2989-2537 total fluid mLs NUTRITION DIAGNOSIS: * Increased kcal and pro needs r/t wound care as evidenced by open sacral wound per photo, eval pending. * Swallowing difficulty R/T dysphagia as evidenced by GT dependent. ENTERAL NUTRITION RECOMMENDATIONS: NEPRO @43ml/hr x 20hrs to provide 860ml, 1548kcal, 70g prot, 625ml free water * As medically able, start NEPRO @23ml/hr for 6 hrs, advance as tolerated 10ml q4-6 hrs * HOB over 30 degrees * Without IVF, water flush of ml q 130ml q4 hrs -------- ADDITIONAL RECOMMENDATIONS: * PER SNF: Height 4'11" inches and 108 lbs * Rec D5 while NPO * F/up w/ WC eval-> add IMAN in 4oz via GT BID with tube feeds * Rec renal formula as above d/t renal failure on adm * Maintain accurate calibrated bed scale weights . Dimitris Diaz May 14, 2020 11:17
[2020-05-14] MEDS: D5W w/KCl 20mEq 1,000 ML IV SCH (11:33)
[2020-05-14 12:00] VITALS: BP 139/79
--- NOTE | 2020-05-14 15:35 | Infectious Diseases Prog Note ---
Assessment/Plan Assessment/Plan A 1. Candidal UTI 2. cholelithiasis 3. Pneumonia 4. leucocytosis improving 5. renal failure improving 6. dementia 7. COPD 8. 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 GT infection P 1. continue Meropenem Subjective ROS Limited/Unobtainable: Yes Constitutional: Denies: fever Allergies: Coded Allergies: No Known Allergies (Unverified , 01/30/20) Objective Last 24 Hour Vital Signs Date Time Temp Pulse Resp B/P (MAP) Pulse Ox O2 Delivery O2 Flow Rate FiO2 05/14/20 12:00 98.0 81 22 139/79 (99) 98 05/14/20 09:00 Nasal Cannula 2.0 05/14/20 08:00 98.2 85 19 150/61 (90) 99 05/14/20 06:16 168/70 05/14/20 04:00 98.2 84 19 168/70 (102) 99 05/14/20 00:00 97.9 85 19 145/73 (97) 98 05/13/20 21:00 Nasal Cannula 2.0 05/13/20 20:00 97.9 86 20 142/71 (94) 98 05/13/20 16:00 96.8 110 22 104/61 (75) 99 Height (Feet): 5 Height (Inches): 2.00 Weight (Pounds): 135 General Appearance: no acute distress HEENT: mucous membranes moist Respiratory/Chest: lungs clear Cardiovascular: normal rate Abdomen: soft, non tender, other - GT feeding Extremities: other - hands edema Neurologic/Psychiatric: other - sleeping Laboratory Tests Test 05/13/20 16:30 05/14/20 07:40 05/14/20 11:47 POC Whole Blood Glucose 165 MG/DL (74-106) H 106 MG/DL (74-106) White Blood Count 12.4 K/UL (4.8-10.8) H Red Blood Count 3.77 M/UL (4.20-5.40) L Hemoglobin 10.0 G/DL (12.0-16.0) L Hematocrit 32.7 % (37.0-47.0) L Mean Corpuscular Volume 87 FL (80-99) Mean Corpuscular Hemoglobin 26.4 PG (27.0-31.0) L Mean Corpuscular Hemoglobin Concent 30.5 G/DL (32.0-36.0) L Red Cell Distribution Width 17.2 % (11.6-14.8) H Platelet Count 243 K/UL (150-450) Mean Platelet Volume 7.7 FL (6.5-10.1) Neutrophils (%) (Auto) % (45.0-75.0) Lymphocytes (%) (Auto) % (20.0-45.0) Monocytes (%) (Auto) % (1.0-10.0) Eosinophils (%) (Auto) % (0.0-3.0) Basophils (%) (Auto) % (0.0-2.0) Differential Total Cells Counted 100 Neutrophils % (Manual) 90 % (45-75) H Lymphocytes % (Manual) 6 % (20-45) L Monocytes % (Manual) 4 % (1-10) Eosinophils % (Manual) 0 % (0-3) Basophils % (Manual) 0 % (0-2) Band Neutrophils 0 % (0-8) Platelet Estimate Adequate Platelet Morphology Normal Hypochromasia 1+ Anisocytosis 1+ Sodium Level 152 MMOL/L (136-145) H Potassium Level 2.7 MMOL/L (3.5-5.1) *L Chloride Level 116 MMOL/L (98-107) H Carbon Dioxide Level 30 MMOL/L (21-32) Anion Gap 8 mmol/L (5-15) Blood Urea Nitrogen 57 mg/dL (7-18) H Creatinine 1.6 MG/DL (0.55-1.30) H Estimat Glomerular Filtration Rate 30.4 mL/min (>60) Glucose Level 168 MG/DL (74-106) H Calcium Level 8.1 MG/DL (8.5-10.1) L Magnesium Level 1.6 MG/DL (1.8-2.4) L Pro-B-Type Natriuretic Peptide 58005 pg/mL (0-125) H Current Medications Medications (Trade) Dose Ordered Sig/Jazmine Route PRN Reason Start Time Stop Time Status Last Admin Dose Admin Acetaminophen (Tylenol) 500 mg Q4H PRN GT Mild Pain (Pain Scale 1-3) 05/09/20 22:46 06/08/20 22:45 Amiodarone HCl (Cordarone) 200 mg DAILY GT 05/10/20 09:00 08/03/20 08:59 05/14/20 09:52 Apixaban (Eliquis) 2.5 mg DAILY GT 05/10/20 09:00 08/03/20 08:59 05/14/20 09:49 Dextrose (Dextrose 50%) 25 ml Q30M PRN IV Hypoglycemia 05/09/20 23:00 08/02/20 19:59 Dextrose (Dextrose 50%) 50 ml Q30M PRN IV Hypoglycemia 05/09/20 23:00 08/02/20 19:59 Dextrose/ Electrolytes 1,000 ml @ 50 mls/hr Q20H IV 05/14/20 10:45 06/13/20 10:44 05/14/20 11:33 Docusate Sodium (Colace) 100 mg BIDPRN PRN GT Constipation 05/09/20 22:49 06/08/20 22:48 Glimepiride (AmaryL) 2 mg BID@0630,1630 GT 05/10/20 06:30 06/09/20 06:29 05/14/20 06:15 Hydralazine HCl (Apresoline) 25 mg Q6H PRN ORAL SBP above 150 05/12/20 17:45 08/10/20 17:44 05/14/20 06:16 Insulin Aspart (NovoLOG) BEFORE MEALS AND HS SUBQ 05/10/20 06:30 08/02/20 20:59 05/14/20 06:18 Lansoprazole (Prevacid) 30 mg DAILY@0630 GT 05/10/20 06:30 06/06/20 06:29 05/14/20 06:16 Lorazepam (Ativan) 1 mg Q6H PRN ORAL For Anxiety 05/09/20 22:53 05/16/20 22:52 Meropenem 500 mg/ Sodium Chloride 55 ml @ 110 mls/hr Q12H IVPB 05/12/20 17:00 05/17/20 16:59 05/14/20 05:21 Multivitamins (Multivitamins) 1 tab DAILY GT 05/11/20 09:00 06/04/20 08:59 05/14/20 09:49 Sitagliptin Phosphate (Januvia) 25 mg ACBREAKFAST GT 05/14/20 06:30 06/13/20 06:29 05/14/20 06:15 Valproic Acid (Depakene) 500 mg Q12HR GT 05/10/20 09:00 06/22/20 21:29 05/14/20 09:48 Vancomycin HCl ([facility] pharmacy to dose) 1 ea DAILY PRN MISC Per rx protocol 05/13/20 11:30 06/12/20 11:29 Vancomycin HCl 750 mg/Sodium Chloride 275 ml @ 183.333 mls/hr Q48H IVPB 05/15/20 13:00 05/20/20 12:59 Tuan Becerra MD May 14, 2020 15:35
[2020-05-14 16:00] VITALS: BP 109/63
--- NOTE | 2020-05-14 16:31 | Cardiology Progress Note ---
Subjective DATE OF SERVICE: May 14, 2020 Less congested, but remains increasingly swollen. Negative fluid balance with diuresis, but at the expense of more elevated renal fxn and sodium. On empiric IV abx Hypokalemia and elevated sodium levels worsening . BP parameters improving. Objective Last 24 Hour Vital Signs Date Time Temp Pulse Resp B/P (MAP) Pulse Ox O2 Delivery O2 Flow Rate FiO2 05/14/20 16:00 98.0 81 22 109/63 (78) 92 05/14/20 12:00 98.0 81 22 139/79 (99) 98 05/14/20 09:00 Nasal Cannula 2.0 05/14/20 08:00 98.2 85 19 150/61 (90) 99 05/14/20 06:16 168/70 05/14/20 04:00 98.2 84 19 168/70 (102) 99 05/14/20 00:00 97.9 85 19 145/73 (97) 98 05/13/20 21:00 Nasal Cannula 2.0 05/13/20 20:00 97.9 86 20 142/71 (94) 98 RHYTHM: ST, Afib LUNGS: accessory muscle use, bilateral rhonchi CARDIAC: regular rhythm, normal S1 and S2, arrhythmia ABDOMEN: normal bowel sounds, non tender, no organomegaly, G-Tube intact EXTREMITIES: moderate edema Laboratory Tests Test 05/13/20 16:30 05/14/20 07:40 05/14/20 11:47 POC Whole Blood Glucose 165 MG/DL (74-106) H 106 MG/DL (74-106) White Blood Count 12.4 K/UL (4.8-10.8) H Red Blood Count 3.77 M/UL (4.20-5.40) L Hemoglobin 10.0 G/DL (12.0-16.0) L Hematocrit 32.7 % (37.0-47.0) L Mean Corpuscular Volume 87 FL (80-99) Mean Corpuscular Hemoglobin 26.4 PG (27.0-31.0) L Mean Corpuscular Hemoglobin Concent 30.5 G/DL (32.0-36.0) L Red Cell Distribution Width 17.2 % (11.6-14.8) H Platelet Count 243 K/UL (150-450) Mean Platelet Volume 7.7 FL (6.5-10.1) Neutrophils (%) (Auto) % (45.0-75.0) Lymphocytes (%) (Auto) % (20.0-45.0) Monocytes (%) (Auto) % (1.0-10.0) Eosinophils (%) (Auto) % (0.0-3.0) Basophils (%) (Auto) % (0.0-2.0) Differential Total Cells Counted 100 Neutrophils % (Manual) 90 % (45-75) H Lymphocytes % (Manual) 6 % (20-45) L Monocytes % (Manual) 4 % (1-10) Eosinophils % (Manual) 0 % (0-3) Basophils % (Manual) 0 % (0-2) Band Neutrophils 0 % (0-8) Platelet Estimate Adequate Platelet Morphology Normal Hypochromasia 1+ Anisocytosis 1+ Sodium Level 152 MMOL/L (136-145) H Potassium Level 2.7 MMOL/L (3.5-5.1) *L Chloride Level 116 MMOL/L (98-107) H Carbon Dioxide Level 30 MMOL/L (21-32) Anion Gap 8 mmol/L (5-15) Blood Urea Nitrogen 57 mg/dL (7-18) H Creatinine 1.6 MG/DL (0.55-1.30) H Estimat Glomerular Filtration Rate 30.4 mL/min (>60) Glucose Level 168 MG/DL (74-106) H Calcium Level 8.1 MG/DL (8.5-10.1) L Magnesium Level 1.6 MG/DL (1.8-2.4) L Pro-B-Type Natriuretic Peptide 60674 pg/mL (0-125) H Assessment/Plan Assessment/Plan Sepsis with shock recovered Acute on chronic diastolic CHF UTI Metabolic and toxic encephalopathies HC associated aspiration PNA PAFib now with slow heart rates Acute renal failure deteriorating - with worsening anasarca hypokalemia hypernatremia/dehydration Lactic acidosis resolved Severe protein-calorie malnutrition Hypertension/HHD with labile BP Additional free water by gtube and IV route Diuresis trial Full anticoagulation Abx Nutrition by Gtube Follow up lytes; correcting K+/Mg++ as needed. Continue maintenance dose amiodarone; continue off digoxin. Augusto Benítez MD May 14, 2020 16:31
--- NOTE | 2020-05-14 17:37 | NUR ---
NURSE HAND-OFF: Important Events on Shift:[IV fluids/electrolytes, turning and repositioning, safety and comfort] Patient Status: [stable] Diet: [Nepro 35 cc/hr] Pending Orders: [none] Pending Results/Labs:[none] Pending MD notification:[none] Latest Vital Signs: Temperature 98.0 , Pulse 81 , B/P 109 /63 , Respiratory Rate 22 , O2 SAT 92 , Nasal Cannula, O2 Flow Rate 2.0 . Vital Sign Comment: [] Latest Ayala Fall Score: 50 Fall Risk: High Risk Safety Measures: Call light Within Reach, Bed Alarm Zone 2, Side Rails Side Rails x2, Bed position Low and Locked. Fall Precautions: Yellow Socks Yellow Gown Door Sign Patient Fall Education Report given to [TEJINDER Gan].
--- NOTE | 2020-05-14 19:30 | NUR ---
NURSE NOTES: received report from nik wiley. DNR/DNI. patient is on bed,asleep. on NC at 2lpm. no sob. bedbound. with iv line on the right hand and left ac. lomeli catheter draining well. no noted facial grimacing. noted with generalized swelling. on GT OF NEPHRO AT 35 MLS CONTINUOUS. WITH order of flush of 150 cc Q6H. kept head of bed elevated. per inez" s/p kcl iv and mg iv due to lower levels." bed locked and in lowest position. call light and light button. will continue plan of care.
--- NOTE | 2020-05-14 19:35 | NUR ---
NURSE HAND-OFF: Important Events on Shift:K = 2.7, Mg + 1.6, pt received 2 bags KCl 10 mEq and 3 bags MgSo4 Patient Status: Diet: GT Nepro Pending Orders: BMP, Mg Pending Results/Labs: Pending MD notification:[] Latest Vital Signs: Temperature 98.0 , Pulse 81 , B/P 109 /63 , Respiratory Rate 22 , O2 SAT 92 , Nasal Cannula, O2 Flow Rate 2.0 . Vital Sign Comment: [] Latest Ayala Fall Score: 50 Fall Risk: High Risk Safety Measures: Call light Within Reach, Bed Alarm Zone 2, Side Rails Side Rails x2, Bed position Low and Locked. Fall Precautions: Yellow Socks Yellow Gown Door Sign Patient Fall Education Report given to [TEJINDER Avery].
[2020-05-14 20:00] VITALS: BP 136/51
[2020-05-15] VITALS: BP 138/73
[2020-05-15 04:00] VITALS: BP 137/65
[2020-05-15] MEDS: Meropenem 500mg in NS 55ml IVPB SCH ×2 (04:08→17:46)
[2020-05-15] MEDS: D5W w/KCl 20mEq 1,000 ML IV SCH (04:56)
[2020-05-15] MEDS: Glimepiride 1mg tab GT SCH ×2 (05:48→18:28)
[2020-05-15] MEDS: sitaGLIPtin 25mg tab GT SCH (05:48)
[2020-05-15] MEDS: NovoLOG Insulin Flexpen SUBQ SCH ×4 (05:50→20:20)
[2020-05-15 06:31] LABS: ANION GAP 7 mmol/L (5-15); BLOOD UREA NITROGEN 48 mg/dL (7-18); CALCIUM 7.6 MG/DL (8.5-10.1); CARBON DIOXIDE 30 MMOL/L (21-32); CHLORIDE 112 MMOL/L (98-107); CREATININE 1.4 MG/DL (0.55-1.30); POTASSIUM 3.6 MMOL/L (3.5-5.1); SODIUM 149 MMOL/L (136-145)
--- NOTE | 2020-05-15 06:41 | NUR ---
NURSE HAND-OFF: Important Events on Shift:ASPIRATION PRECAUTIONS(G-TUBE), Patient Status:STABLE Diet: TUBE FEEDING -NEPHRO Pending Orders: Pending Results/Labs:pending labs result Pending MD notification: Latest Vital Signs: Temperature 97.7 , Pulse 73 , B/P 137 /65 , Respiratory Rate 20 , O2 SAT 97 , Nasal Cannula, O2 Flow Rate 2.0 . Vital Sign Comment: Latest Ayala Fall Score: 50 Fall Risk: High Risk Safety Measures: Call light Within Reach, Bed Alarm Zone 2, Side Rails Side Rails x2, Bed position Low and Locked. Fall Precautions: Yellow Socks Yellow Gown Door Sign Patient Fall Education Addendum: 05/15/20 at 0729 by Ladonna Avery RN HAND-OFF: Report given to nik dee.
--- NOTE | 2020-05-15 07:33 | NUR ---
NURSE NOTES: pt is in the bed asleep and arousable. no SOB noted with o2 @2l /min inplace. no acute distress noted at this time. HOB elevated. call light is within reach, will follow plan of care.
[2020-05-15 08:00] VITALS: BP 139/67
--- NOTE | 2020-05-15 08:11 | Pulmonology Progress Note ---
Subjective ROS Limited/Unobtainable: Yes Constitutional: Denies: fever Allergies: Coded Allergies: No Known Allergies (Unverified , 01/30/20) Subjective care noted and reviewed remains ill wbc better NA elevated Objective Last 24 Hour Vital Signs Date Time Temp Pulse Resp B/P (MAP) Pulse Ox O2 Delivery O2 Flow Rate FiO2 05/15/20 04:00 97.7 73 20 137/65 (89) 97 05/15/20 00:00 97.7 74 20 138/73 (94) 99 05/14/20 21:00 Nasal Cannula 2.0 05/14/20 20:00 97.5 75 20 136/51 (79) 98 05/14/20 16:00 98.0 81 22 109/63 (78) 92 05/14/20 12:00 98.0 81 22 139/79 (99) 98 05/14/20 09:00 Nasal Cannula 2.0 Intake and Output 05/14/20 05/15/20 18:59 06:59 Intake Total 105 ml 1390 ml Output Total 600 ml 650 ml Balance -495 ml 740 ml Intake Free Water 100 ml IV Total 105 ml 1010 ml Tube Feeding 280 ml Output Urine Total 600 ml 650 ml Objective WDWN NAD reduced breath sounds bilaterally with some rhonchi [id number] without MRG NABS nontender G no CC noted edema nonfocal poor LOC Laboratory Tests 05/14/20 11:47: POC Whole Blood Glucose 106 05/14/20 16:44: POC Whole Blood Glucose 105 05/15/20 05:45: Sodium Level 149H, Potassium Level 3.6, Chloride Level 112H, Carbon Dioxide Level 30, Anion Gap 7, Blood Urea Nitrogen 48H, Creatinine 1.4H, Estimat Glomerular Filtration Rate 35.5, Glucose Level 185H, Calcium Level 7.6L, Magnesium Level 2.0 Current Medications Medications (Trade) Dose Ordered Sig/Jazmine Route PRN Reason Start Time Stop Time Status Last Admin Dose Admin Acetaminophen (Tylenol) 500 mg Q4H PRN GT Mild Pain (Pain Scale 1-3) 05/09/20 22:46 06/08/20 22:45 Amiodarone HCl (Cordarone) 200 mg DAILY GT 05/10/20 09:00 08/03/20 08:59 05/14/20 09:52 Apixaban (Eliquis) 2.5 mg DAILY GT 05/10/20 09:00 08/03/20 08:59 05/14/20 09:49 Dextrose (Dextrose 50%) 25 ml Q30M PRN IV Hypoglycemia 05/09/20 23:00 08/02/20 19:59 Dextrose (Dextrose 50%) 50 ml Q30M PRN IV Hypoglycemia 05/09/20 23:00 08/02/20 19:59 Dextrose/ Electrolytes 1,000 ml @ 50 mls/hr Q20H IV 05/14/20 10:45 06/13/20 10:44 05/15/20 04:56 Docusate Sodium (Colace) 100 mg BIDPRN PRN GT Constipation 05/09/20 22:49 06/08/20 22:48 Glimepiride (AmaryL) 2 mg BID@0630,1630 GT 05/10/20 06:30 06/09/20 06:29 05/15/20 05:48 Hydralazine HCl (Apresoline) 25 mg Q6H PRN ORAL SBP above 150 05/12/20 17:45 08/10/20 17:44 05/14/20 06:16 Insulin Aspart (NovoLOG) BEFORE MEALS AND HS SUBQ 05/10/20 06:30 08/02/20 20:59 05/15/20 05:50 Lansoprazole (Prevacid) 30 mg DAILY@0630 GT 05/10/20 06:30 06/06/20 06:29 05/15/20 05:48 Lorazepam (Ativan) 1 mg Q6H PRN ORAL For Anxiety 05/09/20 22:53 05/16/20 22:52 Meropenem 500 mg/ Sodium Chloride 55 ml @ 110 mls/hr Q12H IVPB 05/12/20 17:00 05/17/20 16:59 05/15/20 04:08 Multivitamins (Multivitamins) 1 tab DAILY GT 05/11/20 09:00 06/04/20 08:59 05/14/20 09:49 Sitagliptin Phosphate (Januvia) 25 mg ACBREAKFAST GT 05/14/20 06:30 06/13/20 06:29 05/15/20 05:48 Valproic Acid (Depakene) 500 mg Q12HR GT 05/10/20 09:00 06/22/20 21:29 05/14/20 20:25 Vancomycin HCl (Vanco pharmacy to dose) 1 ea DAILY PRN MISC Per rx protocol 05/13/20 11:30 06/12/20 11:29 Vancomycin HCl 750 mg/Sodium Chloride 275 ml @ 183.333 mls/hr Q48H IVPB 05/15/20 13:00 05/20/20 12:59 Assessment/Plan Assessment/Plan IMPRESSION: 1. urosepsis. 2. Acute on chronic encephalopathy. 3. Septic shock. resolved 4. Acute on chronic renal failure. 5. Hyperkalemia. 6. Leukocytosis. improved 7. resolved hypotension. 8. electrolyte imbalance 9. Dementia. 10. Diabetes. 11. G-tube. 12. peripheral edema 13. 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 not stable for dc 2. continue medications as is 3. monitor peripheral edema 4. monitor in and out 5. adjust fluids 6. IV antibiotics. 7. d/w consultants 8. Anticoagulation 9. Digoxin with caution. monitor levels 10. Sliding scale insulin 11. imodium for diarrhea hope to dc soon impression, plan, and exam edited and reviewed in detail care discussed with Eduardo Kern MD May 15, 2020 08:11
[2020-05-15] MEDS: Valproic Acid 250mg/5ml Liquid GT SCH ×2 (09:31→20:20)
[2020-05-15] MEDS: Amiodarone 200mg tab GT SCH (09:31)
[2020-05-15] MEDS: Eliquis 2.5mg tablet GT SCH (09:32)
--- NOTE | 2020-05-15 11:28 | Infectious Diseases Prog Note ---
Assessment/Plan Assessment/Plan antibiotics : meropenem vancomycin A 1. GT site infection with e.coli, staph epidermidis 4. leucocytosis improving 5. renal failure improving 6. dementia 7. COPD 8. diabetes mellitus P 1. continue meropenem 3 more days 2. continue iv vancomycin 4 more days 3. will follow up cultures Subjective ROS Limited/Unobtainable: Yes Allergies: Coded Allergies: No Known Allergies (Unverified , 01/30/20) Objective Last 24 Hour Vital Signs Date Time Temp Pulse Resp B/P (MAP) Pulse Ox O2 Delivery O2 Flow Rate FiO2 05/15/20 09:00 Nasal Cannula 2.0 05/15/20 08:00 98.0 75 20 139/67 (91) 100 05/15/20 04:00 97.7 73 20 137/65 (89) 97 05/15/20 00:00 97.7 74 20 138/73 (94) 99 05/14/20 21:00 Nasal Cannula 2.0 05/14/20 20:00 97.5 75 20 136/51 (79) 98 05/14/20 16:00 98.0 81 22 109/63 (78) 92 05/14/20 12:00 98.0 81 22 139/79 (99) 98 Height (Feet): 5 Height (Inches): 2.00 Weight (Pounds): 135 Respiratory/Chest: lungs clear Cardiovascular: normal rate, regular rhythm, no gallop/murmur Abdomen: soft, non tender, other - GT Extremities: other - + edema Laboratory Tests Test 05/14/20 11:47 05/14/20 16:44 05/15/20 05:45 POC Whole Blood Glucose 106 MG/DL (74-106) 105 MG/DL (74-106) Sodium Level 149 MMOL/L (136-145) H Potassium Level 3.6 MMOL/L (3.5-5.1) Chloride Level 112 MMOL/L (98-107) H Carbon Dioxide Level 30 MMOL/L (21-32) Anion Gap 7 mmol/L (5-15) Blood Urea Nitrogen 48 mg/dL (7-18) H Creatinine 1.4 MG/DL (0.55-1.30) H Estimat Glomerular Filtration Rate 35.5 mL/min (>60) Glucose Level 185 MG/DL (74-106) H Calcium Level 7.6 MG/DL (8.5-10.1) L Magnesium Level 2.0 MG/DL (1.8-2.4) Current Medications Medications (Trade) Dose Ordered Sig/Jazmine Route PRN Reason Start Time Stop Time Status Last Admin Dose Admin Acetaminophen (Tylenol) 500 mg Q4H PRN GT Mild Pain (Pain Scale 1-3) 05/09/20 22:46 06/08/20 22:45 Amiodarone HCl (Cordarone) 200 mg DAILY GT 05/10/20 09:00 08/03/20 08:59 05/15/20 09:31 Apixaban (Eliquis) 2.5 mg DAILY GT 05/10/20 09:00 08/03/20 08:59 05/15/20 09:32 Dextrose (Dextrose 50%) 25 ml Q30M PRN IV Hypoglycemia 05/09/20 23:00 08/02/20 19:59 Dextrose (Dextrose 50%) 50 ml Q30M PRN IV Hypoglycemia 05/09/20 23:00 08/02/20 19:59 Dextrose/ Electrolytes 1,000 ml @ 50 mls/hr Q20H IV 05/14/20 10:45 06/13/20 10:44 05/15/20 04:56 Docusate Sodium (Colace) 100 mg BIDPRN PRN GT Constipation 05/09/20 22:49 06/08/20 22:48 Glimepiride (AmaryL) 2 mg BID@0630,1630 GT 05/10/20 06:30 06/09/20 06:29 05/15/20 05:48 Hydralazine HCl (Apresoline) 25 mg Q6H PRN ORAL SBP above 150 05/12/20 17:45 08/10/20 17:44 05/14/20 06:16 Insulin Aspart (NovoLOG) BEFORE MEALS AND HS SUBQ 05/10/20 06:30 08/02/20 20:59 05/15/20 05:50 Lansoprazole (Prevacid) 30 mg DAILY@0630 GT 05/10/20 06:30 06/06/20 06:29 05/15/20 05:48 Lorazepam (Ativan) 1 mg Q6H PRN ORAL For Anxiety 05/09/20 22:53 05/16/20 22:52 Meropenem 500 mg/ Sodium Chloride 55 ml @ 110 mls/hr Q12H IVPB 05/12/20 17:00 05/17/20 16:59 05/15/20 04:08 Multivitamins (Multivitamins) 1 tab DAILY GT 05/11/20 09:00 06/04/20 08:59 05/15/20 09:32 Sitagliptin Phosphate (Januvia) 25 mg ACBREAKFAST GT 05/14/20 06:30 06/13/20 06:29 05/15/20 05:48 Valproic Acid (Depakene) 500 mg Q12HR GT 05/10/20 09:00 06/22/20 21:29 05/15/20 09:31 Vancomycin HCl (Vanco pharmacy to dose) 1 ea DAILY PRN MISC Per rx protocol 05/13/20 11:30 06/12/20 11:29 Vancomycin HCl 750 mg/Sodium Chloride 275 ml @ 183.333 mls/hr Q48H IVPB 05/15/20 13:00 05/20/20 12:59 Felipe Grant MD May 15, 2020 11:28
[2020-05-15 12:00] VITALS: BP 147/69
--- NOTE | 2020-05-15 13:14 | Surgery Progress Note ---
Surgery Progress Note Subjective Additional Comments wbc trending down k improved comfortable no n/v/f/c Objective Last 24 Hour Vital Signs Date Time Temp Pulse Resp B/P (MAP) Pulse Ox O2 Delivery O2 Flow Rate FiO2 05/15/20 09:00 Nasal Cannula 2.0 05/15/20 08:00 98.0 75 20 139/67 (91) 100 05/15/20 04:00 97.7 73 20 137/65 (89) 97 05/15/20 00:00 97.7 74 20 138/73 (94) 99 05/14/20 21:00 Nasal Cannula 2.0 05/14/20 20:00 97.5 75 20 136/51 (79) 98 05/14/20 16:00 98.0 81 22 109/63 (78) 92 I&O Intake and Output 05/14/20 05/15/20 19:00 07:00 Intake Total 105 ml 1390 ml Output Total 600 ml 650 ml Balance -495 ml 740 ml Intake Free Water 100 ml IV Total 105 ml 1010 ml Tube Feeding 280 ml Output Urine Total 600 ml 650 ml Dressing: dry Cardiovascular: RSR Respiratory: decreased breath sounds Abdomen: soft, non-tender, present bowel sounds Extremities: no edema, no tenderness, no cyanosis Laboratory Tests Test 05/14/20 16:44 05/15/20 05:45 05/15/20 12:33 POC Whole Blood Glucose 105 MG/DL (74-106) 213 MG/DL (74-106) H Sodium Level 149 MMOL/L (136-145) H Potassium Level 3.6 MMOL/L (3.5-5.1) Chloride Level 112 MMOL/L (98-107) H Carbon Dioxide Level 30 MMOL/L (21-32) Anion Gap 7 mmol/L (5-15) Blood Urea Nitrogen 48 mg/dL (7-18) H Creatinine 1.4 MG/DL (0.55-1.30) H Estimat Glomerular Filtration Rate 35.5 mL/min (>60) Glucose Level 185 MG/DL (74-106) H Calcium Level 7.6 MG/DL (8.5-10.1) L Magnesium Level 2.0 MG/DL (1.8-2.4) Plan Problems: (1) Deep tissue injury Assessment & Plan: Pt presented on admission with Multiple Pressure injuries. Sacral DTPI noted (L)6.7cm x (W)6.9cm. Base of wound is purpuric ,partially opened -ruby and indurated. No odor or exudate noted. Non-blanching erythema periwound.DTPI noted to R Ischium(L)4cm x (W)2.2cm.Base of Pressure injury maroon and indurated. Non-Blanching erythema without induration noted to L ischium. Vulva is swollen and erythematous . DTPI noted to R Heel(L)3.3cm x (W)2.9cm. Wound is is blood filled purpuric Blister with surrounding non-blanchable and boggy heel. R Heel is Boggy with Non-Blanchable erythema. Tx.Plan: Apply Moisture Barrier Paste to Sacrum. Cover with Optifoam drsg. Change every 3 days and prn. Apply Moisture Barrier Paste to R ischium. Cover with Optifoam drsg. Change every 3 days and prn. Apply Moisture Barrier Paste to Bilat groin, perineum and L ischium with each perineal care. Apply Cavilon Skin Barrier to R and L trochanteric areas. Cover each site with Optifoam drsg. Change every 7 days and prn. Reposition at least every 2hours or as tolerated. Off-load heels with pillow. APM/MARY ANN Mattress overlay. (2) Dehydration (3) Hypokalemia (4) Renal failure (5) Hyperkalemia (6) UTI (urinary tract infection) (7) Severe sepsis Assessment & Plan: Patient with significant leukocytosis, lactic acidosis, abnormal electrolytes, renal insufficiency, anemia. UA noted. Microbiology reviewed. Imaging reviewed. COVID negative. Patient with multiple deep tissue injuries and severe malnutrition albumin 1 Wounds unlikely the source or etiology of patient's sepsis. No abscess or fluid collections requiring drainage currently identified. Continue IV antibiotics per infectious disease We will continue to monitor and identify assist with care and management Thank you for let me participate patient's care will follow with recommendations nutritional optimization improving d/c planning from surgical standpoint cont nutrition DAILY ESTIMATED NEEDS: Needs based on DM, wound, renal/ 49kg 30-35 kcals/kg [id number] total kcals 1.25-1.5 g protein/kg 61-74 g total protein 25-30ml/kcal mL/kg 0038-8393 total fluid mLs NUTRITION DIAGNOSIS: * Increased kcal and pro needs r/t wound care as evidenced by open sacral wound per photo, eval pending. * Swallowing difficulty R/T dysphagia as evidenced by GT dependent. ENTERAL NUTRITION RECOMMENDATIONS: NEPRO @43ml/hr x 20hrs to provide 860ml, 1548kcal, 70g prot, 625ml free water * As medically able, start NEPRO @23ml/hr for 6 hrs, advance as tolerated 10ml q4-6 hrs * HOB over 30 degrees * Without IVF, water flush of ml q 130ml q4 hrs -------- ADDITIONAL RECOMMENDATIONS: * PER SNF: Height 4'11" inches and 108 lbs * Rec D5 while NPO * F/up w/ WC eval-> add IMAN in 4oz via GT BID with tube feeds * Rec renal formula as above d/t renal failure on adm * Maintain accurate calibrated bed scale weights . Dimitris Diaz May 15, 2020 13:14
[2020-05-15] MEDS: Vancomycin 750mg/NS 275ml IVPB SCH ×2 (13:31)
--- NOTE | 2020-05-15 13:50 | Nephrology Progress Note ---
Assessment/Plan Plan A/P CKD 3 , atrophic kidneys on US, Anasarca. Subjective Subjective Obtunded Objective Objective Last 24 Hour Vital Signs Date Time Temp Pulse Resp B/P (MAP) Pulse Ox O2 Delivery O2 Flow Rate FiO2 05/15/20 09:00 Nasal Cannula 2.0 05/15/20 08:00 98.0 75 20 139/67 (91) 100 05/15/20 04:00 97.7 73 20 137/65 (89) 97 05/15/20 00:00 97.7 74 20 138/73 (94) 99 05/14/20 21:00 Nasal Cannula 2.0 05/14/20 20:00 97.5 75 20 136/51 (79) 98 05/14/20 16:00 98.0 81 22 109/63 (78) 92 Intake and Output 05/14/20 05/15/20 19:00 07:00 Intake Total 105 ml 1390 ml Output Total 600 ml 650 ml Balance -495 ml 740 ml Intake Free Water 100 ml IV Total 105 ml 1010 ml Tube Feeding 280 ml Output Urine Total 600 ml 650 ml Laboratory Tests 05/14/20 16:44: POC Whole Blood Glucose 105 05/15/20 05:45: Sodium Level 149H, Potassium Level 3.6, Chloride Level 112H, Carbon Dioxide Level 30, Anion Gap 7, Blood Urea Nitrogen 48H, Creatinine 1.4H, Estimat Glomerular Filtration Rate 35.5, Glucose Level 185H, Calcium Level 7.6L, Magnesium Level 2.0 05/15/20 12:33: POC Whole Blood Glucose 213H Height (Feet): 5 Height (Inches): 2.00 Weight (Pounds): 135 Objective CV RR Lungs CTA Abd Ascites . SNT. BS = E ++++ edema Jonathan Berry MD May 15, 2020 13:50
--- NOTE | 2020-05-15 14:16 | NUR ---
CASE MANAGEMENT:REVIEW SI;SEVERE SEPSIS. HYPERKALEMIA. ANASARCA. 97.7 79 20 147/69 97% 2L NC NA 149 CL 112 BUN 48 CR 1.4 BG 213 CA 7.6 IS;VANCOMYCIN IV Q48 LASIX IV ONCE K-DUR GT ONCE IVF D5W @ 50 ML/HR MEROPENEM IV Q12 AMIODARONE GT QD DEPAKENE GT Q12 PREVACID GT QD MED SURG STATUS DCP;FROM [facility] PLAN; MONITOR I&O ADJUST FLUIDS CONT IV ABX DC PLANNING BACK TO SNF
--- NOTE | 2020-05-15 14:24 | NUR ---
INSURANCE REVIEW AND PROGRESS NOTES FAXED TO [facility] T; [phone] F: [phone]
[2020-05-15 16:04] VITALS: BP 142/72
--- NOTE | 2020-05-15 18:10 | General Progress Note ---
Assessment/Plan Problem List: (1) Hyperkalemia ICD Codes: E87.5 - Hyperkalemia SNOMED: 62107745 (2) Renal failure ICD Codes: N19 - Unspecified kidney failure SNOMED: 16820093 Qualifiers: Qualified Codes: N17.9 - Acute kidney failure, unspecified (3) Dehydration ICD Codes: E86.0 - Dehydration SNOMED: 27529447 (4) Malnutrition of moderate degree ICD Codes: E44.0 - Moderate protein-calorie malnutrition SNOMED: 915874661 (5) SARWAT (acute kidney injury) ICD Codes: N17.9 - Acute kidney failure, unspecified SNOMED: 7237168, 22940155 (6) Yeast cystitis ICD Codes: B37.41 - Candidal cystitis and urethritis SNOMED: 797112147 Status: stable Assessment/Plan: stable cont ivf consider increased water flushes monitor volume status and renal fxn monitor na level abx per id o2 as needed tube feeds monitor residuals skin care turn q2 dvt/stress ulcer prophylaxis Subjective ROS Limited/Unobtainable: No Constitutional: Reports: malaise, weakness HEENT: Reports: no symptoms Cardiovascular: Reports: no symptoms Respiratory: Reports: cough Gastrointestinal/Abdominal: Reports: no symptoms Genitourinary: Reports: no symptoms Neurologic/Psychiatric: Reports: pre-existing deficit Endocrine: Reports: no symptoms Hematologic/Lymphatic: Reports: anemia Allergies: Coded Allergies: No Known Allergies (Unverified , 01/30/20) All Systems: reviewed and negative except above Subjective no events. stable on tube feeds. Labs- bun/cr and sodium trending down. remains on iv abx for uti. no fevers. no distress noted. resting comfortably. Objective Last 24 Hour Vital Signs Date Time Temp Pulse Resp B/P (MAP) Pulse Ox O2 Delivery O2 Flow Rate FiO2 05/15/20 16:04 98.4 82 20 142/72 (95) 99 05/15/20 12:00 97.5 79 20 147/69 (95) 99 05/15/20 09:00 Nasal Cannula 2.0 05/15/20 08:00 98.0 75 20 139/67 (91) 100 05/15/20 04:00 97.7 73 20 137/65 (89) 97 05/15/20 00:00 97.7 74 20 138/73 (94) 99 05/14/20 21:00 Nasal Cannula 2.0 05/14/20 20:00 97.5 75 20 136/51 (79) 98 Intake and Output 05/14/20 05/15/20 19:00 07:00 Intake Total 105 ml 1390 ml Output Total 600 ml 650 ml Balance -495 ml 740 ml Intake Free Water 100 ml IV Total 105 ml 1010 ml Tube Feeding 280 ml Output Urine Total 600 ml 650 ml Laboratory Tests 05/15/20 05:45: Sodium Level 149H, Potassium Level 3.6, Chloride Level 112H, Carbon Dioxide Level 30, Anion Gap 7, Blood Urea Nitrogen 48H, Creatinine 1.4H, Estimat Glomerular Filtration Rate 35.5, Glucose Level 185H, Calcium Level 7.6L, Magnesium Level 2.0 05/15/20 12:33: POC Whole Blood Glucose 213H 05/15/20 17:04: POC Whole Blood Glucose [Pending] Height (Feet): 5 Height (Inches): 2.00 Weight (Pounds): 135 General Appearance: WD/WN, lethargic, confused EENT: PERRL/EOMI, normal ENT inspection Neck: non-tender, normal alignment, supple Cardiovascular: normal peripheral pulses, normal rate Respiratory/Chest: chest wall non-tender, lungs clear, normal breath sounds, no respiratory distress Abdomen: normal bowel sounds, non tender, soft, no organomegaly, no mass Extremities: normal range of motion, non-tender Edema: no edema noted Arm (L), no edema noted Arm (R) Edema: trace edema 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
--- NOTE | 2020-05-15 19:39 | NUR ---
NURSE HAND-OFF: Important Events on Shift: n/a Patient Status: asleep and arousable Diet: g-tube Pending Orders: Pending Results/Labs: Pending MD notification: Latest Vital Signs: Temperature 98.4 , Pulse 82 , B/P 142 /72 , Respiratory Rate 20 , O2 SAT 99 , Nasal Cannula, O2 Flow Rate 2.0 . Vital Sign Comment: Latest Ayala Fall Score: 50 Fall Risk: High Risk Safety Measures: Call light Within Reach, Bed Alarm Zone 2, Side Rails Side Rails x2, Bed position Low and Locked. Fall Precautions: Yellow Socks Yellow Gown Door Sign Patient Fall Education Report given to Helene.
--- NOTE | 2020-05-15 19:56 | NUR ---
NURSE NOTES: Received patient awake in bed, non-verbal but responds to painful stimuli. G tube noted with feeding at 35cc/hr, patient tolerating well. P200 mattress noted. Patient has dark soft stool, will clean and do wound care with NA. 2 IV access noted, right hand running IVF maintenance.
[2020-05-15 20:00] VITALS: BP 144/55
[2020-05-16] VITALS: BP 138/61
--- NOTE | 2020-05-16 02:07 | Cardiology Progress Note ---
Subjective DATE OF SERVICE: May 15, 2020 Still congested and swollen, but responding well to diuresis. On free water replacement and K+ replacement as needed. BP parameters improving. Objective Last 24 Hour Vital Signs Date Time Temp Pulse Resp B/P (MAP) Pulse Ox O2 Delivery O2 Flow Rate FiO2 05/16/20 00:00 99.0 82 20 138/61 (86) 98 05/15/20 21:41 Nasal Cannula 2.0 05/15/20 20:00 98.4 80 20 144/55 (84) 98 05/15/20 19:53 99 Nasal Cannula 2.0 28 05/15/20 16:04 98.4 82 20 142/72 (95) 99 05/15/20 12:00 97.5 79 20 147/69 (95) 99 05/15/20 09:00 Nasal Cannula 2.0 05/15/20 08:00 98.0 75 20 139/67 (91) 100 05/15/20 04:00 97.7 73 20 137/65 (89) 97 RHYTHM: ST, Afib LUNGS: accessory muscle use, bilateral rhonchi CARDIAC: regular rhythm, normal S1 and S2, arrhythmia ABDOMEN: normal bowel sounds, non tender, no organomegaly, G-Tube intact EXTREMITIES: moderate edema Laboratory Tests Test 05/15/20 05:45 05/15/20 12:33 05/15/20 17:04 05/15/20 19:39 Sodium Level 149 MMOL/L (136-145) H Potassium Level 3.6 MMOL/L (3.5-5.1) Chloride Level 112 MMOL/L (98-107) H Carbon Dioxide Level 30 MMOL/L (21-32) Anion Gap 7 mmol/L (5-15) Blood Urea Nitrogen 48 mg/dL (7-18) H Creatinine 1.4 MG/DL (0.55-1.30) H Estimat Glomerular Filtration Rate 35.5 mL/min (>60) Glucose Level 185 MG/DL (74-106) H Calcium Level 7.6 MG/DL (8.5-10.1) L Magnesium Level 2.0 MG/DL (1.8-2.4) POC Whole Blood Glucose 213 MG/DL (74-106) H Pending 121 MG/DL (74-106) H Assessment/Plan Assessment/Plan Sepsis with shock recovered Acute on chronic diastolic CHF UTI Metabolic and toxic encephalopathies HC associated aspiration PNA PAFib now with slow heart rates Acute renal failure deteriorating - with worsening anasarca hypokalemia hypernatremia/dehydration Lactic acidosis resolved Severe protein-calorie malnutrition Hypertension/HHD with labile BP Additional free water by gtube and IV route Diuresis trial on-going Full anticoagulation Abx Nutrition by Gtube Follow up lytes; correcting K+/Mg++ as needed. Continue maintenance dose amiodarone; continue off digoxin. Augusto Benítez MD May 16, 2020 02:07
[2020-05-16] MEDS: D5W w/KCl 20mEq 1,000 ML IV SCH ×2 (02:45→09:02)
[2020-05-16 04:00] VITALS: BP 147/62
[2020-05-16] MEDS: Meropenem 500mg in NS 55ml IVPB SCH ×2 (04:48→16:56)
[2020-05-16] MEDS: sitaGLIPtin 25mg tab GT SCH (05:46)
[2020-05-16] MEDS: Glimepiride 1mg tab GT SCH ×2 (05:47→16:55)
[2020-05-16] MEDS: NovoLOG Insulin Flexpen SUBQ SCH ×4 (05:47→20:17)
--- NOTE | 2020-05-16 07:35 | NUR ---
HAND-OFF: Report given to TEJINDER Santamaria.
[2020-05-16 08:00] VITALS: BP 144/59
--- NOTE | 2020-05-16 08:02 | NUR ---
NURSE NOTES: PT RESTING IN BED, IN HIGH PARK'S POSITION FOR ASPIRATION PRECAUTIONS. SUCTION AT BEDSIDE. GTF NEPRO RUNNING AT 35ML/HR. PT ON NC 2L. PT KEEPS TAKING OFF NASAL CANNULA. PT IS NON-VERBAL AND UNABLE TO RESPOND TO TEACHING. LEES CATH DRAINING YELLOW URINE BY GRAVITY. NO S/S PAIN USING FLACC PAIN SCALE. IN NO APPARENT DISTRESS AT THIS TIME. BED IN LOWEST POSITION WITH BEDSIDE RAILS X3 RAISED. BED ALARM ON ZONE 1. WILL CONTINUE TO MONITOR.
[2020-05-16] MEDS: Valproic Acid 250mg/5ml Liquid GT SCH ×2 (09:04→20:14)
[2020-05-16] MEDS: Eliquis 2.5mg tablet GT SCH (09:04)
[2020-05-16] MEDS: Amiodarone 200mg tab GT SCH (09:04)
[2020-05-16] MEDS: Acetaminophen 650mg/20.3ml GT PRN ×3 (09:05→21:09)
[2020-05-16] MEDS: LORazepam 1mg tab ORAL PRN ×2 (09:05→18:07)
[2020-05-16 09:11] LABS: BASOPHILS % (AUTO) 0.6 % (0.0-2.0); EOSINOPHILS % (AUTO) 0.5 % (0.0-3.0); HEMATOCRIT 32.2 % (37.0-47.0); LYMPHOCYTES % (AUTO) 10.2 % (20.0-45.0); MEAN CORPUSCULAR VOLUME 87 FL (80-99); MONOCYTES % (AUTO) 5.2 % (1.0-10.0); NEUTROPHILS % (AUTO) 83.5 % (45.0-75.0); PLATELET COUNT 223 K/UL (150-450); RED BLOOD COUNT 3.72 M/UL (4.20-5.40); RED CELL DISTRIBUTION WIDTH 18.7 % (11.6-14.8); WHITE BLOOD COUNT 13.6 K/UL (4.8-10.8)
--- NOTE | 2020-05-16 09:11 | Pulmonology Progress Note ---
Subjective ROS Limited/Unobtainable: Yes Constitutional: Denies: fever Allergies: Coded Allergies: No Known Allergies (Unverified , 01/30/20) All Systems: reviewed and negative except above Subjective care noted and reviewed remains ill wbc better NA elevated Objective Last 24 Hour Vital Signs Date Time Temp Pulse Resp B/P (MAP) Pulse Ox O2 Delivery O2 Flow Rate FiO2 05/16/20 08:00 97.3 72 19 144/59 (87) 100 05/16/20 04:00 97.9 74 24 147/62 (90) 98 05/16/20 00:00 99.0 82 20 138/61 (86) 98 05/15/20 21:41 Nasal Cannula 2.0 05/15/20 20:00 98.4 80 20 144/55 (84) 98 05/15/20 19:53 99 Nasal Cannula 2.0 28 05/15/20 16:04 98.4 82 20 142/72 (95) 99 05/15/20 12:00 97.5 79 20 147/69 (95) 99 Intake and Output 05/15/20 05/16/20 19:00 07:00 Intake Total 35 ml 385 ml Output Total 1800 ml 1500 ml Balance -1765 ml -1115 ml Tube Feeding 35 ml 385 ml Output Urine Total 1800 ml 1500 ml # Bowel Movements 2 Objective WDWN NAD reduced breath sounds bilaterally with some rhonchi [id number] without MRG NABS nontender G no CC noted edema nonfocal poor LOC Laboratory Tests 05/15/20 12:33: POC Whole Blood Glucose 213H 05/15/20 17:04: POC Whole Blood Glucose [Pending] 05/15/20 19:39: POC Whole Blood Glucose 121H 05/16/20 08:30: White Blood Count [Pending], Red Blood Count [Pending], Hemoglobin [Pending], Hematocrit [Pending], Mean Corpuscular Volume [Pending], Mean Corpuscular Hemoglobin [Pending], Mean Corpuscular Hemoglobin Concent [Pending], Red Cell Distribution Width [Pending], Platelet Count [Pending], Mean Platelet Volume [ Pending], Neutrophils (%) (Auto) [Pending], Lymphocytes (%) (Auto) [Pending], Monocytes (%) (Auto) [Pending], Eosinophils (%) (Auto) [Pending], Basophils (%) (Auto) [Pending], Sodium Level [Pending], Potassium Level [Pending], Chloride Level [Pending], Carbon Dioxide Level [Pending], Blood Urea Nitrogen [Pending], Creatinine [Pending], Estimat Glomerular Filtration Rate [Pending], Glucose Level [Pending], Calcium Level [Pending], Magnesium Level [Pending], Total Bilirubin [Pending], Aspartate Amino Transf (AST/SGOT) [Pending], Alanine Aminotransferase (ALT/SGPT) [Pending], Alkaline Phosphatase [Pending], Pro-B- Type Natriuretic Peptide [Pending], Total Protein [Pending], Albumin [Pending], Globulin [Pending] Current Medications Medications (Trade) Dose Ordered Sig/Jazmine Route PRN Reason Start Time Stop Time Status Last Admin Dose Admin Acetaminophen (Tylenol) 500 mg Q4H PRN GT Mild Pain (Pain Scale 1-3) 05/09/20 22:46 06/08/20 22:45 05/16/20 09:05 Amiodarone HCl (Cordarone) 200 mg DAILY GT 05/10/20 09:00 08/03/20 08:59 05/16/20 09:04 Apixaban (Eliquis) 2.5 mg DAILY GT 05/10/20 09:00 08/03/20 08:59 05/16/20 09:04 Dextrose (Dextrose 50%) 25 ml Q30M PRN IV Hypoglycemia 05/09/20 23:00 08/02/20 19:59 Dextrose (Dextrose 50%) 50 ml Q30M PRN IV Hypoglycemia 05/09/20 23:00 08/02/20 19:59 Dextrose/ Electrolytes 1,000 ml @ 50 mls/hr Q20H IV 05/14/20 10:45 06/13/20 10:44 05/16/20 09:02 Docusate Sodium (Colace) 100 mg BIDPRN PRN GT Constipation 05/09/20 22:49 06/08/20 22:48 Glimepiride (AmaryL) 2 mg BID@0630,1630 GT 05/10/20 06:30 06/09/20 06:29 05/16/20 05:47 Hydralazine HCl (Apresoline) 25 mg Q6H PRN ORAL SBP above 150 05/12/20 17:45 08/10/20 17:44 05/14/20 06:16 Insulin Aspart (NovoLOG) BEFORE MEALS AND HS SUBQ 05/15/20 21:00 08/13/20 20:59 Lansoprazole (Prevacid) 30 mg DAILY@0630 GT 05/10/20 06:30 06/06/20 06:29 05/16/20 05:46 Lorazepam (Ativan) 1 mg Q6H PRN ORAL For Anxiety 05/09/20 22:53 05/16/20 22:52 05/16/20 09:05 Meropenem 500 mg/ Sodium Chloride 55 ml @ 110 mls/hr Q12H IVPB 05/12/20 17:00 05/17/20 16:59 05/16/20 04:48 Multivitamins (Multivitamins) 1 tab DAILY GT 05/11/20 09:00 06/04/20 08:59 05/16/20 09:04 Sitagliptin Phosphate (Januvia) 25 mg ACBREAKFAST GT 05/14/20 06:30 06/13/20 06:29 05/16/20 05:46 Valproic Acid (Depakene) 500 mg Q12HR GT 05/10/20 09:00 06/22/20 21:29 05/16/20 09:04 Vancomycin HCl ([facility] pharmacy to dose) 1 ea DAILY PRN MISC Per rx protocol 05/13/20 11:30 06/12/20 11:29 Vancomycin HCl 750 mg/Sodium Chloride 275 ml @ 183.333 mls/hr Q48H IVPB 05/15/20 13:00 05/20/20 12:59 05/15/20 13:31 Assessment/Plan Assessment/Plan IMPRESSION: 1. urosepsis. 2. Acute on chronic encephalopathy. 3. Septic shock. resolved 4. Acute on chronic renal failure. 5. Hyperkalemia. 6. Leukocytosis. improved 7. resolved hypotension. 8. electrolyte imbalance 9. Dementia. 10. Diabetes. 11. G-tube. 12. peripheral edema 13. 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 some improvement 2. continue medications as is 3. monitor peripheral edema 4. monitor in and out 5. adjust fluids 6. IV antibiotics; hope to dc 7. d/w consultants 8. Anticoagulation 9. Digoxin with caution. monitor levels 10. Sliding scale insulin 11. imodium for diarrhea hope to dc soon impression, plan, and exam edited and reviewed in detail care discussed with Eduardo Kern MD May 16, 2020 09:11
--- NOTE | 2020-05-16 09:15 | Progress Note ---
DATE: 05/16/2020 SUBJECTIVE: The patient is doing better, overall medically improving too. WBC is trending down; however, still weak. Decreased agitation and yelling. She is now DNR/DNI. MENTAL STATUS EXAMINATION: The patient has waxing and waning consciousness. Mood is neutral to agitated. Affect is flat. Thought process, there is a paucity of thought content. Thought content, no suicidal or homicidal ideation. Cognition is impaired. Insight and judgment impaired. ASSESSMENT: Dementia with behavior disturbance. PLAN: 1. Continue the current psychotropic medications. 2. The patient lacks capacity to make decisions. Shena Campos M.D. DR: Heidi JOB#: [id number] CC:
[2020-05-16 09:25] LABS: ALANINE AMINOTRANSFERASE 12 U/L (12-78); ALBUMIN 1.4 G/DL (3.4-5.0); ALBUMIN/GLOBULIN RATIO 0.4 (1.0-2.7); ALKALINE PHOSPHATASE 70 U/L (46-116); ANION GAP 7 mmol/L (5-15); ASPARTATE AMINO TRANSFERASE 25 U/L (15-37); BILIRUBIN,TOTAL 0.2 MG/DL (0.2-1.0); BLOOD UREA NITROGEN 37 mg/dL (7-18); CALCIUM 7.4 MG/DL (8.5-10.1); CARBON DIOXIDE 33 MMOL/L (21-32); CHLORIDE 108 MMOL/L (98-107); CREATININE 1.4 MG/DL (0.55-1.30); POTASSIUM 3.6 MMOL/L (3.5-5.1); SODIUM 147 MMOL/L (136-145)
--- NOTE | 2020-05-16 10:00 | NUR ---
NURSE NOTES: GTUBE SITE CLEANED WITH WATER AND SOAP. DRIED AND OPEN TO AIR. SITE HAD GAUZE DRESSING WITH DRIED DARK RED/BROWN EXUDATE. GTUBE SITE IS SLIGHTLY REDDENED.
--- NOTE | 2020-05-16 10:09 | NUR ---
NURSE NOTES: PT TAKEN OFF NASAL CANNULA 2L. PT SATURATING AT 95% ON ROOM AIR. IN NO APPARENT DISTRESS. WILL KEEP PT OFF NASAL CANNULA AND KEEP PT ON CONTINUOUS PULSE OXIMETER FOR MONITORING. WILL CONTINUE TO MONITOR.
--- NOTE | 2020-05-16 10:10 | NUR ---
RD ASSESSMENT & RECOMMENDATIONS SEE CARE ACTIVITY FOR COMPLETE ASSESSMENT DAILY ESTIMATED NEEDS: Needs based on DM, wound, renal/ 49kg 30-35 kcals/kg 7021-0790 total kcals 1.25-1.8 g protein/kg 61-88 g total protein 25-30ml/kcal mL/kg 6304-8463 total fluid mLs NUTRITION DIAGNOSIS: * Increased kcal and pro needs r/t wound care as evidenced by admitted w/ multiple wounds including DTPI wounds @ sacrum and Rt heel and non-blanching erythema @ BL ischium. * Swallowing difficulty R/T dysphagia as evidenced by GT dependent. * Altered nutrition related lab values R/T SARWAT as evidenced by elev creat (3.5-> 1.4 trend down), elev BUN (125 -> 37 trend down), elev K (7.8*-> 3.9-> now wnl), elev phos (6.0, not updated), elev BNP (75417->03736). CURRENT TF:Nepro @ 35ml/hr x 24 hrs ENTERAL NUTRITION RECOMMENDATIONS: NEPRO @35ml/hr x24 hrs to provide 840ml, 1512 kcal, 68g pro, 611ml free H2O, 890mg k/day * Maintain current TF order at this time to maintain lytes wnl * HOB over 30 degrees/ water flush per MD ------- With continued renal fxn improvement and lytes wnl, rec TF change to Glucerna 1.5 @ 42ml/hr x 24 hrs to provide 1008ml, 1512kcal, 83g prot ADDITIONAL RECOMMENDATIONS: * PER SNF: Height 4'11" inches and 108 lbs * Re-calibrate bedscale- bedscale reads 40.5lbs (05/16) * WC eval add Vit C 250mg QD + IMAN in 4oz via GT BID * Monitor renal fxn and lytes, need to continue Nepro : improving renal fxn, K now wnl. Rec to check updated phos level .
--- NOTE | 2020-05-16 11:06 | Infectious Diseases Prog Note ---
Assessment/Plan Assessment/Plan antibiotics : meropenem vancomycin A 1. GT site infection with e.coli, staph epidermidis 4. leucocytosis improving 5. renal failure improving 6. dementia 7. COPD 8. diabetes mellitus P 1. continue meropenem 2 more days 2. continue iv vancomycin 3 more days 3. will follow up cultures Subjective ROS Limited/Unobtainable: Yes Allergies: Coded Allergies: No Known Allergies (Unverified , 01/30/20) Objective Last 24 Hour Vital Signs Date Time Temp Pulse Resp B/P (MAP) Pulse Ox O2 Delivery O2 Flow Rate FiO2 05/16/20 09:00 Nasal Cannula 2.0 05/16/20 08:00 97.3 72 19 144/59 (87) 100 05/16/20 04:00 97.9 74 24 147/62 (90) 98 05/16/20 00:00 99.0 82 20 138/61 (86) 98 05/15/20 21:41 Nasal Cannula 2.0 05/15/20 20:00 98.4 80 20 144/55 (84) 98 05/15/20 19:53 99 Nasal Cannula 2.0 28 05/15/20 16:04 98.4 82 20 142/72 (95) 99 05/15/20 12:00 97.5 79 20 147/69 (95) 99 Height (Feet): 5 Height (Inches): 2.00 Weight (Pounds): 135 Respiratory/Chest: lungs clear Cardiovascular: normal rate, regular rhythm, no gallop/murmur Abdomen: soft, non tender Extremities: no edema Laboratory Tests Test 05/15/20 12:33 05/15/20 17:04 05/15/20 19:39 05/16/20 08:30 POC Whole Blood Glucose 213 MG/DL (74-106) H Pending 121 MG/DL (74-106) H White Blood Count 13.6 K/UL (4.8-10.8) H Red Blood Count 3.72 M/UL (4.20-5.40) L Hemoglobin 10.0 G/DL (12.0-16.0) L Hematocrit 32.2 % (37.0-47.0) L Mean Corpuscular Volume 87 FL (80-99) Mean Corpuscular Hemoglobin 27.0 PG (27.0-31.0) Mean Corpuscular Hemoglobin Concent 31.1 G/DL (32.0-36.0) L Red Cell Distribution Width 18.7 % (11.6-14.8) H Platelet Count 223 K/UL (150-450) Mean Platelet Volume 7.8 FL (6.5-10.1) Neutrophils (%) (Auto) 83.5 % (45.0-75.0) H Lymphocytes (%) (Auto) 10.2 % (20.0-45.0) L Monocytes (%) (Auto) 5.2 % (1.0-10.0) Eosinophils (%) (Auto) 0.5 % (0.0-3.0) Basophils (%) (Auto) 0.6 % (0.0-2.0) Sodium Level 147 MMOL/L (136-145) H Potassium Level 3.6 MMOL/L (3.5-5.1) Chloride Level 108 MMOL/L (98-107) H Carbon Dioxide Level 33 MMOL/L (21-32) H Anion Gap 7 mmol/L (5-15) Blood Urea Nitrogen 37 mg/dL (7-18) H Creatinine 1.4 MG/DL (0.55-1.30) H Estimat Glomerular Filtration Rate 35.5 mL/min (>60) Glucose Level 138 MG/DL (74-106) H Calcium Level 7.4 MG/DL (8.5-10.1) L Magnesium Level 1.7 MG/DL (1.8-2.4) L Total Bilirubin 0.2 MG/DL (0.2-1.0) Aspartate Amino Transf (AST/SGOT) 25 U/L (15-37) Alanine Aminotransferase (ALT/SGPT) 12 U/L (12-78) Alkaline Phosphatase 70 U/L (46-116) Pro-B-Type Natriuretic Peptide 20391 pg/mL (0-125) H Total Protein 4.6 G/DL (6.4-8.2) L Albumin 1.4 G/DL (3.4-5.0) L Globulin 3.2 g/dL Albumin/Globulin Ratio 0.4 (1.0-2.7) L Current Medications Medications (Trade) Dose Ordered Sig/Jazmine Route PRN Reason Start Time Stop Time Status Last Admin Dose Admin Acetaminophen (Tylenol) 500 mg Q4H PRN GT Mild Pain (Pain Scale 1-3) 05/09/20 22:46 06/08/20 22:45 05/16/20 09:05 Amiodarone HCl (Cordarone) 200 mg DAILY GT 05/10/20 09:00 08/03/20 08:59 05/16/20 09:04 Apixaban (Eliquis) 2.5 mg DAILY GT 05/10/20 09:00 08/03/20 08:59 05/16/20 09:04 Dextrose (Dextrose 50%) 25 ml Q30M PRN IV Hypoglycemia 05/09/20 23:00 08/02/20 19:59 Dextrose (Dextrose 50%) 50 ml Q30M PRN IV Hypoglycemia 05/09/20 23:00 08/02/20 19:59 Dextrose/ Electrolytes 1,000 ml @ 50 mls/hr Q20H IV 05/14/20 10:45 06/13/20 10:44 05/16/20 09:02 Docusate Sodium (Colace) 100 mg BIDPRN PRN GT Constipation 05/09/20 22:49 06/08/20 22:48 Glimepiride (AmaryL) 2 mg BID@0630,1630 GT 05/10/20 06:30 06/09/20 06:29 05/16/20 05:47 Hydralazine HCl (Apresoline) 25 mg Q6H PRN ORAL SBP above 150 05/12/20 17:45 08/10/20 17:44 05/14/20 06:16 Insulin Aspart (NovoLOG) BEFORE MEALS AND HS SUBQ 05/15/20 21:00 08/13/20 20:59 Lansoprazole (Prevacid) 30 mg DAILY@0630 GT 05/10/20 06:30 06/06/20 06:29 05/16/20 05:46 Lorazepam (Ativan) 1 mg Q6H PRN ORAL For Anxiety 05/09/20 22:53 05/16/20 22:52 05/16/20 09:05 Meropenem 500 mg/ Sodium Chloride 55 ml @ 110 mls/hr Q12H IVPB 05/12/20 17:00 05/17/20 16:59 05/16/20 04:48 Multivitamins (Multivitamins) 1 tab DAILY GT 05/11/20 09:00 06/04/20 08:59 05/16/20 09:04 Sitagliptin Phosphate (Januvia) 25 mg ACBREAKFAST GT 05/14/20 06:30 06/13/20 06:29 05/16/20 05:46 Valproic Acid (Depakene) 500 mg Q12HR GT 05/10/20 09:00 06/22/20 21:29 05/16/20 09:04 Vancomycin HCl ([facility] pharmacy to dose) 1 ea DAILY PRN MISC Per rx protocol 05/13/20 11:30 06/12/20 11:29 Vancomycin HCl 750 mg/Sodium Chloride 275 ml @ 183.333 mls/hr Q48H IVPB 05/15/20 13:00 05/20/20 12:59 05/15/20 13:31 Felipe Grant MD May 16, 2020 11:06
--- NOTE | 2020-05-16 11:07 | NUR ---
NURSE NOTES: RN UNABLE TO WEIGH PT ON BED. WEIGHT READS "30 POUNDS". PT UIS BEDBOUND WITH P200 AIR MATTRESS.
[2020-05-16 12:00] VITALS: BP 114/83
--- NOTE | 2020-05-16 13:22 | Nephrology Progress Note ---
Assessment/Plan Plan A/P CKD 3 , atrophic kidneys on US, Anasarca. Subjective Subjective Obtunded Objective Objective Last 24 Hour Vital Signs Date Time Temp Pulse Resp B/P (MAP) Pulse Ox O2 Delivery O2 Flow Rate FiO2 05/16/20 12:00 98.2 74 18 114/83 (93) 94 05/16/20 09:00 Nasal Cannula 2.0 05/16/20 08:00 97.3 72 19 144/59 (87) 100 05/16/20 04:00 97.9 74 24 147/62 (90) 98 05/16/20 00:00 99.0 82 20 138/61 (86) 98 05/15/20 21:41 Nasal Cannula 2.0 05/15/20 20:00 98.4 80 20 144/55 (84) 98 05/15/20 19:53 99 Nasal Cannula 2.0 28 05/15/20 16:04 98.4 82 20 142/72 (95) 99 Intake and Output 05/15/20 05/16/20 19:00 07:00 Intake Total 35 ml 470 ml Output Total 1800 ml 1500 ml Balance -1765 ml -1030 ml IV Total 50 ml Tube Feeding 35 ml 420 ml Output Urine Total 1800 ml 1500 ml # Bowel Movements 2 Laboratory Tests 05/15/20 17:04: POC Whole Blood Glucose [Pending] 05/15/20 19:39: POC Whole Blood Glucose 121H 05/16/20 08:30: White Blood Count 13.6H, Red Blood Count 3.72L, Hemoglobin 10.0L, Hematocrit 32.2L, Mean Corpuscular Volume 87, Mean Corpuscular Hemoglobin 27.0, Mean Corpuscular Hemoglobin Concent 31.1L, Red Cell Distribution Width 18.7H, Platelet Count 223, Mean Platelet Volume 7.8, Neutrophils (%) (Auto) 83.5H, Lymphocytes (%) (Auto) 10.2L, Monocytes (%) (Auto) 5.2, Eosinophils (%) (Auto) 0.5, Basophils (%) (Auto) 0.6, Sodium Level 147H, Potassium Level 3.6, Chloride Level 108H, Carbon Dioxide Level 33H, Anion Gap 7, Blood Urea Nitrogen 37H, Creatinine 1.4H, Estimat Glomerular Filtration Rate 35.5, Glucose Level 138H, Calcium Level 7.4L, Magnesium Level 1.7L, Total Bilirubin 0.2, Aspartate Amino Transf (AST/SGOT) 25, Alanine Aminotransferase (ALT/SGPT) 12, Alkaline Phosphatase 70, Pro-B-Type Natriuretic Peptide 96893L, Total Protein 4.6L, Albumin 1.4L, Globulin 3.2, Albumin/Globulin Ratio 0.4L 05/16/20 11:31: POC Whole Blood Glucose 164H Height (Feet): 5 Height (Inches): 2.00 Weight (Pounds): 135 Objective CV RR Lungs CTA Abd Ascites . SNT. BS = E ++++ edema Jonathan Berry MD May 16, 2020 13:22
--- NOTE | 2020-05-16 14:55 | Surgery Progress Note ---
Surgery Progress Note Subjective Additional Comments no acute events exam stable labs noted Objective Last 24 Hour Vital Signs Date Time Temp Pulse Resp B/P (MAP) Pulse Ox O2 Delivery O2 Flow Rate FiO2 05/16/20 12:00 98.2 74 18 114/83 (93) 94 05/16/20 09:00 Nasal Cannula 2.0 05/16/20 08:00 97.3 72 19 144/59 (87) 100 05/16/20 04:00 97.9 74 24 147/62 (90) 98 05/16/20 00:00 99.0 82 20 138/61 (86) 98 05/15/20 21:41 Nasal Cannula 2.0 05/15/20 20:00 98.4 80 20 144/55 (84) 98 05/15/20 19:53 99 Nasal Cannula 2.0 28 05/15/20 16:04 98.4 82 20 142/72 (95) 99 I&O Intake and Output 05/15/20 05/16/20 19:00 07:00 Intake Total 35 ml 470 ml Output Total 1800 ml 1500 ml Balance -1765 ml -1030 ml IV Total 50 ml Tube Feeding 35 ml 420 ml Output Urine Total 1800 ml 1500 ml # Bowel Movements 2 Dressing: saturated Cardiovascular: RSR Respiratory: decreased breath sounds Abdomen: soft, non-tender, present bowel sounds Extremities: no cyanosis Laboratory Tests Test 05/15/20 17:04 05/15/20 19:39 05/16/20 08:30 05/16/20 11:31 POC Whole Blood Glucose Pending 121 MG/DL (74-106) H 164 MG/DL (74-106) H White Blood Count 13.6 K/UL (4.8-10.8) H Red Blood Count 3.72 M/UL (4.20-5.40) L Hemoglobin 10.0 G/DL (12.0-16.0) L Hematocrit 32.2 % (37.0-47.0) L Mean Corpuscular Volume 87 FL (80-99) Mean Corpuscular Hemoglobin 27.0 PG (27.0-31.0) Mean Corpuscular Hemoglobin Concent 31.1 G/DL (32.0-36.0) L Red Cell Distribution Width 18.7 % (11.6-14.8) H Platelet Count 223 K/UL (150-450) Mean Platelet Volume 7.8 FL (6.5-10.1) Neutrophils (%) (Auto) 83.5 % (45.0-75.0) H Lymphocytes (%) (Auto) 10.2 % (20.0-45.0) L Monocytes (%) (Auto) 5.2 % (1.0-10.0) Eosinophils (%) (Auto) 0.5 % (0.0-3.0) Basophils (%) (Auto) 0.6 % (0.0-2.0) Sodium Level 147 MMOL/L (136-145) H Potassium Level 3.6 MMOL/L (3.5-5.1) Chloride Level 108 MMOL/L (98-107) H Carbon Dioxide Level 33 MMOL/L (21-32) H Anion Gap 7 mmol/L (5-15) Blood Urea Nitrogen 37 mg/dL (7-18) H Creatinine 1.4 MG/DL (0.55-1.30) H Estimat Glomerular Filtration Rate 35.5 mL/min (>60) Glucose Level 138 MG/DL (74-106) H Calcium Level 7.4 MG/DL (8.5-10.1) L Magnesium Level 1.7 MG/DL (1.8-2.4) L Total Bilirubin 0.2 MG/DL (0.2-1.0) Aspartate Amino Transf (AST/SGOT) 25 U/L (15-37) Alanine Aminotransferase (ALT/SGPT) 12 U/L (12-78) Alkaline Phosphatase 70 U/L (46-116) Pro-B-Type Natriuretic Peptide 97499 pg/mL (0-125) H Total Protein 4.6 G/DL (6.4-8.2) L Albumin 1.4 G/DL (3.4-5.0) L Globulin 3.2 g/dL Albumin/Globulin Ratio 0.4 (1.0-2.7) L Plan Problems: (1) Deep tissue injury Assessment & Plan: Pt presented on admission with Multiple Pressure injuries. Sacral DTPI noted (L)6.7cm x (W)6.9cm. Base of wound is purpuric ,partially opened -ruby and indurated. No odor or exudate noted. Non-blanching erythema periwound.DTPI noted to R Ischium(L)4cm x (W)2.2cm.Base of Pressure injury maroon and indurated. Non-Blanching erythema without induration noted to L ischium. Vulva is swollen and erythematous . DTPI noted to R Heel(L)3.3cm x (W)2.9cm. Wound is is blood filled purpuric Blister with surrounding non-blanchable and boggy heel. R Heel is Boggy with Non-Blanchable erythema. Tx.Plan: Apply Moisture Barrier Paste to Sacrum. Cover with Optifoam drsg. Change every 3 days and prn. Apply Moisture Barrier Paste to R ischium. Cover with Optifoam drsg. Change every 3 days and prn. Apply Moisture Barrier Paste to Bilat groin, perineum and L ischium with each perineal care. Apply Cavilon Skin Barrier to R and L trochanteric areas. Cover each site with Optifoam drsg. Change every 7 days and prn. Reposition at least every 2hours or as tolerated. Off-load heels with pillow. APM/MARY ANN Mattress overlay. (2) Dehydration (3) Hypokalemia (4) Renal failure (5) Hyperkalemia (6) UTI (urinary tract infection) (7) Severe sepsis Assessment & Plan: Patient with significant leukocytosis, lactic acidosis, abnormal electrolytes, renal insufficiency, anemia. UA noted. Microbiology reviewed. Imaging reviewed. COVID negative. Patient with multiple deep tissue injuries and severe malnutrition albumin 1 Wounds unlikely the source or etiology of patient's sepsis. No abscess or fluid collections requiring drainage currently identified. Continue IV antibiotics per infectious disease We will continue to monitor and identify assist with care and management Thank you for let me participate patient's care will follow with recommendations nutritional optimization improving d/c planning from surgical standpoint cont nutrition DAILY ESTIMATED NEEDS: Needs based on DM, wound, renal/ 49kg 30-35 kcals/kg 7938-8290 total kcals 1.25-1.5 g protein/kg 61-74 g total protein 25-30ml/kcal mL/kg 9899-8056 total fluid mLs NUTRITION DIAGNOSIS: * Increased kcal and pro needs r/t wound care as evidenced by open sacral wound per photo, eval pending. * Swallowing difficulty R/T dysphagia as evidenced by GT dependent. ENTERAL NUTRITION RECOMMENDATIONS: NEPRO @43ml/hr x 20hrs to provide 860ml, 1548kcal, 70g prot, 625ml free water * As medically able, start NEPRO @23ml/hr for 6 hrs, advance as tolerated 10ml q4-6 hrs * HOB over 30 degrees * Without IVF, water flush of ml q 130ml q4 hrs -------- ADDITIONAL RECOMMENDATIONS: * PER SNF: Height 4'11" inches and 108 lbs * Rec D5 while NPO * F/up w/ WC eval-> add IMAN in 4oz via GT BID with tube feeds * Rec renal formula as above d/t renal failure on adm * Maintain accurate calibrated bed scale weights . Dimitris Diaz May 16, 2020 14:55
[2020-05-16 16:00] VITALS: BP 143/54
--- NOTE | 2020-05-16 16:32 | NUR ---
CASE MANAGEMENT: REVIEW SI: DEHYDRATION . UTI . SEPSIS T 97.3 HR 72 RR 18 BP 144/59 SAT 98% NC/2L WBC 13.6 H/H 10.0/32.2 NA 147 BUN 37 CR 1.4 BNP 64952 IS: MAG IV @ 100ML/HR VANCOMYCIN IV Q48HR D5W w/KCl 20MEQ @ 50ML/HR MEROPENEM IV Q12HR AMIODARONE GT QD DEPAKENE GT Q12HR MED/SURG STATUS DCP: PATIENT IS FROM [facility]
--- NOTE | 2020-05-16 16:45 | General Progress Note ---
Assessment/Plan Problem List: (1) Hyperkalemia ICD Codes: E87.5 - Hyperkalemia SNOMED: 89848628 (2) Renal failure ICD Codes: N19 - Unspecified kidney failure SNOMED: 76615692 Qualifiers: Qualified Codes: N17.9 - Acute kidney failure, unspecified (3) Dehydration ICD Codes: E86.0 - Dehydration SNOMED: 63344015 (4) Malnutrition of moderate degree ICD Codes: E44.0 - Moderate protein-calorie malnutrition SNOMED: 883830887 (5) SARWAT (acute kidney injury) ICD Codes: N17.9 - Acute kidney failure, unspecified SNOMED: 9881233, 88841879 (6) Yeast cystitis ICD Codes: B37.41 - Candidal cystitis and urethritis SNOMED: 751982485 Status: stable Assessment/Plan: stable cont ivf water flushes monitor volume status and renal fxn monitor na level replace mg abx per id- 2 to 3 more days o2 as needed tube feeds monitor residuals skin care turn q2 dvt/stress ulcer prophylaxis Subjective ROS Limited/Unobtainable: No Constitutional: Reports: malaise, weakness HEENT: Reports: no symptoms Cardiovascular: Reports: no symptoms Respiratory: Reports: cough, shortness of breath Gastrointestinal/Abdominal: Reports: difficulty swallowing Genitourinary: Reports: no symptoms Neurologic/Psychiatric: Reports: pre-existing deficit Endocrine: Reports: no symptoms Hematologic/Lymphatic: Reports: anemia Allergies: Coded Allergies: No Known Allergies (Unverified , 01/30/20) All Systems: reviewed and negative except above Subjective no events. stable on tube feeds. Labs- bun/cr and sodium trending down. remains on iv abx for uti. no fevers. no distress noted. resting comfortably. slightly increased edema. +lomeli and GT Objective Last 24 Hour Vital Signs Date Time Temp Pulse Resp B/P (MAP) Pulse Ox O2 Delivery O2 Flow Rate FiO2 05/16/20 12:00 98.2 74 18 114/83 (93) 94 05/16/20 09:00 Nasal Cannula 2.0 05/16/20 08:00 97.3 72 19 144/59 (87) 100 05/16/20 04:00 97.9 74 24 147/62 (90) 98 05/16/20 00:00 99.0 82 20 138/61 (86) 98 05/15/20 21:41 Nasal Cannula 2.0 05/15/20 20:00 98.4 80 20 144/55 (84) 98 05/15/20 19:53 99 Nasal Cannula 2.0 28 Intake and Output 05/15/20 05/16/20 19:00 07:00 Intake Total 35 ml 470 ml Output Total 1800 ml 1500 ml Balance -1765 ml -1030 ml IV Total 50 ml Tube Feeding 35 ml 420 ml Output Urine Total 1800 ml 1500 ml # Bowel Movements 2 Laboratory Tests 05/15/20 17:04: POC Whole Blood Glucose [Pending] 05/15/20 19:39: POC Whole Blood Glucose 121H 05/16/20 08:30: White Blood Count 13.6H, Red Blood Count 3.72L, Hemoglobin 10.0L, Hematocrit 32.2L, Mean Corpuscular Volume 87, Mean Corpuscular Hemoglobin 27.0, Mean Corpuscular Hemoglobin Concent 31.1L, Red Cell Distribution Width 18.7H, Platelet Count 223, Mean Platelet Volume 7.8, Neutrophils (%) (Auto) 83.5H, Lymphocytes (%) (Auto) 10.2L, Monocytes (%) (Auto) 5.2, Eosinophils (%) (Auto) 0.5, Basophils (%) (Auto) 0.6, Sodium Level 147H, Potassium Level 3.6, Chloride Level 108H, Carbon Dioxide Level 33H, Anion Gap 7, Blood Urea Nitrogen 37H, Creatinine 1.4H, Estimat Glomerular Filtration Rate 35.5, Glucose Level 138H, Calcium Level 7.4L, Magnesium Level 1.7L, Total Bilirubin 0.2, Aspartate Amino Transf (AST/SGOT) 25, Alanine Aminotransferase (ALT/SGPT) 12, Alkaline Phosphatase 70, Pro-B-Type Natriuretic Peptide 69118Q, Total Protein 4.6L, Albumin 1.4L, Globulin 3.2, Albumin/Globulin Ratio 0.4L 05/16/20 11:31: POC Whole Blood Glucose 164H 05/16/20 16:29: POC Whole Blood Glucose 125H Height (Feet): 5 Height (Inches): 2.00 Weight (Pounds): 135 Objective General Appearance: WD/WN, lethargic, confused EENT: PERRL/EOMI, normal ENT inspection Neck: non-tender, normal alignment, supple Cardiovascular: normal peripheral pulses, normal rate Respiratory/Chest: chest wall non-tender, lungs clear, normal breath sounds, no respiratory distress Abdomen: normal bowel sounds, non tender, soft, no organomegaly, no mass Extremities: normal range of motion, non-tender Edema: no edema noted Arm (L), no edema noted Arm (R) Edema: trace edema 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
--- NOTE | 2020-05-16 16:59 | NUR ---
INSURANCE REVIEW AND PROGRESS NOTES FAXED TO [facility] T; [phone] F: [phone]
--- NOTE | 2020-05-16 19:06 | NUR ---
NURSE HAND-OFF: Important Events on Shift: MULTIPLE LOOSE BM Patient Status: STABLE Diet: GTF NEPRO 35ML/HR, FLUSH 150ML Q6H Pending Orders: N/A Pending Results/Labs:N/A Pending MD notification:N/A Latest Vital Signs: Temperature 97.9 , Pulse 76 , B/P 143 /54 , Respiratory Rate 19 , O2 SAT 92 , Nasal Cannula, O2 Flow Rate 2.0 . Vital Sign Comment: STABLE Latest Ayala Fall Score: 50 Fall Risk: High Risk Safety Measures: Call light Within Reach, Bed Alarm Zone 2, Side Rails Side Rails x2, Bed position Low and Locked. Fall Precautions: Yellow Socks Yellow Gown Door Sign Patient Fall Education Report given to Rosie HERNDON RN
--- NOTE | 2020-05-16 19:23 | NUR ---
NURSE NOTES: Received patient awake in bed, no s/s of acute distress, on room air. Mouth suctioned of saliva, patient tolerated well. IV access patient, asymptomatic, running IVF maintenance. Bed low and locked.
[2020-05-16 20:00] VITALS: BP 144/55
--- NOTE | 2020-05-16 21:15 | NUR ---
NURSE NOTES: RT called for patient respiratory assessment. No respiratory treatment needed at this time.
--- NOTE | 2020-05-16 22:20 | Psych Consult Progress Note ---
Psychiatry Progress Note Psychiatry Progress Note Subjective confused agitation Medications Current Medications Medications (Trade) Dose Ordered Sig/Jazmine Route PRN Reason Start Time Stop Time Status Last Admin Dose Admin Acetaminophen (Tylenol) 500 mg Q4H PRN GT Mild Pain (Pain Scale 1-3) 05/09/20 22:46 06/08/20 22:45 05/16/20 21:09 Amiodarone HCl (Cordarone) 200 mg DAILY GT 05/10/20 09:00 08/03/20 08:59 05/16/20 09:04 Apixaban (Eliquis) 2.5 mg DAILY GT 05/10/20 09:00 08/03/20 08:59 05/16/20 09:04 Dextrose (Dextrose 50%) 25 ml Q30M PRN IV Hypoglycemia 05/09/20 23:00 08/02/20 19:59 Dextrose (Dextrose 50%) 50 ml Q30M PRN IV Hypoglycemia 05/09/20 23:00 08/02/20 19:59 Dextrose/ Electrolytes 1,000 ml @ 50 mls/hr Q20H IV 05/14/20 10:45 06/13/20 10:44 05/16/20 09:02 Docusate Sodium (Colace) 100 mg BIDPRN PRN GT Constipation 05/09/20 22:49 06/08/20 22:48 Glimepiride (AmaryL) 2 mg BID@0630,1630 GT 05/10/20 06:30 06/09/20 06:29 05/16/20 16:55 Hydralazine HCl (Apresoline) 25 mg Q6H PRN ORAL SBP above 150 05/12/20 17:45 08/10/20 17:44 05/14/20 06:16 Insulin Aspart (NovoLOG) BEFORE MEALS AND HS SUBQ 05/15/20 21:00 08/13/20 20:59 05/16/20 11:48 Lansoprazole (Prevacid) 30 mg DAILY@0630 GT 05/10/20 06:30 06/06/20 06:29 05/16/20 05:46 Lorazepam (Ativan) 1 mg Q6H PRN ORAL For Anxiety 05/09/20 22:53 05/16/20 22:52 05/16/20 18:07 Meropenem 500 mg/ Sodium Chloride 55 ml @ 110 mls/hr Q12H IVPB 05/12/20 17:00 05/17/20 16:59 05/16/20 16:56 Multivitamins (Multivitamins) 1 tab DAILY GT 05/11/20 09:00 06/04/20 08:59 05/16/20 09:04 Sitagliptin Phosphate (Januvia) 25 mg ACBREAKFAST GT 05/14/20 06:30 06/13/20 06:29 05/16/20 05:46 Valproic Acid (Depakene) 500 mg Q12HR GT 05/10/20 09:00 06/22/20 21:29 05/16/20 20:14 Vancomycin HCl (Vanco pharmacy to dose) 1 ea DAILY PRN MISC Per rx protocol 05/13/20 11:30 06/12/20 11:29 Vancomycin HCl 750 mg/Sodium Chloride 275 ml @ 183.333 mls/hr Q48H IVPB 05/15/20 13:00 05/20/20 12:59 05/15/20 13:31 Neurological/Psychiatric: Reports: anxiety, depressed, emotional problems Allergies: Coded Allergies: No Known Allergies (Unverified , 01/30/20) Objective Data Height (Feet): 5 Height (Inches): 2.00 Weight (Pounds): 135 General Appearance: WD/WN, lethargic, confused Appearance: bizarre Behavior Mannerisms: poor eye contact Mental Status Exam - Affect: flat Additional Comments: The patient is awake. She is confused and disoriented. Mood is agitated. Affect is flat. Thought process, disorganized. Thought content, no suicidal or homicidal ideation. Cognition is impaired. Insight and judgment is impaired. Assessment/Plan Harmony I: ASSESSMENT: AXIS I: Dementia with behavior disturbance. AXIS II: Deferred. AXIS III: As above. AXIS IV: Low. AXIS V: 20. PLAN: 1. Haldol IM p.r.n. 2. Ativan p.r.n. 3. Provide the patient with reality orientation and supportive therapy. Status: stable Status Narrative ASSESSMENT: AXIS I: Dementia with behavior disturbance. AXIS II: Deferred. AXIS III: As above. AXIS IV: Low. AXIS V: 20. PLAN: 1. Haldol IM p.r.n. 2. Ativan p.r.n. 3. Provide the patient with reality orientation and supportive therapy. Assessment/Plan: ASSESSMENT: AXIS I: Dementia with behavior disturbance. AXIS II: Deferred. AXIS III: As above. AXIS IV: Low. AXIS V: 20. PLAN: 1. Haldol IM p.r.n. 2. Ativan p.r.n. 3. Provide the patient with reality orientation and supportive therapy. Shena Campos MD May 16, 2020 22:20
--- NOTE | 2020-05-16 23:49 | Cardiology Progress Note ---
Subjective DATE OF SERVICE: May 16, 2020 Still swollen, but responding well to diuresis. On free water replacement and K+ replacement as needed. BP parameters improving. Still with free water deficit. Objective Last 24 Hour Vital Signs Date Time Temp Pulse Resp B/P (MAP) Pulse Ox O2 Delivery O2 Flow Rate FiO2 05/16/20 21:39 98.9 05/16/20 21:19 Nasal Cannula 2.0 05/16/20 20:52 99 Nasal Cannula 2.0 28 05/16/20 20:00 98.9 73 22 144/55 (84) 93 05/16/20 16:00 97.9 76 19 143/54 (83) 92 05/16/20 12:00 98.2 74 18 114/83 (93) 94 05/16/20 09:00 Nasal Cannula 2.0 05/16/20 08:00 97.3 72 19 144/59 (87) 100 05/16/20 04:00 97.9 74 24 147/62 (90) 98 05/16/20 00:00 99.0 82 20 138/61 (86) 98 RHYTHM: ST, Afib LUNGS: accessory muscle use, bilateral rhonchi CARDIAC: regular rhythm, normal S1 and S2, arrhythmia ABDOMEN: normal bowel sounds, non tender, no organomegaly, G-Tube intact EXTREMITIES: moderate edema Laboratory Tests Test 05/16/20 08:30 05/16/20 11:31 05/16/20 16:29 White Blood Count 13.6 K/UL (4.8-10.8) H Red Blood Count 3.72 M/UL (4.20-5.40) L Hemoglobin 10.0 G/DL (12.0-16.0) L Hematocrit 32.2 % (37.0-47.0) L Mean Corpuscular Volume 87 FL (80-99) Mean Corpuscular Hemoglobin 27.0 PG (27.0-31.0) Mean Corpuscular Hemoglobin Concent 31.1 G/DL (32.0-36.0) L Red Cell Distribution Width 18.7 % (11.6-14.8) H Platelet Count 223 K/UL (150-450) Mean Platelet Volume 7.8 FL (6.5-10.1) Neutrophils (%) (Auto) 83.5 % (45.0-75.0) H Lymphocytes (%) (Auto) 10.2 % (20.0-45.0) L Monocytes (%) (Auto) 5.2 % (1.0-10.0) Eosinophils (%) (Auto) 0.5 % (0.0-3.0) Basophils (%) (Auto) 0.6 % (0.0-2.0) Sodium Level 147 MMOL/L (136-145) H Potassium Level 3.6 MMOL/L (3.5-5.1) Chloride Level 108 MMOL/L (98-107) H Carbon Dioxide Level 33 MMOL/L (21-32) H Anion Gap 7 mmol/L (5-15) Blood Urea Nitrogen 37 mg/dL (7-18) H Creatinine 1.4 MG/DL (0.55-1.30) H Estimat Glomerular Filtration Rate 35.5 mL/min (>60) Glucose Level 138 MG/DL (74-106) H Calcium Level 7.4 MG/DL (8.5-10.1) L Magnesium Level 1.7 MG/DL (1.8-2.4) L Total Bilirubin 0.2 MG/DL (0.2-1.0) Aspartate Amino Transf (AST/SGOT) 25 U/L (15-37) Alanine Aminotransferase (ALT/SGPT) 12 U/L (12-78) Alkaline Phosphatase 70 U/L (46-116) Pro-B-Type Natriuretic Peptide 74177 pg/mL (0-125) H Total Protein 4.6 G/DL (6.4-8.2) L Albumin 1.4 G/DL (3.4-5.0) L Globulin 3.2 g/dL Albumin/Globulin Ratio 0.4 (1.0-2.7) L POC Whole Blood Glucose 164 MG/DL (74-106) H 125 MG/DL (74-106) H Assessment/Plan Assessment/Plan Sepsis with shock recovered Acute on chronic diastolic CHF UTI Metabolic and toxic encephalopathies HC associated aspiration PNA PAFib now with slow heart rates Acute renal failure improving - with decreasing anasarca hypernatremia/dehydration Lactic acidosis resolved Severe protein-calorie malnutrition Hypertension/HHD with labile BP Hypokalemia Hypomagnesemia Additional free water by gtube and IV route Diuresis trial Full anticoagulation Abx Nutrition by Gtube Follow up lytes; correcting K+/Mg++ as needed. Continue maintenance dose amiodarone; continue off digoxin. Augusto Benítez MD May 16, 2020 23:49
[2020-05-17] VITALS: BP 142/58
[2020-05-17 04:00] VITALS: BP 147/60
[2020-05-17] MEDS: Meropenem 500mg in NS 55ml IVPB SCH ×2 (05:00→17:32)
[2020-05-17] MEDS: Glimepiride 1mg tab GT SCH ×2 (06:16→17:32)
[2020-05-17] MEDS: sitaGLIPtin 25mg tab GT SCH (06:16)
[2020-05-17] MEDS: NovoLOG Insulin Flexpen SUBQ SCH ×4 (06:17→20:40)
[2020-05-17] MEDS: D5W w/KCl 20mEq 1,000 ML IV SCH ×2 (06:19→17:32)
--- NOTE | 2020-05-17 06:59 | NUR ---
HAND-OFF: Report given to TEJINDER Santamaria.
--- NOTE | 2020-05-17 07:45 | NUR ---
NURSE NOTES: PT IS AXOX1, OPENS EYES TO PAIN. IN NO APPARENT DISTRESS AT THIS TIME. GTF NEPRO RUNNING AT 35ML/HR. NO RESIDUAL NOTED. PT IN HIGH PARK'S POSITION WITH HOB ELEVATED. SUCTION AT BEDSIDE. PT NEEDS SUCTION PRN. PT IS CALM AND RESTING IN BED. LEES CATH DRAINING CLEAR YELLOW URINE BY GRAVITY. BED IN LOWEST POSITION WITH BEDSIDE RIALS X3 RAISED. WILL CONTINUE TO MONITOR.
[2020-05-17 08:00] VITALS: BP 145/59
--- NOTE | 2020-05-17 09:07 | General Progress Note ---
Assessment/Plan Problem List: (1) Hyperkalemia ICD Codes: E87.5 - Hyperkalemia SNOMED: 54451001 (2) Renal failure ICD Codes: N19 - Unspecified kidney failure SNOMED: 27768635 Qualifiers: Qualified Codes: N17.9 - Acute kidney failure, unspecified (3) Dehydration ICD Codes: E86.0 - Dehydration SNOMED: 69720768 (4) Malnutrition of moderate degree ICD Codes: E44.0 - Moderate protein-calorie malnutrition SNOMED: 391556335 (5) SARWAT (acute kidney injury) ICD Codes: N17.9 - Acute kidney failure, unspecified SNOMED: 1907451, 71925474 (6) Yeast cystitis ICD Codes: B37.41 - Candidal cystitis and urethritis SNOMED: 583045676 Status: stable Assessment/Plan: stable cont ivf water flushes monitor volume status and renal fxn monitor lytes replace as needed abx per id o2 as needed tube feeds monitor residuals skin care turn q2 dvt/stress ulcer prophylaxis Subjective ROS Limited/Unobtainable: Yes Constitutional: Reports: malaise, weakness HEENT: Reports: no symptoms Cardiovascular: Reports: no symptoms Respiratory: Reports: cough, shortness of breath Gastrointestinal/Abdominal: Reports: difficulty swallowing Genitourinary: Reports: no symptoms Neurologic/Psychiatric: Reports: pre-existing deficit Endocrine: Reports: no symptoms Hematologic/Lymphatic: Reports: anemia Allergies: Coded Allergies: No Known Allergies (Unverified , 01/30/20) All Systems: reviewed and negative except above Subjective no events. stable on tube feeds. remains on iv abx for uti. no fevers. no distress noted. resting comfortably. slightly increased edema. +lomeli and GT Objective Last 24 Hour Vital Signs Date Time Temp Pulse Resp B/P (MAP) Pulse Ox O2 Delivery O2 Flow Rate FiO2 05/17/20 04:00 98.5 72 20 147/60 (89) 94 05/17/20 00:00 98.3 75 20 142/58 (86) 93 05/16/20 21:39 98.9 05/16/20 21:19 Nasal Cannula 2.0 05/16/20 20:52 99 Nasal Cannula 2.0 28 05/16/20 20:00 98.9 73 22 144/55 (84) 93 05/16/20 16:00 97.9 76 19 143/54 (83) 92 05/16/20 12:00 98.2 74 18 114/83 (93) 94 Intake and Output 05/16/20 05/17/20 19:00 07:00 Intake Total 1355 ml 665 ml Output Total 600 ml 2000 ml Balance 755 ml -1335 ml Intake Free Water 330 ml 180 ml IV Total 605 ml 100 ml Tube Feeding 420 ml 385 ml Output Urine Total 600 ml 2000 ml # Voids 2 # Bowel Movements 3 2 Laboratory Tests 05/16/20 11:31: POC Whole Blood Glucose 164H 05/16/20 16:29: POC Whole Blood Glucose 125H Height (Feet): 5 Height (Inches): 2.00 Weight (Pounds): 135 Objective General Appearance: WD/WN, lethargic, confused EENT: PERRL/EOMI, normal ENT inspection Neck: non-tender, normal alignment, supple Cardiovascular: normal peripheral pulses, normal rate Respiratory/Chest: chest wall non-tender, lungs clear, normal breath sounds, no respiratory distress Abdomen: normal bowel sounds, non tender, soft, no organomegaly, no mass Extremities: normal range of motion, non-tender Edema: no edema noted Arm (L), no edema noted Arm (R) Edema: trace edema 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
[2020-05-17 09:19] LABS: EOSINOPHILS % (AUTO) 0.8 % (0.0-3.0); HEMATOCRIT 29.6 % (37.0-47.0); HEMOGLOBIN 9.2 G/DL (12.0-16.0); LYMPHOCYTES % (AUTO) 9.9 % (20.0-45.0); MEAN CORPUSCULAR VOLUME 86 FL (80-99); NEUTROPHILS % (AUTO) 82.4 % (45.0-75.0); PLATELET COUNT 199 K/UL (150-450); RED BLOOD COUNT 3.42 M/UL (4.20-5.40); RED CELL DISTRIBUTION WIDTH 19.3 % (11.6-14.8); WHITE BLOOD COUNT 12.2 K/UL (4.8-10.8)
--- NOTE | 2020-05-17 09:25 | Pulmonology Progress Note ---
Subjective ROS Limited/Unobtainable: Yes Constitutional: Denies: fever Allergies: Coded Allergies: No Known Allergies (Unverified , 01/30/20) All Systems: reviewed and negative except above Subjective care noted and reviewed remains ill wbc noted NA elevated Objective Last 24 Hour Vital Signs Date Time Temp Pulse Resp B/P (MAP) Pulse Ox O2 Delivery O2 Flow Rate FiO2 05/17/20 08:00 97.7 73 24 145/59 (87) 96 05/17/20 04:00 98.5 72 20 147/60 (89) 94 05/17/20 00:00 98.3 75 20 142/58 (86) 93 05/16/20 21:39 98.9 05/16/20 21:19 Nasal Cannula 2.0 05/16/20 20:52 99 Nasal Cannula 2.0 28 05/16/20 20:00 98.9 73 22 144/55 (84) 93 05/16/20 16:00 97.9 76 19 143/54 (83) 92 05/16/20 12:00 98.2 74 18 114/83 (93) 94 Intake and Output 05/16/20 05/17/20 19:00 07:00 Intake Total 1355 ml 665 ml Output Total 600 ml 2000 ml Balance 755 ml -1335 ml Intake Free Water 330 ml 180 ml IV Total 605 ml 100 ml Tube Feeding 420 ml 385 ml Output Urine Total 600 ml 2000 ml # Voids 2 # Bowel Movements 3 2 Objective WDWN NAD reduced breath sounds bilaterally with some rhonchi [id number] without MRG NABS nontender G no CC noted edema nonfocal poor LOC Laboratory Tests 05/16/20 11:31: POC Whole Blood Glucose 164H 05/16/20 16:29: POC Whole Blood Glucose 125H 05/17/20 09:05: White Blood Count [Pending], Red Blood Count [Pending], Hemoglobin [Pending], Hematocrit [Pending], Mean Corpuscular Volume [Pending], Mean Corpuscular Hemoglobin [Pending], Mean Corpuscular Hemoglobin Concent [Pending], Red Cell Distribution Width [Pending], Platelet Count [Pending], Mean Platelet Volume [ Pending], Neutrophils (%) (Auto) [Pending], Lymphocytes (%) (Auto) [Pending], Monocytes (%) (Auto) [Pending], Eosinophils (%) (Auto) [Pending], Basophils (%) (Auto) [Pending], Sodium Level [Pending], Potassium Level [Pending], Chloride Level [Pending], Carbon Dioxide Level [Pending], Blood Urea Nitrogen [Pending], Creatinine [Pending], Estimat Glomerular Filtration Rate [Pending], Glucose Level [Pending], Calcium Level [Pending], Total Bilirubin [Pending], Aspartate Amino Transf (AST/SGOT) [Pending], Alanine Aminotransferase (ALT/SGPT) [Pending] , Alkaline Phosphatase [Pending], Total Protein [Pending], Albumin [Pending], Globulin [Pending] Current Medications Medications (Trade) Dose Ordered Sig/Jazmine Route PRN Reason Start Time Stop Time Status Last Admin Dose Admin Acetaminophen (Tylenol) 500 mg Q4H PRN GT Mild Pain (Pain Scale 1-3) 05/09/20 22:46 06/08/20 22:45 05/16/20 21:09 Amiodarone HCl (Cordarone) 200 mg DAILY GT 05/10/20 09:00 08/03/20 08:59 05/16/20 09:04 Apixaban (Eliquis) 2.5 mg DAILY GT 05/10/20 09:00 08/03/20 08:59 05/16/20 09:04 Dextrose (Dextrose 50%) 25 ml Q30M PRN IV Hypoglycemia 05/09/20 23:00 08/02/20 19:59 Dextrose (Dextrose 50%) 50 ml Q30M PRN IV Hypoglycemia 05/09/20 23:00 08/02/20 19:59 Dextrose/ Electrolytes 1,000 ml @ 50 mls/hr Q20H IV 05/14/20 10:45 06/13/20 10:44 05/17/20 06:19 Docusate Sodium (Colace) 100 mg BIDPRN PRN GT Constipation 05/09/20 22:49 06/08/20 22:48 Glimepiride (AmaryL) 2 mg BID@0630,1630 GT 05/10/20 06:30 06/09/20 06:29 05/17/20 06:16 Hydralazine HCl (Apresoline) 25 mg Q6H PRN ORAL SBP above 150 05/12/20 17:45 08/10/20 17:44 05/14/20 06:16 Insulin Aspart (NovoLOG) BEFORE MEALS AND HS SUBQ 05/15/20 21:00 08/13/20 20:59 05/16/20 11:48 Lansoprazole (Prevacid) 30 mg DAILY@0630 GT 05/10/20 06:30 06/06/20 06:29 05/17/20 06:16 Meropenem 500 mg/ Sodium Chloride 55 ml @ 110 mls/hr Q12H IVPB 05/12/20 17:00 05/17/20 16:59 05/17/20 05:00 Multivitamins (Multivitamins) 1 tab DAILY GT 05/11/20 09:00 06/04/20 08:59 05/16/20 09:04 Sitagliptin Phosphate (Januvia) 25 mg ACBREAKFAST GT 05/14/20 06:30 06/13/20 06:29 05/17/20 06:16 Valproic Acid (Depakene) 500 mg Q12HR GT 05/10/20 09:00 06/22/20 21:29 05/16/20 20:14 Vancomycin HCl (Vanco pharmacy to dose) 1 ea DAILY PRN MISC Per rx protocol 05/13/20 11:30 06/12/20 11:29 Vancomycin HCl 750 mg/Sodium Chloride 275 ml @ 183.333 mls/hr Q48H IVPB 05/15/20 13:00 05/20/20 12:59 05/15/20 13:31 Assessment/Plan Assessment/Plan IMPRESSION: 1. urosepsis. 2. Acute on chronic encephalopathy. 3. Septic shock. resolved 4. Acute on chronic renal failure. 5. Hyperkalemia. 6. Leukocytosis. improved 7. resolved hypotension. 8. electrolyte imbalance 9. Dementia. 10. Diabetes. 11. G-tube. 12. peripheral edema 13. 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 still remains ill 2. continue medications as is 3. monitor peripheral edema 4. monitor in and out 5. adjust fluids 6. IV antibiotics; hope to dc 7. d/w consultants 8. Anticoagulation 9. Digoxin with caution. monitor levels 10. Sliding scale insulin 11. imodium for diarrhea hope to dc soon impression, plan, and exam edited and reviewed in detail care discussed with Eduardo Kern MD May 17, 2020 09:25
[2020-05-17 09:46] LABS: ALANINE AMINOTRANSFERASE 13 U/L (12-78); ALBUMIN 1.3 G/DL (3.4-5.0); ALBUMIN/GLOBULIN RATIO 0.4 (1.0-2.7); ALKALINE PHOSPHATASE 63 U/L (46-116); ANION GAP 4 mmol/L (5-15); ASPARTATE AMINO TRANSFERASE 25 U/L (15-37); BILIRUBIN,TOTAL 0.1 MG/DL (0.2-1.0); BLOOD UREA NITROGEN 31 mg/dL (7-18); CALCIUM 7.3 MG/DL (8.5-10.1); CARBON DIOXIDE 33 MMOL/L (21-32); CHLORIDE 103 MMOL/L (98-107); CREATININE 1.3 MG/DL (0.55-1.30); POTASSIUM 3.6 MMOL/L (3.5-5.1); SODIUM 140 MMOL/L (136-145)
[2020-05-17] MEDS: Eliquis 2.5mg tablet GT SCH (09:47)
[2020-05-17] MEDS: Valproic Acid 250mg/5ml Liquid GT SCH ×2 (09:47→20:17)
[2020-05-17] MEDS: Amiodarone 200mg tab GT SCH (09:47)
[2020-05-17] MEDS: Acetaminophen 650mg/20.3ml GT PRN (09:48)
--- NOTE | 2020-05-17 10:09 | NUR ---
SLASH TRIMMER NOTE MESSAGE LEFT FOR DR MARAVILLA IN RE TO DC PLAN. AWAITING CALL BACK.
--- NOTE | 2020-05-17 11:22 | Infectious Diseases Prog Note ---
Assessment/Plan Assessment/Plan antibiotics : meropenem vancomycin A 1. GT site infection with e.coli, staph epidermidis 4. leucocytosis improving 5. renal failure improving 6. dementia 7. COPD 8. diabetes mellitus P 1. continue meropenem 1 more days 2. continue iv vancomycin 2 more days 3. will follow up cultures Subjective ROS Limited/Unobtainable: Yes Allergies: Coded Allergies: No Known Allergies (Unverified , 01/30/20) Objective Last 24 Hour Vital Signs Date Time Temp Pulse Resp B/P (MAP) Pulse Ox O2 Delivery O2 Flow Rate FiO2 05/17/20 09:00 Nasal Cannula 2.0 05/17/20 08:00 97.7 73 24 145/59 (87) 96 05/17/20 04:00 98.5 72 20 147/60 (89) 94 05/17/20 00:00 98.3 75 20 142/58 (86) 93 05/16/20 21:39 98.9 05/16/20 21:19 Nasal Cannula 2.0 05/16/20 20:52 99 Nasal Cannula 2.0 28 05/16/20 20:00 98.9 73 22 144/55 (84) 93 05/16/20 16:00 97.9 76 19 143/54 (83) 92 05/16/20 12:00 98.2 74 18 114/83 (93) 94 Height (Feet): 5 Height (Inches): 2.00 Weight (Pounds): 135 Respiratory/Chest: lungs clear Cardiovascular: normal rate, regular rhythm, no gallop/murmur Abdomen: soft, non tender, other - GT Extremities: no edema Laboratory Tests Test 05/16/20 11:31 05/16/20 16:29 05/17/20 09:05 POC Whole Blood Glucose 164 MG/DL (74-106) H 125 MG/DL (74-106) H White Blood Count 12.2 K/UL (4.8-10.8) H Red Blood Count 3.42 M/UL (4.20-5.40) L Hemoglobin 9.2 G/DL (12.0-16.0) L Hematocrit 29.6 % (37.0-47.0) L Mean Corpuscular Volume 86 FL (80-99) Mean Corpuscular Hemoglobin 26.9 PG (27.0-31.0) L Mean Corpuscular Hemoglobin Concent 31.2 G/DL (32.0-36.0) L Red Cell Distribution Width 19.3 % (11.6-14.8) H Platelet Count 199 K/UL (150-450) Mean Platelet Volume 8.1 FL (6.5-10.1) Neutrophils (%) (Auto) 82.4 % (45.0-75.0) H Lymphocytes (%) (Auto) 9.9 % (20.0-45.0) L Monocytes (%) (Auto) 6.0 % (1.0-10.0) Eosinophils (%) (Auto) 0.8 % (0.0-3.0) Basophils (%) (Auto) 1.0 % (0.0-2.0) Sodium Level 140 MMOL/L (136-145) Potassium Level 3.6 MMOL/L (3.5-5.1) Chloride Level 103 MMOL/L (98-107) Carbon Dioxide Level 33 MMOL/L (21-32) H Anion Gap 4 mmol/L (5-15) L Blood Urea Nitrogen 31 mg/dL (7-18) H Creatinine 1.3 MG/DL (0.55-1.30) Estimat Glomerular Filtration Rate 38.7 mL/min (>60) Glucose Level 132 MG/DL (74-106) H Calcium Level 7.3 MG/DL (8.5-10.1) L Total Bilirubin 0.1 MG/DL (0.2-1.0) L Aspartate Amino Transf (AST/SGOT) 25 U/L (15-37) Alanine Aminotransferase (ALT/SGPT) 13 U/L (12-78) Alkaline Phosphatase 63 U/L (46-116) Total Protein 4.5 G/DL (6.4-8.2) L Albumin 1.3 G/DL (3.4-5.0) L Globulin 3.2 g/dL Albumin/Globulin Ratio 0.4 (1.0-2.7) L Current Medications Medications (Trade) Dose Ordered Sig/Jazmine Route PRN Reason Start Time Stop Time Status Last Admin Dose Admin Acetaminophen (Tylenol) 500 mg Q4H PRN GT Mild Pain (Pain Scale 1-3) 05/09/20 22:46 06/08/20 22:45 05/17/20 09:48 Amiodarone HCl (Cordarone) 200 mg DAILY GT 05/10/20 09:00 08/03/20 08:59 05/17/20 09:47 Apixaban (Eliquis) 2.5 mg DAILY GT 05/10/20 09:00 08/03/20 08:59 05/17/20 09:47 Dextrose (Dextrose 50%) 25 ml Q30M PRN IV Hypoglycemia 05/09/20 23:00 08/02/20 19:59 Dextrose (Dextrose 50%) 50 ml Q30M PRN IV Hypoglycemia 05/09/20 23:00 08/02/20 19:59 Dextrose/ Electrolytes 1,000 ml @ 50 mls/hr Q20H IV 05/14/20 10:45 06/13/20 10:44 05/17/20 06:19 Docusate Sodium (Colace) 100 mg BIDPRN PRN GT Constipation 05/09/20 22:49 06/08/20 22:48 Glimepiride (AmaryL) 2 mg BID@0630,1630 GT 05/10/20 06:30 06/09/20 06:29 05/17/20 06:16 Hydralazine HCl (Apresoline) 25 mg Q6H PRN ORAL SBP above 150 05/12/20 17:45 08/10/20 17:44 05/14/20 06:16 Insulin Aspart (NovoLOG) BEFORE MEALS AND HS SUBQ 05/15/20 21:00 08/13/20 20:59 05/16/20 11:48 Lansoprazole (Prevacid) 30 mg DAILY@0630 GT 05/10/20 06:30 06/06/20 06:29 05/17/20 06:16 Meropenem 500 mg/ Sodium Chloride 55 ml @ 110 mls/hr Q12H IVPB 05/12/20 17:00 05/17/20 16:59 05/17/20 05:00 Multivitamins (Multivitamins) 1 tab DAILY GT 05/11/20 09:00 06/04/20 08:59 05/17/20 09:47 Sitagliptin Phosphate (Januvia) 25 mg ACBREAKFAST GT 05/14/20 06:30 06/13/20 06:29 05/17/20 06:16 Valproic Acid (Depakene) 500 mg Q12HR GT 05/10/20 09:00 06/22/20 21:29 05/17/20 09:47 Vancomycin HCl (Vanco pharmacy to dose) 1 ea DAILY PRN MISC Per rx protocol 05/13/20 11:30 06/12/20 11:29 Vancomycin HCl 750 mg/Sodium Chloride 275 ml @ 183.333 mls/hr Q48H IVPB 05/15/20 13:00 05/20/20 12:59 05/15/20 13:31 Felipe Grant MD May 17, 2020 11:22
[2020-05-17 12:00] VITALS: BP 135/70
--- NOTE | 2020-05-17 13:19 | NUR ---
DISCHARGE PLANNING PATIENT HAS BEEN REFERRED BACK TO [facility] P: [phone] F: [phone] Addendum: 05/17/20 at 1458 by IRMA GRANT LVN LVN FOLLOW UP CALL MADE TO [facility]. S/W JOSÉ MIGUEL. CONFIRMED PATIENT ACCEPTED TO RETURN UPON DC BED [address]
[2020-05-17] MEDS: Vancomycin 750mg/NS 275ml IVPB SCH ×2 (13:24)
--- NOTE | 2020-05-17 14:23 | Surgery Progress Note ---
Surgery Progress Note Subjective Additional Comments tolerating tube feeds comfortable no n/v/f/c Objective Last 24 Hour Vital Signs Date Time Temp Pulse Resp B/P (MAP) Pulse Ox O2 Delivery O2 Flow Rate FiO2 05/17/20 12:00 97.9 72 23 135/70 (91) 95 05/17/20 09:00 Nasal Cannula 2.0 05/17/20 08:00 97.7 73 24 145/59 (87) 96 05/17/20 04:00 98.5 72 20 147/60 (89) 94 05/17/20 00:00 98.3 75 20 142/58 (86) 93 05/16/20 21:39 98.9 05/16/20 21:19 Nasal Cannula 2.0 05/16/20 20:52 99 Nasal Cannula 2.0 28 05/16/20 20:00 98.9 73 22 144/55 (84) 93 05/16/20 16:00 97.9 76 19 143/54 (83) 92 I&O Intake and Output 05/16/20 05/17/20 19:00 07:00 Intake Total 1355 ml 715 ml Output Total 600 ml 2000 ml Balance 755 ml -1285 ml Intake Free Water 330 ml 180 ml IV Total 605 ml 150 ml Tube Feeding 420 ml 385 ml Output Urine Total 600 ml 2000 ml # Voids 2 # Bowel Movements 3 2 Cardiovascular: RSR Respiratory: clear Abdomen: soft, non-tender, present bowel sounds Extremities: no tenderness, no cyanosis Laboratory Tests Test 05/16/20 16:29 05/17/20 09:05 05/17/20 11:45 POC Whole Blood Glucose 125 MG/DL (74-106) H White Blood Count 12.2 K/UL (4.8-10.8) H Red Blood Count 3.42 M/UL (4.20-5.40) L Hemoglobin 9.2 G/DL (12.0-16.0) L Hematocrit 29.6 % (37.0-47.0) L Mean Corpuscular Volume 86 FL (80-99) Mean Corpuscular Hemoglobin 26.9 PG (27.0-31.0) L Mean Corpuscular Hemoglobin Concent 31.2 G/DL (32.0-36.0) L Red Cell Distribution Width 19.3 % (11.6-14.8) H Platelet Count 199 K/UL (150-450) Mean Platelet Volume 8.1 FL (6.5-10.1) Neutrophils (%) (Auto) 82.4 % (45.0-75.0) H Lymphocytes (%) (Auto) 9.9 % (20.0-45.0) L Monocytes (%) (Auto) 6.0 % (1.0-10.0) Eosinophils (%) (Auto) 0.8 % (0.0-3.0) Basophils (%) (Auto) 1.0 % (0.0-2.0) Sodium Level 140 MMOL/L (136-145) Potassium Level 3.6 MMOL/L (3.5-5.1) Chloride Level 103 MMOL/L (98-107) Carbon Dioxide Level 33 MMOL/L (21-32) H Anion Gap 4 mmol/L (5-15) L Blood Urea Nitrogen 31 mg/dL (7-18) H Creatinine 1.3 MG/DL (0.55-1.30) Estimat Glomerular Filtration Rate 38.7 mL/min (>60) Glucose Level 132 MG/DL (74-106) H Calcium Level 7.3 MG/DL (8.5-10.1) L Total Bilirubin 0.1 MG/DL (0.2-1.0) L Aspartate Amino Transf (AST/SGOT) 25 U/L (15-37) Alanine Aminotransferase (ALT/SGPT) 13 U/L (12-78) Alkaline Phosphatase 63 U/L (46-116) Total Protein 4.5 G/DL (6.4-8.2) L Albumin 1.3 G/DL (3.4-5.0) L Globulin 3.2 g/dL Albumin/Globulin Ratio 0.4 (1.0-2.7) L Vancomycin Level Trough 13.8 ug/mL (5.0-12.0) H Plan Problems: (1) Deep tissue injury Assessment & Plan: Pt presented on admission with Multiple Pressure injuries. Sacral DTPI noted (L)6.7cm x (W)6.9cm. Base of wound is purpuric ,partially opened -ruby and indurated. No odor or exudate noted. Non-blanching erythema periwound.DTPI noted to R Ischium(L)4cm x (W)2.2cm.Base of Pressure injury maroon and indurated. Non-Blanching erythema without induration noted to L ischium. Vulva is swollen and erythematous . DTPI noted to R Heel(L)3.3cm x (W)2.9cm. Wound is is blood filled purpuric Blister with surrounding non-blanchable and boggy heel. R Heel is Boggy with Non-Blanchable erythema. Tx.Plan: Apply Moisture Barrier Paste to Sacrum. Cover with Optifoam drsg. Change every 3 days and prn. Apply Moisture Barrier Paste to R ischium. Cover with Optifoam drsg. Change every 3 days and prn. Apply Moisture Barrier Paste to Bilat groin, perineum and L ischium with each perineal care. Apply Cavilon Skin Barrier to R and L trochanteric areas. Cover each site with Optifoam drsg. Change every 7 days and prn. Reposition at least every 2hours or as tolerated. Off-load heels with pillow. APM/MARY ANN Mattress overlay. (2) Dehydration (3) Hypokalemia (4) Renal failure (5) Hyperkalemia (6) UTI (urinary tract infection) (7) Severe sepsis Assessment & Plan: Patient with significant leukocytosis, lactic acidosis, abnormal electrolytes, renal insufficiency, anemia. UA noted. Microbiology reviewed. Imaging reviewed. COVID negative. Patient with multiple deep tissue injuries and severe malnutrition albumin 1 Wounds unlikely the source or etiology of patient's sepsis. No abscess or fluid collections requiring drainage currently identified. Continue IV antibiotics per infectious disease We will continue to monitor and identify assist with care and management Thank you for let me participate patient's care will follow with recommendations nutritional optimization improving d/c planning from surgical standpoint cont nutrition DAILY ESTIMATED NEEDS: Needs based on DM, wound, renal/ 49kg 30-35 kcals/kg 4378-7567 total kcals 1.25-1.5 g protein/kg 61-74 g total protein 25-30ml/kcal mL/kg 4750-9387 total fluid mLs NUTRITION DIAGNOSIS: * Increased kcal and pro needs r/t wound care as evidenced by open sacral wound per photo, eval pending. * Swallowing difficulty R/T dysphagia as evidenced by GT dependent. ENTERAL NUTRITION RECOMMENDATIONS: NEPRO @43ml/hr x 20hrs to provide 860ml, 1548kcal, 70g prot, 625ml free water * As medically able, start NEPRO @23ml/hr for 6 hrs, advance as tolerated 10ml q4-6 hrs * HOB over 30 degrees * Without IVF, water flush of ml q 130ml q4 hrs -------- ADDITIONAL RECOMMENDATIONS: * PER SNF: Height 4'11" inches and 108 lbs * Rec D5 while NPO * F/up w/ WC eval-> add IMAN in 4oz via GT BID with tube feeds * Rec renal formula as above d/t renal failure on adm * Maintain accurate calibrated bed scale weights . Dimitris Diaz May 17, 2020 14:23
[2020-05-17 16:00] VITALS: BP 136/50
--- NOTE | 2020-05-17 16:38 | NUR ---
NURSE NOTES: UNABLE TO WEIGH PT. BED WEIGHS PT AT 35 POUNDS. PT IS BEDBOUND AND ON PRESSURE MATTRESS.
--- NOTE | 2020-05-17 17:28 | NUR ---
CASE MANAGEMENT:REVIEW SI;DEHYDRATION . UTI . SEPSIS. 99.0 75 24 147/60 93% 2L NC WBC 12.2 H/H 9.2/29.6 CO2 33 BUN 31 CA 7.3 ALB 1.3 IS;LASIX IV ONCE K-DUR GT ONCE MAG SULFATE IV ONCE VANCOMYCIN IV Q48 MEROPENEM IV Q12 AMIODARONE GT QD ELIQUIS GT QD DEPAKENE GT Q12 PREVACID IV QD MED SURG STATUS DCP;FROM [facility]
--- NOTE | 2020-05-17 17:39 | NUR ---
INSURANCE REVIEW AND PROGRESS NOTES FAXED TO [facility] T; [phone] F: [phone]
--- NOTE | 2020-05-17 19:05 | Nephrology Progress Note ---
Assessment/Plan Plan A/P CKD 3 , atrophic kidneys on US, Anasarca. Subjective Subjective Obtunded Objective Objective Last 24 Hour Vital Signs Date Time Temp Pulse Resp B/P (MAP) Pulse Ox O2 Delivery O2 Flow Rate FiO2 05/17/20 16:00 99.0 71 23 136/50 (78) 93 05/17/20 12:00 97.9 72 23 135/70 (91) 95 05/17/20 09:00 Nasal Cannula 2.0 05/17/20 08:00 97.7 73 24 145/59 (87) 96 05/17/20 04:00 98.5 72 20 147/60 (89) 94 05/17/20 00:00 98.3 75 20 142/58 (86) 93 05/16/20 21:39 98.9 05/16/20 21:19 Nasal Cannula 2.0 05/16/20 20:52 99 Nasal Cannula 2.0 28 05/16/20 20:00 98.9 73 22 144/55 (84) 93 Intake and Output 05/16/20 05/17/20 19:00 07:00 Intake Total 1355 ml 750 ml Output Total 600 ml 2000 ml Balance 755 ml -1250 ml Intake Free Water 330 ml 180 ml IV Total 605 ml 150 ml Tube Feeding 420 ml 420 ml Output Urine Total 600 ml 2000 ml # Voids 2 # Bowel Movements 3 2 Laboratory Tests 05/17/20 09:05: White Blood Count 12.2H, Red Blood Count 3.42L, Hemoglobin 9.2L, Hematocrit 29.6L, Mean Corpuscular Volume 86, Mean Corpuscular Hemoglobin 26.9L, Mean Corpuscular Hemoglobin Concent 31.2L, Red Cell Distribution Width 19.3H, Platelet Count 199, Mean Platelet Volume 8.1, Neutrophils (%) (Auto) 82.4H, Lymphocytes (%) (Auto) 9.9L, Monocytes (%) (Auto) 6.0, Eosinophils (%) (Auto) 0.8, Basophils (%) (Auto) 1.0, Sodium Level 140, Potassium Level 3.6, Chloride Level 103, Carbon Dioxide Level 33H, Anion Gap 4L, Blood Urea Nitrogen 31H, Creatinine 1.3, Estimat Glomerular Filtration Rate 38.7, Glucose Level 132H, Calcium Level 7.3L, Total Bilirubin 0.1L, Aspartate Amino Transf (AST/SGOT) 25, Alanine Aminotransferase (ALT/SGPT) 13, Alkaline Phosphatase 63, Total Protein 4.5L, Albumin 1.3L, Globulin 3.2, Albumin/Globulin Ratio 0.4L 05/17/20 11:45: Vancomycin Level Trough 13.8H Height (Feet): 5 Height (Inches): 2.00 Weight (Pounds): 135 Objective CV RR Lungs CTA Abd Ascites . SNT. BS = E ++++ edema Jonathan Berry MD May 17, 2020 19:05
--- NOTE | 2020-05-17 19:29 | NUR ---
NURSE HAND-OFF: Important Events on Shift: PT HAS BEEN STABLE THROUGHOUT SHIFT. NO ADVERSE EVENTS. PT CONTINUES TO HAVE LOOSE BM. Patient Status: STABLE Diet: GTF NEPRO AT 35ML/HR, FLUSH 150ML Q6H. Pending Orders: N/A Pending Results/Labs:N/A Pending MD notification:N/A Latest Vital Signs: Temperature 99.0 , Pulse 71 , B/P 136 /50 , Respiratory Rate 23 , O2 SAT 93 , Nasal Cannula, O2 Flow Rate 2.0 . Vital Sign Comment: STABLE. Latest Ayala Fall Score: 50 Fall Risk: High Risk Safety Measures: Call light Within Reach, Bed Alarm Zone 2, Side Rails Side Rails x2, Bed position Low and Locked. Fall Precautions: Yellow Socks Yellow Gown Door Sign Patient Fall Education Report given to Rosie HERNDON RN.
[2020-05-17 20:00] VITALS: BP 147/65
--- NOTE | 2020-05-17 20:03 | NUR ---
NURSE NOTES: Received patient asleep in bed, easily arousable, no s/s of acute distress. G tube feeding running at 35cc/hr, patent, patien tolerating well. IV access asymptomatic, running IVF maintenance. P200 mattress noted, bed low and locked.
--- NOTE | 2020-05-17 22:56 | Cardiology Progress Note ---
Subjective DATE OF SERVICE: May 17, 2020 Still swollen, but responding well to diuresis. Renal function has improved significantly On free water replacement and K+ replacement as needed. BP parameters improving. Objective Last 24 Hour Vital Signs Date Time Temp Pulse Resp B/P (MAP) Pulse Ox O2 Delivery O2 Flow Rate FiO2 05/17/20 22:24 Nasal Cannula 2.0 05/17/20 20:00 98.6 76 20 147/65 (92) 93 05/17/20 16:00 99.0 71 23 136/50 (78) 93 05/17/20 12:00 97.9 72 23 135/70 (91) 95 05/17/20 09:00 Nasal Cannula 2.0 05/17/20 08:00 97.7 73 24 145/59 (87) 96 05/17/20 04:00 98.5 72 20 147/60 (89) 94 05/17/20 00:00 98.3 75 20 142/58 (86) 93 RHYTHM: ST, Afib LUNGS: accessory muscle use, bilateral rhonchi CARDIAC: regular rhythm, normal S1 and S2, arrhythmia ABDOMEN: normal bowel sounds, non tender, no organomegaly, G-Tube intact EXTREMITIES: moderate edema Laboratory Tests Test 05/17/20 09:05 05/17/20 11:45 White Blood Count 12.2 K/UL (4.8-10.8) H Red Blood Count 3.42 M/UL (4.20-5.40) L Hemoglobin 9.2 G/DL (12.0-16.0) L Hematocrit 29.6 % (37.0-47.0) L Mean Corpuscular Volume 86 FL (80-99) Mean Corpuscular Hemoglobin 26.9 PG (27.0-31.0) L Mean Corpuscular Hemoglobin Concent 31.2 G/DL (32.0-36.0) L Red Cell Distribution Width 19.3 % (11.6-14.8) H Platelet Count 199 K/UL (150-450) Mean Platelet Volume 8.1 FL (6.5-10.1) Neutrophils (%) (Auto) 82.4 % (45.0-75.0) H Lymphocytes (%) (Auto) 9.9 % (20.0-45.0) L Monocytes (%) (Auto) 6.0 % (1.0-10.0) Eosinophils (%) (Auto) 0.8 % (0.0-3.0) Basophils (%) (Auto) 1.0 % (0.0-2.0) Sodium Level 140 MMOL/L (136-145) Potassium Level 3.6 MMOL/L (3.5-5.1) Chloride Level 103 MMOL/L (98-107) Carbon Dioxide Level 33 MMOL/L (21-32) H Anion Gap 4 mmol/L (5-15) L Blood Urea Nitrogen 31 mg/dL (7-18) H Creatinine 1.3 MG/DL (0.55-1.30) Estimat Glomerular Filtration Rate 38.7 mL/min (>60) Glucose Level 132 MG/DL (74-106) H Calcium Level 7.3 MG/DL (8.5-10.1) L Total Bilirubin 0.1 MG/DL (0.2-1.0) L Aspartate Amino Transf (AST/SGOT) 25 U/L (15-37) Alanine Aminotransferase (ALT/SGPT) 13 U/L (12-78) Alkaline Phosphatase 63 U/L (46-116) Total Protein 4.5 G/DL (6.4-8.2) L Albumin 1.3 G/DL (3.4-5.0) L Globulin 3.2 g/dL Albumin/Globulin Ratio 0.4 (1.0-2.7) L Vancomycin Level Trough 13.8 ug/mL (5.0-12.0) H Assessment/Plan Assessment/Plan Sepsis with shock recovered Acute on chronic diastolic CHF UTI Metabolic and toxic encephalopathies HC associated aspiration PNA PAFib now with slow heart rates Acute renal failure improving - with recovering anasarca hypernatremia/dehydration Lactic acidosis resolved Severe protein-calorie malnutrition Hypertension/HHD with labile BP Hypokalemia Hypomagnesemia DC IVF Diuresis Full anticoagulation Abx Nutrition by Gtube Follow up lytes; correcting K+/Mg++ as needed. Continue maintenance dose amiodarone; continue off digoxin. Augusto Benítez MD May 17, 2020 22:56
--- NOTE | 2020-05-17 23:50 | Psych Consult Progress Note ---
Psychiatry Progress Note Psychiatry Progress Note Subjective confused agitation Medications Current Medications Medications (Trade) Dose Ordered Sig/Jazmine Route PRN Reason Start Time Stop Time Status Last Admin Dose Admin Acetaminophen (Tylenol) 500 mg Q4H PRN GT Mild Pain (Pain Scale 1-3) 05/09/20 22:46 06/08/20 22:45 05/17/20 09:48 Amiodarone HCl (Cordarone) 200 mg DAILY GT 05/10/20 09:00 08/03/20 08:59 05/17/20 09:47 Apixaban (Eliquis) 2.5 mg DAILY GT 05/10/20 09:00 08/03/20 08:59 05/17/20 09:47 Dextrose (Dextrose 50%) 25 ml Q30M PRN IV Hypoglycemia 05/09/20 23:00 08/02/20 19:59 Dextrose (Dextrose 50%) 50 ml Q30M PRN IV Hypoglycemia 05/09/20 23:00 08/02/20 19:59 Docusate Sodium (Colace) 100 mg BIDPRN PRN GT Constipation 05/09/20 22:49 06/08/20 22:48 Furosemide (Lasix) 60 mg ONCE IV 05/17/20 23:00 05/18/20 00:00 Glimepiride (AmaryL) 2 mg BID@0630,1630 GT 05/10/20 06:30 06/09/20 06:29 05/17/20 17:32 Hydralazine HCl (Apresoline) 25 mg Q6H PRN ORAL SBP above 150 05/12/20 17:45 08/10/20 17:44 05/14/20 06:16 Insulin Aspart (NovoLOG) BEFORE MEALS AND HS SUBQ 05/15/20 21:00 08/13/20 20:59 05/17/20 13:08 Lansoprazole (Prevacid) 30 mg DAILY@0630 GT 05/10/20 06:30 06/06/20 06:29 05/17/20 06:16 Meropenem 500 mg/ Sodium Chloride 55 ml @ 110 mls/hr Q12H IVPB 05/12/20 17:00 05/18/20 23:59 05/17/20 17:32 Multivitamins (Multivitamins) 1 tab DAILY GT 05/11/20 09:00 06/04/20 08:59 05/17/20 09:47 Potassium Chloride (K-Dur) 40 meq ONCE GT 05/17/20 23:00 05/18/20 00:00 Sitagliptin Phosphate (Januvia) 25 mg ACBREAKFAST GT 05/14/20 06:30 06/13/20 06:29 05/17/20 06:16 Valproic Acid (Depakene) 500 mg Q12HR GT 05/10/20 09:00 06/22/20 21:29 05/17/20 20:17 Vancomycin HCl (Vanco pharmacy to dose) 1 ea DAILY PRN MISC Per rx protocol 05/13/20 11:30 06/12/20 11:29 Vancomycin HCl 750 mg/Sodium Chloride 275 ml @ 183.333 mls/hr Q48H IVPB 05/15/20 13:00 05/20/20 12:59 05/17/20 13:24 Neurological/Psychiatric: Reports: anxiety, depressed, emotional problems, pre- existing deficit Allergies: Coded Allergies: No Known Allergies (Unverified , 01/30/20) Objective Data Height (Feet): 5 Height (Inches): 2.00 Weight (Pounds): 135 General Appearance: WD/WN, alert, confused, agitated Appearance: bizarre Behavior Mannerisms: poor eye contact Mental Status Exam - Affect: flat Additional Comments: The patient is awake. She is confused and disoriented. Mood is agitated. Affect is flat. Thought process, disorganized. Thought content, no suicidal or homicidal ideation. Cognition is impaired. Insight and judgment is impaired. Assessment/Plan [place] I: ASSESSMENT: AXIS I: Dementia with behavior disturbance. AXIS II: Deferred. AXIS III: As above. AXIS IV: Low. AXIS V: 20. PLAN: 1. Haldol IM p.r.n. 2. Ativan p.r.n. 3. Provide the patient with reality orientation and supportive therapy. Status: stable Status Narrative ASSESSMENT: AXIS I: Dementia with behavior disturbance. AXIS II: Deferred. AXIS III: As above. AXIS IV: Low. AXIS V: 20. PLAN: 1. Haldol IM p.r.n. 2. Ativan p.r.n. 3. Provide the patient with reality orientation and supportive therapy. Assessment/Plan: ASSESSMENT: AXIS I: Dementia with behavior disturbance. AXIS II: Deferred. AXIS III: As above. AXIS IV: Low. AXIS V: 20. PLAN: 1. Haldol IM p.r.n. 2. Ativan p.r.n. 3. Provide the patient with reality orientation and supportive therapy. Shena Campos MD May 17, 2020 23:50
[2020-05-18] VITALS: BP 134/82
[2020-05-18 04:00] VITALS: BP 141/78
[2020-05-18] MEDS: Meropenem 500mg in NS 55ml IVPB SCH (05:01)
[2020-05-18] MEDS: sitaGLIPtin 25mg tab GT SCH (05:40)
[2020-05-18] MEDS: Glimepiride 1mg tab GT SCH (05:40)
[2020-05-18] MEDS: NovoLOG Insulin Flexpen SUBQ SCH (06:28)
[2020-05-18 07:09] LABS: ALANINE AMINOTRANSFERASE 12 U/L (12-78); ALBUMIN 1.4 G/DL (3.4-5.0); ALBUMIN/GLOBULIN RATIO 0.4 (1.0-2.7); ALKALINE PHOSPHATASE 71 U/L (46-116); ANION GAP 0 mmol/L (5-15); ASPARTATE AMINO TRANSFERASE 28 U/L (15-37); BILIRUBIN,TOTAL 0.3 MG/DL (0.2-1.0); BLOOD UREA NITROGEN 28 mg/dL (7-18); CALCIUM 8.1 MG/DL (8.5-10.1); CARBON DIOXIDE 37 MMOL/L (21-32); CHLORIDE 104 MMOL/L (98-107); CREATININE 1.2 MG/DL (0.55-1.30); POTASSIUM 3.8 MMOL/L (3.5-5.1); SODIUM 141 MMOL/L (136-145)
--- NOTE | 2020-05-18 07:21 | NUR ---
HAND-OFF: Report given to TEJINDER Rich.
--- NOTE | 2020-05-18 07:55 | NUR ---
NURSE NOTES: Patient HOB at 45 degrees, sleeping, respirations at 15 breaths per minute, on room air, side rails up x 3, soft care mattress in place, Christianson cather in place, G-tube in place, in no apparent distress. Addendum: 05/18/20 at 0756 by ELIAZAR LA RN Received report from Melissa Avery RN.
[2020-05-18 08:00] VITALS: BP 137/82
--- NOTE | 2020-05-18 08:10 | Pulmonology Progress Note ---
Subjective ROS Limited/Unobtainable: Yes Constitutional: Denies: fever Allergies: Coded Allergies: No Known Allergies (Unverified , 01/30/20) All Systems: reviewed and negative except above Subjective care noted and reviewed stabilized overall NA elevated Objective Last 24 Hour Vital Signs Date Time Temp Pulse Resp B/P (MAP) Pulse Ox O2 Delivery O2 Flow Rate FiO2 05/18/20 04:00 98.6 71 20 141/78 (99) 93 05/18/20 00:00 97.5 65 20 134/82 (99) 93 05/17/20 22:24 Nasal Cannula 2.0 05/17/20 20:00 98.6 76 20 147/65 (92) 93 05/17/20 16:00 99.0 71 23 136/50 (78) 93 05/17/20 12:00 97.9 72 23 135/70 (91) 95 05/17/20 09:00 Nasal Cannula 2.0 Intake and Output 05/17/20 05/18/20 19:00 07:00 Intake Total 1495.000 ml 445 ml Output Total 1000 ml 2100 ml Balance 495.000 ml -1655 ml Intake Free Water 330 ml 60 ml IV Total 780.000 ml Tube Feeding 385 ml 385 ml Output Urine Total 1000 ml 2100 ml # Bowel Movements 2 4 Objective WDWN NAD reduced breath sounds bilaterally with some rhonchi [id number] without MRG NABS nontender GT no CC noted edema mild nonfocal poor LOC Laboratory Tests 05/17/20 09:05: White Blood Count 12.2H, Red Blood Count 3.42L, Hemoglobin 9.2L, Hematocrit 29.6L, Mean Corpuscular Volume 86, Mean Corpuscular Hemoglobin 26.9L, Mean Corpuscular Hemoglobin Concent 31.2L, Red Cell Distribution Width 19.3H, Platelet Count 199, Mean Platelet Volume 8.1, Neutrophils (%) (Auto) 82.4H, Lymphocytes (%) (Auto) 9.9L, Monocytes (%) (Auto) 6.0, Eosinophils (%) (Auto) 0.8, Basophils (%) (Auto) 1.0, Sodium Level 140, Potassium Level 3.6, Chloride Level 103, Carbon Dioxide Level 33H, Anion Gap 4L, Blood Urea Nitrogen 31H, Creatinine 1.3, Estimat Glomerular Filtration Rate 38.7, Glucose Level 132H, Calcium Level 7.3L, Total Bilirubin 0.1L, Aspartate Amino Transf (AST/SGOT) 25, Alanine Aminotransferase (ALT/SGPT) 13, Alkaline Phosphatase 63, Total Protein 4.5L, Albumin 1.3L, Globulin 3.2, Albumin/Globulin Ratio 0.4L 05/17/20 11:45: Vancomycin Level Trough 13.8H 05/18/20 05:15: Sodium Level 141, Potassium Level 3.8, Chloride Level 104, Carbon Dioxide Level 37H, Anion Gap 0L, Blood Urea Nitrogen 28H, Creatinine 1.2, Estimat Glomerular Filtration Rate 42.4, Glucose Level 60L, Calcium Level 8.1L, Total Bilirubin 0.3 , Aspartate Amino Transf (AST/SGOT) 28, Alanine Aminotransferase (ALT/SGPT) 12, Alkaline Phosphatase 71, Total Protein 5.2L, Albumin 1.4L, Globulin 3.8, Albumin /Globulin Ratio 0.4L, Magnesium Level 1.9 Current Medications Medications (Trade) Dose Ordered Sig/Jazmine Route PRN Reason Start Time Stop Time Status Last Admin Dose Admin Acetaminophen (Tylenol) 500 mg Q4H PRN GT Mild Pain (Pain Scale 1-3) 05/09/20 22:46 06/08/20 22:45 05/17/20 09:48 Amiodarone HCl (Cordarone) 200 mg DAILY GT 05/10/20 09:00 08/03/20 08:59 05/17/20 09:47 Apixaban (Eliquis) 2.5 mg DAILY GT 05/10/20 09:00 08/03/20 08:59 05/17/20 09:47 Dextrose (Dextrose 50%) 25 ml Q30M PRN IV Hypoglycemia 05/09/20 23:00 08/02/20 19:59 Dextrose (Dextrose 50%) 50 ml Q30M PRN IV Hypoglycemia 05/09/20 23:00 08/02/20 19:59 Docusate Sodium (Colace) 100 mg BIDPRN PRN GT Constipation 05/09/20 22:49 06/08/20 22:48 Glimepiride (AmaryL) 2 mg BID@0630,1630 GT 05/10/20 06:30 06/09/20 06:29 05/18/20 05:40 Hydralazine HCl (Apresoline) 25 mg Q6H PRN ORAL SBP above 150 05/12/20 17:45 08/10/20 17:44 05/14/20 06:16 Insulin Aspart (NovoLOG) BEFORE MEALS AND HS SUBQ 05/15/20 21:00 08/13/20 20:59 05/17/20 13:08 Lansoprazole (Prevacid) 30 mg DAILY@0630 GT 05/10/20 06:30 06/06/20 06:29 05/18/20 05:40 Meropenem 500 mg/ Sodium Chloride 55 ml @ 110 mls/hr Q12H IVPB 05/12/20 17:00 05/18/20 23:59 05/18/20 05:01 Multivitamins (Multivitamins) 1 tab DAILY GT 05/11/20 09:00 06/04/20 08:59 05/17/20 09:47 Sitagliptin Phosphate (Januvia) 25 mg ACBREAKFAST GT 05/14/20 06:30 06/13/20 06:29 05/18/20 05:40 Valproic Acid (Depakene) 500 mg Q12HR GT 05/10/20 09:00 06/22/20 21:29 05/17/20 20:17 Vancomycin HCl (Vanco pharmacy to dose) 1 ea DAILY PRN MISC Per rx protocol 05/13/20 11:30 06/12/20 11:29 Vancomycin HCl 750 mg/Sodium Chloride 275 ml @ 183.333 mls/hr Q48H IVPB 05/15/20 13:00 05/20/20 12:59 05/17/20 13:24 Assessment/Plan Assessment/Plan IMPRESSION: 1. urosepsis. 2. Acute on chronic encephalopathy. 3. Septic shock. resolved 4. Acute on chronic renal failure. 5. Hyperkalemia. 6. Leukocytosis. improved 7. resolved hypotension. 8. electrolyte imbalance 9. Dementia. 10. Diabetes. 11. G-tube. 12. peripheral edema 13. 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 dc to snf 2. continue medications as is 3. monitor peripheral edema 4. monitor in and out 5. adjust fluids 6. IV antibiotics; dc on transfer 7. d/w consultants 8. Anticoagulation 9. Digoxin with caution. monitor levels 10. Sliding scale insulin dc today if cleared by all impression, plan, and exam edited and reviewed in detail care discussed with Eduardo Kern MD May 18, 2020 08:10
--- NOTE | 2020-05-18 08:15 | General Progress Note ---
Assessment/Plan Problem List: (1) Hyperkalemia ICD Codes: E87.5 - Hyperkalemia SNOMED: 34683216 (2) Renal failure ICD Codes: N19 - Unspecified kidney failure SNOMED: 25108002 Qualifiers: Qualified Codes: N17.9 - Acute kidney failure, unspecified (3) Dehydration ICD Codes: E86.0 - Dehydration SNOMED: 11971399 (4) Malnutrition of moderate degree ICD Codes: E44.0 - Moderate protein-calorie malnutrition SNOMED: 624498610 (5) SARWAT (acute kidney injury) ICD Codes: N17.9 - Acute kidney failure, unspecified SNOMED: 3495752, 67675458 (6) Yeast cystitis ICD Codes: B37.41 - Candidal cystitis and urethritis SNOMED: 338379621 Status: stable Assessment/Plan: stable water flushes prn diuresis per cards monitor volume status and renal fxn monitor lytes replace as needed abx per id o2 as needed tube feeds monitor residuals skin care turn q2 dvt/stress ulcer prophylaxis blood sugars stable on current diabetic regime Subjective ROS Limited/Unobtainable: No Constitutional: Reports: malaise, weakness HEENT: Reports: no symptoms Cardiovascular: Reports: no symptoms Respiratory: Reports: cough, shortness of breath Gastrointestinal/Abdominal: Reports: difficulty swallowing Genitourinary: Reports: no symptoms Neurologic/Psychiatric: Reports: pre-existing deficit Endocrine: Reports: no symptoms Hematologic/Lymphatic: Reports: anemia Allergies: Coded Allergies: No Known Allergies (Unverified , 01/30/20) All Systems: reviewed and negative except above Subjective no events. lethargic/poorly responsive- apparently agitated during the day. no fevers. tolerating feeds. decreased edema. remains on iv abx. Objective Last 24 Hour Vital Signs Date Time Temp Pulse Resp B/P (MAP) Pulse Ox O2 Delivery O2 Flow Rate FiO2 05/18/20 04:00 98.6 71 20 141/78 (99) 93 05/18/20 00:00 97.5 65 20 134/82 (99) 93 05/17/20 22:24 Nasal Cannula 2.0 05/17/20 20:00 98.6 76 20 147/65 (92) 93 05/17/20 16:00 99.0 71 23 136/50 (78) 93 05/17/20 12:00 97.9 72 23 135/70 (91) 95 05/17/20 09:00 Nasal Cannula 2.0 Intake and Output 05/17/20 05/18/20 19:00 07:00 Intake Total 1495.000 ml 445 ml Output Total 1000 ml 2100 ml Balance 495.000 ml -1655 ml Intake Free Water 330 ml 60 ml IV Total 780.000 ml Tube Feeding 385 ml 385 ml Output Urine Total 1000 ml 2100 ml # Bowel Movements 2 4 Laboratory Tests 05/17/20 09:05: White Blood Count 12.2H, Red Blood Count 3.42L, Hemoglobin 9.2L, Hematocrit 29.6L, Mean Corpuscular Volume 86, Mean Corpuscular Hemoglobin 26.9L, Mean Corpuscular Hemoglobin Concent 31.2L, Red Cell Distribution Width 19.3H, Platelet Count 199, Mean Platelet Volume 8.1, Neutrophils (%) (Auto) 82.4H, Lymphocytes (%) (Auto) 9.9L, Monocytes (%) (Auto) 6.0, Eosinophils (%) (Auto) 0.8, Basophils (%) (Auto) 1.0, Sodium Level 140, Potassium Level 3.6, Chloride Level 103, Carbon Dioxide Level 33H, Anion Gap 4L, Blood Urea Nitrogen 31H, Creatinine 1.3, Estimat Glomerular Filtration Rate 38.7, Glucose Level 132H, Calcium Level 7.3L, Total Bilirubin 0.1L, Aspartate Amino Transf (AST/SGOT) 25, Alanine Aminotransferase (ALT/SGPT) 13, Alkaline Phosphatase 63, Total Protein 4.5L, Albumin 1.3L, Globulin 3.2, Albumin/Globulin Ratio 0.4L 05/17/20 11:45: Vancomycin Level Trough 13.8H 05/18/20 05:15: Sodium Level 141, Potassium Level 3.8, Chloride Level 104, Carbon Dioxide Level 37H, Anion Gap 0L, Blood Urea Nitrogen 28H, Creatinine 1.2, Estimat Glomerular Filtration Rate 42.4, Glucose Level 60L, Calcium Level 8.1L, Total Bilirubin 0.3 , Aspartate Amino Transf (AST/SGOT) 28, Alanine Aminotransferase (ALT/SGPT) 12, Alkaline Phosphatase 71, Total Protein 5.2L, Albumin 1.4L, Globulin 3.8, Albumin /Globulin Ratio 0.4L, Magnesium Level 1.9 Height (Feet): 5 Height (Inches): 2.00 Weight (Pounds): 135 Objective General Appearance: WD/WN, lethargic, confused EENT: PERRL/EOMI, normal ENT inspection Neck: non-tender, normal alignment, supple Cardiovascular: normal peripheral pulses, normal rate Respiratory/Chest: chest wall non-tender, lungs clear, normal breath sounds, no respiratory distress Abdomen: normal bowel sounds, non tender, soft, no organomegaly, no mass Extremities: normal range of motion, non-tender Edema: no edema noted Arm (L), no edema noted Arm (R) Edema: trace edema 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
[2020-05-18] MEDS ORDERED: DEPAKENE L250 MG/5 M GT (08:16)
[2020-05-18] MEDS ORDERED: PACERONE200 MG GT (08:16)
[2020-05-18] MEDS: Valproic Acid 250mg/5ml Liquid GT SCH (09:06)
[2020-05-18] MEDS: Eliquis 2.5mg tablet GT SCH (09:06)
[2020-05-18] MEDS: Amiodarone 200mg tab GT SCH (09:06)
--- NOTE | 2020-05-18 10:18 | NUR ---
*-*DISCHARGE PLANNED*-* PATIENT HAS BEEN REFERRED BACK TO [facility] P: [phone] FOR NURSE TO NURSE REPORT ROOM# 138 [facility] TRANSPORTATION SET FOR 12:30 S/W STEVE [id number]. S/W PATIENTS DAUGHTER LAUREN COLLINS, WHO IS AGREEMENT WITH DISCHARGE PLAN.
--- NOTE | 2020-05-18 12:31 | Infectious Diseases Prog Note ---
Assessment/Plan Assessment/Plan A 1. Candidal UTI 2. cholelithiasis 3. Pneumonia 4. leucocytosis improving 5. renal failure improving 6. dementia 7. COPD 8. 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 GT infection P 1. Discontinue Meropenem 2. Agree with discharge Subjective ROS Limited/Unobtainable: Yes Constitutional: Denies: fever Allergies: Coded Allergies: No Known Allergies (Unverified , 01/30/20) Objective Last 24 Hour Vital Signs Date Time Temp Pulse Resp B/P (MAP) Pulse Ox O2 Delivery O2 Flow Rate FiO2 05/18/20 09:00 Nasal Cannula 2.0 05/18/20 08:17 98 Nasal Cannula 2.0 28 05/18/20 08:00 98.3 75 20 137/82 (100) 95 05/18/20 04:00 98.6 71 20 141/78 (99) 93 05/18/20 00:00 97.5 65 20 134/82 (99) 93 05/17/20 22:24 Nasal Cannula 2.0 05/17/20 20:00 98.6 76 20 147/65 (92) 93 05/17/20 16:00 99.0 71 23 136/50 (78) 93 Height (Feet): 5 Height (Inches): 2.00 Weight (Pounds): 135 General Appearance: no acute distress HEENT: mucous membranes moist Respiratory/Chest: lungs clear Cardiovascular: normal rate Abdomen: soft, non tender, other - GT feeding Genitourinary: other - Christianson catheter Extremities: other - edema more in R arm Skin: ulcers, other - deep tissue injury in sacral area Neurologic/Psychiatric: unresponsiveness Laboratory Tests Test 05/18/20 05:15 Sodium Level 141 MMOL/L (136-145) Potassium Level 3.8 MMOL/L (3.5-5.1) Chloride Level 104 MMOL/L (98-107) Carbon Dioxide Level 37 MMOL/L (21-32) H Anion Gap 0 mmol/L (5-15) L Blood Urea Nitrogen 28 mg/dL (7-18) H Creatinine 1.2 MG/DL (0.55-1.30) Estimat Glomerular Filtration Rate 42.4 mL/min (>60) Glucose Level 60 MG/DL (74-106) L Calcium Level 8.1 MG/DL (8.5-10.1) L Magnesium Level 1.9 MG/DL (1.8-2.4) Total Bilirubin 0.3 MG/DL (0.2-1.0) Aspartate Amino Transf (AST/SGOT) 28 U/L (15-37) Alanine Aminotransferase (ALT/SGPT) 12 U/L (12-78) Alkaline Phosphatase 71 U/L (46-116) Total Protein 5.2 G/DL (6.4-8.2) L Albumin 1.4 G/DL (3.4-5.0) L Globulin 3.8 g/dL Albumin/Globulin Ratio 0.4 (1.0-2.7) L Current Medications Medications (Trade) Dose Ordered Sig/Jazmine Route PRN Reason Start Time Stop Time Status Last Admin Dose Admin Acetaminophen (Tylenol) 500 mg Q4H PRN GT Mild Pain (Pain Scale 1-3) 05/09/20 22:46 06/08/20 22:45 05/17/20 09:48 Amiodarone HCl (Cordarone) 200 mg DAILY GT 05/10/20 09:00 08/03/20 08:59 05/18/20 09:06 Apixaban (Eliquis) 2.5 mg DAILY GT 05/10/20 09:00 08/03/20 08:59 05/18/20 09:06 Dextrose (Dextrose 50%) 25 ml Q30M PRN IV Hypoglycemia 05/09/20 23:00 08/02/20 19:59 Dextrose (Dextrose 50%) 50 ml Q30M PRN IV Hypoglycemia 05/09/20 23:00 08/02/20 19:59 Docusate Sodium (Colace) 100 mg BIDPRN PRN GT Constipation 05/09/20 22:49 06/08/20 22:48 Glimepiride (AmaryL) 2 mg BID@0630,1630 GT 05/10/20 06:30 06/09/20 06:29 05/18/20 05:40 Hydralazine HCl (Apresoline) 25 mg Q6H PRN ORAL SBP above 150 05/12/20 17:45 08/10/20 17:44 05/14/20 06:16 Insulin Aspart (NovoLOG) BEFORE MEALS AND HS SUBQ 05/15/20 21:00 08/13/20 20:59 05/17/20 13:08 Lansoprazole (Prevacid) 30 mg DAILY@0630 GT 05/10/20 06:30 06/06/20 06:29 05/18/20 05:40 Meropenem 500 mg/ Sodium Chloride 55 ml @ 110 mls/hr Q12H IVPB 05/12/20 17:00 05/18/20 23:59 05/18/20 05:01 Multivitamins (Multivitamins) 1 tab DAILY GT 05/11/20 09:00 06/04/20 08:59 05/18/20 09:06 Sitagliptin Phosphate (Januvia) 25 mg ACBREAKFAST GT 05/14/20 06:30 06/13/20 06:29 05/18/20 05:40 Valproic Acid (Depakene) 500 mg Q12HR GT 05/10/20 09:00 06/22/20 21:29 05/18/20 09:06 Vancomycin HCl (Vanco pharmacy to dose) 1 ea DAILY PRN MISC Per rx protocol 05/13/20 11:30 06/12/20 11:29 Vancomycin HCl 750 mg/Sodium Chloride 275 ml @ 183.333 mls/hr Q48H IVPB 05/15/20 13:00 05/20/20 12:59 05/17/20 13:24 Tuan Becerra MD May 18, 2020 12:31
--- NOTE | 2020-05-18 13:51 | Nephrology Progress Note ---
Assessment/Plan Plan A/P CKD 3 , atrophic kidneys on US, Anasarca. Subjective Subjective Obtunded Objective Objective Last 24 Hour Vital Signs Date Time Temp Pulse Resp B/P (MAP) Pulse Ox O2 Delivery O2 Flow Rate FiO2 05/18/20 09:00 Nasal Cannula 2.0 05/18/20 08:17 98 Nasal Cannula 2.0 28 05/18/20 08:00 98.3 75 20 137/82 (100) 95 05/18/20 04:00 98.6 71 20 141/78 (99) 93 05/18/20 00:00 97.5 65 20 134/82 (99) 93 05/17/20 22:24 Nasal Cannula 2.0 05/17/20 20:00 98.6 76 20 147/65 (92) 93 05/17/20 16:00 99.0 71 23 136/50 (78) 93 Intake and Output 05/17/20 05/18/20 19:00 07:00 Intake Total 1495.000 ml 535 ml Output Total 1000 ml 2100 ml Balance 495.000 ml -1565 ml Intake Free Water 330 ml 60 ml IV Total 780.000 ml 55 ml Tube Feeding 385 ml 420 ml Output Urine Total 1000 ml 2100 ml # Bowel Movements 2 4 Laboratory Tests 05/18/20 05:15: Sodium Level 141, Potassium Level 3.8, Chloride Level 104, Carbon Dioxide Level 37H, Anion Gap 0L, Blood Urea Nitrogen 28H, Creatinine 1.2, Estimat Glomerular Filtration Rate 42.4, Glucose Level 60L, Calcium Level 8.1L, Magnesium Level 1.9 , Total Bilirubin 0.3, Aspartate Amino Transf (AST/SGOT) 28, Alanine Aminotransferase (ALT/SGPT) 12, Alkaline Phosphatase 71, Total Protein 5.2L, Albumin 1.4L, Globulin 3.8, Albumin/Globulin Ratio 0.4L Height (Feet): 5 Height (Inches): 2.00 Weight (Pounds): 135 Objective CV RR Lungs CTA Abd Ascites . SNT. BS = E ++++ edema Jonathan Berry MD May 18, 2020 13:51
--- NOTE | 2020-05-18 13:51 | NUR ---
NURSE NOTES: Report given to Toshia at [facility]. Daughter, Ramona Victoria, notified that patient will be leaving the hospital and going to [facility] room 138B.
--- NOTE | 2020-05-18 16:27 | Surgery Progress Note ---
Surgery Progress Note Subjective Additional Comments late entry improved no n/v/f/c comfortable d/c plan for today Objective Last 24 Hour Vital Signs Date Time Temp Pulse Resp B/P (MAP) Pulse Ox O2 Delivery O2 Flow Rate FiO2 05/18/20 09:00 Nasal Cannula 2.0 05/18/20 08:17 98 Nasal Cannula 2.0 28 05/18/20 08:00 98.3 75 20 137/82 (100) 95 05/18/20 04:00 98.6 71 20 141/78 (99) 93 05/18/20 00:00 97.5 65 20 134/82 (99) 93 05/17/20 22:24 Nasal Cannula 2.0 05/17/20 20:00 98.6 76 20 147/65 (92) 93 I&O Intake and Output 05/17/20 05/18/20 19:00 07:00 Intake Total 1495.000 ml 535 ml Output Total 1000 ml 2100 ml Balance 495.000 ml -1565 ml Intake Free Water 330 ml 60 ml IV Total 780.000 ml 55 ml Tube Feeding 385 ml 420 ml Output Urine Total 1000 ml 2100 ml # Bowel Movements 2 4 Dressing: other Wound: other Cardiovascular: RSR Respiratory: decreased breath sounds Abdomen: soft, non-tender, present bowel sounds Extremities: no tenderness, no cyanosis Laboratory Tests Test 05/18/20 05:15 Sodium Level 141 MMOL/L (136-145) Potassium Level 3.8 MMOL/L (3.5-5.1) Chloride Level 104 MMOL/L (98-107) Carbon Dioxide Level 37 MMOL/L (21-32) H Anion Gap 0 mmol/L (5-15) L Blood Urea Nitrogen 28 mg/dL (7-18) H Creatinine 1.2 MG/DL (0.55-1.30) Estimat Glomerular Filtration Rate 42.4 mL/min (>60) Glucose Level 60 MG/DL (74-106) L Calcium Level 8.1 MG/DL (8.5-10.1) L Magnesium Level 1.9 MG/DL (1.8-2.4) Total Bilirubin 0.3 MG/DL (0.2-1.0) Aspartate Amino Transf (AST/SGOT) 28 U/L (15-37) Alanine Aminotransferase (ALT/SGPT) 12 U/L (12-78) Alkaline Phosphatase 71 U/L (46-116) Total Protein 5.2 G/DL (6.4-8.2) L Albumin 1.4 G/DL (3.4-5.0) L Globulin 3.8 g/dL Albumin/Globulin Ratio 0.4 (1.0-2.7) L Plan Problems: (1) Deep tissue injury Assessment & Plan: Pt presented on admission with Multiple Pressure injuries. Sacral DTPI noted (L)6.7cm x (W)6.9cm. Base of wound is purpuric ,partially opened -ruby and indurated. No odor or exudate noted. Non-blanching erythema periwound.DTPI noted to R Ischium(L)4cm x (W)2.2cm.Base of Pressure injury maroon and indurated. Non-Blanching erythema without induration noted to L ischium. Vulva is swollen and erythematous . DTPI noted to R Heel(L)3.3cm x (W)2.9cm. Wound is is blood filled purpuric Blister with surrounding non-blanchable and boggy heel. R Heel is Boggy with Non-Blanchable erythema. Tx.Plan: Apply Moisture Barrier Paste to Sacrum. Cover with Optifoam drsg. Change every 3 days and prn. Apply Moisture Barrier Paste to R ischium. Cover with Optifoam drsg. Change every 3 days and prn. Apply Moisture Barrier Paste to Bilat groin, perineum and L ischium with each perineal care. Apply Cavilon Skin Barrier to R and L trochanteric areas. Cover each site with Optifoam drsg. Change every 7 days and prn. Reposition at least every 2hours or as tolerated. Off-load heels with pillow. APM/MARY ANN Mattress overlay. (2) Dehydration (3) Hypokalemia (4) Renal failure (5) Hyperkalemia (6) UTI (urinary tract infection) (7) Severe sepsis Assessment & Plan: Patient with significant leukocytosis, lactic acidosis, abnormal electrolytes, renal insufficiency, anemia. UA noted. Microbiology reviewed. Imaging reviewed. COVID negative. Patient with multiple deep tissue injuries and severe malnutrition albumin 1 Wounds unlikely the source or etiology of patient's sepsis. No abscess or fluid collections requiring drainage currently identified. Continue IV antibiotics per infectious disease We will continue to monitor and identify assist with care and management Thank you for let me participate patient's care will follow with recommendations nutritional optimization improving d/c planning from surgical standpoint cont nutrition DAILY ESTIMATED NEEDS: Needs based on DM, wound, renal/ 49kg 30-35 kcals/kg 0552-4563 total kcals 1.25-1.5 g protein/kg 61-74 g total protein 25-30ml/kcal mL/kg 9765-0973 total fluid mLs NUTRITION DIAGNOSIS: * Increased kcal and pro needs r/t wound care as evidenced by open sacral wound per photo, eval pending. * Swallowing difficulty R/T dysphagia as evidenced by GT dependent. ENTERAL NUTRITION RECOMMENDATIONS: NEPRO @43ml/hr x 20hrs to provide 860ml, 1548kcal, 70g prot, 625ml free water * As medically able, start NEPRO @23ml/hr for 6 hrs, advance as tolerated 10ml q4-6 hrs * HOB over 30 degrees * Without IVF, water flush of ml q 130ml q4 hrs -------- ADDITIONAL RECOMMENDATIONS: * PER SNF: Height 4'11" inches and 108 lbs * Rec D5 while NPO * F/up w/ WC eval-> add IMAN in 4oz via GT BID with tube feeds * Rec renal formula as above d/t renal failure on adm * Maintain accurate calibrated bed scale weights . Dimitris Diaz May 18, 2020 16:27
--- NOTE | 2020-05-19 00:09 | Psych Consult Progress Note ---
Psychiatry Progress Note Psychiatry Progress Note Subjective 05/18/20 confused agitation Neurological/Psychiatric: Reports: anxiety, depressed, emotional problems, pre- existing deficit Allergies: Coded Allergies: No Known Allergies (Unverified , 01/30/20) Objective Data Height (Feet): 5 Height (Inches): 2.00 Weight (Pounds): 135 General Appearance: WD/WN, alert, confused, agitated Appearance: bizarre Behavior Mannerisms: poor eye contact Mental Status Exam - Affect: flat Additional Comments: The patient is awake. She is confused and disoriented. Mood is agitated. Affect is flat. Thought process, disorganized. Thought content, no suicidal or homicidal ideation. Cognition is impaired. Insight and judgment is impaired. Assessment/Plan [place] I: ASSESSMENT: AXIS I: Dementia with behavior disturbance. AXIS II: Deferred. AXIS III: As above. AXIS IV: Low. AXIS V: 20. PLAN: 1. Haldol IM p.r.n. 2. Ativan p.r.n. 3. Provide the patient with reality orientation and supportive therapy. Status: stable Status Narrative ASSESSMENT: AXIS I: Dementia with behavior disturbance. AXIS II: Deferred. AXIS III: As above. AXIS IV: Low. AXIS V: 20. PLAN: 1. Haldol IM p.r.n. 2. Ativan p.r.n. 3. Provide the patient with reality orientation and supportive therapy. Assessment/Plan: ASSESSMENT: AXIS I: Dementia with behavior disturbance. AXIS II: Deferred. AXIS III: As above. AXIS IV: Low. AXIS V: 20. PLAN: 1. Haldol IM p.r.n. 2. Ativan p.r.n. 3. Provide the patient with reality orientation and supportive therapy. Shena Campos MD May 19, 2020 00:09
--- NOTE | 2020-05-19 01:14 | Cardiology Progress Note ---
Subjective DATE OF SERVICE: May 18, 2020 Less swollen, and still responding well to diuresis. Renal function has improved significantly BP parameters improved Objective Last 24 Hour Vital Signs Date Time Temp Pulse Resp B/P (MAP) Pulse Ox O2 Delivery O2 Flow Rate FiO2 05/18/20 09:00 Nasal Cannula 2.0 05/18/20 08:17 98 Nasal Cannula 2.0 28 05/18/20 08:00 98.3 75 20 137/82 (100) 95 05/18/20 04:00 98.6 71 20 141/78 (99) 93 RHYTHM: ST, Afib LUNGS: accessory muscle use, bilateral rhonchi CARDIAC: regular rhythm, normal S1 and S2, arrhythmia ABDOMEN: normal bowel sounds, non tender, no organomegaly, G-Tube intact EXTREMITIES: no calf tenderness, pitting edema Laboratory Tests Test 05/18/20 05:15 Sodium Level 141 MMOL/L (136-145) Potassium Level 3.8 MMOL/L (3.5-5.1) Chloride Level 104 MMOL/L (98-107) Carbon Dioxide Level 37 MMOL/L (21-32) H Anion Gap 0 mmol/L (5-15) L Blood Urea Nitrogen 28 mg/dL (7-18) H Creatinine 1.2 MG/DL (0.55-1.30) Estimat Glomerular Filtration Rate 42.4 mL/min (>60) Glucose Level 60 MG/DL (74-106) L Calcium Level 8.1 MG/DL (8.5-10.1) L Magnesium Level 1.9 MG/DL (1.8-2.4) Total Bilirubin 0.3 MG/DL (0.2-1.0) Aspartate Amino Transf (AST/SGOT) 28 U/L (15-37) Alanine Aminotransferase (ALT/SGPT) 12 U/L (12-78) Alkaline Phosphatase 71 U/L (46-116) Total Protein 5.2 G/DL (6.4-8.2) L Albumin 1.4 G/DL (3.4-5.0) L Globulin 3.8 g/dL Albumin/Globulin Ratio 0.4 (1.0-2.7) L Assessment/Plan Assessment/Plan Sepsis with shock recovered Acute on chronic diastolic CHF UTI Metabolic and toxic encephalopathies HC associated aspiration PNA PAFib now with slow heart rates Acute renal failure resolved hypernatremia/dehydration corrected Lactic acidosis resolved Severe protein-calorie malnutrition Hypertension/HHD with labile BP Hypokalemia corrected Hypomagnesemia corrected Continue oral diuretic therapy at SNF Full anticoagulation Nutrition by Gtube Follow up lytes; correcting K+/Mg++ as needed. Continue maintenance dose amiodarone; continue off digoxin. Augusto Benítez MD May 19, 2020 01:14
--- NOTE | 2020-05-22 11:23 | Discharge Summary ---
Discharge Summary Discharge Summary _ DATE OF ADMISSION: 05/04/2020 DATE OF DISCHARGE: 05/18/2020 DISCHARGED BY: Dr. Zeng REASON FOR ADMISSION: 89 years old female with past medical history of chronic encephalopathy, dementia, diabetes mellitus, acute renal failure, DNR/DNI status, presented with hypotension , acute renal failure, hyperkalemia and hypoxemia. Rapid COVID-19 in emergency department was negative. Patient is a DNR/DNI status. Patient noted to have significant multiorgan dysfunction. Chest x-ray revealed no acute cardiopulmonary pathology. Patient was profoundly hypotensive and hypoxic , requiring 10 L of simple mask. Laboratory work-up revealed significant leukocytosis WBC 39.3. Lactic acid 4.9. BUN 125, creatinine 3.5. Potassium 7.8, sodium 133. Troponin 0.026. pro BNP 83578. EKG revealed atrial fibrillation with rapid ventricular response. Urinalysis revealed evidence of urinary tract infection. Septic work-up initiated , treatment of hyperkalemia initiated, patient received fluids with improvement in blood rpessure and heart rate and admitted for further management. CONSULTANTS: logistics lead ID specialist Dr. Grant plastic mixer Dr Daley surgery Dr. Diaz psychiatrist [facility]SE: Patient admitted started on IV hydration and empiric antibiotics. SNF medication resumed. Lasix was hold . Hyperkalemia was further treated. Blood sugar was managed with sliding scale. Patient also noted to have a G-tube site infection. Blood cultures were negative. Urine culture revealed Lena. Stool for C. difficile was negative. Wound culture revealed E. coli ESBL and staph epidermidis. Antibiotic provided as per ID recommendation. Patient completed antibiotics while in the hospital. Leukocytosis trended down and prior to discharge 12.2 , no fevers. Patient was followed-up with chest x-ray. Supplemental oxygen pro.ided and titrated to keep pulse oximetry above 92% . Pulmonary toilet provided Heart rate was controlled with amiodarone and digoxin . Eliquis continued. Heart rate stabilized. Hemodynamic status was closely monitored. b Bood pressure responded to IV fluids, no need for pressors. Echocardiogram revealed preserved ejection fraction of 65%. No evidence of left ventricular hypertrophy. No evidence of wall motion abnormality. Diastolic dysfunction noted. When blood pressure stabilized , patient started on diuresis with close monitoring of volumes and cardiorenal parameters. Patient responded well to diuresis. Prior to discharge diuretic changed to oral route . Renal ultrasound revealed atrophic kidneys. Ascites. Distended gallbladder with cholelithiasis. Renal parameters and electrolytes were closely monitored ,electrolytes corrected as needed , nephrotoxic's were avoided. Prior to discharge BUN from 125 down to 28 and creatinine from 3.5 down to 1.2. Acute renal failure resolved. Patient also had a chronic kidney disease stage III with evidence of atrophic kidneys on ultrasound. Patient presented on admission with multiply pressure injury. Wound care provided as per surgeon recommendation . Continue wound care at the facility. Psychiatric medication regimen was optimized as per psychiatrist. Reality orientation and supportive therapy provided. Patient clinically stabilized and remained hemodynamically stable for transfer. Pulse oximetry stable on oxygen 2 L via nasal cannula. Patient was ready for transfer back to group home facility for continuation of care. FINAL DIAGNOSES: Sepsis with shock -recovered Pneumonia/healthcare associated aspiration Lena UTI G-tube site infection Acute on chronic diastolic CHF Acute renal failure on CKD 3 Metabolic and toxic encephalopathy Hypernatremia Paroxysmal atrial fibrillation with rapid ventricular response Lactic acidosis - resolved Dehydration Hyperkalemia Severe protein calorie malnutrition Diabetes mellitus COPD Dementia with behavioral disturbances Deep tissue injury present on admission DISCHARGE MEDICATIONS: See Medication Reconciliation list. DISCHARGE INSTRUCTIONS: Patient was discharged to the group home facility. Follow up with medical doctor at the facility. I have been assigned to dictate discharge summary for this account. I was not involved in the patient's management. Mariangel Morse NP May 22, 2020 11:23
== END 2020-05-18 14:40 | DRG 720 ==
LOC: EDBD 14:39 → EMR 15:23 → 2E 16:20 → EDBEDREQ 17:14 → 2E 18:19 → 4E 05-09 22:41
DX: A41.9 Sepsis, unspecified organism (principal); R65.21 Severe sepsis with septic shock; J69.0 Pneumonitis due to inhalation of food and vomit; E43 Unspecified severe protein-calorie malnutrition; I50.43 Acute on chronic combined systolic (congestive) and diastolic (congestive) heart failure; N17.9 Acute kidney failure, unspecified; E86.1 Hypovolemia; E87.5 Hyperkalemia; I48.91 Unspecified atrial fibrillation; E11.65 Type 2 diabetes mellitus with hyperglycemia; E11.22 Type 2 diabetes mellitus with diabetic chronic kidney disease; G92 Toxic encephalopathy; E87.1 Hypo-osmolality and hyponatremia; F03.91 Unspecified dementia, unspecified severity, with behavioral disturbance; N18.3 Chronic kidney disease, stage 3 (moderate); B37.49 Other urogenital candidiasis; K80.20 Calculus of gallbladder without cholecystitis without obstruction; Y95 Nosocomial condition; I48.0 Paroxysmal atrial fibrillation; Z66 Do not resuscitate; L89.156 Pressure-induced deep tissue damage of sacral region; L89.216 Pressure-induced deep tissue damage of right hip; L89.616 Pressure-induced deep tissue damage of right heel; E86.0 Dehydration; Z43.1 Encounter for attention to gastrostomy; Z22.322 Carrier or suspected carrier of Methicillin resistant Staphylococcus aureus; E83.42 Hypomagnesemia; E87.0 Hyperosmolality and hypernatremia; J44.9 Chronic obstructive pulmonary disease, unspecified
CPT/HCPCS: 36415; 71045; 76770; 78266; 80048; 80053; 80162; 80202; 81003; 82550; 82570; 82728; 82962; 83605; 83615; 83690; 83735; 83880; 84100; 84300; 84443; 84484; 84550; 85007; 85025; 85610; 85730; 86140; 87040; 87070; 87081; 87086; 87181; 87205; 87324; 93005; 93306; 94640; 96361; 96365; 96368; 96375; 99291; 99292; J1815; J7030; J8499; U0002